=== PATIENT | male | born 1935 | race Caucasian/White ===

== ENCOUNTER 2017-12-16 00:13 | Observation (INO) | payer MEDICARE, OTHER ==
--- NOTE | 2017-12-16 00:39 | EDM.PDOC ---
ED HPI GENERAL MEDICAL PROBLEM - General Chief Complaint: Cardiovascular Problem Stated Complaint: HIGH BLOOD PRESSURE Time Seen by Provider: 12/16/17 00:37 - History of Present Illness INITIAL COMMENTS - FREE TEXT/NARRATIVE: HISTORY AND PHYSICAL: History of present illness: Patient is an 82-year-old white male is currently undergoing radiation therapy for his prostate cancer also has history of hypertension and presents with a concern of elevated blood pressure and heart rate he states he checked his blood pressure home it was 167/90 with a heart rate of 89 these were alarming numbers to him he states he did feel somewhat warm and denies chest pain shortness of breath nausea vomiting or other complaints and states that his blood pressure heart rate warrants measured with the results reported he would not come to the emergency department. Review of systems: As per history of present illness and below otherwise all systems reviewed and negative. Past medical history: As per history of present illness and as reviewed below otherwise noncontributory. Surgical history: As per history of present illness and as reviewed below otherwise noncontributory. Social history: No reported history of drug or alcohol abuse. Family history: As per history of present illness and as reviewed below otherwise noncontributory. Physical exam: HEENT: Atraumatic, normocephalic, pupils reactive, negative for conjunctival pallor or scleral icterus, mucous membranes moist, throat clear, neck supple, nontender, trachea midline. Lungs: Clear to auscultation, breath sounds equal bilaterally, chest nontender. Heart: S1S2, regular, negative for clicks, rubs, or JVD. Abdomen: Soft, nondistended, nontender. Negative for masses or hepatosplenomegaly. Negative for costovertebral tenderness. Pelvis: Stable nontender. Genitourinary: Deferred. Rectal: Deferred. Extremities: Atraumatic, negative for cords or calf pain. Neurovascular unremarkable. 2+ edema noted Neuro: Awake, alert, anxious, oriented. Cranial nerves II through XII unremarkable. Cerebellum unremarkable. Motor and sensory unremarkable throughout. Exam nonfocal. 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 no pain Pain Score (Numeric/FACES): 0 - Related Data Allergies Allergy/AdvReac Type Severity Reaction Status Date / Time amiodarone Allergy Renal Verified 12/16/17 00:19 Insufficiency simvastatin Allergy Other Verified 12/16/17 00:19 Home Meds: Home Meds Aspirin 81 mg PO DAILY 03/05/15 [History] Doxazosin [Cardura] 2 mg PO BEDTIME 03/05/15 [History] Metoprolol Tartrate [Lopressor] 50 mg PO BID 03/05/15 [History] NIFEdipine [Nifedipine ER] 15 mg PO BRK 03/05/15 [History] Cholecalciferol (Vitamin D3) [Vitamin D] 1 cap PO DAILY 09/15/17 [History] Gabapentin [Neurontin] 100 mg PO DAILY 09/15/17 [History] Ibuprofen 200 mg PO BID 12/16/17 [History] Minocycline [Minocin] 100 mg PO DAILY 12/16/17 [History] Tamsulosin [Flomax] 1 cap PO DAILY 12/16/17 [History] Past Medical History HEENT History: Reports: None Cardiovascular History: Reports: High Cholesterol, Hypertension, [place] Respiratory History: Reports: None Gastrointestinal History: Reports: Hiatal Hernia Other Gastrointestinal History: Current left inguinal hernia Genitourinary History: Reports: Prostate Disorder Other Genitourinary History: Watch my prostate annually Musculoskeletal History: Reports: Other (See Below) Other Musculoskeletal History: hx: fracturing leg Neurological History: Reports: None Psychiatric History: Reports: None Endocrine/Metabolic History: Reports: None Hematologic History: Reports: None Immunologic History: Reports: None Oncologic (Cancer) History: Reports: Prostate Dermatologic History: Reports: Other (See Below) Other Dermatologic History: SKin areas froze off face - Infectious Disease History Infectious Disease History: Reports: None - Past Surgical History Cardiovascular Surgical History: Reports: Valve Replacement Other Cardiovascular Surgeries/Procedures: Aortic and Mitral Valve replaced GI Surgical History: Reports: Hernia, Inguinal Other Musculoskeletal Surgeries/Procedures:: Right Total Hip Replacement Social & Family History - Family History Family Medical History: Noncontributory - Tobacco Use Smoking Status *Q: Former Smoker Used Tobacco, but Quit: No Second Hand Smoke Exposure: No - Caffeine Use Caffeine Use: Reports: Coffee - Alcohol Use Days Per Week of Alcohol Use: 5 Number of Drinks Per Day: 1 Total Drinks Per Week: 5 - Recreational Drug Use Recreational Drug Use: No Drug Use in Last 12 Months: No - Living Situation & Occupation Living situation: Reports: Occupation: Retired ED ROS GENERAL - Review of Systems Review Of Systems: ROS reveals no pertinent complaints other than HPI. ED EXAM, GENERAL - Physical Exam Exam: See Below (See dictation) Course - Vital Signs Last Recorded V/S: Last Vital Signs Temp 36.6 C 12/16/17 00:19 Pulse 78 12/16/17 01:15 Resp 20 12/16/17 01:15 BP 144/80 H 12/16/17 01:15 Pulse Ox 95 12/16/17 01:15 - Orders/Labs/Meds Orders: Active Orders 24 hr Category Date Time Status EKG 12 Lead [EKG Documentation Completion] [RC] STAT Care 12/16/17 00:24 Active Chest 1V Frontal [CR] Stat Exams 12/16/17 00:34 Taken UA W/MICROSCOPIC [URIN] Stat Lab 12/16/17 01:00 Ordered Labs: Laboratory Tests 12/16/17 12/16/17 12/16/17 Range/Units 00:45 00:45 00:45 WBC 5.50 (4.0-11.0) K/uL RBC 3.53 L (4.50-5.90) M/uL Hgb 10.9 L (13.0-17.0) g/dL Hct 32.3 L (38.0-50.0) % MCV 91.5 (80.0-98.0) fL MCH 30.9 (27.0-32.0) pg MCHC 33.7 (31.0-37.0) g/dL RDW Std Deviation 45.3 (28.0-62.0) fl RDW Coeff of [place] 14 (11.0-15.0) % Plt Count 159 (150-400) K/uL MPV 9.80 (7.40-12.00) fL Neut % (Auto) 76.2 (48.0-80.0) % Lymph % (Auto) 5.6 L (16.0-40.0) % [place] % (Auto) 9.8 (0.0-15.0) % Eos % (Auto) 8.2 H (0.0-7.0) % Baso % (Auto) 0.2 (0.0-1.5) % Neut # (Auto) 4.2 (1.4-5.7) K/uL Lymph # (Auto) 0.3 L (0.6-2.4) K/uL [place] # (Auto) 0.5 (0.0-0.8) K/uL Eos # (Auto) 0.5 (0.0-0.7) K/uL Baso # (Auto) 0.0 (0.0-0.1) K/uL INR 1.05 Sodium 129 L (136-148) mmol/L Potassium 3.6 (3.5-5.1) mmol/L Chloride 96 L (98-107) mmol/L Carbon Dioxide 26.1 (21.0-32.0) mmol/L BUN 11 (7.0-18.0) mg/dL Creatinine 0.8 (0.8-1.3) mg/dL Est Cr Clr Drug Dosing 64.26 mL/min Estimated GFR (MDRD) > 60.0 ml/min Glucose 144 H (74-106) mg/dL Calcium 8.4 L (8.5-10.1) mg/dL Total Bilirubin 0.3 (0.2-1.0) mg/dL AST 25 (15-37) IU/L ALT 18 (14-63) IU/L Alkaline Phosphatase 85 (46-116) U/L Troponin I 0.115 H* (0.000-0.056) ng/mL Total Protein 6.9 (6.4-8.2) g/dL Albumin 3.4 (3.4-5.0) g/dL Globulin 3.5 (2.0-3.5) g/dL Albumin/Globulin Ratio 1.0 L (1.3-2.8) Urine Color Urine Appearance Urine pH (5.0-8.0) Ur Specific [place] (1.001-1.035) Urine Protein (NEGATIVE) mg/dL Urine Glucose (UA) (NEGATIVE) mg/dL Urine Ketones (NEGATIVE) mg/dL Urine Occult Blood (NEGATIVE) Urine Nitrite (NEGATIVE) Urine Bilirubin (NEGATIVE) Urine Urobilinogen (<2.0) EU/dL Ur Leukocyte Esterase (NEGATIVE) Urine RBC (0-2/HPF) Urine WBC (0-5/HPF) Ur Epithelial Cells (NONE-FEW) Urine Bacteria (NEGATIVE) Urine Mucus (NONE-MOD) 12/16/17 Range/Units 01:00 WBC (4.0-11.0) K/uL RBC (4.50-5.90) M/uL Hgb (13.0-17.0) g/dL Hct (38.0-50.0) % MCV (80.0-98.0) fL MCH (27.0-32.0) pg MCHC (31.0-37.0) g/dL RDW Std Deviation (28.0-62.0) fl RDW Coeff of [place] (11.0-15.0) % Plt Count (150-400) K/uL MPV (7.40-12.00) fL Neut % (Auto) (48.0-80.0) % Lymph % (Auto) (16.0-40.0) % [place] % (Auto) (0.0-15.0) % Eos % (Auto) (0.0-7.0) % Baso % (Auto) (0.0-1.5) % Neut # (Auto) (1.4-5.7) K/uL Lymph # (Auto) (0.6-2.4) K/uL [place] # (Auto) (0.0-0.8) K/uL Eos # (Auto) (0.0-0.7) K/uL Baso # (Auto) (0.0-0.1) K/uL INR Sodium (136-148) mmol/L Potassium (3.5-5.1) mmol/L Chloride (98-107) mmol/L Carbon Dioxide (21.0-32.0) mmol/L BUN (7.0-18.0) mg/dL Creatinine (0.8-1.3) mg/dL Est Cr Clr Drug Dosing mL/min Estimated GFR (MDRD) ml/min Glucose (74-106) mg/dL Calcium (8.5-10.1) mg/dL Total Bilirubin (0.2-1.0) mg/dL AST (15-37) IU/L ALT (14-63) IU/L Alkaline Phosphatase (46-116) U/L Troponin I (0.000-0.056) ng/mL Total Protein (6.4-8.2) g/dL Albumin (3.4-5.0) g/dL Globulin (2.0-3.5) g/dL Albumin/Globulin Ratio (1.3-2.8) Urine Color YELLOW Urine Appearance CLEAR Urine pH 6.5 (5.0-8.0) Ur Specific [place] 1.010 (1.001-1.035) Urine Protein NEGATIVE (NEGATIVE) mg/dL Urine Glucose (UA) NEGATIVE (NEGATIVE) mg/dL Urine Ketones NEGATIVE (NEGATIVE) mg/dL Urine Occult Blood NEGATIVE (NEGATIVE) Urine Nitrite NEGATIVE (NEGATIVE) Urine Bilirubin NEGATIVE (NEGATIVE) Urine Urobilinogen 0.2 (<2.0) EU/dL Ur Leukocyte Esterase NEGATIVE (NEGATIVE) Urine RBC 0-1 (0-2/HPF) Urine WBC 0-1 (0-5/HPF) Ur Epithelial Cells NOT SEEN (NONE-FEW) Urine Bacteria RARE (NEGATIVE) Urine Mucus LIGHT (NONE-MOD) Departure - Departure Time of Disposition: 01:43 Disposition: Refer to Observation Condition: Good Clinical Impression: History of hypertension, Elevated troponin, History of prostate cancer Referrals: PCP,None [Primary Care Provider] - Forms: ED Department Discharge Additional Instructions: t - My Orders Last 24 Hours: My Active Orders 12/16/17 00:24 EKG 12 Lead [EKG Documentation Completion] [RC] STAT 12/16/17 00:34 Chest 1V Frontal [CR] Stat 12/16/17 01:00 UA W/MICROSCOPIC [URIN] Stat - Assessment/Plan Last 24 Hours: My Active Orders 12/16/17 00:24 EKG 12 Lead [EKG Documentation Completion] [RC] STAT 12/16/17 00:34 Chest 1V Frontal [CR] Stat 12/16/17 01:00 UA W/MICROSCOPIC [URIN] Stat
[2017-12-16 01:18] LABS: CHLORIDE,CL 96 mmol/L (98-107); SODIUM,NA 129 mmol/L (136-148)
[2017-12-16] MEDS ORDERED: Metoprolol Tartrate 5 MG/5 ML SDV IVPUSH STA (03:00)
[2017-12-16] MEDS ORDERED: Aspirin 325 MG Tab PO ONE (03:01)
[2017-12-16] MEDS ORDERED: Enoxaparin 40 MG/0.4 ML Syringe SUBCUT STA (03:01)
[2017-12-16] MEDS ORDERED: hydrALAZINE 20 MG/ML SDV IVPUSH PRN (03:01)
[2017-12-16] MEDS ORDERED: Enoxaparin 100 MG/1 ML Syringe SUBCUT ONE (07:34)
--- NOTE | 2017-12-16 08:09 | PCM.HP ---
H&P History of Present Illness - General Date of Service: 12/16/17 Admit Problem/Dx: Admission Diagnosis/Problem Admission Diagnosis/Problem Elevated troponin I level Source of Information: Patient History Limitations: Reports: No Limitations - History of Present Illness Initial Comments - Free Text/Narative: This 82 year old male with pmh of CAD, HTN, CABG many years ago and aortic and mitral valve replacement, and prostate cancer currently receiving radition 29 days of 44 so far presented to the ED last evening with complaints of elevated BP when he took it last evening, 160-170/70-80s last evening, normally he runs 140-150 SBP. He became nervous and flushed and decided he should be evaluated. He denies any chest pain, jaw pain, back pain, N/V, diaphoresis, or palpitations. He reports otherwise feeling normal recently and has had no complaints. He denies dypsnea or significant dyspnea with ambulation. He denies abdominal pain, urinary symptoms or black or bloody BMs. Has had some intermittent diarrhea with radiation treatments to prostate. He reports smoking for three years when he was in the , quit in 1953. Rare alcohol use and no recreational drug use. No history of a fib or other arrhythmias. In the ED hgb 10.9, Na 129, Cl 96 and UA negative. EKG SR no acute ischemic changes. CXR negative. Troponin was noted to be elevated 0.115. He was admitted due to elevated troponin and blood pressure. PCP, [place] [facility] no pain Pain Score (Numeric/FACES): 0 - Related Data Allergies/Adverse Reactions: Allergies Allergy/AdvReac Type Severity Reaction Status Date / Time amiodarone Allergy Renal Verified 12/16/17 00:19 Insufficiency simvastatin Allergy Other Verified 12/16/17 00:19 Home Medications: Home Meds Aspirin 81 mg PO DAILY 03/05/15 [History] Doxazosin [Cardura] 2 mg PO BEDTIME 03/05/15 [History] Metoprolol Tartrate [Lopressor] 50 mg PO BID 03/05/15 [History] NIFEdipine [Nifedipine ER] 15 mg PO BRK 03/05/15 [History] Cholecalciferol (Vitamin D3) [Vitamin D] 1 cap PO DAILY 09/15/17 [History] Gabapentin [Neurontin] 100 mg PO DAILY 09/15/17 [History] Ibuprofen 200 mg PO BID 12/16/17 [History] Minocycline [Minocin] 100 mg PO DAILY 12/16/17 [History] Tamsulosin [Flomax] 0.4 mg PO DAILY 12/16/17 [History] Past Medical History HEENT History: Reports: None Cardiovascular History: Reports: CAD, Heart Valve Replacement, High Cholesterol , Hypertension, [place]. Denies: Afib, Blood Clots/VTE/DVT Respiratory History: Reports: None. Denies: Asthma, COPD, PE Gastrointestinal History: Reports: Hiatal Hernia Genitourinary History: Reports: Prostate Disorder, Other (See Below) Other Genitourinary History: Prostate CA, left inguinal hernia Musculoskeletal History: Reports: Other (See Below) Other Musculoskeletal History: hx: fracturing leg Neurological History: Reports: None. Denies: CVA, TIA Psychiatric History: Reports: None Endocrine/Metabolic History: Reports: None. Denies: Diabetes, Type II, Hypothyroidism Hematologic History: Reports: None Immunologic History: Reports: None Oncologic (Cancer) History: Reports: Prostate Dermatologic History: Reports: Other (See Below) Other Dermatologic History: SKin areas froze off face - Infectious Disease History Infectious Disease History: Reports: Measles - Past Surgical History HEENT Surgical History: Reports: Tonsillectomy Cardiovascular Surgical History: Reports: Coronary Artery Bypass, Valve Replacement Other Cardiovascular Surgeries/Procedures: Aortic and Mitral Valve replaced Respiratory Surgical History: Reports: None GI Surgical History: Reports: Hernia, Inguinal Male Surgical History: Reports: None Endocrine Surgical History: Reports: None Other Musculoskeletal Surgeries/Procedures:: Right Total Hip Replacement Social & Family History - Family History Family Medical History: Noncontributory - Tobacco Use Smoking Status *Q: Former Smoker Years of Tobacco use: 3 Used Tobacco, but Quit: Yes Month/Year Tobacco Last Used: 1953 Second Hand Smoke Exposure: No - Caffeine Use Caffeine Use: Reports: Coffee - Alcohol Use Days Per Week of Alcohol Use: 3 Number of Drinks Per Day: 1 Total Drinks Per Week: 3 Alcohol Use Frequency: Socially - Recreational Drug Use Recreational Drug Use: No Drug Use in Last 12 Months: No - Living Situation & Occupation Living situation: Reports: Occupation: Retired () H&P Review of Systems - Review of Systems: Review Of Systems: See Below General: Reports: No Symptoms. Denies: Fever, Chills, Malaise, Weakness, Fatigue HEENT: Reports: No Symptoms. Denies: Headaches, Hearing Changes, Sinus Congestion, Sore Throat, Vertigo Pulmonary: Reports: No Symptoms. Denies: Shortness of Breath, Wheezing, Cough, Sputum Cardiovascular: Reports: Blood Pressure Problem (elevated). Denies: Chest Pain , Palpitations, Edema, Lightheadedness Gastrointestinal: Reports: No Symptoms. Denies: Abdominal Pain, Black Stool, Bloody Stool, Nausea, Vomiting Genitourinary: Reports: No Symptoms. Denies: Dysuria, Frequency, Burning, Pain Musculoskeletal: Reports: No Symptoms. Denies: Neck Pain Skin: Reports: No Symptoms Psychiatric: Reports: No Symptoms Neurological: Reports: No Symptoms. Denies: Confusion Hematologic/Lymphatic: Reports: No Symptoms Immunologic: Reports: No Symptoms Exam - Exam Exam: See Below - Vital Signs Vital Signs: Last Vital Signs Temp 97.6 F 12/16/17 04:00 Pulse 79 12/16/17 04:00 Resp 18 12/16/17 04:00 BP 132/88 12/16/17 04:00 Pulse Ox 96 12/16/17 04:00 Weight: 76.4 kg - Exam Quality Assessment: DVT Prophylaxis General: Alert, Oriented, Cooperative HEENT: Conjunctiva Clear, Mucosa Moist & [place], Posterior Pharynx Clear, Pupils Reactive, TMs Clear Neck: Supple, Trachea Midline, 2 Lungs: Clear to Auscultation, Normal Respiratory Effort Cardiovascular: Regular Rate, Regular Rhythm GI/Abdominal Exam: Normal Bowel Sounds, Soft, Non-Tender, No Organomegaly, No Distention, No Abnormal Bruit, No Mass, Pelvis Stable Back Exam: Normal Inspection, Full Range of Motion, NT Extremities: Normal Inspection, Normal Range of Motion, Non-Tender, No Pedal Edema, Normal Capillary Refill Neurological: Cranial Nerves Intact, Reflexes Equal Bilateral Neuro Extensive - Mental Status: Alert, Oriented x3, Normal Mood/Affect, Normal Cognition Psychiatric: Alert, Normal Affect, Normal Mood - Patient Data Lab Results Last 24 hrs: Laboratory Results - last 24 hr 12/16/17 12/16/17 12/16/17 Range/Units 00:45 00:45 00:45 WBC 5.50 (4.0-11.0) K/uL RBC 3.53 L (4.50-5.90) M/uL Hgb 10.9 L (13.0-17.0) g/dL Hct 32.3 L (38.0-50.0) % MCV 91.5 (80.0-98.0) fL MCH 30.9 (27.0-32.0) pg MCHC 33.7 (31.0-37.0) g/dL RDW Std Deviation 45.3 (28.0-62.0) fl RDW Coeff of [place] 14 (11.0-15.0) % Plt Count 159 (150-400) K/uL MPV 9.80 (7.40-12.00) fL Neut % (Auto) 76.2 (48.0-80.0) % Lymph % (Auto) 5.6 L (16.0-40.0) % [place] % (Auto) 9.8 (0.0-15.0) % Eos % (Auto) 8.2 H (0.0-7.0) % Baso % (Auto) 0.2 (0.0-1.5) % Neut # (Auto) 4.2 (1.4-5.7) K/uL Lymph # (Auto) 0.3 L (0.6-2.4) K/uL [place] # (Auto) 0.5 (0.0-0.8) K/uL Eos # (Auto) 0.5 (0.0-0.7) K/uL Baso # (Auto) 0.0 (0.0-0.1) K/uL INR 1.05 Sodium 129 L (136-148) mmol/L Potassium 3.6 (3.5-5.1) mmol/L Chloride 96 L (98-107) mmol/L Carbon Dioxide 26.1 (21.0-32.0) mmol/L BUN 11 (7.0-18.0) mg/dL Creatinine 0.8 (0.8-1.3) mg/dL Est Cr Clr Drug Dosing 64.26 mL/min Estimated GFR (MDRD) > 60.0 ml/min Glucose 144 H (74-106) mg/dL Calcium 8.4 L (8.5-10.1) mg/dL Magnesium (1.5-2.0) mg/dL Total Bilirubin 0.3 (0.2-1.0) mg/dL AST 25 (15-37) IU/L ALT 18 (14-63) IU/L Alkaline Phosphatase 85 (46-116) U/L Troponin I 0.115 H* (0.000-0.056) ng/mL Total Protein 6.9 (6.4-8.2) g/dL Albumin 3.4 (3.4-5.0) g/dL Globulin 3.5 (2.0-3.5) g/dL Albumin/Globulin Ratio 1.0 L (1.3-2.8) Urine Color Urine Appearance Urine pH (5.0-8.0) Ur Specific [place] (1.001-1.035) Urine Protein (NEGATIVE) mg/dL Urine Glucose (UA) (NEGATIVE) mg/dL Urine Ketones (NEGATIVE) mg/dL Urine Occult Blood (NEGATIVE) Urine Nitrite (NEGATIVE) Urine Bilirubin (NEGATIVE) Urine Urobilinogen (<2.0) EU/dL Ur Leukocyte Esterase (NEGATIVE) Urine RBC (0-2/HPF) Urine WBC (0-5/HPF) Ur Epithelial Cells (NONE-FEW) Urine Bacteria (NEGATIVE) Urine Mucus (NONE-MOD) 12/16/17 12/16/17 12/16/17 Range/Units 01:00 06:45 06:45 WBC (4.0-11.0) K/uL RBC (4.50-5.90) M/uL Hgb (13.0-17.0) g/dL Hct (38.0-50.0) % MCV (80.0-98.0) fL MCH (27.0-32.0) pg MCHC (31.0-37.0) g/dL RDW Std Deviation (28.0-62.0) fl RDW Coeff of [place] (11.0-15.0) % Plt Count (150-400) K/uL MPV (7.40-12.00) fL Neut % (Auto) (48.0-80.0) % Lymph % (Auto) (16.0-40.0) % [place] % (Auto) (0.0-15.0) % Eos % (Auto) (0.0-7.0) % Baso % (Auto) (0.0-1.5) % Neut # (Auto) (1.4-5.7) K/uL Lymph # (Auto) (0.6-2.4) K/uL [place] # (Auto) (0.0-0.8) K/uL Eos # (Auto) (0.0-0.7) K/uL Baso # (Auto) (0.0-0.1) K/uL INR Sodium (136-148) mmol/L Potassium (3.5-5.1) mmol/L Chloride (98-107) mmol/L Carbon Dioxide (21.0-32.0) mmol/L BUN (7.0-18.0) mg/dL Creatinine (0.8-1.3) mg/dL Est Cr Clr Drug Dosing mL/min Estimated GFR (MDRD) ml/min Glucose (74-106) mg/dL Calcium (8.5-10.1) mg/dL Magnesium 1.7 (1.5-2.0) mg/dL Total Bilirubin (0.2-1.0) mg/dL AST (15-37) IU/L ALT (14-63) IU/L Alkaline Phosphatase (46-116) U/L Troponin I 0.143 H* (0.000-0.056) ng/mL Total Protein (6.4-8.2) g/dL Albumin (3.4-5.0) g/dL Globulin (2.0-3.5) g/dL Albumin/Globulin Ratio (1.3-2.8) Urine Color YELLOW Urine Appearance CLEAR Urine pH 6.5 (5.0-8.0) Ur Specific [place] 1.010 (1.001-1.035) Urine Protein NEGATIVE (NEGATIVE) mg/dL Urine Glucose (UA) NEGATIVE (NEGATIVE) mg/dL Urine Ketones NEGATIVE (NEGATIVE) mg/dL Urine Occult Blood NEGATIVE (NEGATIVE) Urine Nitrite NEGATIVE (NEGATIVE) Urine Bilirubin NEGATIVE (NEGATIVE) Urine Urobilinogen 0.2 (<2.0) EU/dL Ur Leukocyte Esterase NEGATIVE (NEGATIVE) Urine RBC 0-1 (0-2/HPF) Urine WBC 0-1 (0-5/HPF) Ur Epithelial Cells NOT SEEN (NONE-FEW) Urine Bacteria RARE (NEGATIVE) Urine Mucus LIGHT (NONE-MOD) Result Diagrams: 12/16/17 09:07 12/16/17 00:45 EKG INTERPRETATION EKG Date: 12/16/17 Rhythm: NSR Rate (Beats/Min): 86 QRS: Normal ST-T: Depressed (minimal) QT: Normal - Problem List (1) NSTEMI (non-ST elevated myocardial infarction) SNOMED Code(s): 589353043 ICD Code: I21.4 - NON-ST ELEVATION (NSTEMI) MYOCARDIAL INFARCTION Status: Acute Current Visit: Yes (2) Elevated troponin SNOMED Code(s): 305902797, 677647544, 994981483 ICD Code: R74.8 - ABNORMAL LEVELS OF OTHER SERUM ENZYMES Status: Acute Current Visit: Yes (3) History of hypertension SNOMED Code(s): 622758552 ICD Code: Z86.79 - PERSONAL HISTORY OF OTHER DISEASES OF THE CIRCULATORY SYSTEM Status: Acute Current Visit: Yes (4) History of prostate cancer SNOMED Code(s): 308972467 ICD Code: Z85.46 - PERSONAL HISTORY OF MALIGNANT NEOPLASM OF PROSTATE Status: Acute Current Visit: Yes (5) Hx of aortic valve replacement SNOMED Code(s): 3822780205076, 932448060, 4781989354323 ICD Code: Z95.2 - PRESENCE OF PROSTHETIC HEART VALVE Status: Chronic Current Visit: No (6) Hx of mitral valve replacement SNOMED Code(s): 9530284895119, 8573183695239 ICD Code: Z95.2 - PRESENCE OF PROSTHETIC HEART VALVE Status: Chronic Current Visit: No Problem List Initiated/Reviewed/Updated: Yes Orders Last 24hrs: Active Orders 24 hr Category Date Time Status Patient Status [ADT] Stat ADT 12/16/17 01:46 Active EKG 12 Lead [EKG Documentation Completion] [RC] STAT Care 12/16/17 00:24 Active Telemetry Monitoring [Cardiac Monitoring] [RC] . Care 12/16/17 01:57 Active DIRECTED 2 Gram Sodium Diet [DIET] Diet 12/16/17 Breakfast Active Chest 1V Frontal [CR] Stat Exams 12/16/17 00:34 Taken TROPONIN I [CHEM] Q6H Lab 12/16/17 12:45 Ordered UA W/MICROSCOPIC [URIN] Stat Lab 12/16/17 01:00 Ordered hydrALAZINE [Apresoline] Med 12/16/17 03:01 Active 10 mg IVPUSH Q4H PRN Medication Orders Hydralazine HCl (Apresoline) 10 mg IVPUSH Q4H PRN PRN Reason: Hypertension Assessment/Plan Comment:: This 82 year old male admitted with elevated troponin and blood pressure 1. Elevated troponin: Elevated again this morning, 0.[address] Matson ordered Lovenox 80 mg this morning. Patient asymptomatic currently, NO chest pain, no EKG changes. Will consult Dr Forbes to see this morning. Continue to monitor. 2. HTN: Elevated during the evening. Given Hydralazine. Will restart home medications and monitor. Metoprolol and Nifedipine. 3. CAD: Unable to take statins. Continue ASA for now. VTE prophylaxis: Lovenox. Discharge Plan: 924: Dr Forbes into see patient. Recommending transfer due to possible NSTEMI. Patient did have flushing last evening with the elevated BP. Currently patient remains stable, no chest pain, dyspnea or diaphoresis. Patient was given Lovenox 80 mg subcut this am when troponin returned elevated. He also received Plvix [address] Forbes recommendations. I spoke with patient and family who continue to want to be aggressive and prefer to be transferred to [place] where he has had cardiac care in the past. I spoke with Dr Crisostomo, cardiology at [facility] who has kindly accepted Jonathon for transfer. He reports as he sound stable, but if he were to become unstable in transfer he should be brought to the ED first, will inform EMS crew of this. Patient appears stable currently, and Dr Crisostomo ok with ambulance transfer currently. Jonathon will be transferred this morning. Dr Matson aware and patient and family continue to agree with plan.
[2017-12-16] MEDS ORDERED: Acetaminophen 325 MG Tab PO PRN (08:47)
[2017-12-16] MEDS ORDERED: Ondansetron 4 MG/2 ML SDV IVPUSH PRN (08:47)
[2017-12-16] MEDS ORDERED: Sodium Chloride 0.9% 2.5 ML Syringe FLUSH PRN (08:47)
[2017-12-16] MEDS ORDERED: MINOCYCLINE 100 MG PO SCH (09:00)
[2017-12-16] MEDS ORDERED: Metoprolol Tartrate 50 MG Tab PO SCH (09:00)
[2017-12-16] MEDS ORDERED: Tamsulosin 0.4 MG Cap.ER PO SCH (09:00)
[2017-12-16] MEDS ORDERED: Aspirin 81 MG Tab.Chew PO SCH (09:00)
[2017-12-16] MEDS ORDERED: Gabapentin 100 MG Cap PO SCH (09:00)
[2017-12-16 09:16] VITALS: BP 152/81
[2017-12-16] MEDS ORDERED: Clopidogrel 75 MG Tab PO ONE (09:21)
--- NOTE | 2017-12-16 11:21 | CR ---
EXAM DATE: 12/16/17 PATIENT'S AGE: 82 Patient: VANDANA SHERIDAN Facility: [place], [place] Site . Site : [id number] Study: XRay Chest [id number] 12:50:46 AM Ordering Physician: Doctor Guadalupe Final Report: INDICATION: Hypertension TECHNIQUE: Chest 1 view. COMPARISON: 09/15/CT FINDINGS: Cardiovascular and mediastinum: Stable mild cardiomegaly. Sternotomy wires and prosthetic heart valves noted. Mediastinum is within normal limits. Lungs and pleural space: Lungs are clear. No sign of infiltrate or mass. No sign of pleural effusion. No pneumothorax. Bones and soft tissues: No significant findings. IMPRESSION: Stable cardiomegaly. Dictated by Roque Chao MD @ 12/16/2017 12:53:44 AM Dictated by: Roque Chao MD @ 12/16/2017 00:53:52 (Electronic Signature) Report Signed by Proxy. DENNY
[2017-12-16 11:35] LABS: CHLORIDE,CL 100 mmol/L (98-107); SODIUM,NA 136 mmol/L (136-148)
[2017-12-17] MEDS ORDERED: NIFEdipine 30 MG Tab.ER PO SCH (08:00)
--- NOTE | 2017-12-17 10:30 | CONS ---
DATE OF CONSULTATION: 12/16/2017 DATE OF : 1935 PRIMARY CARE PHYSICIAN: None PCP REASON FOR CONSULTATION: Elevation of troponin. HISTORY OF PRESENT ILLNESS: This is an 82-year-old male, who had a history of CAD, possible CABG in the past, hypertension, and aortic valve and mitral valve replacements several years ago. We do not have the operative report. He also reported to have a cardiac stent in the past and also recently diagnosed with prostate cancer and seemed to be stage I or II, receiving only radiation therapy, no chemotherapy. He found himself that the blood pressure was elevated in the evening, last night, when he was resting and not doing anything strenuous, and he found that his blood pressure was up to 169 to 171/80 with a heart rate of 87 to 104. Normally his blood pressure runs between 140 to 150. 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 He feels like his underarms become hotter and get wet, but he also denies any nausea, vomiting, palpitation, or jaw pain, back pain, or chest pain or even shortness of breath. He also denied a fever. He has not seen a recordist chief for a long period of time. He reported that he saw cardiologists, Dr. Hu and Dr. Ferreira, like a year ago, and he was told everything seemed to be okay. He has not have any stress test done since the heart surgery. In the emergency room, he was found to have elevated troponin to 0.115. However, on his EKG, there are no ST changes or Q- waves compared to the EKG for one prior, and then he got admitted to the hospital. PAST MEDICAL HISTORY: Including history of aortic valve and mitral valve replacements, history of possible CABG, CAD, history of heart stent, hypertension, prostate cancer, history of high cholesterol. MEDICATIONS: Home medication including metoprolol 50 mg twice a day, aspirin 81 mg once a day, nifedipine 15 mg once a day, and also Flomax 0.4 mg once a day. ALLERGIES: He is allergic to amiodarone and simvastatin. SOCIAL HISTORY: He was a former smoker. He drinks coffee. He drinks alcohol socially. No drug use. FAMILY HISTORY: Noncontributory. REVIEW OF SYSTEMS: Except as indicated in HPI, otherwise has been negative. PHYSICAL EXAMINATION: VITAL SIGNS: Blood pressure initially 159/96, fluctuated down to a 134/87, and then rising to 170/110, heart rate of 70 to 80, temperature 36.8, and O2 saturation 98% on room air. HEENT: No pallor. No jaundice. No JVD. HEART: Normal S1, S2. No murmur. Regular rhythm. LUNGS: No crackles. No wheezing. Clear bilaterally. ABDOMEN: Soft and nontender. Bowel sounds are present, no hepatosplenomegaly. EXTREMITIES: Legs, no edema. INVESTIGATIONS: CBC showed WBC 5,000, hematocrit of 37, hemoglobin is 12.8, platelet 176,000. INR is 1.05. Sodium 136, potassium 3.7, chloride 100, bicarb 23, BUN 11, and creatinine 0.8. Troponin, the first is 0.115 and the second is 0.143. EKG shows sinus rhythm. I did not see ST changes compared to the EKG in August of 2017. ASSESSMENT AND PLAN: This is an 82-year-old male, who has a history of CAD; history of heart stents, possible CABG; history of aortic valve replacement; mitral valve replacement; hypertension; hyperlipidemia, presented to hospital with elevated blood pressure, elevated troponin T, and possible symptoms of sweating and diaphoresis. I would treat him as a non-STEMI. He already was given Lovenox 80 mg around midnight, so I would load him with Plavix 600, and then he should be transferred tertiary care center for possible angiography. ALBARO / DAVID /[id number]
== END 2017-12-16 10:30 ==
LOC: MW.ED 00:13 → MW.MS 01:46
PROVIDERS: ADMIT Internal Medicine; ATTEND Internal Medicine
DX: I21.4 Non-ST elevation (NSTEMI) myocardial infarction (principal); R74.8 Abnormal levels of other serum enzymes; I25.10 Atherosclerotic heart disease of native coronary artery without angina pectoris; I10 Essential (primary) hypertension; E78.5 Hyperlipidemia, unspecified; Z85.46 Personal history of malignant neoplasm of prostate; Z95.2 Presence of prosthetic heart valve; Z88.8 Allergy status to other drugs, medicaments and biological substances; Z79.82 Long term (current) use of aspirin; Z87.891 Personal history of nicotine dependence
CPT/HCPCS: 36415; 71045; 80048; 80053; 81001; 83735; 84484; 85025; 85610; 93005; 99284; A9270; J0360; J1650

== ENCOUNTER 2017-12-19 07:02 | Emergency (ER) | payer MEDICARE, OTHER ==
[2017-12-19] MEDS ORDERED: Sodium Chloride 0.9% 2.5 ML Syringe FLUSH PRN (07:10)
[2017-12-19] MEDS ORDERED: Sodium Chloride 0.9% 10 ML Syringe FLUSH PRN (07:10)
--- NOTE | 2017-12-19 08:04 | EDM.PDOC ---
ED HPI GENERAL MEDICAL PROBLEM - General Chief Complaint: Neuro Symptoms/Deficits Stated Complaint: STROKE Time Seen by Provider: 12/19/17 08:00 - History of Present Illness INITIAL COMMENTS - FREE TEXT/NARRATIVE: HISTORY AND PHYSICAL: History of present illness: Patient is an 82-year-old white male with an extensive past medical history including aortic and mitral valve replacement and coronary artery disease who presents with a concern of having awoke with left upper extremity weakness and paresthesia to his left face and arm. He denies chest pain shortness of breath nausea vomiting palpitations or other concern Review of systems: As per history of present illness and below otherwise all systems reviewed and negative. Past medical history: As per history of present illness and as reviewed below otherwise noncontributory. Surgical history: As per history of present illness and as reviewed below otherwise noncontributory. Social history: No reported history of drug or alcohol abuse. Family history: As per history of present illness and as reviewed below otherwise noncontributory. Physical exam: HEENT: Atraumatic, normocephalic, pupils reactive, negative for conjunctival pallor or scleral icterus, mucous membranes moist, throat clear, neck supple, nontender, trachea midline. Lungs: Clear to auscultation, breath sounds equal bilaterally, chest nontender. Heart: S1S2, regular, negative for clicks, rubs, or JVD. Abdomen: Soft, nondistended, nontender. Negative for masses or hepatosplenomegaly. Negative for costovertebral tenderness. Pelvis: Stable nontender. Genitourinary: Deferred. Rectal: Deferred. Extremities: Atraumatic, negative for cords or calf pain. Neurovascular unremarkable. Neuro: Awake, alert, oriented. Patient does have a slight left facial droop and form of flattening of his left nasolabial fold left upper extremity is 4 out of 5 strength in the does have pronator drift noted stroke scale per nursing was 3 he has had no significant interval change while in the emergency department. Diagnostics: CBC CMP troponin PT/INR chest x-ray EKG CT brain Therapeutics: IV O2 monitor Impression: #1 CVA Definitive disposition and diagnosis as appropriate pending reevaluation and review of above. - Related Data Allergies Allergy/AdvReac Type Severity Reaction Status Date / Time amiodarone Allergy Renal Verified 12/19/17 07:17 Insufficiency simvastatin Allergy Other Verified 12/19/17 07:17 Home Meds: Home Meds Aspirin 81 mg PO DAILY 03/05/15 [History] Doxazosin [Cardura] 2 mg PO BEDTIME 03/05/15 [History] Metoprolol Tartrate [Lopressor] 50 mg PO BID 03/05/15 [History] NIFEdipine [Nifedipine ER] 15 mg PO BRK 03/05/15 [History] Cholecalciferol (Vitamin D3) [Vitamin D] 1 cap PO DAILY 09/15/17 [History] Gabapentin [Neurontin] 100 mg PO DAILY 09/15/17 [History] Minocycline [Minocin] 100 mg PO DAILY 12/16/17 [History] Tamsulosin [Flomax] 0.4 mg PO DAILY 12/16/17 [History] Past Medical History HEENT History: Reports: None Cardiovascular History: Reports: CAD, Heart Valve Replacement, High Cholesterol , Hypertension, [place] Respiratory History: Reports: None Gastrointestinal History: Reports: Hiatal Hernia Other Gastrointestinal History: Current left inguinal hernia Genitourinary History: Reports: Prostate Disorder, Other (See Below) Other Genitourinary History: Prostate CA, left inguinal hernia Musculoskeletal History: Reports: Other (See Below) Other Musculoskeletal History: hx: fracturing leg Neurological History: Reports: None Psychiatric History: Reports: None Endocrine/Metabolic History: Reports: None Hematologic History: Reports: None Immunologic History: Reports: None Oncologic (Cancer) History: Reports: Prostate Dermatologic History: Reports: Other (See Below) Other Dermatologic History: SKin areas froze off face - Infectious Disease History Infectious Disease History: Reports: Other (See Below) Other Infectious Disease History: hepatitis back in the 60's - Past Surgical History HEENT Surgical History: Reports: Tonsillectomy Cardiovascular Surgical History: Reports: Coronary Artery Bypass, Valve Replacement Other Cardiovascular Surgeries/Procedures: Aortic and Mitral Valve replaced Respiratory Surgical History: Reports: None GI Surgical History: Reports: Hernia, Inguinal Male Surgical History: Reports: None Endocrine Surgical History: Reports: None Other Musculoskeletal Surgeries/Procedures:: Right Total Hip Replacement Social & Family History - Family History Family Medical History: Noncontributory - Tobacco Use Smoking Status *Q: Never Smoker Years of Tobacco use: 3 Used Tobacco, but Quit: Yes Month/Year Tobacco Last Used: 1953 Second Hand Smoke Exposure: No - Caffeine Use Caffeine Use: Reports: Coffee, Tea - Alcohol Use Days Per Week of Alcohol Use: 4 Number of Drinks Per Day: 1 Total Drinks Per Week: 4 - Recreational Drug Use Recreational Drug Use: No Drug Use in Last 12 Months: No - Living Situation & Occupation Living situation: Reports: Occupation: Retired () ED ROS GENERAL - Review of Systems Review Of Systems: ROS reveals no pertinent complaints other than HPI. ED EXAM, GENERAL - Physical Exam Exam: See Below (See dictation) Course - Vital Signs Last Recorded V/S: Last Vital Signs Temp 36.4 C 12/19/17 07:12 Pulse 86 12/19/17 08:00 Resp 18 12/19/17 08:00 BP 139/83 12/19/17 08:00 Pulse Ox 95 12/19/17 08:00 - Orders/Labs/Meds Orders: Active Orders 24 hr Category Date Time Status Assess Neurological Status [RC] ASDIRECTED Care 12/19/17 07:11 Active Bedrest [RC] ASDIRECTED Care 12/19/17 07:11 Active Blood Glucose Check, Bedside [RC] STAT Care 12/19/17 07:11 Active Cardiac Monitoring [RC] . DIRECTED Care 12/19/17 07:11 Active EKG Documentation Completion [RC] STAT Care 12/19/17 07:11 Active Height and Weight [RC] UPON Care 12/19/17 07:11 Active Initiate Acute Stroke Protocol [RC] STAT Care 12/19/17 07:11 Active NIH Stroke Scale [RC] ASDIRECTED Care 12/19/17 07:11 Active Nursing Bedside Swallow Screen [RC] ASDIRECTED Care 12/19/17 07:11 Active Oxygen Therapy [RC] ASDIRECTED Care 12/19/17 07:11 Active Stroke Education, General [RC] Click to Edit Care 12/19/17 07:11 Active Vital Signs [RC] Q15M Care 12/19/17 07:11 Active Chest 1V Frontal [CR] Routine Exams 12/19/17 Taken Head wo Cont [CT] Stat Exams 12/19/17 07:11 Taken Peripheral IV Insertion Adult [OM.PC] Stat Oth 12/19/17 07:11 Ordered Peripheral IV Insertion Adult [OM.PC] Stat Oth 12/19/17 07:11 Ordered Labs: Laboratory Tests 12/19/17 12/19/17 12/19/17 Range/Units 07:30 07:30 07:30 WBC 4.66 (4.0-11.0) K/uL RBC 3.94 L (4.50-5.90) M/uL Hgb 12.1 L (13.0-17.0) g/dL Hct 35.4 L (38.0-50.0) % MCV 89.8 (80.0-98.0) fL MCH 30.7 (27.0-32.0) pg MCHC 34.2 (31.0-37.0) g/dL RDW Std Deviation 49.3 (28.0-62.0) fl RDW Coeff of [place] 15 (11.0-15.0) % Plt Count 158 (150-400) K/uL MPV 9.70 (7.40-12.00) fL Neut % (Auto) 67.4 (48.0-80.0) % Lymph % (Auto) 12.4 L (16.0-40.0) % [place] % (Auto) 9.9 (0.0-15.0) % Eos % (Auto) 10.1 H (0.0-7.0) % Baso % (Auto) 0.2 (0.0-1.5) % Neut # (Auto) 3.1 (1.4-5.7) K/uL Lymph # (Auto) 0.6 (0.6-2.4) K/uL [place] # (Auto) 0.5 (0.0-0.8) K/uL Eos # (Auto) 0.5 (0.0-0.7) K/uL Baso # (Auto) 0.0 (0.0-0.1) K/uL Nucleated RBC % 0.0 /100WBC Nucleated RBCs # 0 K/uL INR 1.05 APTT 28.0 (18.6-31.3) SEC Sodium 135 L (136-148) mmol/L Potassium 3.6 (3.5-5.1) mmol/L Chloride 101 (98-107) mmol/L Carbon Dioxide 26.2 (21.0-32.0) mmol/L BUN 12 (7.0-18.0) mg/dL Creatinine 0.7 L (0.8-1.3) mg/dL Est Cr Clr Drug Dosing 70.89 mL/min Estimated GFR (MDRD) > 60.0 ml/min Glucose 114 H (74-106) mg/dL Calcium 8.9 (8.5-10.1) mg/dL Total Bilirubin 0.5 (0.2-1.0) mg/dL AST 43 H (15-37) IU/L ALT 34 (14-63) IU/L Alkaline Phosphatase 81 (46-116) U/L Troponin I 0.356 H* (0.000-0.056) ng/mL Total Protein 7.2 (6.4-8.2) g/dL Albumin 3.6 (3.4-5.0) g/dL Globulin 3.6 H (2.0-3.5) g/dL Albumin/Globulin Ratio 1.0 L (1.3-2.8) TSH 3rd Generation 6.84 H (0.36-3.74) uIU/mL Meds: Medications Discontinued Medications Generic Name Dose Route Start Last Admin Trade Name Freq PRN Reason Stop Dose Admin Sodium Chloride 10 ml 12/19/17 07:10 Saline Flush FLUSH ASDIRECTED PRN Keep Vein Open Sodium Chloride 2.5 ml 12/19/17 07:10 Saline Flush FLUSH ASDIRECTED PRN Keep Vein Open Departure - Departure Time of Disposition: 16:18 Disposition: DC/Tfer to Acute Hospital 02 Condition: Undetermined Clinical Impression: CVA (cerebral vascular accident) - Discharge Information Referrals: PCP,None [Primary Care Provider] - Forms: ED Department Discharge - My Orders Last 24 Hours: My Active Orders 12/19/17 Chest 1V Frontal [CR] Routine 12/19/17 07:11 Assess Neurological Status [RC] ASDIRECTED Bedrest [RC] ASDIRECTED Blood Glucose Check, Bedside [RC] STAT Cardiac Monitoring [RC] . DIRECTED EKG Documentation Completion [RC] STAT Height and Weight [RC] UPON Initiate Acute Stroke Protocol [RC] STAT NIH Stroke Scale [RC] ASDIRECTED Nursing Bedside Swallow Screen [RC] ASDIRECTED Oxygen Therapy [RC] ASDIRECTED Stroke Education, General [RC] Click to Edit Vital Signs [RC] Q15M Head wo Cont [CT] Stat Peripheral IV Insertion Adult [OM.PC] Stat Peripheral IV Insertion Adult [OM.PC] Stat - Assessment/Plan Last 24 Hours: My Active Orders 12/19/17 Chest 1V Frontal [CR] Routine 12/19/17 07:11 Assess Neurological Status [RC] ASDIRECTED Bedrest [RC] ASDIRECTED Blood Glucose Check, Bedside [RC] STAT Cardiac Monitoring [RC] . DIRECTED EKG Documentation Completion [RC] STAT Height and Weight [RC] UPON Initiate Acute Stroke Protocol [RC] STAT NIH Stroke Scale [RC] ASDIRECTED Nursing Bedside Swallow Screen [RC] ASDIRECTED Oxygen Therapy [RC] ASDIRECTED Stroke Education, General [RC] Click to Edit Vital Signs [RC] Q15M Head wo Cont [CT] Stat Peripheral IV Insertion Adult [OM.PC] Stat Peripheral IV Insertion Adult [OM.PC] Stat
[2017-12-19 08:10] VITALS: BP 139/83
[2017-12-19 08:11] LABS: CHLORIDE,CL 101 mmol/L (98-107); SODIUM,NA 135 mmol/L (136-148)
--- NOTE | 2017-12-21 10:17 | CT ---
EXAM DATE: 12/19/17 PATIENT'S AGE: 82 Patient: VANDANA SHERIDAN Facility: [place], [place] Site . Site : 1935 Study: CT Head [id number]/21/2018 7:21:31 AM Ordering Physician: Doctor Guadalupe Final Report: Stroke code Technique noncontrast head CT scan Comparison head CT 09/15/2017. Findings : There is generalized parenchymal volume loss with periventricular hypo lucencies likely reflecting chronic small vessel ischemic change. No acute intracranial hemorrhage or mass. No midline shift. No abnormal extra-axial air or fluid collections. Visualized paranasal sinuses mastoid air cells skull and scalp appear unremarkable aside from minimal mucosal thickening of the ethmoid air cells. IMPRESSION: 1. No acute intracranial hemorrhage or mass. Please note that all CT scans at this facility use dose modulation, iterative reconstruction, and/or weight-based dosing when appropriate to reduce radiation dose to as low as reasonably achievable. Dictated by Vi Ibrahim MD @ Dec 19 2017 7:24AM (Electronic Signature) Report Signed by Proxy. [email or web address]
--- NOTE | 2017-12-21 10:19 | CR ---
EXAM DATE: 12/19/17 PATIENT'S AGE: 82 Patient: VANDANA SHERIDAN Facility: [place], [place] Site . Site : 1935 Study: XRay Chest [id number]/21/2018 7:33:11 AM Ordering Physician: Shawn Amador Final Report: Stroke code portable chest. COMPARISON: chest x-ray 09/15/2017. FINDINGS: Stable cardiac mediastinal silhouette. Median sternotomy. Cardiac valve prostheses Slight prominence of the pulmonary vasculature. No effusion. No pneumothorax. IMPRESSION: 1. Mild prominence of the pulmonary vascularity could reflect mild pulmonary edema. Dictated by Vi Ibrahim MD @ Dec 19 2017 7:39AM (Electronic Signature) Report Signed by Proxy. DENNY
== END 2017-12-19 09:06 ==
LOC: MW.ED 07:02
DX: I63.9 Cerebral infarction, unspecified (principal); I25.10 Atherosclerotic heart disease of native coronary artery without angina pectoris; I10 Essential (primary) hypertension; E78.00 Pure hypercholesterolemia, unspecified; Z87.891 Personal history of nicotine dependence; Z79.82 Long term (current) use of aspirin; Z88.8 Allergy status to other drugs, medicaments and biological substances
CPT/HCPCS: 70450; 70450-26; 71045; 71045-26; 80053; 84443; 84484; 85025; 85610; 85730; 93005; 99284; 99285-25

== ENCOUNTER 2019-03-07 02:45 | Emergency (ER) | payer MEDICARE, OTHER ==
[2019-03-07] MEDS ORDERED: Sodium Chloride 0.9% 2.5 ML Syringe FLUSH PRN (02:51)
[2019-03-07] MEDS ORDERED: Sodium Chloride 0.9% 10 ML Syringe FLUSH PRN (02:51)
--- NOTE | 2019-03-07 02:54 | EDM.PDOC ---
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 He says it doesn't occur during the daytime when he is doing activities and it is more in the evenings when he is at rest. He [facility] he has not used it until this morning and he took one about 45 minutes ago for the discomfort. He says that the only reason why he called his family member to come in this evening and not last night or the night before is because he could not get any sleep. The pain does not radiate and he told nursing on arrival it was a 3/10 but on my evaluation he says it is now 0. He has no shortness of breath cough or upper respiratory symptoms no abdominal pain vomiting or diarrhea and no leg pain or swelling. The patient and family at bedside say that he is not on any anticoagulation therapy and that his valve replacements are tissue valves and not prostatic. According to the patient he does not use the nitroglycerin on any regular basis and cannot recall the last time he used it. Patient has also had some recent outpatient testing with Dr. Blancas including an esophageal swallow and a videofluoroscopic swallow test for dysphasia and according to the family at bedside he was started on a new medication but she doesn't know the name of it. Review of systems: As per history of present illness and below otherwise all systems reviewed and negative. Past medical history: As per history of present illness and as reviewed below otherwise noncontributory. Surgical history: As per history of present illness and as reviewed below otherwise noncontributory. Social history: No reported history of drug or alcohol abuse. Family history: As per history of present illness and as reviewed below otherwise noncontributory. Physical exam: General: Well-developed well-nourished elderly man who is nontoxic and vital signs are noted by me HEENT: Atraumatic, normocephalic, pupils reactive, negative for conjunctival pallor or scleral icterus, mucous membranes moist, throat clear, neck supple, nontender, trachea midline. Lungs: Clear to auscultation, breath sounds equal bilaterally, chest nontender. No worker breathing wheezing or stridor Heart: S1S2, regular rate and rhythm no overt murmurs are appreciated and a well -healed midsternal scar is seen, negative for clicks, rubs, or JVD. Abdomen: Soft, nondistended, nontender. There is a soft umbilical hernia appreciated which is nontender Negative for masses or hepatosplenomegaly. Negative for costovertebral tenderness. Pelvis: Stable nontender. Genitourinary: Deferred. Rectal: Deferred. Extremities: Atraumatic, negative for cords or calf pain. Neurovascular unremarkable. No-pedal edema Neuro: Awake, alert, oriented. Cranial nerves II through XII unremarkable. Cerebellum unremarkable. Motor and sensory unremarkable throughout. Exam nonfocal. Diagnostics: EKG chest x-ray CBC CMP INR troponin Therapeutics: IV O2 monitor ASA 0330: Patient is still pain-free here in the emergency department and we are currently awaiting his chest x-ray results and I will discuss with patient and his family the blood work results. 0410: The patient remains pain-free and this case was discussed with our hospitalist Dr. Dorman. He would like me to approach with the family how aggressive they would like to be if his next troponin is rising i.e. with a want to do a heart catheter and possible further intervention. He is willing to admit them here for medical management and consultation with Dr. Roman if that is what they would like as well. 0415: I discussed with the family and patient at length all the testing results and the slightly positive troponin at 0.078. He remains pain-free and I have offered him observation admission here with consultation with Dr. Roman to trend his troponins and then make a decision if they are trending higher. 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 The decline and refuse transferred to [facility] as they've been there before and only want to go to [facility] in [place] if transfer is mandated. They're currently having a family discussion to see whether or not they would like observation here or immediate transfer to [place]. 0446: Case was discussed at length with [facility] in [place], Dr. Duarte who is the hospitalist. She would like us to draw another troponin as he is due for a 2 hour draw and this will help them with the trend of the cardiac enzyme if it is going up or down. I have told the family that they have the option to wait for that blood test value before transfer or they can just proceed with transfer as they choose and they are now discussing that. 0455: Patient is now saying that he wants to go to [place] regardless of his second troponin and we will give a dose of Lovenox for that trip as well as the Nitropaste. We will contact [facility] [place] with the second troponin results as they feel that will be helpful in the care plan that needs to be developed before he arrives. Nursing will contact one call with that result. I will notify Dr. Dorman of the patient's decision and ambulance has been organized and we are waiting for their arrival. 0525: Patient is still pain-free and we are currently awaiting for ambulance transfer. I will notify the receiving hospital when the second troponin result is available. Impression: Chest pain episodic with +troponin, r/o acute coronary syndrome Definitive disposition and diagnosis as appropriate pending reevaluation and review of above. chest Pain Score (Numeric/FACES): 3 - Related Data Allergies Allergy/AdvReac Type Severity Reaction Status Date / Time amiodarone Allergy Renal Verified 03/07/19 03:03 Insufficiency simvastatin Allergy Other Verified 03/07/19 03:03 Home Meds: Home Meds Aspirin 81 mg PO DAILY 03/05/15 [History] Doxazosin [Cardura] 2 mg PO BEDTIME 03/05/15 [History] Metoprolol Tartrate [Lopressor] 25 mg PO BID 03/05/15 [History] NIFEdipine [Nifedipine ER] 30 mg PO DAILY 03/05/15 [History] Cholecalciferol (Vitamin D3) [Vitamin D] 1 cap PO DAILY 09/15/17 [History] Tamsulosin [Flomax] 0.4 mg PO DAILY 12/16/17 [History] levETIRAcetam [Levetiracetam] 1 cap PO BID 03/07/19 [History] Past Medical History HEENT History: Reports: None Cardiovascular History: Reports: CAD, Heart Valve Replacement, High Cholesterol , Hypertension, [facility] Respiratory History: Reports: None Gastrointestinal History: Reports: Hiatal Hernia Other Gastrointestinal History: Current left inguinal hernia Genitourinary History: Reports: Prostate Disorder, Other (See Below) Other Genitourinary History: Prostate CA, left inguinal hernia Musculoskeletal History: Reports: Other (See Below) Other Musculoskeletal History: hx: fracturing leg Neurological History: Reports: None Psychiatric History: Reports: None Endocrine/Metabolic History: Reports: None Hematologic History: Reports: None Immunologic History: Reports: None Oncologic (Cancer) History: Reports: Prostate Dermatologic History: Reports: Other (See Below) Other Dermatologic History: SKin areas froze off face - Infectious Disease History Infectious Disease History: Reports: Other (See Below) Other Infectious Disease History: hepatitis back in the 60's - Past Surgical History HEENT Surgical History: Reports: Tonsillectomy Cardiovascular Surgical History: Reports: Coronary Artery Bypass, Valve Replacement Other Cardiovascular Surgeries/Procedures: Aortic and Mitral Valve replaced Respiratory Surgical History: Reports: None GI Surgical History: Reports: Hernia, Inguinal Male Surgical History: Reports: None Endocrine Surgical History: Reports: None Other Musculoskeletal Surgeries/Procedures:: Right Total Hip Replacement Social & Family History - Family History Family Medical History: Noncontributory - Caffeine Use Caffeine Use: Reports: Coffee, Tea - Living Situation & Occupation Living situation: Reports: Occupation: Retired () ED ROS GENERAL - Review of Systems Review Of Systems: ROS reveals no pertinent complaints other than HPI. ED EXAM, GENERAL - Physical Exam Exam: See Below (See dictation) Course - Vital Signs Last Recorded V/S: Last Vital Signs Temp 36.5 C 03/07/19 04:27 Pulse 85 03/07/19 04:55 Resp 20 03/07/19 04:55 BP 167/99 H 03/07/19 04:55 Pulse Ox 98 03/07/19 04:55 - Orders/Labs/Meds Orders: Active Orders 24 hr Category Date Time Status Cardiac Monitoring [RC] . DIRECTED Care 03/07/19 02:51 Active EKG Documentation Completion [RC] STAT Care 03/07/19 02:51 Active Oxygen Therapy, ED [RC] ASDIRECTED Care 03/07/19 02:51 Active Pulse Oximetry [RC] ASDIRECTED Care 03/07/19 02:51 Active TROPONIN I [CHEM] Stat Lab 03/07/19 04:57 Received Sodium Chloride 0.9% [Saline Flush] Med 03/07/19 02:51 Active 10 ml FLUSH ASDIRECTED PRN Sodium Chloride 0.9% [Saline Flush] Med 03/07/19 02:51 Active 2.5 ml FLUSH ASDIRECTED PRN Saline Lock Insert [OM.PC] Stat Oth 03/07/19 02:51 Ordered Medication Orders Sodium Chloride (Saline Flush) 10 ml FLUSH ASDIRECTED PRN PRN Reason: Keep Vein Open Sodium Chloride (Saline Flush) 2.5 ml FLUSH ASDIRECTED PRN PRN Reason: Keep Vein Open Labs: Laboratory Tests 03/07/19 03/07/19 03/07/19 Range/Units 02:56 02:56 02:56 WBC 6.86 (4.0-11.0) K/uL RBC 3.98 L (4.50-5.90) M/uL Hgb 12.2 L (13.0-17.0) g/dL Hct 35.9 L (38.0-50.0) % MCV 90.2 (80.0-98.0) fL MCH 30.7 (27.0-32.0) pg MCHC 34.0 (31.0-37.0) g/dL RDW Std Deviation 46.3 (28.0-62.0) fl RDW Coeff of Jasper 14 (11.0-15.0) % Plt Count 165 (150-400) K/uL MPV 10.20 (7.40-12.00) fL Neut % (Auto) 66.8 (48.0-80.0) % Lymph % (Auto) 18.4 (16.0-40.0) % Weber % (Auto) 9.5 (0.0-15.0) % Eos % (Auto) 5.2 (0.0-7.0) % Baso % (Auto) 0.1 (0.0-1.5) % Neut # (Auto) 4.6 (1.4-5.7) K/uL Lymph # (Auto) 1.3 (0.6-2.4) K/uL Weber # (Auto) 0.7 (0.0-0.8) K/uL Eos # (Auto) 0.4 (0.0-0.7) K/uL Baso # (Auto) 0.0 (0.0-0.1) K/uL Nucleated RBC % 0.0 /100WBC Nucleated RBCs # 0 K/uL INR 0.99 Sodium 135 L (136-148) mmol/L Potassium 4.3 (3.5-5.1) mmol/L Chloride 99 (98-107) mmol/L Carbon Dioxide 26.7 (21.0-32.0) mmol/L BUN 16 (7.0-18.0) mg/dL Creatinine 0.8 (0.8-1.3) mg/dL Est Cr Clr Drug Dosing TNP Estimated GFR (MDRD) > 60.0 ml/min Glucose 106 (74-106) mg/dL Calcium 9.0 (8.5-10.1) mg/dL Total Bilirubin 0.4 (0.2-1.0) mg/dL AST 25 (15-37) IU/L ALT 19 (14-63) IU/L Alkaline Phosphatase 90 (46-116) U/L Troponin I 0.078 H* (0.000-0.056) ng/mL Total Protein 7.7 (6.4-8.2) g/dL Albumin 4.1 (3.4-5.0) g/dL Globulin 3.6 (2.6-4.0) g/dL Albumin/Globulin Ratio 1.1 (0.9-1.6) Meds: Medications Generic Name Dose Route Start Last Admin Trade Name Freq PRN Reason Stop Dose Admin Sodium Chloride 10 ml 03/07/19 02:51 Saline Flush FLUSH ASDIRECTED PRN Keep Vein Open Sodium Chloride 2.5 ml 03/07/19 02:51 Saline Flush FLUSH ASDIRECTED PRN Keep Vein Open Discontinued Medications Generic Name Dose Route Start Last Admin Trade Name Freq PRN Reason Stop Dose Admin Aspirin 324 mg 03/07/19 03:01 03/07/19 03:16 Aspirin PO 03/07/19 03:02 324 mg ONETIME ONE Administration Enoxaparin Sodium 70 mg 03/07/19 04:31 03/07/19 05:01 Lovenox SUBCUT 03/07/19 04:32 70 mg ONETIME ONE Administration Enoxaparin Sodium Confirm 03/07/19 04:57 03/07/19 05:09 Lovenox Administered 03/07/19 04:58 Not Given Dose 100 mg .ROUTE .STK-MED ONE Nitroglycerin 0.5 gm 03/07/19 04:31 03/07/19 04:50 Nitro-Bid 2% TOP 03/07/19 04:32 0.5 gm ONETIME ONE Administration Departure - Departure Time of Disposition: 05:00 Disposition: DC/Tfer to Acute Hospital 02 Condition: Good Clinical Impression: Acute coronary syndrome Chest pain Qualifiers: Chest pain type: unspecified Qualified Code(s): R07.9 - Chest pain, unspecified - Discharge Information Referrals: PCP,None [Primary Care Provider] - - My Orders Last 24 Hours: My Active Orders 03/07/19 02:51 Cardiac Monitoring [RC] . DIRECTED EKG Documentation Completion [RC] STAT Oxygen Therapy, ED [RC] ASDIRECTED Pulse Oximetry [RC] ASDIRECTED Sodium Chloride 0.9% [Saline Flush] 10 ml FLUSH ASDIRECTED PRN Sodium Chloride 0.9% [Saline Flush] 2.5 ml FLUSH ASDIRECTED PRN Saline Lock Insert [OM.PC] Stat 03/07/19 04:57 TROPONIN I [CHEM] Stat - Assessment/Plan Last 24 Hours: My Active Orders 03/07/19 02:51 Cardiac Monitoring [RC] . DIRECTED EKG Documentation Completion [RC] STAT Oxygen Therapy, ED [RC] ASDIRECTED Pulse Oximetry [RC] ASDIRECTED Sodium Chloride 0.9% [Saline Flush] 10 ml FLUSH ASDIRECTED PRN Sodium Chloride 0.9% [Saline Flush] 2.5 ml FLUSH ASDIRECTED PRN Saline Lock Insert [OM.PC] Stat 03/07/19 04:57 TROPONIN I [CHEM] Stat
[2019-03-07] MEDS ORDERED: Aspirin 81 MG Tab.Chew PO ONE (03:01)
[2019-03-07 03:27] LABS: CHLORIDE,CL 99 mmol/L (98-107); SODIUM,NA 135 mmol/L (136-148)
--- NOTE | 2019-03-07 03:51 | CR ---
Indication: Pain, shortness of breath Technique: Chest 1 view Comparison: December 19, 2017 Findings/Impression: Status post median sternotomy with cardiac valve replacement. Stable cardiomediastinal silhouette. Mild pulmonary venous congestion. Linear atelectasis or scarring in the right upper lobe. Stable elevation of the right hemidiaphragm. No focal consolidation, effusion, or pneumothorax. Dictated by Lucita Fair MD @ Mar 07 2019 3:47AM Signed by Dr. Lucita Fair @ Mar 07 2019 3:48AM
[2019-03-07] MEDS ORDERED: Nitroglycerin 2% Oint 1 GM UD Packet TOP ONE (04:31)
[2019-03-07] MEDS ORDERED: Enoxaparin 60 MG/0.6 ML Syringe SUBCUT ONE (04:31)
[2019-03-07] MEDS ORDERED: Enoxaparin 100 MG/1 ML Syringe ONE (04:57)
[2019-03-07 06:29] VITALS: BP 157/92
== END 2019-03-07 06:05 ==
LOC: MW.ED 02:45
DX: I24.9 Acute ischemic heart disease, unspecified (principal); I10 Essential (primary) hypertension; I25.10 Atherosclerotic heart disease of native coronary artery without angina pectoris; I25.2 Old myocardial infarction; C61 Malignant neoplasm of prostate; Z98.890 Other specified postprocedural states; Z95.1 Presence of aortocoronary bypass graft; Z96.641 Presence of right artificial hip joint; Z88.8 Allergy status to other drugs, medicaments and biological substances; Z79.82 Long term (current) use of aspirin; Z79.899 Other long term (current) drug therapy; Z86.73 Personal history of transient ischemic attack (TIA), and cerebral infarction without residual deficits; Z95.4 Presence of other heart-valve replacement
CPT/HCPCS: 36415; 71045; 80053; 84484; 85025; 85610; 93005; 96372; 99285; A9270; J1650

== ENCOUNTER 2019-11-02 16:42 | Emergency (ER) | payer MEDICARE, OTHER ==
[2019-11-02 17:43] LABS: BLOOD UREA NITROGEN,BUN 18 mg/dL (7.0-18.0); CARBON DIOXIDE,CO2 29.2 mmol/L (21.0-32.0); CHLORIDE,CL 99 mmol/L (98-107); GLUCOSE RANDOM 123 mg/dL (74-106); LIPASE 117 U/L (73-393); POTASSIUM,K 3.5 mmol/L (3.5-5.1); SODIUM,NA 135 mmol/L (136-148)
[2019-11-02] MEDS ORDERED: Aspirin 81 MG Tab.Chew PO ONE (17:50)
--- NOTE | 2019-11-02 17:54 | CR ---
Chest: 2 views of the chest were obtained. Comparison: No prior chest imaging is available. Diffuse increased lung markings are noted as well as interstitial change within the left base and right upper lung. Heart size is not enlarged. Tortuous thoracic aorta is noted. Sternotomy is noted with prosthetic heart valves. Bony structures are grossly intact. Impression: 1. Diffuse increased lung markings with focal interstitial changes within the right upper lung and left lung base. Without old chest x-ray, uncertain how much of these findings are chronic versus acute representing bronchitis and possible interstitial pneumonia. 2. Other findings believed to be incidental as noted above. Diagnostic code #3 Study was dictated in [place] Standard Time
[2019-11-02] MEDS ORDERED: Iopamidol 755 MG/ML 500 ML Multipack Bottle IVPUSH STA (19:07)
--- NOTE | 2019-11-02 19:09 | EDM.PDOC ---
ED HPI GENERAL MEDICAL PROBLEM - General Chief Complaint: Chest Pain Stated Complaint: CHEST PAIN Time Seen by Provider: 11/02/19 16:45 - History of Present Illness INITIAL COMMENTS - FREE TEXT/NARRATIVE: HPI 84-year-old male with history of aortic and mitral valve replacement, NSTEMI, and prostate CA presents for evaluation of poorly characterized intermittent substernal apparently nonreading chest pain that is been present over the last week without identifiable provoking or relieving factors. Patient unable to identify intensity and character of pain. M/S/F/SocHx notable for: please see HPI; remainder reviewed with patient and in chart. ROS: Negative constitutional, eye, cardiovascular, pulmonary, GI, , MSK, skin , neurologic, psychiatric, endocrine unless noted in the HPI. Exam HR 104, RR 16, BP 156/84, T 36.6C, SaO2 90% on room air. Gen: Pleasant, non-toxic appearing, resting comfortably. HEENT: NC, AT, PEERL, EOMI. Resp: Clear to auscultation bilaterally, normal work of breathing. Card: RRR with no M/R/G, no crackles in lung bases, no pedal edema, no JVD appreciated. GI: NT/ND Vascular: Both ankles, calves, and thighs of equal size, no calf tenderness to palpation bilaterally. MSK: No chest wall TTP. No visible deformities, strength and tone WNL. Skin: Normal color with no visible lesions. Neuro: AO x 3, no facial asymmetry, vision and hearing WNL. Psych: Mood and affect appropriate. Labs / Imaging (pertinent): WBC 6.37, Hb 11.5, Na 135, K 3.5, AST 24, ALT 24, ALP 99, total bilirubin 0.3, lipase 17. PT/INR 1.03 Troponin 0.244 d-dimer 4.06 EKG: SR at 93 bpm, no IA segment depressions, no new ST segment changes, new LBBB, or T-wave changes that would suggest acute ischemia. CXR: 1. Diffuse increased lung markings with focal interstitial changes within the right upper lung and left lung base. Without old chest X-ray, uncertain how much of these findings are chronic versus acute representing bronchitis and possible interstitial pneumonia. CTA Chest: pending. MDM Previous chart, nursing note, and vitals reviewed. A: 84-year-old male with history of aortic and mitral valve replacement, NSTEMI , and prostate CA presents for evaluation of poorly characterized intermittent substernal apparently nonreading chest pain that is been present over the last week without identifiable provoking or relieving factors. DDx and Evaluation: * ACS concern exists for ACS given the troponin elevation, CT PE study pending as the patient is a notably elevated d-dimer which may lead to a troponin elevation without significant abnormalities on his ECG. * UA - cannot definitively excluded, regardless patient will require further cardiology management on an inpatient basis. * Pericarditis - the characteristic changes on ECG. * Myocarditis - no characteristic changes on ECG. * Dissection - atypical history, CTA pending at time of patient care transfer. * PE - d-dimer elevated, CTA pending at time of patient care transfer. * Mediastinal Air - no evidence by CXR or auscultation. * Pneumothorax - no evidence by CXR or physical exam. * MSK - doubt given lack of reproducibility on exam. * Endocarditis - no identifiable risk factors, patient afebrile, no new murmurs appreciated on exam; doubt. * GI (Esophageal rupture, GERD) - esophageal rupture effectively excluded given the lack of mediastinal widening, non-toxic appearance, and lack of identifiable risk factors. While not definitively excluded, further evaluation of GERD is deferred to an outpatient setting. ED Course: 1. Positive troponin, Patient given ASA. 2. Anticoagulation held pending CTA to evaluate for dissection versus PE. Disposition: patient care transfer to the overnight physician pending CTA, further interventions and disposition. Impression: Chest Pain. (please reference below for remainder of encounter information) Critical Care Time Organ system(s): Cardiopulmonary, cardiovascular Intervention: Assessment of the patient, interpretation of studies, communication related to patient care. Time: 30 minutes were spent directly related to patient care exclusive of separately billed procedures. - Related Data Allergies Allergy/AdvReac Type Severity Reaction Status Date / Time amiodarone Allergy Renal Verified 11/02/19 16:58 Insufficiency simvastatin Allergy Other Verified 11/02/19 16:58 Home Meds: Home Meds Aspirin 81 mg PO DAILY 03/05/15 [History] Doxazosin [Cardura] 2 mg PO BEDTIME 03/05/15 [History] Metoprolol Tartrate [Lopressor] 25 mg PO BID 03/05/15 [History] NIFEdipine [Nifedipine ER] 30 mg PO DAILY 03/05/15 [History] Cholecalciferol (Vitamin D3) [Vitamin D] 1 cap PO DAILY 09/15/17 [History] Tamsulosin [Flomax] 0.4 mg PO DAILY 12/16/17 [History] levETIRAcetam [Levetiracetam] 1 cap PO BID 03/07/19 [History] Furosemide 40 mg PO DAILY 11/02/19 [History] Gabapentin [Neurontin] 100 mg PO DAILY 11/02/19 [History] Lansoprazole [Prevacid] 30 mg PO DAILY 11/02/19 [History] Past Medical History HEENT History: Reports: None Cardiovascular History: Reports: CAD, Heart Valve Replacement, High Cholesterol , Hypertension, SD Respiratory History: Reports: None Gastrointestinal History: Reports: Hiatal Hernia Other Gastrointestinal History: Current left inguinal hernia Genitourinary History: Reports: Prostate Disorder, Other (See Below) Other Genitourinary History: Prostate CA, left inguinal hernia Musculoskeletal History: Reports: Other (See Below) Other Musculoskeletal History: hx: fracturing leg Neurological History: Reports: None Psychiatric History: Reports: None Endocrine/Metabolic History: Reports: None Hematologic History: Reports: None Immunologic History: Reports: None Oncologic (Cancer) History: Reports: Prostate Dermatologic History: Reports: Other (See Below) Other Dermatologic History: SKin areas froze off face - Infectious Disease History Infectious Disease History: Reports: Chicken Pox Other Infectious Disease History: hepatitis back in the 60's - Past Surgical History HEENT Surgical History: Reports: Tonsillectomy Cardiovascular Surgical History: Reports: Coronary Artery Bypass, Valve Replacement Other Cardiovascular Surgeries/Procedures: Aortic and Mitral Valve replaced Respiratory Surgical History: Reports: None GI Surgical History: Reports: Hernia, Inguinal Male Surgical History: Reports: None Endocrine Surgical History: Reports: None Other Musculoskeletal Surgeries/Procedures:: Right Total Hip Replacement Social & Family History - Family History Family Medical History: Noncontributory - Tobacco Use Smoking Status *Q: Former Smoker Used Tobacco, but Quit: Yes Month/Year Tobacco Last Used: 1950 - Caffeine Use Caffeine Use: Reports: Coffee - Recreational Drug Use Recreational Drug Use: No - Living Situation & Occupation Living situation: Reports: Occupation: Retired () ED ROS GENERAL - Review of Systems Review Of Systems: See Below ED EXAM, GENERAL - Physical Exam Exam: See Below Course - Vital Signs Last Recorded V/S: Last Vital Signs Temp 36.3 C 11/02/19 16:53 Pulse 104 H 11/02/19 16:53 Resp 16 11/02/19 16:53 BP 156/84 H 11/02/19 16:53 Pulse Ox 98 11/02/19 16:53 - Orders/Labs/Meds Orders: Active Orders 24 hr Category Date Time Status EKG 12 Lead [EKG Documentation Completion] [RC] STAT Care 11/02/19 16:55 Active PE Chest [Ang Chest] [CT] Stat Exams 11/02/19 17:50 Ordered Labs: Laboratory Tests 11/02/19 11/02/19 11/02/19 Range/Units 17:03 17:03 17:03 WBC 6.37 (4.0-11.0) K/uL RBC 3.77 L (4.50-5.90) M/uL Hgb 11.5 L (13.0-17.0) g/dL Hct 34.7 L (38.0-50.0) % MCV 92.0 (80.0-98.0) fL MCH 30.5 (27.0-32.0) pg MCHC 33.1 (31.0-37.0) g/dL RDW Std Deviation 48.3 (28.0-62.0) fl RDW Coeff of [place] 14 (11.0-15.0) % Plt Count 159 (150-400) K/uL MPV 10.40 (7.40-12.00) fL Neut % (Auto) 73.9 (48.0-80.0) % Lymph % (Auto) 13.0 L (16.0-40.0) % [place] % (Auto) 10.4 (0.0-15.0) % Eos % (Auto) 2.5 (0.0-7.0) % Baso % (Auto) 0.2 (0.0-1.5) % Neut # (Auto) 4.7 (1.4-5.7) K/uL Lymph # (Auto) 0.8 (0.6-2.4) K/uL [place] # (Auto) 0.7 (0.0-0.8) K/uL Eos # (Auto) 0.2 (0.0-0.7) K/uL Baso # (Auto) 0.0 (0.0-0.1) K/uL Nucleated RBC % 0.0 /100WBC Nucleated RBCs # 0 K/uL INR 1.03 D-Dimer, Quantitative 4.06 H (0.0-0.50) mg/L FEU Sodium 135 L (136-148) mmol/L Potassium 3.5 (3.5-5.1) mmol/L Chloride 99 (98-107) mmol/L Carbon Dioxide 29.2 (21.0-32.0) mmol/L BUN 18 (7.0-18.0) mg/dL Creatinine 0.9 (0.8-1.3) mg/dL Est Cr Clr Drug Dosing 53.17 mL/min Estimated GFR (MDRD) > 60.0 ml/min Glucose 123 H (74-106) mg/dL Calcium 9.0 (8.5-10.1) mg/dL Total Bilirubin 0.3 (0.2-1.0) mg/dL AST 24 (15-37) IU/L ALT 24 (14-63) IU/L Alkaline Phosphatase 99 (46-116) U/L Troponin I 0.244 H* (0.000-0.056) ng/mL Total Protein 7.4 (6.4-8.2) g/dL Albumin 3.6 (3.4-5.0) g/dL Globulin 3.8 (2.6-4.0) g/dL Albumin/Globulin Ratio 0.9 (0.9-1.6) Lipase 117 (73-393) U/L Meds: Medications Discontinued Medications Generic Name Dose Route Start Last Admin Trade Name Freq PRN Reason Stop Dose Admin Aspirin 324 mg 11/02/19 17:50 11/02/19 18:21 Aspirin PO 11/02/19 17:51 324 mg ONETIME ONE Administration Iopamidol 50 ml 11/02/19 19:07 Isovue Multipack-370 (76%) IVPUSH 11/02/19 19:08 ONETIME STA Departure - Departure Time of Disposition: 19:08 Disposition: Still A Patient 30 Clinical Impression: Chest pain - Discharge Information Referrals: PCP,None [Primary Care Provider] - Sepsis Event Note - Evaluation Sepsis Screening Result: No Definite Risk - Focused Exam Vital Signs: Vital Signs Temp Pulse Resp BP Pulse Ox 11/02/19 16:53 36.3 C 104 H 16 156/84 H 98 Date Exam was Performed: 11/02/19 Time Exam was Performed: 19:08 - My Orders Last 24 Hours: My Active Orders 11/02/19 16:55 EKG 12 Lead [EKG Documentation Completion] [RC] STAT 11/02/19 17:50 PE Chest [Ang Chest] [CT] Stat - Assessment/Plan Last 24 Hours: My Active Orders 11/02/19 16:55 EKG 12 Lead [EKG Documentation Completion] [RC] STAT 11/02/19 17:50 PE Chest [Ang Chest] [CT] Stat
--- NOTE | 2019-11-02 19:26 | CT ---
CT chest Technique: Multiple axial sections through the chest were obtained. Intravenous contrast was utilized. Study has been performed as a pulmonary angiogram protocol. Findings: Pulmonary arteries are fairly well-opacified. There are no filling defects seen to indicate pulmonary embolism. Aorta shows mild aneurysmal dilatation with AP dimension measuring 4.4 cm. Descending aorta is within normal limits at 3.5 cm. Atherosclerotic calcification is seen within the aorta. No adenopathy is seen within the mediastinum. Hilar regions show no adenopathy. Scattered interstitial fibrosis is noted throughout both lungs. No acute parenchymal change is otherwise seen. Heart is mildly enlarged. Prosthetic heart valves are noted. Cysts is noted within the left lobe of the liver measuring 4.0 cm. 2 smaller cysts are also noted within the left lobe of the liver. Bone window settings were reviewed which show no acute osseous finding. Impression: 1. No findings of pulmonary embolism. 2. Interstitial fibrosis throughout both lungs. 3. 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 4. Other findings believed to be nonacute as noted above. Diagnostic code #3 Study was dictated in [place] Standard Time
--- NOTE | 2019-11-02 19:39 | EDM.PDOC ---
ED HPI GENERAL MEDICAL PROBLEM - General Chief Complaint: Chest Pain Stated Complaint: CHEST PAIN Time Seen by Provider: 11/02/19 16:45 - History of Present Illness INITIAL COMMENTS - FREE TEXT/NARRATIVE: HPI 84-year-old male with history of aortic and mitral valve replacement, NSTEMI, and prostate CA presents for evaluation of poorly characterized intermittent substernal apparently nonreading chest pain that is been present over the last week without identifiable provoking or relieving factors. Patient unable to identify intensity and character of pain. M/S/F/SocHx notable for: please see HPI; remainder reviewed with patient and in chart. ROS: Negative constitutional, eye, cardiovascular, pulmonary, GI, , MSK, skin , neurologic, psychiatric, endocrine unless noted in the HPI. Exam HR 104, RR 16, BP 156/84, T 36.6C, SaO2 90% on room air. Gen: Pleasant, non-toxic appearing, resting comfortably. HEENT: NC, AT, PEERL, EOMI. Resp: Clear to auscultation bilaterally, normal work of breathing. Card: RRR with no M/R/G, no crackles in lung bases, no pedal edema, no JVD appreciated. GI: NT/ND Vascular: Both ankles, calves, and thighs of equal size, no calf tenderness to palpation bilaterally. MSK: No chest wall TTP. No visible deformities, strength and tone WNL. Skin: Normal color with no visible lesions. Neuro: AO x 3, no facial asymmetry, vision and hearing WNL. Psych: Mood and affect appropriate. Labs / Imaging (pertinent): WBC 6.37, Hb 11.5, Na 135, K 3.5, AST 24, ALT 24, ALP 99, total bilirubin 0.3, lipase 17. PT/INR 1.03 Troponin 0.244 d-dimer 4.06 EKG: SR at 93 bpm, no NE segment depressions, no new ST segment changes, new LBBB, or T-wave changes that would suggest acute ischemia. CXR: 1. Diffuse increased lung markings with focal interstitial changes within the right upper lung and left lung base. Without old chest X-ray, uncertain how much of these findings are chronic versus acute representing bronchitis and possible interstitial pneumonia. CTA Chest: pending. MDM Previous chart, nursing note, and vitals reviewed. A: 84-year-old male with history of aortic and mitral valve replacement, NSTEMI , and prostate CA presents for evaluation of poorly characterized intermittent substernal apparently nonreading chest pain that is been present over the last week without identifiable provoking or relieving factors. DDx and Evaluation: * ACS concern exists for ACS given the troponin elevation, CT PE study pending as the patient is a notably elevated d-dimer which may lead to a troponin elevation without significant abnormalities on his ECG. * UA - cannot definitively excluded, regardless patient will require further cardiology management on an inpatient basis. * Pericarditis - the characteristic changes on ECG. * Myocarditis - no characteristic changes on ECG. * Dissection - atypical history, CTA pending at time of patient care transfer. * PE - d-dimer elevated, CTA pending at time of patient care transfer. * Mediastinal Air - no evidence by CXR or auscultation. * Pneumothorax - no evidence by CXR or physical exam. * MSK - doubt given lack of reproducibility on exam. * Endocarditis - no identifiable risk factors, patient afebrile, no new murmurs appreciated on exam; doubt. * GI (Esophageal rupture, GERD) - esophageal rupture effectively excluded given the lack of mediastinal widening, non-toxic appearance, and lack of identifiable risk factors. While not definitively excluded, further evaluation of GERD is deferred to an outpatient setting. ED Course: 1. Positive troponin, Patient given ASA. 2. Anticoagulation held pending CTA to evaluate for dissection versus PE. Disposition: patient care transfer to the overnight physician pending CTA, further interventions and disposition. Impression: Chest Pain. (please reference below for remainder of encounter information) Critical Care Time Organ system(s): Cardiopulmonary, cardiovascular Intervention: Assessment of the patient, interpretation of studies, communication related to patient care. Time: 30 minutes were spent directly related to patient care exclusive of separately billed procedures. - Related Data Allergies Allergy/AdvReac Type Severity Reaction Status Date / Time amiodarone Allergy Renal Verified 11/02/19 16:58 Insufficiency simvastatin Allergy Other Verified 11/02/19 16:58 Home Meds: Home Meds Aspirin 81 mg PO DAILY 03/05/15 [History] Doxazosin [Cardura] 2 mg PO BEDTIME 03/05/15 [History] Metoprolol Tartrate [Lopressor] 25 mg PO BID 03/05/15 [History] NIFEdipine [Nifedipine ER] 30 mg PO DAILY 03/05/15 [History] Cholecalciferol (Vitamin D3) [Vitamin D] 1 cap PO DAILY 09/15/17 [History] Tamsulosin [Flomax] 0.4 mg PO DAILY 12/16/17 [History] levETIRAcetam [Levetiracetam] 1 cap PO BID 03/07/19 [History] Furosemide 40 mg PO DAILY 11/02/19 [History] Gabapentin [Neurontin] 100 mg PO DAILY 11/02/19 [History] Lansoprazole [Prevacid] 30 mg PO DAILY 11/02/19 [History] Past Medical History HEENT History: Reports: None Cardiovascular History: Reports: CAD, Heart Valve Replacement, High Cholesterol , Hypertension, [place] Respiratory History: Reports: None Gastrointestinal History: Reports: Hiatal Hernia Other Gastrointestinal History: Current left inguinal hernia Genitourinary History: Reports: Prostate Disorder, Other (See Below) Other Genitourinary History: Prostate CA, left inguinal hernia Musculoskeletal History: Reports: Other (See Below) Other Musculoskeletal History: hx: fracturing leg Neurological History: Reports: None Psychiatric History: Reports: None Endocrine/Metabolic History: Reports: None Hematologic History: Reports: None Immunologic History: Reports: None Oncologic (Cancer) History: Reports: Prostate Dermatologic History: Reports: Other (See Below) Other Dermatologic History: SKin areas froze off face - Infectious Disease History Infectious Disease History: Reports: Chicken Pox Other Infectious Disease History: hepatitis back in the 60's - Past Surgical History HEENT Surgical History: Reports: Tonsillectomy Cardiovascular Surgical History: Reports: Coronary Artery Bypass, Valve Replacement Other Cardiovascular Surgeries/Procedures: Aortic and Mitral Valve replaced Respiratory Surgical History: Reports: None GI Surgical History: Reports: Hernia, Inguinal Male Surgical History: Reports: None Endocrine Surgical History: Reports: None Other Musculoskeletal Surgeries/Procedures:: Right Total Hip Replacement Social & Family History - Family History Family Medical History: Noncontributory - Tobacco Use Smoking Status *Q: Former Smoker Used Tobacco, but Quit: Yes Month/Year Tobacco Last Used: 1949 - Caffeine Use Caffeine Use: Reports: Coffee - Recreational Drug Use Recreational Drug Use: No - Living Situation & Occupation Living situation: Reports: Occupation: Retired () ED ROS GENERAL - Review of Systems Review Of Systems: See Below ED EXAM, GENERAL - Physical Exam Exam: See Below Free Text/Narrative:: HPI 84-year-old male with history of aortic and mitral valve replacement, NSTEMI, and prostate CA presents for evaluation of poorly characterized intermittent substernal apparently nonreading chest pain that is been present over the last week without identifiable provoking or relieving factors. Patient unable to identify intensity and character of pain. M/S/F/SocHx notable for: please see HPI; remainder reviewed with patient and in chart. ROS: Negative constitutional, eye, cardiovascular, pulmonary, GI, , MSK, skin , neurologic, psychiatric, endocrine unless noted in the HPI. Exam HR 104, RR 16, BP 156/84, T 36.6C, SaO2 90% on room air. Gen: Pleasant, non-toxic appearing, resting comfortably. HEENT: NC, AT, PEERL, EOMI. Resp: Clear to auscultation bilaterally, normal work of breathing. Card: RRR with no M/R/G, no crackles in lung bases, no pedal edema, no JVD appreciated. GI: NT/ND Vascular: Both ankles, calves, and thighs of equal size, no calf tenderness to palpation bilaterally. MSK: No chest wall TTP. No visible deformities, strength and tone WNL. Skin: Normal color with no visible lesions. Neuro: AO x 3, no facial asymmetry, vision and hearing WNL. Psych: Mood and affect appropriate. Labs / Imaging (pertinent): WBC 6.37, Hb 11.5, Na 135, K 3.5, AST 24, ALT 24, ALP 99, total bilirubin 0.3, lipase 17. PT/INR 1.03 Troponin 0.244 d-dimer 4.06 EKG: SR at 93 bpm, no NE segment depressions, no new ST segment changes, new LBBB, or T-wave changes that would suggest acute ischemia. CXR: 1. Diffuse increased lung markings with focal interstitial changes within the right upper lung and left lung base. Without old chest X-ray, uncertain how much of these findings are chronic versus acute representing bronchitis and possible interstitial pneumonia. CTA Chest: pending. MDM Previous chart, nursing note, and vitals reviewed. A: 84-year-old male with history of aortic and mitral valve replacement, NSTEMI , and prostate CA presents for evaluation of poorly characterized intermittent substernal apparently nonreading chest pain that is been present over the last week without identifiable provoking or relieving factors. DDx and Evaluation: * ACS concern exists for ACS given the troponin elevation, CT PE study pending as the patient is a notably elevated d-dimer which may lead to a troponin elevation without significant abnormalities on his ECG. * UA - cannot definitively excluded, regardless patient will require further cardiology management on an inpatient basis. * Pericarditis - the characteristic changes on ECG. * Myocarditis - no characteristic changes on ECG. * Dissection - atypical history, CTA pending at time of patient care transfer. * PE - d-dimer elevated, CTA pending at time of patient care transfer. * Mediastinal Air - no evidence by CXR or auscultation. * Pneumothorax - no evidence by CXR or physical exam. * MSK - doubt given lack of reproducibility on exam. * Endocarditis - no identifiable risk factors, patient afebrile, no new murmurs appreciated on exam; doubt. * GI (Esophageal rupture, GERD) - esophageal rupture effectively excluded given the lack of mediastinal widening, non-toxic appearance, and lack of identifiable risk factors. While not definitively excluded, further evaluation of GERD is deferred to an outpatient setting. ED Course: 1. Positive troponin, Patient given ASA. 2. Anticoagulation held pending CTA to evaluate for dissection versus PE. Disposition: patient care transfer to the overnight physician pending CTA, further interventions and disposition. Impression: Chest Pain. (please reference below for remainder of encounter information) Critical Care Time Organ system(s): Cardiopulmonary, cardiovascular Intervention: Assessment of the patient, interpretation of studies, communication related to patient care. Time: 30 minutes were spent directly related to patient care exclusive of separately billed procedures. Course - Vital Signs Text/Narrative:: The patient's care has been transferred to ne pending completion of his CT angiogram. It is negative for any acute process, most specifically any signs of an acute dissection, pulmonary embolism, pneumonia, large thoracic mass, etc. Signs are stable but the patient does have an elevated troponin of 0.24 with a significant react history and as we do not have cardiology at this facility the patient will need to be transferred elsewhere. The patient's waxer floor is at [facility] in [facility] so they will be contacted. I ordered 1 dose of Lovenox at 1 mg/kg subcutaneous. He has already received aspirin. I spoke with Dr. Hernandez, Hospitalist who accepts the patient in transfer. Last Recorded V/S: Last Vital Signs Temp 36.3 C 11/02/19 16:53 Pulse 101 H 11/02/19 20:03 Resp 15 11/02/19 19:11 BP 138/86 11/02/19 20:03 Pulse Ox 99 11/02/19 20:03 - Orders/Labs/Meds Orders: Active Orders 24 hr Category Date Time Status EKG 12 Lead [EKG Documentation Completion] [RC] STAT Care 11/02/19 16:55 Active Labs: Laboratory Tests 11/02/19 11/02/19 11/02/19 Range/Units 17:03 17:03 17:03 WBC 6.37 (4.0-11.0) K/uL RBC 3.77 L (4.50-5.90) M/uL Hgb 11.5 L (13.0-17.0) g/dL Hct 34.7 L (38.0-50.0) % MCV 92.0 (80.0-98.0) fL MCH 30.5 (27.0-32.0) pg MCHC 33.1 (31.0-37.0) g/dL RDW Std Deviation 48.3 (28.0-62.0) fl RDW Coeff of Jasper 14 (11.0-15.0) % Plt Count 159 (150-400) K/uL MPV 10.40 (7.40-12.00) fL Neut % (Auto) 73.9 (48.0-80.0) % Lymph % (Auto) 13.0 L (16.0-40.0) % Allen % (Auto) 10.4 (0.0-15.0) % Eos % (Auto) 2.5 (0.0-7.0) % Baso % (Auto) 0.2 (0.0-1.5) % Neut # (Auto) 4.7 (1.4-5.7) K/uL Lymph # (Auto) 0.8 (0.6-2.4) K/uL Allen # (Auto) 0.7 (0.0-0.8) K/uL Eos # (Auto) 0.2 (0.0-0.7) K/uL Baso # (Auto) 0.0 (0.0-0.1) K/uL Nucleated RBC % 0.0 /100WBC Nucleated RBCs # 0 K/uL INR 1.03 D-Dimer, Quantitative 4.06 H (0.0-0.50) mg/L FEU Sodium 135 L (136-148) mmol/L Potassium 3.5 (3.5-5.1) mmol/L Chloride 99 (98-107) mmol/L Carbon Dioxide 29.2 (21.0-32.0) mmol/L BUN 18 (7.0-18.0) mg/dL Creatinine 0.9 (0.8-1.3) mg/dL Est Cr Clr Drug Dosing 53.17 mL/min Estimated GFR (MDRD) > 60.0 ml/min Glucose 123 H (74-106) mg/dL Calcium 9.0 (8.5-10.1) mg/dL Total Bilirubin 0.3 (0.2-1.0) mg/dL AST 24 (15-37) IU/L ALT 24 (14-63) IU/L Alkaline Phosphatase 99 (46-116) U/L Troponin I 0.244 H* (0.000-0.056) ng/mL Total Protein 7.4 (6.4-8.2) g/dL Albumin 3.6 (3.4-5.0) g/dL Globulin 3.8 (2.6-4.0) g/dL Albumin/Globulin Ratio 0.9 (0.9-1.6) Lipase 117 (73-393) U/L Meds: Medications Discontinued Medications Generic Name Dose Route Start Last Admin Trade Name Freq PRN Reason Stop Dose Admin Aspirin 324 mg 11/02/19 17:50 11/02/19 18:21 Aspirin PO 11/02/19 17:51 324 mg ONETIME ONE Administration Enoxaparin Sodium 70 mg 11/02/19 20:27 11/02/19 20:32 Lovenox 1 mg/kg (70 mg) 11/02/19 20:28 70 mg SUBCUT Administration ONETIME ONE Iopamidol 50 ml 11/02/19 19:07 11/02/19 19:08 Isovue Multipack-370 (76%) IVPUSH 11/02/19 19:08 50 ml ONETIME STA Administration Departure - Departure Time of Disposition: 20:30 Disposition: DC/Tfer to Acute Hospital 02 Reason for Transfer *Q: Other (Higher level of care) Condition: Fair Clinical Impression: Chest pain, NSTEMI (non-ST elevated myocardial infarction) Referrals: PCP,None [Primary Care Provider] - Forms: ED Department Discharge Sepsis Event Note - Evaluation Sepsis Screening Result: No Definite Risk - Focused Exam Vital Signs: Vital Signs Temp Pulse Resp BP Pulse Ox 11/02/19 20:03 101 H 138/86 99 11/02/19 19:33 152/87 H 11/02/19 19:11 87 15 146/75 H 97 11/02/19 16:53 36.3 C 104 H 16 156/84 H 98 Date Exam was Performed: 11/02/19 Time Exam was Performed: 20:52
[2019-11-02] MEDS ORDERED: Enoxaparin 100 MG/1 ML Syringe SUBCUT ONE (20:27)
[2019-11-02 21:55] VITALS: BP 143/86; PULSE 101
== END 2019-11-02 21:50 ==
LOC: MW.ED 16:42
DX: R07.9 Chest pain, unspecified (principal); Z88.8 Allergy status to other drugs, medicaments and biological substances; Z79.82 Long term (current) use of aspirin; Z79.899 Other long term (current) drug therapy; Z87.891 Personal history of nicotine dependence
CPT/HCPCS: 36415; 71046; 71275; 80053; 83690; 84484; 85025; 85379; 85610; 93005; 96372; 99285; A9270; J1650; Q9967

== ENCOUNTER 2020-01-01 07:27 | Emergency (ER) | payer OTHER, MEDICARE ==
[2020-01-01 07:43] VITALS: BP 110/45; PULSE 98
--- NOTE | 2020-01-01 07:55 | EDM.PDOC ---
ED HPI GENERAL MEDICAL PROBLEM - General Chief Complaint: Upper Extremity Injury/Pain Stated Complaint: LT SHOULD PAIN Time Seen by Provider: 01/01/20 07:34 - History of Present Illness INITIAL COMMENTS - FREE TEXT/NARRATIVE: Patient is an 84-year-old male with a history of multiple medical problems including prostate cancer who was in his home this morning approximately 2 hours ago slipped and fell onto the ground striking his left ribs and his left shoulder on a drawer on the way down he did not hit his head he did not lose consciousness. He had no nausea vomiting lightheadedness palpitations chest pain or shortness of breath prior to the fall. He denies any pain in his head neck spine abdomen pelvis legs hips or right arm. He does complain of mild pain in the left shoulder and left ribs and through to the left back. But no shortness of breath. Symptoms worsen with range of motion of the left shoulder and direct palpation. No associated pain in the left wrist or elbow. - Related Data Allergies Allergy/AdvReac Type Severity Reaction Status Date / Time amiodarone Allergy Renal Verified 11/02/19 16:58 Insufficiency simvastatin Allergy Other Verified 11/02/19 16:58 Home Meds: Home Meds Aspirin 81 mg PO DAILY 03/05/15 [History] Doxazosin [Cardura] 2 mg PO BEDTIME 03/05/15 [History] Metoprolol Tartrate [Lopressor] 25 mg PO BID 03/05/15 [History] NIFEdipine [Nifedipine ER] 30 mg PO DAILY 03/05/15 [History] Cholecalciferol (Vitamin D3) [Vitamin D] 1 cap PO DAILY 09/15/17 [History] Tamsulosin [Flomax] 0.4 mg PO DAILY 12/16/17 [History] levETIRAcetam [Levetiracetam] 1 cap PO BID 03/07/19 [History] Furosemide 40 mg PO DAILY 11/02/19 [History] Gabapentin [Neurontin] 100 mg PO DAILY 11/02/19 [History] Lansoprazole [Prevacid] 30 mg PO DAILY 11/02/19 [History] Past Medical History HEENT History: Reports: Hard of Hearing Other HEENT History: bilateral hearing aids Cardiovascular History: Reports: CAD, Heart Valve Replacement, High Cholesterol , Hypertension, [place] Respiratory History: Reports: None Gastrointestinal History: Reports: Hiatal Hernia Other Gastrointestinal History: Current left inguinal hernia Genitourinary History: Reports: Prostate Disorder, Other (See Below) Other Genitourinary History: Prostate CA, left inguinal hernia Musculoskeletal History: Reports: Other (See Below) Other Musculoskeletal History: hx: fracturing leg Neurological History: Reports: None Psychiatric History: Reports: None Endocrine/Metabolic History: Reports: None Hematologic History: Reports: None Immunologic History: Reports: None Oncologic (Cancer) History: Reports: Prostate Dermatologic History: Reports: Other (See Below) Other Dermatologic History: SKin areas froze off face - Infectious Disease History Infectious Disease History: Reports: None Other Infectious Disease History: hepatitis back in the 60's - Past Surgical History HEENT Surgical History: Reports: Tonsillectomy Cardiovascular Surgical History: Reports: Coronary Artery Bypass, Valve Replacement Other Cardiovascular Surgeries/Procedures: Aortic and Mitral Valve replaced Respiratory Surgical History: Reports: None GI Surgical History: Reports: Hernia, Inguinal Male Surgical History: Reports: None Endocrine Surgical History: Reports: None Other Musculoskeletal Surgeries/Procedures:: Right Total Hip Replacement Social & Family History - Family History Family Medical History: Noncontributory - Tobacco Use Smoking Status *Q: Never Smoker - Caffeine Use Caffeine Use: Reports: Coffee - Recreational Drug Use Recreational Drug Use: No - Living Situation & Occupation Living situation: Reports: Occupation: Retired () Review of Systems - Review of Systems Review Of Systems: Comprehensive ROS is negative, except as noted in HPI. ED EXAM, GENERAL - Physical Exam Exam: See Below Free Text/Narrative:: General Appearance: No acute distress, appears comfortable Skin: No rash HEENT: Normocephalic/atraumatic, sclera anicteric, mucous membranes moist Neck: Normal range of motion Chest and Lungs: Bilateral breath sounds, clear to auscultation Chest wall: Mild tenderness along the left lateral ribs but no severe tenderness and clear deformity no ecchymosis Cardiovascular: Regular rate and rhythm, no murmur Abdomen: Soft, non-tender Back: Normal, no flank ecchymosis Musculoskeletal: 2+ bilateral radial pulses. No focal tenderness swelling or deformities noted in the bilateral hands wrists or elbows or the right shoulder similar like bilateral hips bilateral knees bilateral ankles are without focal tenderness swelling or deformity. Patient has some generalized tenderness in the left shoulder but is able to range it actively. No clear deformity Neurologic: Awake, alert, no obvious deficits, moving all extremities Psychiatric: Appropriate, cooperative Course - Vital Signs Last Recorded V/S: Last Vital Signs Temp 98.0 F 01/01/20 07:40 Pulse 98 01/01/20 07:40 Resp 18 01/01/20 07:40 BP 110/45 L 01/01/20 07:40 Pulse Ox 95 01/01/20 07:40 Departure - Departure Time of Disposition: 09:22 Disposition: Home, Self-Care 01 Condition: Good Clinical Impression: Rib contusion, Shoulder contusion - Discharge Information *PRESCRIPTION DRUG MONITORING PROGRAM REVIEWED*: Not Applicable *COPY OF PRESCRIPTION DRUG MONITORING REPORT IN PATIENT SARIKA: Not Applicable Instructions: Shoulder Pain, [id number], Contusion, [id number] Referrals: PCP,None [Primary Care Provider] - [facility] [Outside] Forms: ED Department Discharge Additional Instructions: Your x-rays today showed no sign of broken bones. It is possible that you did crack a rib on your left side as that does not show up on x-ray. However, I think it is more likely that you have bruised your ribs. Your shoulder x-ray also did not show any broken bones. I would expect your symptoms to slowly improve over the next few days. You can use [id number] pain medication as directed on the bottle to help with your discomfort. I encourage you to call your primary care doctor on Thursday to arrange for follow-up appointment and reassessment. The following information is given to patients seen in the emergency department who are being discharged to home. This information is to outline your options for follow-up care. We provide all patients seen in our emergency department with a follow-up referral. The need for follow-up, as well as the timing and circumstances, are variable depending upon the specifics of your emergency department visit. If you don't have a primary care physician on staff, we will provide you with a referral. We always advise you to contact your personal physician following an emergency department visit to inform them of the circumstance of the visit and for follow-up with them and/or the need for any referrals to a consulting specialist. The emergency department will also refer you to a specialist when appropriate. This referral assures that you have the opportunity for follow-up care with a specialist. All of these measure are taken in an effort to provide you with optimal care, which includes your follow-up. Under all circumstances we always encourage you to contact your private physician who remains a resource for coordinating your care. When calling for follow-up care, please make the office aware that this follow-up is from your recent emergency room visit. If for any reason you are refused follow-up, please contact the [facility] Emergency Department at and asked to speak to the emergency department charge nurse. Sepsis Event Note - Evaluation Sepsis Screening Result: No Definite Risk - Focused Exam Vital Signs: Vital Signs Temp Pulse Resp BP Pulse Ox 01/01/20 07:40 98.0 F 98 18 110/45 L 95 Date Exam was Performed: 01/01/20 Time Exam was Performed: 09:21 - Assessment/Plan Assessment:: 84-year-old male presents with left shoulder and left rib pain after mechanical fall as described above. No concern by history or exam for nonmechanical fall. Patient does clearly describe slipping. Primary survey intact secondary survey is largely atraumatic but notable for some discomfort in the left shoulder of the left ribs. However on physical exam no focal tenderness swelling deformity can be found and he is able to actively range his left shoulder. That said chest x-ray shoulder x-ray pending to evaluate for any fracture. Imaging negative for acute finding. Patient discharged with follow-up.
--- NOTE | 2020-01-01 09:15 | CR ---
Chest: 2 views of the chest were obtained. Comparison: Prior chest x-ray of 11/02/19 Diffuse increased lung markings which appear chronic from prior exam are noted. Prior sternotomy is noted with prosthetic heart valves. Heart size appears within normal limits. Tortuous thoracic aorta is normal. Bony structures are grossly intact. No definite acute bony finding is appreciated. Impression: 1. Chronic findings as described above. 2. Nothing acute is appreciated. Diagnostic code #2 This report was dictated in MDT
--- NOTE | 2020-01-01 09:15 | CR ---
Left shoulder: 3 views left shoulder were obtained. Comparison: No previous shoulder exam is available. Mild degenerative change is noted within the acromioclavicular joint. Glenohumeral joint is within normal limits. No acute fracture or other bony abnormality is identified. Impression: 1. Degenerative change within the acromioclavicular joint. 2. Left shoulder study is otherwise unremarkable. Diagnostic code #2 This report was dictated in MDT
== END 2020-01-01 10:05 | disposition home or self-care (01) ==
LOC: MW.ED 07:27
DX: S40.012A Contusion of left shoulder, initial encounter (principal); S20.212A Contusion of left front wall of thorax, initial encounter; I25.10 Atherosclerotic heart disease of native coronary artery without angina pectoris; E78.00 Pure hypercholesterolemia, unspecified; I10 Essential (primary) hypertension; I25.2 Old myocardial infarction; Z79.82 Long term (current) use of aspirin; Z79.899 Other long term (current) drug therapy; Z88.8 Allergy status to other drugs, medicaments and biological substances; W01.0XXA Fall on same level from slipping, tripping and stumbling without subsequent striking against object, initial encounter
CPT/HCPCS: 71046; 71046-26; 73030-26-LT; 73030-LT; 99283; 99283-25

== ENCOUNTER 2020-01-20 01:36 | Emergency (ER) | payer MEDICARE, OTHER ==
[2020-01-20] MEDS ORDERED: Sodium Chloride 0.9% 10 ML SDV IV PRN (01:39)
[2020-01-20] MEDS ORDERED: Sodium Chloride 0.9% 2.5 ML Syringe FLUSH PRN (01:39)
[2020-01-20] MEDS ORDERED: Sodium Chloride 0.9% 10 ML Syringe FLUSH PRN (01:39)
--- NOTE | 2020-01-20 01:43 | EDM.PDOC ---
ED HPI GENERAL MEDICAL PROBLEM - General Stated Complaint: CHEST PAIN, TROUBLE BREATHING Time Seen by Provider: 01/20/20 01:39 Source of Information: Reports: Patient, EMS History Limitations: Reports: Physical Impairment (Limited by patient's impaired hearing) - History of Present Illness INITIAL COMMENTS - FREE TEXT/NARRATIVE: This patient is an 84-year-old male with a past medical history of CAD status post CABG, CVA, prostate CA, hypertension, aortic valve replacement, mitral valve replacement presenting with shortness of breath. He arrives to the emergency department by ambulance. History is extremely difficult to obtain because the patient is very short of breath. Paramedics relate that they were called out because the patient was complaining of feeling short of breath and thought that he might be having a heart attack. No point did he complained of any chest discomfort. Paramedics administered 324 mg of aspirin and 2 doses of sublingual nitroglycerin. Upon arrival to the emergency department, the patient has no complaints. He denies any chest discomfort and states that his breathing is back to normal. - Related Data Allergies Allergy/AdvReac Type Severity Reaction Status Date / Time amiodarone Allergy Renal Verified 11/02/19 16:58 Insufficiency simvastatin Allergy Other Verified 11/02/19 16:58 Home Meds: Home Meds RX: Aspirin 81 mg PO DAILY 03/05/15 [History] RX: Doxazosin [Cardura] 2 mg PO BEDTIME 03/05/15 [History] RX: Metoprolol Tartrate [Lopressor] 25 mg PO BID 03/05/15 [History] RX: NIFEdipine [Nifedipine ER] 30 mg PO DAILY 03/05/15 [History] RX: Cholecalciferol (Vitamin D3) [Vitamin D] 1 cap PO DAILY 09/15/17 [History] RX: Tamsulosin [Flomax] 0.4 mg PO DAILY 12/16/17 [History] levETIRAcetam [Levetiracetam] 1 cap PO BID 03/07/19 [History] Lansoprazole [Prevacid] 30 mg PO DAILY 11/02/19 [History] RX: Furosemide 40 mg PO DAILY 11/02/19 [History] RX: Gabapentin [Neurontin] 100 mg PO DAILY 11/02/19 [History] Past Medical History HEENT History: Reports: Hard of Hearing Other HEENT History: bilateral hearing aids Cardiovascular History: Reports: CAD, Heart Valve Replacement, High Cholesterol , Hypertension, [place] Respiratory History: Reports: None Gastrointestinal History: Reports: Hiatal Hernia Other Gastrointestinal History: Current left inguinal hernia Genitourinary History: Reports: Prostate Disorder, Other (See Below) Other Genitourinary History: Prostate CA, left inguinal hernia Musculoskeletal History: Reports: Other (See Below) Other Musculoskeletal History: hx: fracturing leg Neurological History: Reports: None Psychiatric History: Reports: None Endocrine/Metabolic History: Reports: None Hematologic History: Reports: None Immunologic History: Reports: None Oncologic (Cancer) History: Reports: Prostate Dermatologic History: Reports: Other (See Below) Other Dermatologic History: SKin areas froze off face - Infectious Disease History Infectious Disease History: Reports: None Other Infectious Disease History: hepatitis back in the 60's - Past Surgical History HEENT Surgical History: Reports: Tonsillectomy Cardiovascular Surgical History: Reports: Coronary Artery Bypass, Valve Replacement Other Cardiovascular Surgeries/Procedures: Aortic and Mitral Valve replaced Respiratory Surgical History: Reports: None GI Surgical History: Reports: Hernia, Inguinal Male Surgical History: Reports: None Endocrine Surgical History: Reports: None Other Musculoskeletal Surgeries/Procedures:: Right Total Hip Replacement Social & Family History - Family History Family Medical History: Noncontributory - Caffeine Use Caffeine Use: Reports: Coffee - Living Situation & Occupation Living situation: Reports: Occupation: Retired () ED ROS GENERAL - Review of Systems Review Of Systems: Unable To Obtain Reason Not Obtained: Patient is extremely hard of hearing Constitutional: Denies: Fever Respiratory: Reports: Shortness of Breath Cardiovascular: Reports: Chest Pain GI/Abdominal: Denies: Abdominal Pain Musculoskeletal: Denies: Neck Pain, Back Pain ED EXAM, GENERAL - Physical Exam Exam: See Below Free Text/Narrative:: Vital signs reviewed. Nursing notes reviewed. Constitutional: Awake, alert, non-distressed. Extremely hard of hearing. Head: Normocephalic, atraumatic Eyes: EOMI, conjunctiva normal, no discharge, no scleral icterus Ears, Nose, Throat: External ears and ears normal, moist oral mucosa Cardiovascular: 2+ radial pulses bilaterally, capillary refill less than 2 seconds no pitting edema to the bilateral lower legs, extending nursing home up the shins Pulmonary: normal work of breathing, no accessory muscle use, clear to auscultation bilaterally Abdomen/GI: Soft, nontender, nondistended, no guarding or rigidity, no masses Musculoskeletal: No deformities Integumentary: Appropriate color for ethnicity, warm, dry, no pallor or jaundice , no rash Neurologic: Alert, answering questions appropriately, normal speech, no facial droop, moving all extremities well Psychiatric: Appropriate mood and affect, normal thought process EKG INTERPRETATION EKG Date: 01/20/20 Time: 01:32 Rhythm: NSR Rate (Beats/Min): 83 [place]: Normal P-Wave: Present QRS: Normal ST-T: Normal QT: Normal Comparison: NA - No Prior EKG Course - Vital Signs Text/Narrative:: 84-year-old male presenting with shortness of breath and chest pain. Differential diagnosis included but was not limited to acute coronary syndrome, congestive heart failure, pneumonia, pulmonary embolism, pneumothorax, pleural effusion, pericarditis, pericardial effusion, thoracic aortic dissection, and many others Mildly hypertensive on arrival and mildly tachypneic. Normal oxygen saturations , afebrile, well-appearing. Twelve-lead EKG obtained, showing no acute ischemia , ectopy or arrhythmia. IV access was established and labs were sent. CBC shows a mild normocytic anemia, normal white blood cell count and platelet count. INR and APTT are within normal limits. Mild hyponatremia on chemistry panel. Normal renal function. Troponin elevated at 0.174, BNP mildly elevated at 251. LFTs are within normal limits. Chest x-rays are clear. Patient initially had no chest discomfort, but then developed some mild chest discomfort here in the emergency department. Given 1 dose of sublingual nitroglycerin with total pain relief. Given elevated troponin, patient meets criteria for NSTEMI. Heparin bolus given followed by infusion. No interventional cardiology services available at our facility, will plan to transfer to [facility] in [place], [place] per patient request. I spoke with the accepting hospitalist Dr. Hernandez who agrees to admit the patient to her service. Transferred to the ground EMS crew in good condition. Last Recorded V/S: Last Vital Signs Temp 36.7 C 01/20/20 01:43 Pulse 71 01/20/20 03:38 Resp 16 01/20/20 03:38 BP 138/79 01/20/20 03:38 Pulse Ox 95 01/20/20 03:38 - Orders/Labs/Meds Orders: Active Orders 24 hr Category Date Time Status Cardiac Monitoring [RC] . DIRECTED Care 01/20/20 01:39 Active Pulse Oximetry [RC] CONTINUOUS Care 01/20/20 01:39 Active Heparin Sod,Pork In 0.45% Nacl [Heparin-1/2Ns 25,000 Med 01/20/20 03:00 Active Units/500] 25,000 unit in 500 ml IV TITRATE Nitroglycerin [Nitrostat] Med 01/20/20 02:04 Active 0.4 mg SL Q5M PRN Sodium Chloride 0.9% [Normal Saline] Med 01/20/20 01:39 Active 10 ml IV ASDIRECTED PRN Sodium Chloride 0.9% [Saline Flush] Med 01/20/20 01:39 Active 10 ml FLUSH ASDIRECTED PRN Sodium Chloride 0.9% [Saline Flush] Med 01/20/20 01:39 Active 2.5 ml FLUSH ASDIRECTED PRN Peripheral IV Insertion Adult [OM.PC] Stat Oth 01/20/20 01:39 Ordered Medication Orders Heparin Sodium/Sodium Chloride (Heparin-1/2ns 25,000 Units/500) 25,000 unit in 500 mls @ 16.224 mls/hr IV TITRATE STEFANY; Protocol Last Admin: 01/20/20 03:03 Dose: 12 units/kg/hr, 16.224 mls/hr Nitroglycerin (Nitrostat) 0.4 mg SL Q5M PRN PRN Reason: Chest Pain Last Admin: 01/20/20 02:10 Dose: 0.4 mg Sodium Chloride (Saline Flush) 10 ml FLUSH ASDIRECTED PRN PRN Reason: Keep Vein Open Sodium Chloride (Saline Flush) 2.5 ml FLUSH ASDIRECTED PRN PRN Reason: Keep Vein Open Sodium Chloride (Normal Saline) 10 ml IV ASDIRECTED PRN PRN Reason: IV Use Labs: Laboratory Tests 01/20/20 01/20/20 01/20/20 Range/Units 01:35 01:35 01:35 WBC 5.53 (4.0-11.0) K/uL RBC 3.67 L (4.50-5.90) M/uL Hgb 11.0 L (13.0-17.0) g/dL Hct 33.1 L (38.0-50.0) % MCV 90.2 (80.0-98.0) fL MCH 30.0 (27.0-32.0) pg MCHC 33.2 (31.0-37.0) g/dL RDW Std Deviation 47.1 (28.0-62.0) fl RDW Coeff of [place] 14 (11.0-15.0) % Plt Count 180 (150-400) K/uL MPV 9.70 (7.40-12.00) fL Neut % (Auto) 71.2 (48.0-80.0) % Lymph % (Auto) 11.9 L (16.0-40.0) % [place] % (Auto) 12.7 (0.0-15.0) % Eos % (Auto) 3.8 (0.0-7.0) % Baso % (Auto) 0.4 (0.0-1.5) % Neut # (Auto) 3.9 (1.4-5.7) K/uL Lymph # (Auto) 0.7 (0.6-2.4) K/uL [place] # (Auto) 0.7 (0.0-0.8) K/uL Eos # (Auto) 0.2 (0.0-0.7) K/uL Baso # (Auto) 0.0 (0.0-0.1) K/uL Nucleated RBC % 0.0 /100WBC Nucleated RBCs # 0 K/uL INR 1.08 APTT 28.9 (18.6-31.3) SEC Sodium 131 L (136-148) mmol/L Potassium 4.1 (3.5-5.1) mmol/L Chloride 98 (98-107) mmol/L Carbon Dioxide 28.2 (21.0-32.0) mmol/L BUN 15 (7.0-18.0) mg/dL Creatinine 0.7 L (0.8-1.3) mg/dL Est Cr Clr Drug Dosing TNP Estimated GFR (MDRD) > 60.0 ml/min Glucose 105 (74-106) mg/dL Calcium 8.3 L (8.5-10.1) mg/dL Total Bilirubin 0.5 (0.2-1.0) mg/dL AST 25 (15-37) IU/L ALT 25 (14-63) IU/L Alkaline Phosphatase 92 (46-116) U/L Troponin I 0.174 H* (0.000-0.056) ng/mL B-Natriuretic Peptide (<100) PG/ML Total Protein 7.0 (6.4-8.2) g/dL Albumin 3.5 (3.4-5.0) g/dL Globulin 3.5 (2.6-4.0) g/dL Albumin/Globulin Ratio 1.0 (0.9-1.6) 01/20/20 01/20/20 Range/Units 01:35 04:04 WBC (4.0-11.0) K/uL RBC (4.50-5.90) M/uL Hgb (13.0-17.0) g/dL Hct (38.0-50.0) % MCV (80.0-98.0) fL MCH (27.0-32.0) pg MCHC (31.0-37.0) g/dL RDW Std Deviation (28.0-62.0) fl RDW Coeff of [place] (11.0-15.0) % Plt Count (150-400) K/uL MPV (7.40-12.00) fL Neut % (Auto) (48.0-80.0) % Lymph % (Auto) (16.0-40.0) % [place] % (Auto) (0.0-15.0) % Eos % (Auto) (0.0-7.0) % Baso % (Auto) (0.0-1.5) % Neut # (Auto) (1.4-5.7) K/uL Lymph # (Auto) (0.6-2.4) K/uL [place] # (Auto) (0.0-0.8) K/uL Eos # (Auto) (0.0-0.7) K/uL Baso # (Auto) (0.0-0.1) K/uL Nucleated RBC % /100WBC Nucleated RBCs # K/uL INR APTT (18.6-31.3) SEC Sodium (136-148) mmol/L Potassium (3.5-5.1) mmol/L Chloride (98-107) mmol/L Carbon Dioxide (21.0-32.0) mmol/L BUN (7.0-18.0) mg/dL Creatinine (0.8-1.3) mg/dL Est Cr Clr Drug Dosing Estimated GFR (MDRD) ml/min Glucose (74-106) mg/dL Calcium (8.5-10.1) mg/dL Total Bilirubin (0.2-1.0) mg/dL AST (15-37) IU/L ALT (14-63) IU/L Alkaline Phosphatase (46-116) U/L Troponin I 0.178 H* (0.000-0.056) ng/mL B-Natriuretic Peptide 251 H (<100) PG/ML Total Protein (6.4-8.2) g/dL Albumin (3.4-5.0) g/dL Globulin (2.6-4.0) g/dL Albumin/Globulin Ratio (0.9-1.6) Meds: Medications Generic Name Dose Route Start Last Admin Trade Name Freq PRN Reason Stop Dose Admin Heparin Sodium/Sodium Chloride 25,000 unit in 500 mls @ 16.224 mls/hr 03:00 01/20/20 03:03 Heparin-1/2ns 25,000 Units/500 IV 12 units/kg/hr TITRATE STEFANY 16.224 mls/hr Administration Protocol 12 UNITS/KG/HR Nitroglycerin 0.4 mg 01/20/20 02:04 01/20/20 02:10 Nitrostat SL 0.4 mg Q5M PRN Administration Chest Pain Sodium Chloride 10 ml 01/20/20 01:39 Saline Flush FLUSH ASDIRECTED PRN Keep Vein Open Sodium Chloride 2.5 ml 01/20/20 01:39 Saline Flush FLUSH ASDIRECTED PRN Keep Vein Open Sodium Chloride 10 ml 01/20/20 01:39 Normal Saline IV ASDIRECTED PRN IV Use Discontinued Medications Generic Name Dose Route Start Last Admin Trade Name Freq PRN Reason Stop Dose Admin Heparin Sodium (Porcine) 4,000 units 01/20/20 02:39 01/20/20 03:01 Heparin Sodium IVPUSH 01/20/20 02:40 4,000 units .BOLUS ONE Administration Heparin Sodium/Sodium Chloride 25,000 unit in 500 mls @ 16.224 mls/hr 02:45 Heparin-1/2ns 25,000 Units/500 IV TITRATE STEFANY Protocol 12 UNITS/KG/HR Nitroglycerin Confirm 01/20/20 02:05 01/20/20 03:44 Nitrostat Administered 01/20/20 02:06 Not Given Dose 0.4 mg .ROUTE .STK-MED ONE Departure - Departure Time of Disposition: 02:50 Disposition: DC/Tfer to Acute Hospital 02 Reason for Transfer *Q: Other (Interventional cardiology not available at this facility.) Condition: Good Clinical Impression: NSTEMI (non-ST elevated myocardial infarction) Referrals: PCP,None [Primary Care Provider] - Critical Care Note - Critical Care Note Total Time (mins): 45 Comments: Critical care time is exclusive of billable procedures and the time to perform these procedures. Critical care time was used to prevent vital system organ failure and deterioration, namely, cardiovascular system deterioration due to non-ST segment elevation myocardial infarction. Critical care time includes bedside management and high-complexity decision making requiring my highest level of mental preparedness and attention. This includes reviewing the patient' s chart and prior medical records, ordering and reviewing interpreting laboratory studies and imaging results, interpretation of vital signs and EKG, pulse oximetry, and discussion with the admitting team along with EMS and nursing staff. NSTEMI requiring nitroglycerin administration followed by heparin bolus and infusion. Serial EKGs, discussion with admitting hospitalist and family as well. Sepsis Event Note - Focused Exam Vital Signs: Vital Signs Temp Pulse Resp BP BP Pulse Ox 01/20/20 03:38 71 16 138/79 95 01/20/20 03:07 73 16 142/80 H 96 01/20/20 02:10 152/79 H 01/20/20 01:43 36.7 C 78 22 H 143/85 H 97 Date Exam was Performed: 01/20/20 Time Exam was Performed: 05:05 - My Orders Last 24 Hours: My Active Orders 01/20/20 01:39 Cardiac Monitoring [RC] . DIRECTED Pulse Oximetry [RC] CONTINUOUS Sodium Chloride 0.9% [Normal Saline] 10 ml IV ASDIRECTED PRN Sodium Chloride 0.9% [Saline Flush] 10 ml FLUSH ASDIRECTED PRN Sodium Chloride 0.9% [Saline Flush] 2.5 ml FLUSH ASDIRECTED PRN Peripheral IV Insertion Adult [OM.PC] Stat 01/20/20 02:04 Nitroglycerin [Nitrostat] 0.4 mg SL Q5M PRN 01/20/20 03:00 Heparin Sod,Pork In 0.45% Nacl [Heparin-1/2Ns 25,000 Units/500] 25,000 unit in 500 ml IV TITRATE - Assessment/Plan Last 24 Hours: My Active Orders 01/20/20 01:39 Cardiac Monitoring [RC] . DIRECTED Pulse Oximetry [RC] CONTINUOUS Sodium Chloride 0.9% [Normal Saline] 10 ml IV ASDIRECTED PRN Sodium Chloride 0.9% [Saline Flush] 10 ml FLUSH ASDIRECTED PRN Sodium Chloride 0.9% [Saline Flush] 2.5 ml FLUSH ASDIRECTED PRN Peripheral IV Insertion Adult [OM.PC] Stat 01/20/20 02:04 Nitroglycerin [Nitrostat] 0.4 mg SL Q5M PRN 01/20/20 03:00 Heparin Sod,Pork In 0.45% Nacl [Heparin-1/2Ns 25,000 Units/500] 25,000 unit in 500 ml IV TITRATE
[2020-01-20] MEDS ORDERED: Nitroglycerin 0.4 MG Tab.SL SL PRN (02:04)
[2020-01-20] MEDS ORDERED: Nitroglycerin 0.4 MG Tab.SL ONE (02:05)
[2020-01-20 02:07] LABS: BLOOD UREA NITROGEN,BUN 15 mg/dL (7.0-18.0); CARBON DIOXIDE,CO2 28.2 mmol/L (21.0-32.0); CHLORIDE,CL 98 mmol/L (98-107); GLUCOSE RANDOM 105 mg/dL (74-106); POTASSIUM,K 4.1 mmol/L (3.5-5.1); SODIUM,NA 131 mmol/L (136-148)
[2020-01-20] MEDS ORDERED: Heparin Sodium 5,000 Units/ML Vial IVPUSH ONE (02:39)
--- NOTE | 2020-01-20 02:43 | CR ---
INDICATION: Shortness of breath COMPARISON: None TECHNIQUE: Frontal and lateral views of the chest FINDINGS: There is no airspace consolidation or pulmonary vascular congestion. There is no pleural effusion or pneumothorax. The cardiac silhouette is nonenlarged. Sternotomy wires are noted. IMPRESSION: No acute intrathoracic process. Dictated by Anam Brownlee MD @ Jan 20 2020 2:40AM Signed by Dr. Anam Brownlee @ Jan 20 2020 2:41AM
[2020-01-20] MEDS ORDERED: Heparin Sod,Pork In 0.45% Nacl 25,000 UNIT/500 ML IV.SOLN IV SCH ×2 (02:45→03:00)
[2020-01-20 07:04] VITALS: BP 142/80; PULSE 72
== END 2020-01-20 04:24 ==
LOC: MW.ED 01:36
DX: I21.4 Non-ST elevation (NSTEMI) myocardial infarction (principal); I10 Essential (primary) hypertension; I25.10 Atherosclerotic heart disease of native coronary artery without angina pectoris; I25.2 Old myocardial infarction; Z95.1 Presence of aortocoronary bypass graft; Z88.8 Allergy status to other drugs, medicaments and biological substances; Z79.82 Long term (current) use of aspirin; Z79.899 Other long term (current) drug therapy
CPT/HCPCS: 36415; 71046; 80053; 83880; 84484; 85025; 85610; 85730; 93005; 96365; 99291; A9270; J1644; 99284

== ENCOUNTER 2020-01-22 20:38 | Observation (INO) | payer MEDICARE, OTHER ==
[2020-01-22] MEDS ORDERED: Sodium Chloride 0.9% 1,000 ML IV STA (21:13)
--- NOTE | 2020-01-22 22:12 | CR ---
INDICATION: Altered mental status TECHNIQUE: Chest radiograph 2 views COMPARISON: 01/20/2020 FINDINGS: Mediastinum: Patient is status post median sternotomy with aortic and mitral valve annuloplasties. The heart silhouette is normal in size and morphology. Lung: Diffuse interstitial is present which may be due to interstitial edema interstitial lung disease such as fibrosis. No sign of pleural effusion seen. No pneumothorax is identified. Bone and Soft tissue: Unremarkable for age. IMPRESSION: 1. Diffuse interstitial is present which may be due to interstitial edema interstitial lung disease such as fibrosis. The appearance is similar to prior study. Dictated by Sarath Devlin MD @ 01/22/2020 10:10:52 PM Dictated by: Sarath Devlin MD @ 01/22/2020 22:11:14 (Electronically Signed)
--- NOTE | 2020-01-22 22:20 | CT ---
INDICATION: Altered mental status TECHNIQUE: CT Head without i.v. contrast. COMPARISON: None FINDINGS: CSF space: [id number] ventriculomegaly is present and likely due to cortical atrophy. Ex vacuo dilatation the right temporal is noted. Brain: No evidence of mass, acute infarction or hemorrhage is seen. No mass-effect or midline shift is seen. Moderate diffuse cortical atrophy is present most pronounced in the right temporal lobe. Microgram microvascular Calvarium: The visualized paranasal sinuses are well aerated. The mastoid air cells are clear. The patient is status post bilateral cataract removal. The calvarium is unremarkable in appearance with no fractures identified. IMPRESSION: 1. No evidence of acute infarction, intracranial hemorrhage, or mass-effect seen. Dictated by Sarath Devlin MD @ 01/22/2020 10:18:18 PM Please note that all CT scans at this facility use dose modulation, iterative reconstruction, and/or weight-based dosing when appropriate to reduce radiation dose to as low as reasonably achievable. Dictated by: Sarath Devlin MD @ 01/22/2020 22:18:23 (Electronically Signed)
[2020-01-22 22:40] LABS: BLOOD UREA NITROGEN,BUN 25 mg/dL (7.0-18.0); CARBON DIOXIDE,CO2 28.3 mmol/L (21.0-32.0); CHLORIDE,CL 95 mmol/L (98-107); GLUCOSE RANDOM 126 mg/dL (74-106); POTASSIUM,K 4.5 mmol/L (3.5-5.1); SODIUM,NA 127 mmol/L (136-148)
--- NOTE | 2020-01-22 22:44 | EDM.PDOC ---
ED HPI GENERAL MEDICAL PROBLEM - General Chief Complaint: General Stated Complaint: EMS Time Seen by Provider: 01/22/20 20:42 Source of Information: Reports: Patient, EMS, Family, Old Records History Limitations: Reports: Other (Patient is very hard of hearing responds very slowly to any questioning.) - History of Present Illness INITIAL COMMENTS - FREE TEXT/NARRATIVE: Patient is an 84-year-old male who was transferred down to [place] for an NSTEMI 2 days ago. He was discharged home yesterday with a new med of lisinopril. Patient's daughter states that he took his meds this evening and then took a nap and afterwards they were having difficulty arousing him. This is a change in mental status per the patient. There is been no head trauma or other injury. He has not been complaining of chest pain or shortness of breath. He denies any coughing or nausea vomiting or diarrhea. Patient is very hard of hearing but seems to be very slow in responding to us but seems orientated to person place and time. Patient does have a history of having a stroke and does not appear to be on any blood thinners. He has had aortic and mitral valves replaced. We are attempting to get records from [place]. Onset: Today, Unknown/Unsure - Related Data Allergies Allergy/AdvReac Type Severity Reaction Status Date / Time amiodarone Allergy Renal Verified 01/22/20 20:56 Insufficiency simvastatin Allergy Other Verified 01/22/20 20:56 Home Meds: Home Meds Aspirin 81 mg PO DAILY 03/05/15 [History] Doxazosin [Cardura] 2 mg PO BEDTIME 03/05/15 [History] Metoprolol Tartrate [Lopressor] 25 mg PO BID 03/05/15 [History] NIFEdipine [Nifedipine ER] 30 mg PO DAILY 03/05/15 [History] Cholecalciferol (Vitamin D3) [Vitamin D] 1 cap PO DAILY 09/15/17 [History] Tamsulosin [Flomax] 0.4 mg PO DAILY 12/16/17 [History] levETIRAcetam [Levetiracetam] 1 cap PO BID 03/07/19 [History] Furosemide 40 mg PO DAILY 11/02/19 [History] Gabapentin [Neurontin] 100 mg PO DAILY 11/02/19 [History] Lansoprazole [Prevacid] 30 mg PO DAILY 11/02/19 [History] lisinopriL [Lisinopril] 5 mg PO DAILY 01/22/20 [History] Past Medical History HEENT History: Reports: Hard of Hearing Other HEENT History: bilateral hearing aids Cardiovascular History: Reports: CAD, Heart Valve Replacement, High Cholesterol , Hypertension, [place] Respiratory History: Reports: None Other Respiratory History: emphysema Gastrointestinal History: Reports: Hiatal Hernia Other Gastrointestinal History: Current left inguinal hernia Genitourinary History: Reports: Prostate Disorder, Other (See Below) Other Genitourinary History: Prostate CA Musculoskeletal History: Reports: Other (See Below) Other Musculoskeletal History: hx: fracture leg Neurological History: Reports: None Psychiatric History: Reports: None Endocrine/Metabolic History: Reports: None Hematologic History: Reports: None Immunologic History: Reports: None Oncologic (Cancer) History: Reports: Prostate Dermatologic History: Reports: Other (See Below) Other Dermatologic History: SKin areas froze off face - Infectious Disease History Infectious Disease History: Reports: None Other Infectious Disease History: hepatitis back in the 60's - Past Surgical History HEENT Surgical History: Reports: Tonsillectomy Cardiovascular Surgical History: Reports: Coronary Artery Bypass, Valve Replacement Other Cardiovascular Surgeries/Procedures: Aortic and Mitral Valve replaced Respiratory Surgical History: Reports: None GI Surgical History: Reports: Hernia, Inguinal Male Surgical History: Reports: None Endocrine Surgical History: Reports: None Other Musculoskeletal Surgeries/Procedures:: Right Total Hip Replacement Social & Family History - Family History Family Medical History: Noncontributory - Tobacco Use Smoking Status *Q: Never Smoker - Caffeine Use Caffeine Use: Reports: Coffee - Recreational Drug Use Recreational Drug Use: No - Living Situation & Occupation Living situation: Reports: Occupation: Retired () ED ROS GENERAL - Review of Systems Review Of Systems: Comprehensive ROS is negative, except as noted in HPI. ED EXAM, GENERAL - Physical Exam Exam: See Below Exam Limited By: Other (Extremely hard of hearing) General Appearance: No Apparent Distress Head: Atraumatic, Normocephalic Neck: Normal Inspection, Supple, Non-Tender Respiratory/Chest: No Respiratory Distress, No Accessory Muscle Use, Rales Cardiovascular: No Edema, Systolic Murmur, Irregularly Irregular GI/Abdominal: Normal Bowel Sounds, Soft, Non-Tender Back Exam: Normal Inspection Extremities: Normal Inspection, No Pedal Edema Neurological: CN II-XII Intact, No Motor/Sensory Deficits, Slow to Respond EKG INTERPRETATION Rhythm: A-Fib ST-T: Normal Course - Vital Signs Text/Narrative:: Patient's chest x-ray shows pulmonary fibrosis which is unchanged from previous. His troponin is elevated 0.162 but looking at previous troponins they are all to a certain degree elevated off and much higher than the ones over the last few days and seem to be demand ischemia CT of his brain shows no acute disease. EKG shows him to be in atrial fibrillation which is new from 2 days ago. Patient's sodium is at 127 which also seems to be a baseline form. His initial blood pressure was low at 107 and when sleeping this pressure is even lower. Might be that he is overly sensitive to his new lisinopril which was started 2 days ago. Patient's earlier reported change in mental status seems to have been improved and he this may have been a TIA. Is unclear to me why patient is not on blood thinners with 2 mechanical heart valves and atrial fibrillation. Last Recorded V/S: Last Vital Signs Temp 36.1 C 01/22/20 20:42 Pulse 77 01/22/20 20:42 Resp 18 01/22/20 20:42 BP 107/49 L 01/22/20 20:42 Pulse Ox 95 01/22/20 20:42 - Orders/Labs/Meds Orders: Active Orders 24 hr Category Date Time Status EKG 12 Lead [EKG Documentation Completion] [RC] STAT Care 01/22/20 21:16 Active UA W/MICROSCOPIC [URIN] Stat Lab 01/22/20 23:28 Results Sodium Chloride 0.9% [Normal Saline] 1,000 ml Med 01/22/20 21:13 Active IV NOW Medication Orders Sodium Chloride (Normal Saline) 1,000 mls @ 125 mls/hr IV NOW STA Stop: 01/23/20 05:12 Last Admin: 01/22/20 22:01 Dose: 125 mls/hr Labs: Laboratory Tests 01/22/20 01/22/20 01/22/20 Range/Units 22:09 22:09 22:09 WBC 6.67 (4.0-11.0) K/uL RBC 3.76 L (4.50-5.90) M/uL Hgb 11.3 L (13.0-17.0) g/dL Hct 34.1 L (38.0-50.0) % MCV 90.7 (80.0-98.0) fL MCH 30.1 (27.0-32.0) pg MCHC 33.1 (31.0-37.0) g/dL RDW Std Deviation 47.1 (28.0-62.0) fl RDW Coeff of [place] 14 (11.0-15.0) % Plt Count 174 (150-400) K/uL MPV 9.90 (7.40-12.00) fL Neut % (Auto) 84.5 H (48.0-80.0) % Lymph % (Auto) 6.7 L (16.0-40.0) % [place] % (Auto) 7.2 (0.0-15.0) % Eos % (Auto) 1.5 (0.0-7.0) % Baso % (Auto) 0.1 (0.0-1.5) % Neut # (Auto) 5.6 (1.4-5.7) K/uL Lymph # (Auto) 0.5 L (0.6-2.4) K/uL [place] # (Auto) 0.5 (0.0-0.8) K/uL Eos # (Auto) 0.1 (0.0-0.7) K/uL Baso # (Auto) 0.0 (0.0-0.1) K/uL Nucleated RBC % 0.0 /100WBC Nucleated RBCs # 0 K/uL Lactate 1.4 (0.20-2.00) mmol/L Sodium 127 L (136-148) mmol/L Potassium 4.5 (3.5-5.1) mmol/L Chloride 95 L (98-107) mmol/L Carbon Dioxide 28.3 (21.0-32.0) mmol/L BUN 25 H (7.0-18.0) mg/dL Creatinine 1.0 (0.8-1.3) mg/dL Est Cr Clr Drug Dosing 49.58 mL/min Estimated GFR (MDRD) > 60.0 ml/min Glucose 126 H (74-106) mg/dL Calcium 8.4 L (8.5-10.1) mg/dL Total Bilirubin 0.3 (0.2-1.0) mg/dL AST 26 (15-37) IU/L ALT 28 (14-63) IU/L Alkaline Phosphatase 103 (46-116) U/L Troponin I 0.162 H* (0.000-0.056) ng/mL B-Natriuretic Peptide (<100) PG/ML Total Protein 7.1 (6.4-8.2) g/dL Albumin 3.6 (3.4-5.0) g/dL Globulin 3.5 (2.6-4.0) g/dL Albumin/Globulin Ratio 1.0 (0.9-1.6) Urine Color Urine Appearance Urine pH (5.0-8.0) Ur Specific [place] (1.001-1.035) Urine Protein (NEGATIVE) mg/dL Urine Glucose (UA) (NEGATIVE) mg/dL Urine Ketones (NEGATIVE) mg/dL Urine Occult Blood (NEGATIVE) Urine Nitrite (NEGATIVE) Urine Bilirubin (NEGATIVE) Urine Urobilinogen (<2.0) EU/dL Ur Leukocyte Esterase (NEGATIVE) 01/22/20 01/22/20 Range/Units 22:09 23:28 WBC (4.0-11.0) K/uL RBC (4.50-5.90) M/uL Hgb (13.0-17.0) g/dL Hct (38.0-50.0) % MCV (80.0-98.0) fL MCH (27.0-32.0) pg MCHC (31.0-37.0) g/dL RDW Std Deviation (28.0-62.0) fl RDW Coeff of [place] (11.0-15.0) % Plt Count (150-400) K/uL MPV (7.40-12.00) fL Neut % (Auto) (48.0-80.0) % Lymph % (Auto) (16.0-40.0) % [place] % (Auto) (0.0-15.0) % Eos % (Auto) (0.0-7.0) % Baso % (Auto) (0.0-1.5) % Neut # (Auto) (1.4-5.7) K/uL Lymph # (Auto) (0.6-2.4) K/uL [place] # (Auto) (0.0-0.8) K/uL Eos # (Auto) (0.0-0.7) K/uL Baso # (Auto) (0.0-0.1) K/uL Nucleated RBC % /100WBC Nucleated RBCs # K/uL Lactate (0.20-2.00) mmol/L Sodium (136-148) mmol/L Potassium (3.5-5.1) mmol/L Chloride (98-107) mmol/L Carbon Dioxide (21.0-32.0) mmol/L BUN (7.0-18.0) mg/dL Creatinine (0.8-1.3) mg/dL Est Cr Clr Drug Dosing mL/min Estimated GFR (MDRD) ml/min Glucose (74-106) mg/dL Calcium (8.5-10.1) mg/dL Total Bilirubin (0.2-1.0) mg/dL AST (15-37) IU/L ALT (14-63) IU/L Alkaline Phosphatase (46-116) U/L Troponin I (0.000-0.056) ng/mL B-Natriuretic Peptide 125 H (<100) PG/ML Total Protein (6.4-8.2) g/dL Albumin (3.4-5.0) g/dL Globulin (2.6-4.0) g/dL Albumin/Globulin Ratio (0.9-1.6) Urine Color YELLOW Urine Appearance CLEAR Urine pH 7.5 (5.0-8.0) Ur Specific [place] 1.010 (1.001-1.035) Urine Protein NEGATIVE (NEGATIVE) mg/dL Urine Glucose (UA) NEGATIVE (NEGATIVE) mg/dL Urine Ketones NEGATIVE (NEGATIVE) mg/dL Urine Occult Blood NEGATIVE (NEGATIVE) Urine Nitrite NEGATIVE (NEGATIVE) Urine Bilirubin NEGATIVE (NEGATIVE) Urine Urobilinogen 0.2 (<2.0) EU/dL Ur Leukocyte Esterase NEGATIVE (NEGATIVE) Meds: Medications Generic Name Dose Route Start Last Admin Trade Name Freq PRN Reason Stop Dose Admin Sodium Chloride 1,000 mls @ 125 mls/hr 01/22/20 21:13 01/22/20 22:01 Normal Saline IV 01/23/20 05:12 125 mls/hr NOW STA Administration Departure - Departure Time of Disposition: 23:51 Disposition: Refer to Observation Condition: Good Clinical Impression: Atrial fibrillation, TIA (transient ischemic attack) - Discharge Information Referrals: PCP,Unknown [Primary Care Provider] - Forms: ED Department Discharge Sepsis Event Note - Evaluation Sepsis Screening Result: No Definite Risk - Focused Exam Vital Signs: Vital Signs Temp Pulse Resp BP Pulse Ox 01/22/20 20:42 36.1 C 77 18 107/49 L 95 Date Exam was Performed: 01/22/20 Time Exam was Performed: 23:45 - My Orders Last 24 Hours: My Active Orders 01/22/20 21:13 Sodium Chloride 0.9% [Normal Saline] 1,000 ml IV NOW 01/22/20 21:16 EKG 12 Lead [EKG Documentation Completion] [RC] STAT 01/22/20 23:28 UA W/MICROSCOPIC [URIN] Stat - Assessment/Plan Last 24 Hours: My Active Orders 01/22/20 21:13 Sodium Chloride 0.9% [Normal Saline] 1,000 ml IV NOW 01/22/20 21:16 EKG 12 Lead [EKG Documentation Completion] [RC] STAT 01/22/20 23:28 UA W/MICROSCOPIC [URIN] Stat
[2020-01-23] MEDS ORDERED: Aspirin 325 MG Tab PO ONE ×2 (01:21→04:40)
--- NOTE | 2020-01-23 01:30 | PCM.HP.2 ---
H&P History of Present Illness - General Date of Service: 01/23/20 Admit Problem/Dx: Admission Diagnosis/Problem Admission Diagnosis/Problem TIA, Transient ischemic attack - History of Present Illness Initial Comments - Free Text/Narative: 84 yo male with pmh of CAD, HTN, CABG many years ago and aortic and mitral valve replacement, and prostate cancer. He was transferred to [place] two days ago for NSTEMI. He was discharged yesterday. Today he was brought into the ED due to concern he was difficult to arouse from sleep. Patient denies any chest pain, or shortness of breath. PAtient reports due to the traveling back from [place] he did not get much sleep yesterday so he was overly tired today. - Related Data Allergies/Adverse Reactions: Allergies Allergy/AdvReac Type Severity Reaction Status Date / Time amiodarone Allergy Renal Verified 01/23/20 02:51 Insufficiency simvastatin Allergy Other Verified 01/23/20 02:51 Home Medications: Home Meds Aspirin 81 mg PO DAILY 03/05/15 [History] Metoprolol Tartrate [Lopressor] 25 mg PO BID 03/05/15 [History] Tamsulosin [Flomax] 0.4 mg PO BEDTIME 12/16/17 [History] levETIRAcetam [Levetiracetam] 100 mg PO BID 03/07/19 [History] Lansoprazole [Prevacid] 40 mg PO DAILY 11/02/19 [History] Cholecalciferol (Vitamin D3) [Vitamin D3] 2 tab PO DAILY 01/23/20 [History] Past Medical History HEENT History: Reports: Hard of Hearing Other HEENT History: bilateral hearing aids Cardiovascular History: Reports: CAD, Heart Valve Replacement, High Cholesterol , Hypertension, [place] Respiratory History: Reports: None Other Respiratory History: emphysema Gastrointestinal History: Reports: Hiatal Hernia Other Gastrointestinal History: Current left inguinal hernia Genitourinary History: Reports: Prostate Disorder, Other (See Below) Other Genitourinary History: Prostate CA Musculoskeletal History: Reports: Other (See Below) Other Musculoskeletal History: hx: fracture leg Neurological History: Reports: None Psychiatric History: Reports: None Endocrine/Metabolic History: Reports: None Hematologic History: Reports: None Immunologic History: Reports: None Oncologic (Cancer) History: Reports: Prostate Dermatologic History: Reports: Other (See Below) Other Dermatologic History: SKin areas froze off face - Infectious Disease History Infectious Disease History: Reports: None Other Infectious Disease History: hepatitis back in the 60's - Past Surgical History HEENT Surgical History: Reports: Tonsillectomy Cardiovascular Surgical History: Reports: Coronary Artery Bypass, Valve Replacement Other Cardiovascular Surgeries/Procedures: Aortic and Mitral Valve replaced Respiratory Surgical History: Reports: None GI Surgical History: Reports: Hernia, Inguinal Male Surgical History: Reports: None Endocrine Surgical History: Reports: None Other Musculoskeletal Surgeries/Procedures:: Right Total Hip Replacement Social & Family History - Family History Family Medical History: Noncontributory - Tobacco Use Smoking Status *Q: Never Smoker - Caffeine Use Caffeine Use: Reports: Coffee - Recreational Drug Use Recreational Drug Use: No - Living Situation & Occupation Living situation: Reports: Occupation: Retired () H&P Review of Systems - Review of Systems: Review Of Systems: Comprehensive ROS is negative, except as noted in HPI. Exam - Exam Exam: See Below - Vital Signs Vital Signs: Last Vital Signs Temp 36.1 C 01/22/20 20:42 Pulse 96 01/23/20 00:18 Resp 16 01/23/20 00:18 BP 132/61 01/23/20 00:18 Pulse Ox 96 01/23/20 00:18 Weight: 72.8 kg - Exam General: Alert HEENT: Mucosa Moist & [place] Lungs: Clear to Auscultation, Normal Respiratory Effort Cardiovascular: Regular Rate, Regular Rhythm GI/Abdominal Exam: Normal Bowel Sounds, Soft, Non-Tender Extremities: Non-Tender, No Pedal Edema - Patient Data Lab Results Last 24 hrs: Laboratory Results - last 24 hr 01/22/20 01/22/20 01/22/20 Range/Units 22:09 22:09 22:09 WBC 6.67 (4.0-11.0) K/uL RBC 3.76 L (4.50-5.90) M/uL Hgb 11.3 L (13.0-17.0) g/dL Hct 34.1 L (38.0-50.0) % MCV 90.7 (80.0-98.0) fL MCH 30.1 (27.0-32.0) pg MCHC 33.1 (31.0-37.0) g/dL RDW Std Deviation 47.1 (28.0-62.0) fl RDW Coeff of [place] 14 (11.0-15.0) % Plt Count 174 (150-400) K/uL MPV 9.90 (7.40-12.00) fL Neut % (Auto) 84.5 H (48.0-80.0) % Lymph % (Auto) 6.7 L (16.0-40.0) % [place] % (Auto) 7.2 (0.0-15.0) % Eos % (Auto) 1.5 (0.0-7.0) % Baso % (Auto) 0.1 (0.0-1.5) % Neut # (Auto) 5.6 (1.4-5.7) K/uL Lymph # (Auto) 0.5 L (0.6-2.4) K/uL [place] # (Auto) 0.5 (0.0-0.8) K/uL Eos # (Auto) 0.1 (0.0-0.7) K/uL Baso # (Auto) 0.0 (0.0-0.1) K/uL Nucleated RBC % 0.0 /100WBC Nucleated RBCs # 0 K/uL Lactate 1.4 (0.20-2.00) mmol/L Sodium 127 L (136-148) mmol/L Potassium 4.5 (3.5-5.1) mmol/L Chloride 95 L (98-107) mmol/L Carbon Dioxide 28.3 (21.0-32.0) mmol/L BUN 25 H (7.0-18.0) mg/dL Creatinine 1.0 (0.8-1.3) mg/dL Est Cr Clr Drug Dosing 49.58 mL/min Estimated GFR (MDRD) > 60.0 ml/min Glucose 126 H (74-106) mg/dL Calcium 8.4 L (8.5-10.1) mg/dL Total Bilirubin 0.3 (0.2-1.0) mg/dL AST 26 (15-37) IU/L ALT 28 (14-63) IU/L Alkaline Phosphatase 103 (46-116) U/L Troponin I 0.162 H* (0.000-0.056) ng/mL B-Natriuretic Peptide (<100) PG/ML Total Protein 7.1 (6.4-8.2) g/dL Albumin 3.6 (3.4-5.0) g/dL Globulin 3.5 (2.6-4.0) g/dL Albumin/Globulin Ratio 1.0 (0.9-1.6) Urine Color Urine Appearance Urine pH (5.0-8.0) Ur Specific [place] (1.001-1.035) Urine Protein (NEGATIVE) mg/dL Urine Glucose (UA) (NEGATIVE) mg/dL Urine Ketones (NEGATIVE) mg/dL Urine Occult Blood (NEGATIVE) Urine Nitrite (NEGATIVE) Urine Bilirubin (NEGATIVE) Urine Urobilinogen (<2.0) EU/dL Ur Leukocyte Esterase (NEGATIVE) Urine RBC (0-2/HPF) Urine WBC (0-5/HPF) Ur Epithelial Cells (NONE-FEW) Urine Bacteria (NEGATIVE) 01/22/20 01/22/20 Range/Units 22:09 23:28 WBC (4.0-11.0) K/uL RBC (4.50-5.90) M/uL Hgb (13.0-17.0) g/dL Hct (38.0-50.0) % MCV (80.0-98.0) fL MCH (27.0-32.0) pg MCHC (31.0-37.0) g/dL RDW Std Deviation (28.0-62.0) fl RDW Coeff of [place] (11.0-15.0) % Plt Count (150-400) K/uL MPV (7.40-12.00) fL Neut % (Auto) (48.0-80.0) % Lymph % (Auto) (16.0-40.0) % [place] % (Auto) (0.0-15.0) % Eos % (Auto) (0.0-7.0) % Baso % (Auto) (0.0-1.5) % Neut # (Auto) (1.4-5.7) K/uL Lymph # (Auto) (0.6-2.4) K/uL [place] # (Auto) (0.0-0.8) K/uL Eos # (Auto) (0.0-0.7) K/uL Baso # (Auto) (0.0-0.1) K/uL Nucleated RBC % /100WBC Nucleated RBCs # K/uL Lactate (0.20-2.00) mmol/L Sodium (136-148) mmol/L Potassium (3.5-5.1) mmol/L Chloride (98-107) mmol/L Carbon Dioxide (21.0-32.0) mmol/L BUN (7.0-18.0) mg/dL Creatinine (0.8-1.3) mg/dL Est Cr Clr Drug Dosing mL/min Estimated GFR (MDRD) ml/min Glucose (74-106) mg/dL Calcium (8.5-10.1) mg/dL Total Bilirubin (0.2-1.0) mg/dL AST (15-37) IU/L ALT (14-63) IU/L Alkaline Phosphatase (46-116) U/L Troponin I (0.000-0.056) ng/mL B-Natriuretic Peptide 125 H (<100) PG/ML Total Protein (6.4-8.2) g/dL Albumin (3.4-5.0) g/dL Globulin (2.6-4.0) g/dL Albumin/Globulin Ratio (0.9-1.6) Urine Color YELLOW Urine Appearance CLEAR Urine pH 7.5 (5.0-8.0) Ur Specific [place] 1.010 (1.001-1.035) Urine Protein NEGATIVE (NEGATIVE) mg/dL Urine Glucose (UA) NEGATIVE (NEGATIVE) mg/dL Urine Ketones NEGATIVE (NEGATIVE) mg/dL Urine Occult Blood NEGATIVE (NEGATIVE) Urine Nitrite NEGATIVE (NEGATIVE) Urine Bilirubin NEGATIVE (NEGATIVE) Urine Urobilinogen 0.2 (<2.0) EU/dL Ur Leukocyte Esterase NEGATIVE (NEGATIVE) Urine RBC 0-2 (0-2/HPF) Urine WBC 0-2 (0-5/HPF) Ur Epithelial Cells RARE (NONE-FEW) Urine Bacteria RARE (NEGATIVE) Result Diagrams: 01/24/20 06:02 01/24/20 06:02 Sepsis Event Note - Evaluation Sepsis Screening Result: No Definite Risk - Focused Exam Vital Signs: Vital Signs Temp Pulse Resp BP Pulse Ox 01/23/20 00:18 96 16 132/61 96 01/22/20 22:40 82 208/102 H 98 01/22/20 22:25 84 196/107 H 96 01/22/20 21:55 89 134/77 97 05/24/20 21:10 82 125/76 96 01/22/20 20:42 36.1 C 77 18 107/49 L 95 Date Exam was Performed: 01/25/20 Time Exam was Performed: 18:24 Problem List Initiated/Reviewed/Updated: Yes Orders Last 24hrs: Active Orders 24 hr Category Date Time Status Admission Status [Patient Status] [ADT] Stat ADT 01/22/20 23:52 Active EKG 12 Lead [EKG Documentation Completion] [RC] STAT Care 01/22/20 21:16 Active Telemetry Monitoring [Cardiac Monitoring] [RC] . Care 01/23/20 01:10 Active DIRECTED Regular Diet [DIET] Diet 01/23/20 Breakfast Active BASIC METABOLIC PANEL,BMP [CHEM] Routine Lab 01/23/20 06:00 Ordered TROPONIN I [CHEM] Routine Lab 01/23/20 06:00 Ordered Sodium Chloride 0.9% [Normal Saline] 1,000 ml Med 01/23/20 05:15 Active IV ASDIRECTED Sodium Chloride 0.9% [Normal Saline] 1,000 ml Med 01/22/20 21:13 Active IV NOW Medication Orders Sodium Chloride (Normal Saline) 1,000 mls @ 125 mls/hr IV NOW STA Stop: 01/23/20 05:12 Last Admin: 01/22/20 22:01 Dose: 125 mls/hr Sodium Chloride (Normal Saline) 1,000 mls @ 125 mls/hr IV ASDIRECTED [facility] Assessment/Plan Comment:: 84 yo male admitted for episode of altered mental status in the setting of low blood pressure at home. Patient's symptoms have resolved and blood pressure is now normal. Low blood pressure could be due to recent start of lisinopril. Also on his differential is delirium due to recent hospitalization and travel. We will place overnight on telemetry and continue to monitor his blood pressure. Mild elevation of troponin may be his baseline. We will trend his troponin.
[2020-01-23] MEDS ORDERED: Sodium Chloride 0.9% 1,000 ML IV SCH (05:15)
[2020-01-23 06:42] LABS: BLOOD UREA NITROGEN,BUN 18 mg/dL (7.0-18.0); CHLORIDE,CL 99 mmol/L (98-107); GLUCOSE RANDOM 107 mg/dL (74-106); POTASSIUM,K 4.1 mmol/L (3.5-5.1); SODIUM,NA 132 mmol/L (136-148)
[2020-01-23] MEDS ORDERED: Ondansetron 4 MG/2 ML SDV IVPUSH PRN (08:13)
[2020-01-23] MEDS ORDERED: Acetaminophen 325 MG Tab PO PRN (08:13)
[2020-01-23] MEDS ORDERED: Lisinopril 5 MG Tab PO SCH (10:12)
--- NOTE | 2020-01-23 10:33 | PCM.PN ---
- General Info Date of Service: 01/23/20 Admission Dx/Problem (Free Text): Admission Diagnosis/Problem Admission Diagnosis/Problem Hypotension Subjective Update: Feeling improved this morning, denies any chest pain or SOB. Asking about going home. Spoke with daughter, Aggie, regarding concerns last evening. She reports they got home from [place] and he took all his medications in the evening. He had taken Lisinopril earlier in the day. He then sat in the recliner and took a nap. They family noticed he was grimacing and makin faces in his sleep and got concerned. When they tried to arouse him he was slow to arouse, but did wake up and state he had to go to the bathroom. She reports they tooks his blood pressure and is was 73/41. As a family they felt very uneasy about his BP and condition so they called 911. She is hoping he can be monitored longer with the start of a new BP medication. They have also had arrangements with [facility] for new living situation, but they are on hold currently with the pandemic situation. Hoping to Home health on discharge to help with PT and medications until they make the transfer to assisted living. Functional Status: Reports: Pain Controlled, Tolerating Diet, Ambulating, Urinating - Review of Systems General: Reports: No Symptoms, Fatigue. Denies: Weakness HEENT: Reports: Other (MANZANITA) Pulmonary: Reports: No Symptoms. Denies: Shortness of Breath Cardiovascular: Reports: No Symptoms. Denies: Chest Pain Gastrointestinal: Reports: No Symptoms. Denies: Abdominal Pain, Nausea Genitourinary: Reports: No Symptoms Musculoskeletal: Reports: No Symptoms Neurological: Reports: No Symptoms. Denies: Confusion Psychiatric: Reports: No Symptoms - Patient Data Vitals - Most Recent: Last Vital Signs Temp 98.2 F 01/23/20 04:00 Pulse 81 01/23/20 04:00 Resp 20 01/23/20 04:00 BP 143/68 H 01/23/20 04:00 Pulse Ox 96 01/23/20 04:00 Weight - Most Recent: 72.8 kg I&O - Last 24 Hours: Intake & Output 01/22/20 01/23/20 01/23/20 22:59 06:59 14:59 Intake Total 150 Output Total 400 Balance -250 Lab Results Last 24 Hours: Laboratory Results - last 24 hr 01/22/20 01/22/20 01/22/20 Range/Units 22:09 22:09 22:09 WBC 6.67 (4.0-11.0) K/uL RBC 3.76 L (4.50-5.90) M/uL Hgb 11.3 L (13.0-17.0) g/dL Hct 34.1 L (38.0-50.0) % MCV 90.7 (80.0-98.0) fL MCH 30.1 (27.0-32.0) pg MCHC 33.1 (31.0-37.0) g/dL RDW Std Deviation 47.1 (28.0-62.0) fl RDW Coeff of [place] 14 (11.0-15.0) % Plt Count 174 (150-400) K/uL MPV 9.90 (7.40-12.00) fL Neut % (Auto) 84.5 H (48.0-80.0) % Lymph % (Auto) 6.7 L (16.0-40.0) % [place] % (Auto) 7.2 (0.0-15.0) % Eos % (Auto) 1.5 (0.0-7.0) % Baso % (Auto) 0.1 (0.0-1.5) % Neut # (Auto) 5.6 (1.4-5.7) K/uL Lymph # (Auto) 0.5 L (0.6-2.4) K/uL [place] # (Auto) 0.5 (0.0-0.8) K/uL Eos # (Auto) 0.1 (0.0-0.7) K/uL Baso # (Auto) 0.0 (0.0-0.1) K/uL Nucleated RBC % 0.0 /100WBC Nucleated RBCs # 0 K/uL Lactate 1.4 (0.20-2.00) mmol/L Sodium 127 L (136-148) mmol/L Potassium 4.5 (3.5-5.1) mmol/L Chloride 95 L (98-107) mmol/L Carbon Dioxide 28.3 (21.0-32.0) mmol/L BUN 25 H (7.0-18.0) mg/dL Creatinine 1.0 (0.8-1.3) mg/dL Est Cr Clr Drug Dosing 49.58 mL/min Estimated GFR (MDRD) > 60.0 ml/min Glucose 126 H (74-106) mg/dL Calcium 8.4 L (8.5-10.1) mg/dL Total Bilirubin 0.3 (0.2-1.0) mg/dL AST 26 (15-37) IU/L ALT 28 (14-63) IU/L Alkaline Phosphatase 103 (46-116) U/L Troponin I 0.162 H* (0.000-0.056) ng/mL B-Natriuretic Peptide (<100) PG/ML Total Protein 7.1 (6.4-8.2) g/dL Albumin 3.6 (3.4-5.0) g/dL Globulin 3.5 (2.6-4.0) g/dL Albumin/Globulin Ratio 1.0 (0.9-1.6) Urine Color Urine Appearance Urine pH (5.0-8.0) Ur Specific [place] (1.001-1.035) Urine Protein (NEGATIVE) mg/dL Urine Glucose (UA) (NEGATIVE) mg/dL Urine Ketones (NEGATIVE) mg/dL Urine Occult Blood (NEGATIVE) Urine Nitrite (NEGATIVE) Urine Bilirubin (NEGATIVE) Urine Urobilinogen (<2.0) EU/dL Ur Leukocyte Esterase (NEGATIVE) Urine RBC (0-2/HPF) Urine WBC (0-5/HPF) Ur Epithelial Cells (NONE-FEW) Urine Bacteria (NEGATIVE) 01/22/20 01/22/20 01/23/20 Range/Units 22:09 23:28 06:00 WBC (4.0-11.0) K/uL RBC (4.50-5.90) M/uL Hgb (13.0-17.0) g/dL Hct (38.0-50.0) % MCV (80.0-98.0) fL MCH (27.0-32.0) pg MCHC (31.0-37.0) g/dL RDW Std Deviation (28.0-62.0) fl RDW Coeff of [place] (11.0-15.0) % Plt Count (150-400) K/uL MPV (7.40-12.00) fL Neut % (Auto) (48.0-80.0) % Lymph % (Auto) (16.0-40.0) % [place] % (Auto) (0.0-15.0) % Eos % (Auto) (0.0-7.0) % Baso % (Auto) (0.0-1.5) % Neut # (Auto) (1.4-5.7) K/uL Lymph # (Auto) (0.6-2.4) K/uL [place] # (Auto) (0.0-0.8) K/uL Eos # (Auto) (0.0-0.7) K/uL Baso # (Auto) (0.0-0.1) K/uL Nucleated RBC % /100WBC Nucleated RBCs # K/uL Lactate (0.20-2.00) mmol/L Sodium 132 L (136-148) mmol/L Potassium 4.1 (3.5-5.1) mmol/L Chloride 99 (98-107) mmol/L Carbon Dioxide 27.0 (21.0-32.0) mmol/L BUN 18 (7.0-18.0) mg/dL Creatinine 0.7 L (0.8-1.3) mg/dL Est Cr Clr Drug Dosing 68.36 mL/min Estimated GFR (MDRD) > 60.0 ml/min Glucose 107 H (74-106) mg/dL Calcium 7.8 L (8.5-10.1) mg/dL Total Bilirubin (0.2-1.0) mg/dL AST (15-37) IU/L ALT (14-63) IU/L Alkaline Phosphatase (46-116) U/L Troponin I 0.156 H* (0.000-0.056) ng/mL B-Natriuretic Peptide 125 H (<100) PG/ML Total Protein (6.4-8.2) g/dL Albumin (3.4-5.0) g/dL Globulin (2.6-4.0) g/dL Albumin/Globulin Ratio (0.9-1.6) Urine Color YELLOW Urine Appearance CLEAR Urine pH 7.5 (5.0-8.0) Ur Specific [place] 1.010 (1.001-1.035) Urine Protein NEGATIVE (NEGATIVE) mg/dL Urine Glucose (UA) NEGATIVE (NEGATIVE) mg/dL Urine Ketones NEGATIVE (NEGATIVE) mg/dL Urine Occult Blood NEGATIVE (NEGATIVE) Urine Nitrite NEGATIVE (NEGATIVE) Urine Bilirubin NEGATIVE (NEGATIVE) Urine Urobilinogen 0.2 (<2.0) EU/dL Ur Leukocyte Esterase NEGATIVE (NEGATIVE) Urine RBC 0-2 (0-2/HPF) Urine WBC 0-2 (0-5/HPF) Ur Epithelial Cells RARE (NONE-FEW) Urine Bacteria RARE (NEGATIVE) Med Orders - Current: Current Medications Acetaminophen (Tylenol) 650 mg PO Q4H PRN PRN Reason: Pain (Mild 1-3)/fever Metoprolol Tartrate (Lopressor) 25 mg PO BID [facility] Non-Formulary Medication (Levetiracetam) 100 mg PO BID [facility] Ondansetron HCl (Zofran) 4 mg IVPUSH Q4H PRN PRN Reason: Nausea Tamsulosin HCl (Flomax) 0.4 mg PO BEDTIME [facility] Discontinued Medications Aspirin (Aspirin) 325 mg PO ONETIME ONE Stop: 01/23/20 01:22 Last Admin: 01/23/20 04:48 Dose: Not Given Aspirin (Aspirin) 325 mg PO ONETIME ONE Stop: 01/23/20 04:41 Last Admin: 01/23/20 04:48 Dose: 325 mg Sodium Chloride (Normal Saline) 1,000 mls @ 125 mls/hr IV NOW STA Stop: 01/23/20 05:12 Last Admin: 01/22/20 22:01 Dose: 125 mls/hr Sodium Chloride (Normal Saline) 1,000 mls @ 125 mls/hr IV ASDIRECTED [facility] Last Admin: 01/23/20 06:10 Dose: 125 mls/hr Lisinopril (Prinivil) 5 mg PO DAILY [facility] - Exam General: Alert, Oriented, Cooperative, No Acute Distress HEENT: Other (MANZANITA) Neck: Supple Lungs: Clear to Auscultation, Normal Respiratory Effort Cardiovascular: Regular Rate, Regular Rhythm, No Murmurs. No: Irregular Rhythm , Tachycardia GI/Abdominal Exam: Normal Bowel Sounds, Soft, Non-Tender Extremities: Normal Inspection, Normal Range of Motion, Non-Tender, Pedal Edema (+1 pitting BLE) Wound/Incisions: Healing Well Neurological: No New Focal Deficit Psy/Mental Status: Alert, Normal Affect, Normal Mood Sepsis Event Note - Evaluation Sepsis Screening Result: No Definite Risk - Focused Exam Vital Signs: Vital Signs Temp Pulse Resp BP Pulse Ox 01/23/20 04:00 98.2 F 81 20 143/68 H 96 01/23/20 00:25 97.2 F 89 20 156/74 H 96 01/23/20 00:18 96 16 132/61 96 01/22/20 22:40 82 208/102 H 98 Date Exam was Performed: 01/23/20 Time Exam was Performed: 11:39 - Problem List & Annotations (1) Hypotension SNOMED Code(s): 87025319 Code(s): I95.9 - HYPOTENSION, UNSPECIFIED Status: Acute Current Visit: Yes (2) Diastolic heart failure SNOMED Code(s): 646670748 Code(s): I50.30 - UNSPECIFIED DIASTOLIC (CONGESTIVE) HEART FAILURE Status: Chronic Current Visit: Yes Qualifiers: Heart failure chronicity: chronic Qualified Code(s): I50.32 - Chronic diastolic (congestive) heart failure (3) HTN (hypertension) SNOMED Code(s): 86553450 Code(s): I10 - ESSENTIAL (PRIMARY) HYPERTENSION Status: Chronic Current Visit: No Qualifiers: Hypertension type: essential hypertension Qualified Code(s): I10 - Essential (primary) hypertension (4) Hx of aortic valve replacement SNOMED Code(s): 2849740275603, 243018624, 9329052596045 Code(s): Z95.2 - PRESENCE OF PROSTHETIC HEART VALVE Status: Chronic Current Visit: No Annotation/Comment:: Bioprothestic placed in 2012 (5) Hx of mitral valve replacement SNOMED Code(s): 3478662236444, 3823067679223 Code(s): Z95.2 - PRESENCE OF PROSTHETIC HEART VALVE Status: Chronic Current Visit: No Annotation/Comment:: Bioprothestic placed in 2013 (6) Prostate CA SNOMED Code(s): 346203210 Code(s): C61 - MALIGNANT NEOPLASM OF PROSTATE Status: Chronic Current Visit: No - Problem List Review Problem List Initiated/Reviewed/Updated: Yes - My Orders Last 24 Hours: My Active Orders 01/23/20 08:13 Height and Weight [RC] DAILY Intake and Output [RC] QSHIFT Oxygen Therapy [RC] PRN Up With Assistance [RC] ASDIRECTED VTE/DVT Education [RC] PER UNIT ROUTINE Vital Signs [RC] Q4H Acetaminophen [Tylenol] 650 mg PO Q4H PRN Ondansetron [Zofran] 4 mg IVPUSH Q4H PRN 01/23/20 10:15 Metoprolol Tartrate [Lopressor] 25 mg PO BID levETIRAcetam 100 mg PO BID 01/23/20 10:21 Orthostatic Vital Signs [RC] ASDIRECTED 01/23/20 21:00 Tamsulosin [Flomax] 0.4 mg PO BEDTIME 01/24/20 05:11 BASIC METABOLIC PANEL,BMP [CHEM] AM - Plan Plan:: This 84 year old male admitted with hypotension and AMS at home 1. Hypotension: Hx HTN - Noted at home with AMS, once in ED BP improved and AMS cleared. AMS likely related to hypotension at home - Will obtained Orthostatic VS as he takes Flomax at home, Hold flomax for now. - Hold newly started Lisinopril - Restart home medications, Metoprolol and monitor BP - Given IVFs overnight, will stop these as BP this morning 170 SBO 2. Hx CAD, with Chronic diastolic CHF and bioprothestic aortic and mitral valves (2012) - Continue ASA - Not tolerant to statins. - Monitor daily weights - Strict I/O - Last ECHO10/2019 EF 60-65%, R ventricular systolic pressure 41.6 - EKG in ED SR with PACs no atrial fibrillation noted. 3. Prostate ca: - Hold Flomax for now, assess BP - Monitor for urinary retention VTE prophylaxis: Heparin subcut Consults: Social work, PT, Home Health Dispo: 1-2 days pending improvement
[2020-01-23] MEDS: Metoprolol Tartrate 50 MG Tab PO SCH ×2 (11:06→20:28)
[2020-01-23] MEDS: Heparin Sodium 5,000 Units/ML Vial SUBCUT SCH (20:32)
[2020-01-23] MEDS ORDERED: Tamsulosin 0.4 MG Cap.ER PO SCH (21:00)
[2020-01-24 06:29] LABS: BLOOD UREA NITROGEN,BUN 11 mg/dL (7.0-18.0); CARBON DIOXIDE,CO2 28.4 mmol/L (21.0-32.0); CHLORIDE,CL 96 mmol/L (98-107); GLUCOSE RANDOM 109 mg/dL (74-106); POTASSIUM,K 3.8 mmol/L (3.5-5.1); SODIUM,NA 132 mmol/L (136-148)
[2020-01-24 07:25] VITALS: BP 158/78; PULSE 100
[2020-01-24] MEDS: Metoprolol Tartrate 50 MG Tab PO SCH (08:41)
[2020-01-24] MEDS: Heparin Sodium 5,000 Units/ML Vial SUBCUT SCH (08:43)
[2020-01-24] MEDS ORDERED: Aspirin 81 MG Tab.EC PO SCH (09:00)
--- NOTE | 2020-01-24 10:37 | PCM.DCSUM1 ---
Discharge Summary - Hospital Course Brief History: 84 yo male with pmh of CAD, HTN, CABG many years ago and aortic and mitral valve replacement, and prostate cancer. He was transferred to [place] two days ago for NSTEMI. He was discharged yesterday. Today he was brought into the ED due to concern he was difficult to arouse from sleep. Patient denies any chest pain, or shortness of breath. PAtient reports due to the traveling back from [place] he did not get much sleep yesterday so he was overly tired today. Diagnosis: Stroke: No - Discharge Data Discharge Date: 01/24/20 Discharge Disposition: Home, W Home Health Agency 06 Condition: Good - Referral to Home Health Date of Face to Face Encounter: 01/24/20 Reason for Homebound Status: Jonathon is homebound as he is unable to drive. He is in need of assistance from caregiver to leave the home due to inability to drive as well as unsteady gait. Primary Care Physician: PCP Unknown Skilled Need: Jonathon is in need of fpc care to assist with monitoring blood pressure and vital signs. He is also in need of nursing care to assist with medication administration. He is also in need of PT/OT to evaluate and treat due to unsteady gait and evaluate for need of assistance with ADLs and a home safety evaluation. - Discharge Diagnosis/Problem(s) (1) Hypotension SNOMED Code(s): 16129949 ICD Code: I95.9 - HYPOTENSION, UNSPECIFIED Status: Resolved Current Visit : Yes (2) Diastolic heart failure SNOMED Code(s): 957092751 ICD Code: I50.30 - UNSPECIFIED DIASTOLIC (CONGESTIVE) HEART FAILURE Status : Chronic Current Visit: Yes Qualifiers: Heart failure chronicity: chronic Qualified Code(s): I50.32 - Chronic diastolic (congestive) heart failure (3) HTN (hypertension) SNOMED Code(s): 11616463 ICD Code: I10 - ESSENTIAL (PRIMARY) HYPERTENSION Status: Chronic Current Visit: No Qualifiers: Hypertension type: essential hypertension Qualified Code(s): I10 - Essential (primary) hypertension (4) Hx of aortic valve replacement SNOMED Code(s): 2353901332333, 816218660, 9097209220760 ICD Code: Z95.2 - PRESENCE OF PROSTHETIC HEART VALVE Status: Chronic Current Visit: No Problem Details: Bioprothestic placed in 2012 (5) Hx of mitral valve replacement SNOMED Code(s): 6023903696653, 7952099574843 ICD Code: Z95.2 - PRESENCE OF PROSTHETIC HEART VALVE Status: Chronic Current Visit: No Problem Details: Bioprothestic placed in 2013 (6) Prostate CA SNOMED Code(s): 960795404 ICD Code: C61 - MALIGNANT NEOPLASM OF PROSTATE Status: Chronic Current Visit: No - Patient Summary/Data Hospital Course: Admitting Diagnoses: Hypotension AMS Discharge Diagnoses: Hypotension- resolved AMS- resolved Other PMH: HTN Diastolic CHF Hx bioprosthetic aortic and mitral valve Prostate Ca Jonathon was admitted and monitored for hypotension. He likely had hypotension due to recently start Lisinopril and taking medications later in the day. Troponin was elevated on arrival no chest pain, and likely at baseline for him. He was monitored x2 days and home medications restarted, holding Lisinopril. BP have been stable at 150/80s. He will be discharged home today continuing to hold Lisinopril for now. He is to follow up with PCP regarding HTN. Family is awaiting admission to assisted care at [facility]. In the meantime, will refer to Home Health for assistance with monitoring VS and medication administration along with PT and OT to evaluate and treat. He is to return to ED or clinic if concerns should arise. - Patient Instructions Diet: Heart Healthy Diet Activity: As Tolerated Driving: Do Not Drive Showering/Bathing: May Shower Notify Provider of: Fever, Increased Pain, Swelling and Redness, Drainage, Nausea and/or Vomiting - Discharge Plan *PRESCRIPTION DRUG MONITORING PROGRAM REVIEWED*: Not Applicable *COPY OF PRESCRIPTION DRUG MONITORING REPORT IN PATIENT SARIKA: Not Applicable Home Medications: Home Meds Aspirin 81 mg PO DAILY 03/05/15 [History] Metoprolol Tartrate [Lopressor] 25 mg PO BID 03/05/15 [History] Tamsulosin [Flomax] 0.4 mg PO BEDTIME 12/16/17 [History] levETIRAcetam [Levetiracetam] 100 mg PO BID 03/07/19 [History] Lansoprazole [Prevacid] 40 mg PO DAILY 11/02/19 [History] Cholecalciferol (Vitamin D3) [Vitamin D3] 2 tab PO DAILY 01/23/20 [History] Oxygen Therapy Mode: Room Air Patient Handouts: Hypotension [facility] 10:00 am - Discharge Summary/Plan Comment DC Time >30 min.: No - Patient Data Vitals - Most Recent: Last Vital Signs Temp 98.1 F 01/24/20 07:23 Pulse 100 01/24/20 08:41 Resp 16 01/24/20 07:23 BP 158/78 H 01/24/20 08:41 Pulse Ox 100 01/24/20 07:23 Weight - Most Recent: 73.391 kg I&O - Last 24 hours: Intake & Output 01/23/20 01/24/20 01/24/20 22:59 06:59 14:59 Intake Total 1272 650 Output Total 1300 1250 Balance -28 -600 Lab Results - Last 24 hrs: Laboratory Results - last 24 hr 01/24/20 01/24/20 Range/Units 06:02 06:02 WBC 6.72 (4.0-11.0) K/uL RBC 4.16 L (4.50-5.90) M/uL Hgb 12.5 L (13.0-17.0) g/dL Hct 38.0 (38.0-50.0) % MCV 91.3 (80.0-98.0) fL MCH 30.0 (27.0-32.0) pg MCHC 32.9 (31.0-37.0) g/dL RDW Std Deviation 48.1 (28.0-62.0) fl RDW Coeff of [place] 14 (11.0-15.0) % Plt Count 200 (150-400) K/uL MPV 9.90 (7.40-12.00) fL Neut % (Auto) 70.1 (48.0-80.0) % Lymph % (Auto) 16.7 (16.0-40.0) % [place] % (Auto) 8.5 (0.0-15.0) % Eos % (Auto) 4.6 (0.0-7.0) % Baso % (Auto) 0.1 (0.0-1.5) % Neut # (Auto) 4.7 (1.4-5.7) K/uL Lymph # (Auto) 1.1 (0.6-2.4) K/uL [place] # (Auto) 0.6 (0.0-0.8) K/uL Eos # (Auto) 0.3 (0.0-0.7) K/uL Baso # (Auto) 0.0 (0.0-0.1) K/uL Nucleated RBC % 0.0 /100WBC Nucleated RBCs # 0 K/uL Sodium 132 L (136-148) mmol/L Potassium 3.8 (3.5-5.1) mmol/L Chloride 96 L (98-107) mmol/L Carbon Dioxide 28.4 (21.0-32.0) mmol/L BUN 11 (7.0-18.0) mg/dL Creatinine 0.7 L (0.8-1.3) mg/dL Est Cr Clr Drug Dosing 68.36 mL/min Estimated GFR (MDRD) > 60.0 ml/min Glucose 109 H (74-106) mg/dL Calcium 8.9 (8.5-10.1) mg/dL Med Orders - Current: Current Medications Acetaminophen (Tylenol) 650 mg PO Q4H PRN PRN Reason: Pain (Mild 1-3)/fever Last Admin: 01/24/20 02:25 Dose: 325 mg Aspirin (Halfprin) 81 mg PO DAILY [facility] Last Admin: 01/24/20 08:41 Dose: 81 mg Heparin Sodium (Porcine) (Heparin Sodium) 5,000 units SUBCUT Q12H [facility] Last Admin: 01/24/20 08:43 Dose: 5,000 units Metoprolol Tartrate (Lopressor) 25 mg PO BID [facility] Last Admin: 01/24/20 08:41 Dose: 25 mg Ondansetron HCl (Zofran) 4 mg IVPUSH Q4H PRN PRN Reason: Nausea Levetiracetam 100 Mg (/Ml Solution) 1 each PO BID [facility] Last Admin: 01/24/20 08:45 Dose: 1 each Discontinued Medications Aspirin (Aspirin) 325 mg PO ONETIME ONE Stop: 01/23/20 01:22 Last Admin: 01/23/20 04:48 Dose: Not Given Aspirin (Aspirin) 325 mg PO ONETIME ONE Stop: 01/23/20 04:41 Last Admin: 01/23/20 04:48 Dose: 325 mg Sodium Chloride (Normal Saline) 1,000 mls @ 125 mls/hr IV NOW STA Stop: 01/23/20 05:12 Last Admin: 01/22/20 22:01 Dose: 125 mls/hr Sodium Chloride (Normal Saline) 1,000 mls @ 125 mls/hr IV ASDIRECTED [facility] Last Admin: 01/23/20 06:10 Dose: 125 mls/hr Lisinopril (Prinivil) 5 mg PO DAILY [facility] Last Admin: 01/23/20 14:39 Dose: Not Given Tamsulosin HCl (Flomax) 0.4 mg PO BEDTIME [facility] - Exam General: Reports: Alert, Oriented, Cooperative, Other (wandering the machado, removed IV per self. Requesting to go home.) Lungs: Reports: Clear to Auscultation, Normal Respiratory Effort Cardiovascular: Reports: Regular Rate, Regular Rhythm GI/Abdominal Exam: Normal Bowel Sounds, Soft, Non-Tender Extremities: Normal Inspection, Normal Range of Motion, Non-Tender, No Pedal Edema Neurological: Reports: No New Focal Deficit Psy/Mental Status: Reports: Alert, Normal Affect, Normal Mood
== END 2020-01-24 11:20 | disposition home health service (06) ==
LOC: MW.ED 20:38 → MW.MS 23:52
PROVIDERS: ADMIT Internal Medicine; ATTEND Internal Medicine
DX: I95.9 Hypotension, unspecified (principal); I11.0 Hypertensive heart disease with heart failure; I50.32 Chronic diastolic (congestive) heart failure; E78.00 Pure hypercholesterolemia, unspecified; J43.9 Emphysema, unspecified; C61 Malignant neoplasm of prostate; I25.10 Atherosclerotic heart disease of native coronary artery without angina pectoris; I48.91 Unspecified atrial fibrillation; G45.9 Transient cerebral ischemic attack, unspecified; Z88.8 Allergy status to other drugs, medicaments and biological substances; Z95.2 Presence of prosthetic heart valve; Z79.82 Long term (current) use of aspirin; Z79.899 Other long term (current) drug therapy; Z95.1 Presence of aortocoronary bypass graft
CPT/HCPCS: 36415; 70450; 71046; 80048; 80053; 81001; 83605; 83880; 84484; 85025; 93005; 96360; 96361; 96372; 99285; A9270; G0378; J1644; J7030

== ENCOUNTER 2020-04-20 11:13 | Inpatient (IN) | payer MEDICARE, OTHER ==
--- NOTE | 2020-04-20 11:18 | EDM.PDOC ---
ED HPI GENERAL MEDICAL PROBLEM - General Stated Complaint: SOB, EDEMA Time Seen by Provider: 04/20/20 11:16 Source of Information: Reports: Patient History Limitations: Reports: No Limitations - History of Present Illness INITIAL COMMENTS - FREE TEXT/NARRATIVE: HISTORY AND PHYSICAL: History of present illness: Patient is an 85-year-old male who presents to the emergency room with fatigue, shortness of breath and lower extremity edema over the past 2-3 days. The daughter who has brought the patient in states the home health nurse encouraged her to bring him for evaluation. He has a past medical history of CAD, HTN, CABG, aortic and mitral valve replacement, CVA, prostate cancer and recently a NSTEMI on 12/2019. Patient is unable to tell me how long symptoms have been going on - he has dementia. Daughter states that the home health nurse informed her of these symptoms, does not have any additional information. Patient is agitated and states he is nervous to be here at the emergency room, he states he does not want to get "shipped out" as he recently was transferred due to his end STEMI a few months ago. Denies any fever, chills, headache, change in vision, syncope or near syncope. Denies any chest pain, back pain or cough. Denies any abdominal pain, nausea, vomiting, diarrhea, constipation or dysuria. Has not noted any blood in urine or stool. Patient has been eating and drinking appropriately. Review of systems: As per history of present illness and below otherwise all systems reviewed and negative. Past medical history: As per history of present illness and as reviewed below otherwise noncontributory. Surgical history: As per history of present illness and as reviewed below otherwise noncontributory. Social history: See social history for further information Family history: As per history of present illness and as reviewed below otherwise noncontributory. Physical exam: General: Well developed and well nourished. Alert and orientated x 3, although agitated but easily directed. Nontoxic in appearance and in no acute distress. Vital signs are stable and have been reviewed by me. Accompanied by patient for support. Nursing notes were reviewed. HEENT: Atraumatic, normocephalic, pupils equal and reactive bilaterally, negative for conjunctival pallor or scleral icterus, mucous membranes moist, TMs normal bilaterally, throat clear, neck supple, nontender, trachea midline. No drooling or trismus noted. No meningeal signs. No hot potato voice noted. Lungs: Slightly diminished otherwise clear to auscultation, breath sounds equal bilaterally, chest nontender. Normal work of breathing, no accessory muscles used. Heart: S1S2, regular rate and rhythm without overt murmur Abdomen: Soft, nondistended, nontender. Negative for masses or hepatosplenomega ly. Negative for costovertebral tenderness. Skin: Intact, warm, dry. No lesions or rashes noted. Hematologic: No petechiae or purpra. Mucosa appropriate color and normal nail bed color and refill. Extremities: Atraumatic, moves all extremities per self without difficulty or deficits, negative for cords or calf pain. +2 pitting edema to bilateral ankles/feet. Neurovascular unremarkable. Neuro: Awake, alert, oriented. Cranial nerves II through XII unremarkable. Cerebellum unremarkable. Motor and sensory unremarkable throughout. Exam nonfocal. Psychiatric: Mood and affect are appropriate. Normal thought process. Answering questions appropriately. Notes: EKG done at 1155, sinus rhythm with a rate of 64. Patient does mention concern of being here at the facility for not wanting to "be put in a detention" or "being shipped out". Patient has been incontinent of urine. We did come in and check on the patient and he was attempting to have a bowel movement in the room, he was cleaned up and put back in bed. His vital signs remained stable. Chest x-ray shows no acute findings. H&H is slightly low, does have a trend of running on the lower side. Elevated troponin at 0.179. It is noted that he chronically has elevated troponins from back in 2018. Patient continues to deny any chest pain. I did inform him of the diagnostics and the need for transfer to a facility with a hospice care transitions coordinator. Patient states he does not want to be transferred. I did have this conversation with both the patient and his daughter who is at bedside. They are aware of the risks of staying at a facili that does not have a conveyancer on staff. I did give them some time to talk amongst themselves about transfer versus staying, they would like to stay at our facility. 1330: Dr. Dorman was consulted on this case, he will come down and evaluate the patient before formally excepting him. 1350: Pineda is here to evaluate patient. Diagnostics: CBC, CMP, EKG, CXR, BNP, COVID-19, Troponin, UA [employer]rapeutics: SL, Aspirin Impression: CHF Elevated troponin Plan: Observation to Med/Surg with telemetry Definitive disposition and diagnosis as appropriate pending reevaluation and review of above. - Related Data Allergies Allergy/AdvReac Type Severity Reaction Status Date / Time amiodarone Allergy Renal Verified 04/20/20 11:43 Insufficiency lisinopril Allergy Syncope Verified 04/20/20 11:44 simvastatin Allergy Other Verified 04/20/20 11:43 Home Meds: Home Meds Aspirin 81 mg PO DAILY 03/05/15 [History] Metoprolol Tartrate [Lopressor] 25 mg PO BID 03/05/15 [History] Tamsulosin [Flomax] 0.4 mg PO BEDTIME 12/16/17 [History] levETIRAcetam [Levetiracetam] 100 mg PO BID 03/07/19 [History] Cholecalciferol (Vitamin D3) [Vitamin D3] 2 tab PO DAILY 04/20/20 [History] Furosemide 40 mg PO DAILY 04/20/20 [History] Levothyroxine 25 mg PO DAILY 04/20/20 [History] Past Medical History HEENT History: Reports: Hard of Hearing Other HEENT History: bilateral hearing aids Cardiovascular History: Reports: CAD, Heart Valve Replacement, High Cholesterol, Hypertension, [place] Respiratory History: Reports: None Other Respiratory History: emphysema Gastrointestinal History: Reports: Hiatal Hernia Other Gastrointestinal History: Current left inguinal hernia Genitourinary History: Reports: Prostate Disorder, Other (See Below) Other Genitourinary History: Prostate CA Musculoskeletal History: Reports: Other (See Below) Other Musculoskeletal History: hx: fracture leg Neurological History: Reports: None Psychiatric History: Reports: None Endocrine/Metabolic History: Reports: None Hematologic History: Reports: None Immunologic History: Reports: None Oncologic (Cancer) History: Reports: Prostate Dermatologic History: Reports: Other (See Below) Other Dermatologic History: SKin areas froze off face - Infectious Disease History Infectious Disease History: Reports: None Other Infectious Disease History: hepatitis back in the 60's - Past Surgical History HEENT Surgical History: Reports: Tonsillectomy Cardiovascular Surgical History: Reports: Coronary Artery Bypass, Valve Replac ement Other Cardiovascular Surgeries/Procedures: Aortic and Mitral Valve replaced Respiratory Surgical History: Reports: None GI Surgical History: Reports: Hernia, Inguinal Male Surgical History: Reports: None Endocrine Surgical History: Reports: None Other Musculoskeletal Surgeries/Procedures:: Right Total Hip Replacement Social & Family History - Family History Family Medical History: Noncontributory - Caffeine Use Caffeine Use: Reports: Coffee - Living Situation & Occupation Living situation: Reports: Occupation: Retired () ED ROS GENERAL - Review of Systems Review Of Systems: Comprehensive ROS is negative, except as noted in HPI. ED EXAM, GENERAL - Physical Exam Exam: See Below (See dictation) Course - Vital Signs Last Recorded V/S: Last Vital Signs Temp 97.9 F 04/20/20 11:25 Pulse 84 04/20/20 13:30 Resp 20 04/20/20 13:30 BP 166/79 H 04/20/20 13:30 Pulse Ox 96 04/20/20 13:30 - Orders/Labs/Meds Orders: Active Orders 24 hr Category Date Time Status Admission Status [Patient Status] [ADT] Stat ADT 04/20/20 14:13 Ordered EKG Documentation Completion [RC] STAT Care 04/20/20 11:42 Active Sodium Chloride 0.9% [Saline Flush] Med 04/20/20 11:42 Active 10 ml FLUSH ASDIRECTED PRN Sodium Chloride 0.9% [Saline Flush] Med 04/20/20 11:42 Active 2.5 ml FLUSH ASDIRECTED PRN Saline Lock Insert [OM.PC] Stat Oth 04/20/20 11:42 Ordered Medication Orders Sodium Chloride (Saline Flush) 10 ml FLUSH ASDIRECTED PRN PRN Reason: Keep Vein Open Last Admin: 04/20/20 12:04 Dose: 10 ml Documented by: INOCENCIO Sodium Chloride (Saline Flush) 2.5 ml FLUSH ASDIRECTED PRN PRN Reason: Keep Vein Open Last Admin: 04/20/20 12:03 Dose: 2.5 ml Documented by: INOCENCIO Labs: Laboratory Tests 04/20/20 04/20/20 04/20/20 Range/Units 12:00 12:00 12:00 WBC 6.30 (4.0-11.0) K/uL RBC 3.87 L (4.50-5.90) M/uL Hgb 11.8 L (13.0-17.0) g/dL Hct 35.0 L (38.0-50.0) % MCV 90.4 (80.0-98.0) fL MCH 30.5 (27.0-32.0) pg MCHC 33.7 (31.0-37.0) g/dL RDW Std Deviation 48.0 (28.0-62.0) fl RDW Coeff of Jasper 15 (11.0-15.0) % Plt Count 188 (150-400) K/uL MPV 10.40 (7.40-12.00) fL Neut % (Auto) 74.4 (48.0-80.0) % Lymph % (Auto) 11.1 L (16.0-40.0) % [place] % (Auto) 10.3 (0.0-15.0) % Eos % (Auto) 4.0 (0.0-7.0) % Baso % (Auto) 0.2 (0.0-1.5) % Neut # (Auto) 4.7 (1.4-5.7) K/uL Lymph # (Auto) 0.7 (0.6-2.4) K/uL Mer[place]ether # (Auto) 0.7 (0.0-0.8) K/uL Eos # (Auto) 0.3 (0.0-0.7) K/uL Baso # (Auto) 0.0 (0.0-0.1) K/uL Nucleated RBC % 0.0 /100WBC Nucleated RBCs # 0 K/uL Sodium 130 L (136-148) mmol/L Potassium 3.9 (3.5-5.1) mmol/L Chloride 94 L (98-107) mmol/L Carbon Dioxide 26.3 (21.0-32.0) mmol/L BUN 22 H (7.0-18.0) mg/dL Creatinine 0.9 (0.8-1.3) mg/dL Est Cr Clr Drug Dosing 48.42 mL/min Estimated GFR (MDRD) > 60.0 ml/min Glucose 103 (74-106) mg/dL Calcium 8.9 (8.5-10.1) mg/dL Total Bilirubin 0.5 (0.2-1.0) mg/dL AST 35 (15-37) IU/L ALT 26 (14-63) IU/L Alkaline Phosphatase 101 (46-116) U/L Troponin I 0.179 H* (0.000-0.056) ng/mL B-Natriuretic Peptide 288 H (<100) PG/ML Total Protein 7.7 (6.4-8.2) g/dL Albumin 3.9 (3.4-5.0) g/dL Globulin 3.8 (2.6-4.0) g/dL Albumin/Globulin Ratio 1.0 (0.9-1.6) Urine Color Urine Appearance Urine pH (5.0-8.0) Ur Specific [place] (1.001-1.035) Urine Protein (NEGATIVE) mg/dL Urine Glucose (UA) (NEGATIVE) mg/dL Urine Ketones (NEGATIVE) mg/dL Urine Occult Blood (NEGATIVE) Urine Nitrite (NEGATIVE) Urine Bilirubin (NEGATIVE) Urine Urobilinogen (<2.0) EU/dL Ur Leukocyte Esterase (NEGATIVE) COVID-19 (ALEXANDRA) (NEGATIVE) 04/20/20 04/20/20 Range/Units 12:00 12:37 WBC (4.0-11.0) K/uL RBC (4.50-5.90) M/uL Hgb (13.0-17.0) g/dL Hct (38.0-50.0) % MCV (80.0-98.0) fL MCH (27.0-32.0) pg MCHC (31.0-37.0) g/dL RDW Std Deviation (28.0-62.0) fl RDW Coeff of Jasper (11.0-15.0) % Plt Count (150-400) K/uL MPV (7.40-12.00) fL Neut % (Auto) (48.0-80.0) % Lymph % (Auto) (16.0-40.0) % [place] % (Auto) (0.0-15.0) % Eos % (Auto) (0.0-7.0) % Baso % (Auto) (0.0-1.5) % Neut # (Auto) (1.4-5.7) K/uL Lymph # (Auto) (0.6-2.4) K/uL [place]ether # (Auto) (0.0-0.8) K/uL Eos # (Auto) (0.0-0.7) K/uL Baso # (Auto) (0.0-0.1) K/uL Nucleated RBC % /100WBC Nucleated RBCs # K/uL Sodium (136-148) mmol/L Potassium (3.5-5.1) mmol/L Chloride (98-107) mmol/L Carbon Dioxide (21.0-32.0) mmol/L BUN (7.0-18.0) mg/dL Creatinine (0.8-1.3) mg/dL Est Cr Clr Drug Dosing mL/min Estimated GFR (MDRD) ml/min Glucose (74-106) mg/dL Calcium (8.5-10.1) mg/dL Total Bilirubin (0.2-1.0) mg/dL AST (15-37) IU/L ALT (14-63) IU/L Alkaline Phosphatase (46-116) U/L Troponin I (0.000-0.056) ng/mL B-Natriuretic Peptide (<100) PG/ML Total Protein (6.4-8.2) g/dL Albumin (3.4-5.0) g/dL Globulin (2.6-4.0) g/dL Albumin/Globulin Ratio (0.9-1.6) Urine Color YELLOW Urine Appearance CLEAR Urine pH 7.5 (5.0-8.0) Ur Specific [place] 1.010 (1.001-1.035) Urine Protein NEGATIVE (NEGATIVE) mg/dL Urine Glucose (UA) NEGATIVE (NEGATIVE) mg/dL Urine Ketones NEGATIVE (NEGATIVE) mg/dL Urine Occult Blood NEGATIVE (NEGATIVE) Urine Nitrite NEGATIVE (NEGATIVE) Urine Bilirubin NEGATIVE (NEGATIVE) Urine Urobilinogen 0.2 (<2.0) EU/dL Ur Leukocyte Esterase NEGATIVE (NEGATIVE) COVID-19 (ALEXANDRA) NEGATIVE (NEGATIVE) Meds: Medications Generic Name Dose Route Start Last Admin Trade Name Freq PRN Reason Stop Dose Admin Sodium Chloride 10 ml 04/20/20 11:42 04/20/20 12:04 Saline Flush FLUSH 10 ml ASDIRECTED PRN Administration Keep Vein Open Sodium Chloride 2.5 ml 04/20/20 11:42 04/20/20 12:03 Saline Flush FLUSH 2.5 ml ASDIRECTED PRN Administration Keep Vein Open Discontinued Medications Generic Name Dose Route Start Last Admin Trade Name Freq PRN Reason Stop Dose Admin Aspirin 324 mg 04/20/20 13:00 04/20/20 13:48 Aspirin PO 04/20/20 13:01 324 mg ONETIME ONE Administration Departure - Departure Time of Disposition: 14:15 Disposition: Refer to Observation Clinical Impression: Elevated troponin Heart failure Qualifiers: Heart failure type: diastolic Heart failure chronicity: unspecified Qualified Code(s): I50.30 - Unspecified diastolic (congestive) heart failure - Discharge Information Referrals: David Patel NP [Primary Care Provider] - Sepsis Event Note (ED) - Focused Exam Vital Signs: Vital Signs Temp Pulse Resp BP Pulse Ox 04/20/20 13:30 84 20 166/79 H 96 04/20/20 12:00 65 20 159/75 H 96 04/20/20 11:25 97.9 F 66 20 151/76 H 96 - My Orders Last 24 Hours: My Active Orders 04/20/20 11:42 EKG Documentation Completion [RC] STAT Sodium Chloride 0.9% [Saline Flush] 10 ml FLUSH ASDIRECTED PRN Sodium Chloride 0.9% [Saline Flush] 2.5 ml FLUSH ASDIRECTED PRN Saline Lock Insert [OM.PC] Stat 04/20/20 14:13 Admission Status [Patient Status] [ADT] Stat - Assessment/Plan Last 24 Hours: My Active Orders 04/20/20 11:42 EKG Documentation Completion [RC] STAT Sodium Chloride 0.9% [Saline Flush] 10 ml FLUSH ASDIRECTED PRN Sodium Chloride 0.9% [Saline Flush] 2.5 ml FLUSH ASDIRECTED PRN Saline Lock Insert [OM.PC] Stat 04/20/20 14:13 Admission Status [Patient Status] [ADT] Stat
[2020-04-20] MEDS ORDERED: Sodium Chloride 0.9% 2.5 ML Syringe FLUSH PRN (11:42)
[2020-04-20] MEDS ORDERED: Sodium Chloride 0.9% 10 ML Syringe FLUSH PRN (11:42)
[2020-04-20 12:45] LABS: BLOOD UREA NITROGEN,BUN 22 mg/dL (7.0-18.0); CARBON DIOXIDE,CO2 26.3 mmol/L (21.0-32.0); CHLORIDE,CL 94 mmol/L (98-107); GLUCOSE RANDOM 103 mg/dL (74-106); POTASSIUM,K 3.9 mmol/L (3.5-5.1); SODIUM,NA 130 mmol/L (136-148)
--- NOTE | 2020-04-20 12:50 | CR ---
Chest: Portable view of the chest was obtained. Comparison: Prior chest x-ray of 01/22/20. Heart size is slightly enlarged. Tortuous or aneurysmal aorta is seen. Mild increased density with left base is seen which is stable from prior exam presumably due to scarring. Lungs show no acute parenchymal change. Previous sternotomy with 2 prosthetic heart valves being seen. No acute osseous finding is seen. Impression: 1. Ectatic or aneurysmal thoracic aorta. 2. Other findings as described above believed to be chronic. 3. Nothing acute is seen. Diagnostic code #3 This report was dictated in MDT
[2020-04-20] MEDS ORDERED: Aspirin 81 MG Tab.Chew PO ONE (13:00)
--- NOTE | 2020-04-20 14:21 | PCM.HP.2 ---
H&P History of Present Illness - General Date of Service: 04/20/20 Admit Problem/Dx: Admission Diagnosis/Problem Admission Diagnosis/Problem Congestive heart failure Source of Information: Patient History Limitations: Reports: No Limitations - History of Present Illness Initial Comments - Free Text/Narative: 85-year-old male accompanied by daughter presents complaining of worsening leg swelling and intermittent SOB for the past 3 days. He has a PMH of NSTEMI, CABG, CHF, HTN, prostate CA and h/o AV and MV replacement. Daughter reports that home health nurse noted that patient has had increasing leg swelling from baseline, 4 lbs weight gain in the past week and fatigue. [facility]. Patient does have shortness of breath when lying flat as well but this is chronic for him. He has been eating and drinking appropriately. He also has a mild cough. Patient denies any fevers, chills, blurry vision, sore throat, chest pain, nausea, vomiting, abdominal pain, diarrhea, blood in stool, blood in urine, numbness or tinging in extremities. Patient lives at home with his . In the ER, CBC and CMP unremarkable. Troponin was 0.179 and BNP 288. UA was unremarkable. COVID19 test negative. He was given aspirin 324 mg. Discussion was held by ER provider with patient and his daughter about his elevated troponin. ER provider did discuss recommendation of transfer to facility with interventional cardiology with patient and daughter, however, they expressed wishes to stay in [place] despite not having interventional cardiology here. Patient does have history of chronic elevated troponins. Patient denies any chest pain at this time. Patient admitted for further evaluation and treatment. - Related Data Allergies/Adverse Reactions: Allergies Allergy/AdvReac Type Severity Reaction Status Date / Time amiodarone Allergy Renal Verified 04/20/20 11:43 Insufficiency lisinopril Allergy Syncope Verified 04/20/20 11:44 simvastatin Allergy Other Verified 04/20/20 11:43 Home Medications: Home Meds Aspirin 81 mg PO DAILY 03/05/15 [History] Metoprolol Tartrate [Lopressor] 25 mg PO BID 03/05/15 [History] Tamsulosin [Flomax] 0.4 mg PO BEDTIME 12/16/17 [History] levETIRAcetam [Levetiracetam] 100 mg PO BID 03/07/19 [History] Cholecalciferol (Vitamin D3) [Vitamin D3] 2 tab PO DAILY 04/20/20 [History] Furosemide 40 mg PO DAILY 04/20/20 [History] Levothyroxine 25 mg PO DAILY 04/20/20 [History] Past Medical History HEENT History: Reports: Hard of Hearing Other HEENT History: bilateral hearing aids Cardiovascular History: Reports: CAD, Heart Valve Replacement, High Cholesterol, Hypertension, [place] Respiratory History: Reports: None Other Respiratory History: emphysema Gastrointestinal History: Reports: Hiatal Hernia Other Gastrointestinal History: Current left inguinal hernia Genitourinary History: Reports: Prostate Disorder, Other (See Below) Other Genitourinary History: Prostate CA Musculoskeletal History: Reports: Other (See Below) Other Musculoskeletal History: hx: fracture leg Neurological History: Reports: None Psychiatric History: Reports: None Endocrine/Metabolic History: Reports: None Hematologic History: Reports: None Immunologic History: Reports: None Oncologic (Cancer) History: Reports: Prostate Dermatologic History: Reports: Other (See Below) Other Dermatologic History: SKin areas froze off face - Infectious Disease History Infectious Disease History: Reports: None Other Infectious Disease History: hepatitis back in the 60's - Past Surgical History HEENT Surgical History: Reports: Tonsillectomy Cardiovascular Surgical History: Reports: Coronary Artery Bypass, Valve Replacement Other Cardiovascular Surgeries/Procedures: Aortic and Mitral Valve replaced Respiratory Surgical History: Reports: None GI Surgical History: Reports: Hernia, Inguinal Male Surgical History: Reports: None Endocrine Surgical History: Reports: None Other Musculoskeletal Surgeries/Procedures:: Right Total Hip Replacement Social & Family History - Family History Family Medical History: Noncontributory - Tobacco Use Smoking Status *Q: Former Smoker Used Tobacco, but Quit: Yes Month/Year Tobacco Last Used: "70years" - Caffeine Use Caffeine Use: Reports: Coffee - Recreational Drug Use Recreational Drug Use: No - Living Situation & Occupation Living situation: Reports: Occupation: Retired () H&P Review of Systems - Review of Systems: Review Of Systems: Comprehensive ROS is negative, except as noted in HPI. Exam - Exam Exam: See Below - Vital Signs Vital Signs: Last Vital Signs Temp 36.6 C 04/20/20 11:25 Pulse 84 04/20/20 13:30 Resp 20 04/20/20 13:30 BP 166/79 H 04/20/20 13:30 Pulse Ox 96 04/20/20 13:30 Weight: 77.111 kg - Exam General: Alert, Oriented, Cooperative, Other (fatigued) HEENT: Conjunctiva Clear, EOMI, Posterior Pharynx Clear, Pupils Equal, Pupils Reactive, Other (hard of hearing) Lungs: Normal Respiratory Effort, Other (decreased breath sounds in lung bases b/l) Cardiovascular: Regular Rate, Regular Rhythm GI/Abdominal Exam: Normal Bowel Sounds, Soft, Non-Tender, No Distention Extremities: Other (1+ pitting edema b/l) Skin: Warm, Dry, Intact Neurological: Cranial Nerves Intact, Strength Equal Bilateral, Normal Speech, Normal Tone Neuro Extensive - Mental Status: Alert, Oriented x3, Normal Mood/Affect Psychiatric: Alert, Normal Affect, Normal Mood - Patient Data Lab Results Last 24 hrs: Laboratory Results - last 24 hr 04/20/20 04/20/20 04/20/20 Range/Units 12:00 12:00 12:00 WBC 6.30 (4.0-11.0) K/uL RBC 3.87 L (4.50-5.90) M/uL Hgb 11.8 L (13.0-17.0) g/dL Hct 35.0 L (38.0-50.0) % MCV 90.4 (80.0-98.0) fL MCH 30.5 (27.0-32.0) pg MCHC 33.7 (31.0-37.0) g/dL RDW Std Deviation 48.0 (28.0-62.0) fl RDW Coeff of [place] 15 (11.0-15.0) % Plt Count 188 (150-400) K/uL MPV 10.40 (7.40-12.00) fL Neut % (Auto) 74.4 (48.0-80.0) % Lymph % (Auto) 11.1 L (16.0-40.0) % [place] % (Auto) 10.3 (0.0-15.0) % Eos % (Auto) 4.0 (0.0-7.0) % Baso % (Auto) 0.2 (0.0-1.5) % Neut # (Auto) 4.7 (1.4-5.7) K/uL Lymph # (Auto) 0.7 (0.6-2.4) K/uL [place] # (Auto) 0.7 (0.0-0.8) K/uL Eos # (Auto) 0.3 (0.0-0.7) K/uL Baso # (Auto) 0.0 (0.0-0.1) K/uL Nucleated RBC % 0.0 /100WBC Nucleated RBCs # 0 K/uL Sodium 130 L (136-148) mmol/L Potassium 3.9 (3.5-5.1) mmol/L Chloride 94 L (98-107) mmol/L Carbon Dioxide 26.3 (21.0-32.0) mmol/L BUN 22 H (7.0-18.0) mg/dL Creatinine 0.9 (0.8-1.3) mg/dL Est Cr Clr Drug Dosing 48.42 mL/min Estimated GFR (MDRD) > 60.0 ml/min Glucose 103 (74-106) mg/dL Calcium 8.9 (8.5-10.1) mg/dL Total Bilirubin 0.5 (0.2-1.0) mg/dL AST 35 (15-37) IU/L ALT 26 (14-63) IU/L Alkaline Phosphatase 101 (46-116) U/L Troponin I 0.179 H* (0.000-0.056) ng/mL B-Natriuretic Peptide 288 H (<100) PG/ML Total Protein 7.7 (6.4-8.2) g/dL Albumin 3.9 (3.4-5.0) g/dL Globulin 3.8 (2.6-4.0) g/dL Albumin/Globulin Ratio 1.0 (0.9-1.6) Urine Color Urine Appearance Urine pH (5.0-8.0) Ur Specific [place] (1.001-1.035) Urine Protein (NEGATIVE) mg/dL Urine Glucose (UA) (NEGATIVE) mg/dL Urine Ketones (NEGATIVE) mg/dL Urine Occult Blood (NEGATIVE) Urine Nitrite (NEGATIVE) Urine Bilirubin (NEGATIVE) Urine Urobilinogen (<2.0) EU/dL Ur Leukocyte Esterase (NEGATIVE) COVID-19 (ALEXANDRA) (NEGATIVE) 04/20/20 04/20/20 Range/Units 12:00 12:37 WBC (4.0-11.0) K/uL RBC (4.50-5.90) M/uL Hgb (13.0-17.0) g/dL Hct (38.0-50.0) % MCV (80.0-98.0) fL MCH (27.0-32.0) pg MCHC (31.0-37.0) g/dL RDW Std Deviation (28.0-62.0) fl RDW Coeff of [place] (11.0-15.0) % Plt Count (150-400) K/uL MPV (7.40-12.00) fL Neut % (Auto) (48.0-80.0) % Lymph % (Auto) (16.0-40.0) % [place] % (Auto) (0.0-15.0) % Eos % (Auto) (0.0-7.0) % Baso % (Auto) (0.0-1.5) % Neut # (Auto) (1.4-5.7) K/uL Lymph # (Auto) (0.6-2.4) K/uL [place] # (Auto) (0.0-0.8) K/uL Eos # (Auto) (0.0-0.7) K/uL Baso # (Auto) (0.0-0.1) K/uL Nucleated RBC % /100WBC Nucleated RBCs # K/uL Sodium (136-148) mmol/L Potassium (3.5-5.1) mmol/L Chloride (98-107) mmol/L Carbon Dioxide (21.0-32.0) mmol/L BUN (7.0-18.0) mg/dL Creatinine (0.8-1.3) mg/dL Est Cr Clr Drug Dosing mL/min Estimated GFR (MDRD) ml/min Glucose (74-106) mg/dL Calcium (8.5-10.1) mg/dL Total Bilirubin (0.2-1.0) mg/dL AST (15-37) IU/L ALT (14-63) IU/L Alkaline Phosphatase (46-116) U/L Troponin I (0.000-0.056) ng/mL B-Natriuretic Peptide (<100) PG/ML Total Protein (6.4-8.2) g/dL Albumin (3.4-5.0) g/dL Globulin (2.6-4.0) g/dL Albumin/Globulin Ratio (0.9-1.6) Urine Color YELLOW Urine Appearance CLEAR Urine pH 7.5 (5.0-8.0) Ur Specific [place] 1.010 (1.001-1.035) Urine Protein NEGATIVE (NEGATIVE) mg/dL Urine Glucose (UA) NEGATIVE (NEGATIVE) mg/dL Urine Ketones NEGATIVE (NEGATIVE) mg/dL Urine Occult Blood NEGATIVE (NEGATIVE) Urine Nitrite NEGATIVE (NEGATIVE) Urine Bilirubin NEGATIVE (NEGATIVE) Urine Urobilinogen 0.2 (<2.0) EU/dL Ur Leukocyte Esterase NEGATIVE (NEGATIVE) COVID-19 (ALEXANDRA) NEGATIVE (NEGATIVE) Result Diagrams: 04/20/20 12:00 04/20/20 12:00 Sepsis Event Note - Evaluation Sepsis Screening Result: No Definite Risk - Focused Exam Vital Signs: Vital Signs Temp Pulse Resp BP Pulse Ox 04/20/20 13:30 84 20 166/79 H 96 04/20/20 12:00 65 20 159/75 H 96 04/20/20 11:25 36.6 C 66 20 151/76 H 96 Problem List Initiated/Reviewed/Updated: Yes Orders Last 24hrs: Active Orders 24 hr Category Date Time Status Admission Status [Patient Status] [ADT] Stat ADT 04/20/20 14:13 Active EKG Documentation Completion [RC] STAT Care 04/20/20 11:42 Active Sodium Chloride 0.9% [Saline Flush] Med 04/20/20 11:42 Active 10 ml FLUSH ASDIRECTED PRN Sodium Chloride 0.9% [Saline Flush] Med 04/20/20 11:42 Active 2.5 ml FLUSH ASDIRECTED PRN Saline Lock Insert [OM.PC] Stat Oth 04/20/20 11:42 Ordered Medication Orders Sodium Chloride (Saline Flush) 10 ml FLUSH ASDIRECTED PRN PRN Reason: Keep Vein Open Last Admin: 04/20/20 12:04 Dose: 10 ml Documented by: INOCENCIO Sodium Chloride (Saline Flush) 2.5 ml FLUSH ASDIRECTED PRN PRN Reason: Keep Vein Open Last Admin: 04/20/20 12:03 Dose: 2.5 ml Documented by: INOCENCIO Assessment/Plan Comment:: Assessment and Plan: 1. Acute CHF exacerbation: - Admit to med/surg. Patient on telemetry. Will diurese with IV lasix 40 mg BID. Fluid restrict < 2 L per day, low salt diet < 2 g per day, daily standing weights and strict I's and O's. Will order ECHO. - CXR: showed no acute cardiopulmonary processes. UA unremarkable. COVID19 test negative. 2. Elevated troponin: - Troponin was 0.179. Patient has history of chronically elevated troponin and appears to be close to patient's baseline per chart review. Patient on telemetry. Will trend troponins q6h. Patient asymptomatic at this time. - Discussed with patient and daughter about transferring to facility with interventional cardiology, however, they expressed desire to stay in [place] at this time. 3. DVT prophylaxis: Heparin. 4. Past medical history of HTN, NSTEMI, CABG, AV/MV repair, prostate CA and CVA: - Continue home medications.
[2020-04-20] MEDS ORDERED: Acetaminophen 325 MG Tab PO PRN (14:50)
[2020-04-20] MEDS ORDERED: Ondansetron 4 MG/2 ML SDV IVPUSH PRN (14:50)
[2020-04-20] MEDS: Heparin Sodium 5,000 Units/ML Vial SUBCUT SCH ×2 (15:43→22:35)
[2020-04-20] MEDS: Furosemide 40 MG/4 ML VIAL IVPUSH SCH (15:45)
[2020-04-20] MEDS: Tamsulosin 0.4 MG Cap.ER PO SCH (21:26)
[2020-04-20] MEDS: Metoprolol Tartrate 50 MG Tab PO SCH (21:26)
[2020-04-20] MEDS: LEVETIRACETAM 100 MG/ML PO SCH (21:32)
[2020-04-21] MEDS: Levothyroxine 25 MCG Tab PO SCH (06:41)
[2020-04-21] MEDS: Heparin Sodium 5,000 Units/ML Vial SUBCUT SCH ×3 (06:42→22:30)
[2020-04-21 06:43] LABS: BLOOD UREA NITROGEN,BUN 18 mg/dL (7.0-18.0); CARBON DIOXIDE,CO2 30.7 mmol/L (21.0-32.0); CHLORIDE,CL 95 mmol/L (98-107); GLUCOSE RANDOM 100 mg/dL (74-106); POTASSIUM,K 3.1 mmol/L (3.5-5.1); SODIUM,NA 132 mmol/L (136-148)
[2020-04-21] MEDS ORDERED: Potassium Chloride 20 MEQ Tab.ER PO ONE (08:00)
[2020-04-21] MEDS: Aspirin 81 MG Tab.Chew PO SCH (08:19)
[2020-04-21] MEDS: Metoprolol Tartrate 50 MG Tab PO SCH ×2 (08:19→20:03)
[2020-04-21] MEDS: LEVETIRACETAM 100 MG/ML PO SCH ×2 (08:21→20:05)
[2020-04-21] MEDS: Furosemide 40 MG/4 ML VIAL IVPUSH SCH ×2 (08:33→20:06)
[2020-04-21] MEDS ORDERED: Levothyroxine 25 MCG Tab PO SCH (09:00)
--- NOTE | 2020-04-21 09:13 | PCM.PN ---
- General Info Date of Service: 04/21/20 Subjective Update: Tolerating oral diet and urinating frequently. Denies any chest pain, SOB, nausea or vomiting. - Patient Data Vitals - Most Recent: Last Vital Signs Temp 36.9 C 04/21/20 08:00 Pulse 68 04/21/20 08:19 Resp 18 04/21/20 08:00 BP 129/75 04/21/20 08:19 Pulse Ox 95 04/21/20 08:00 Weight - Most Recent: 76.975 kg I&O - Last 24 Hours: Intake & Output 04/20/20 04/21/20 04/21/20 22:59 06:59 14:59 Intake Total 0 1420 Output Total 1100 Balance 0 320 Lab Results Last 24 Hours: Laboratory Results - last 24 hr 04/20/20 04/20/20 04/20/20 Range/Units 12:00 12:00 12:00 WBC 6.30 (4.0-11.0) K/uL RBC 3.87 L (4.50-5.90) M/uL Hgb 11.8 L (13.0-17.0) g/dL Hct 35.0 L (38.0-50.0) % MCV 90.4 (80.0-98.0) fL MCH 30.5 (27.0-32.0) pg MCHC 33.7 (31.0-37.0) g/dL RDW Std Deviation 48.0 (28.0-62.0) fl RDW Coeff of [place] 15 (11.0-15.0) % Plt Count 188 (150-400) K/uL MPV 10.40 (7.40-12.00) fL Neut % (Auto) 74.4 (48.0-80.0) % Lymph % (Auto) 11.1 L (16.0-40.0) % [place] % (Auto) 10.3 (0.0-15.0) % Eos % (Auto) 4.0 (0.0-7.0) % Baso % (Auto) 0.2 (0.0-1.5) % Neut # (Auto) 4.7 (1.4-5.7) K/uL Lymph # (Auto) 0.7 (0.6-2.4) K/uL [place] # (Auto) 0.7 (0.0-0.8) K/uL Eos # (Auto) 0.3 (0.0-0.7) K/uL Baso # (Auto) 0.0 (0.0-0.1) K/uL Nucleated RBC % 0.0 /100WBC Nucleated RBCs # 0 K/uL Sodium 130 L (136-148) mmol/L Potassium 3.9 (3.5-5.1) mmol/L Chloride 94 L (98-107) mmol/L Carbon Dioxide 26.3 (21.0-32.0) mmol/L BUN 22 H (7.0-18.0) mg/dL Creatinine 0.9 (0.8-1.3) mg/dL Est Cr Clr Drug Dosing 48.42 mL/min Estimated GFR (MDRD) > 60.0 ml/min Glucose 103 (74-106) mg/dL Calcium 8.9 (8.5-10.1) mg/dL Total Bilirubin 0.5 (0.2-1.0) mg/dL AST 35 (15-37) IU/L ALT 26 (14-63) IU/L Alkaline Phosphatase 101 (46-116) U/L Troponin I 0.179 H* (0.000-0.056) ng/mL B-Natriuretic Peptide 288 H (<100) PG/ML Total Protein 7.7 (6.4-8.2) g/dL Albumin 3.9 (3.4-5.0) g/dL Globulin 3.8 (2.6-4.0) g/dL Albumin/Globulin Ratio 1.0 (0.9-1.6) Urine Color Urine Appearance Urine pH (5.0-8.0) Ur Specific [place] (1.001-1.035) Urine Protein (NEGATIVE) mg/dL Urine Glucose (UA) (NEGATIVE) mg/dL Urine Ketones (NEGATIVE) mg/dL Urine Occult Blood (NEGATIVE) Urine Nitrite (NEGATIVE) Urine Bilirubin (NEGATIVE) Urine Urobilinogen (<2.0) EU/dL Ur Leukocyte Esterase (NEGATIVE) COVID-19 (ALEXANDRA) (NEGATIVE) 04/20/20 04/20/20 04/20/20 Range/Units 12:00 12:37 17:54 WBC (4.0-11.0) K/uL RBC (4.50-5.90) M/uL Hgb (13.0-17.0) g/dL Hct (38.0-50.0) % MCV (80.0-98.0) fL MCH (27.0-32.0) pg MCHC (31.0-37.0) g/dL RDW Std Deviation (28.0-62.0) fl RDW Coeff of [place] (11.0-15.0) % Plt Count (150-400) K/uL MPV (7.40-12.00) fL Neut % (Auto) (48.0-80.0) % Lymph % (Auto) (16.0-40.0) % [place] % (Auto) (0.0-15.0) % Eos % (Auto) (0.0-7.0) % Baso % (Auto) (0.0-1.5) % Neut # (Auto) (1.4-5.7) K/uL Lymph # (Auto) (0.6-2.4) K/uL [place] # (Auto) (0.0-0.8) K/uL Eos # (Auto) (0.0-0.7) K/uL Baso # (Auto) (0.0-0.1) K/uL Nucleated RBC % /100WBC Nucleated RBCs # K/uL Sodium (136-148) mmol/L Potassium (3.5-5.1) mmol/L Chloride (98-107) mmol/L Carbon Dioxide (21.0-32.0) mmol/L BUN (7.0-18.0) mg/dL Creatinine (0.8-1.3) mg/dL Est Cr Clr Drug Dosing mL/min Estimated GFR (MDRD) ml/min Glucose (74-106) mg/dL Calcium (8.5-10.1) mg/dL Total Bilirubin (0.2-1.0) mg/dL AST (15-37) IU/L ALT (14-63) IU/L Alkaline Phosphatase (46-116) U/L Troponin I 0.198 H* (0.000-0.056) ng/mL B-Natriuretic Peptide (<100) PG/ML Total Protein (6.4-8.2) g/dL Albumin (3.4-5.0) g/dL Globulin (2.6-4.0) g/dL Albumin/Globulin Ratio (0.9-1.6) Urine Color YELLOW Urine Appearance CLEAR Urine pH 7.5 (5.0-8.0) Ur Specific [place] 1.010 (1.001-1.035) Urine Protein NEGATIVE (NEGATIVE) mg/dL Urine Glucose (UA) NEGATIVE (NEGATIVE) mg/dL Urine Ketones NEGATIVE (NEGATIVE) mg/dL Urine Occult Blood NEGATIVE (NEGATIVE) Urine Nitrite NEGATIVE (NEGATIVE) Urine Bilirubin NEGATIVE (NEGATIVE) Urine Urobilinogen 0.2 (<2.0) EU/dL Ur Leukocyte Esterase NEGATIVE (NEGATIVE) COVID-19 (ALEXANDRA) NEGATIVE (NEGATIVE) 04/21/20 04/21/20 04/21/20 Range/Units 00:15 05:53 05:53 WBC 6.38 (4.0-11.0) K/uL RBC 4.05 L (4.50-5.90) M/uL Hgb 12.2 L (13.0-17.0) g/dL Hct 36.2 L (38.0-50.0) % MCV 89.4 (80.0-98.0) fL MCH 30.1 (27.0-32.0) pg MCHC 33.7 (31.0-37.0) g/dL RDW Std Deviation 47.0 (28.0-62.0) fl RDW Coeff of [place] 14 (11.0-15.0) % Plt Count 189 (150-400) K/uL MPV 10.80 (7.40-12.00) fL Neut % (Auto) 74.0 (48.0-80.0) % Lymph % (Auto) 10.3 L (16.0-40.0) % [place] % (Auto) 12.2 (0.0-15.0) % Eos % (Auto) 3.3 (0.0-7.0) % Baso % (Auto) 0.2 (0.0-1.5) % Neut # (Auto) 4.7 (1.4-5.7) K/uL Lymph # (Auto) 0.7 (0.6-2.4) K/uL [place] # (Auto) 0.8 (0.0-0.8) K/uL Eos # (Auto) 0.2 (0.0-0.7) K/uL Baso # (Auto) 0.0 (0.0-0.1) K/uL Nucleated RBC % 0.0 /100WBC Nucleated RBCs # 0 K/uL Sodium 132 L (136-148) mmol/L Potassium 3.1 L (3.5-5.1) mmol/L Chloride 95 L (98-107) mmol/L Carbon Dioxide 30.7 (21.0-32.0) mmol/L BUN 18 (7.0-18.0) mg/dL Creatinine 0.8 (0.8-1.3) mg/dL Est Cr Clr Drug Dosing 54.47 mL/min Estimated GFR (MDRD) > 60.0 ml/min Glucose 100 (74-106) mg/dL Calcium 8.8 (8.5-10.1) mg/dL Total Bilirubin 0.8 (0.2-1.0) mg/dL AST 28 (15-37) IU/L ALT 23 (14-63) IU/L Alkaline Phosphatase 91 (46-116) U/L Troponin I 0.181 H* (0.000-0.056) ng/mL B-Natriuretic Peptide (<100) PG/ML Total Protein 7.4 (6.4-8.2) g/dL Albumin 3.7 (3.4-5.0) g/dL Globulin 3.7 (2.6-4.0) g/dL Albumin/Globulin Ratio 1.0 (0.9-1.6) Urine Color Urine Appearance Urine pH (5.0-8.0) Ur Specific [place] (1.001-1.035) Urine Protein (NEGATIVE) mg/dL Urine Glucose (UA) (NEGATIVE) mg/dL Urine Ketones (NEGATIVE) mg/dL Urine Occult Blood (NEGATIVE) Urine Nitrite (NEGATIVE) Urine Bilirubin (NEGATIVE) Urine Urobilinogen (<2.0) EU/dL Ur Leukocyte Esterase (NEGATIVE) COVID-19 (ALEXANDRA) (NEGATIVE) Med Orders - Current: Current Medications Acetaminophen (Tylenol) 650 mg PO Q4H PRN PRN Reason: Pain (Mild 1-3)/fever Last Admin: 04/20/20 23:44 Dose: 650 mg Documented by: Aspirin (Aspirin) 81 mg PO DAILY [facility] Last Admin: 04/21/20 08:19 Dose: 81 mg Documented by: Furosemide (Lasix) 40 mg IVPUSH BID [facility] Last Admin: 04/21/20 08:33 Dose: 40 mg Documented by: Heparin Sodium (Porcine) (Heparin Sodium) 5,000 units SUBCUT Q8H [facility] Last Admin: 04/21/20 06:42 Dose: 5,000 units Documented by: Levothyroxine Sodium (Levothyroxine) 25 mcg PO ACBREAKFAST [facility] Last Admin: 04/21/20 06:41 Dose: 25 mcg Documented by: Metoprolol Tartrate (Lopressor) 25 mg PO BID [facility] Last Admin: 04/21/20 08:19 Dose: 25 mg Documented by: Ondansetron HCl (Zofran) 4 mg IVPUSH Q4H PRN PRN Reason: Nausea Levetiracetam 100 Mg (/Ml) 1 each PO BID [facility] Last Admin: 04/21/20 08:21 Dose: 1 each Documented by: Sodium Chloride (Saline Flush) 10 ml FLUSH ASDIRECTED PRN PRN Reason: Keep Vein Open Last Admin: 04/20/20 12:04 Dose: 10 ml Documented by: Sodium Chloride (Saline Flush) 2.5 ml FLUSH ASDIRECTED PRN PRN Reason: Keep Vein Open Last Admin: 04/20/20 12:03 Dose: 2.5 ml Documented by: Tamsulosin HCl (Flomax) 0.4 mg PO BEDTIME [facility] Last Admin: 04/20/20 21:26 Dose: 0.4 mg Documented by: Discontinued Medications Aspirin (Aspirin) 324 mg PO ONETIME ONE Stop: 04/20/20 13:01 Last Admin: 04/20/20 13:48 Dose: 324 mg Documented by: Levothyroxine Sodium (Levothyroxine) 25,000 mcg PO DAILY [facility] Potassium Chloride (Klor-Con M20) 40 meq PO ONETIME ONE Stop: 04/21/20 08:01 Last Admin: 04/21/20 08:19 Dose: 40 meq Documented by: - Exam General: Alert, Cooperative, No Acute Distress Lungs: Clear to Auscultation, Normal Respiratory Effort Cardiovascular: Regular Rate, Regular Rhythm GI/Abdominal Exam: Normal Bowel Sounds, Soft, Non-Tender, No Distention Extremities: Other (trace pitting edema b/l) Sepsis Event Note - Evaluation Sepsis Screening Result: No Definite Risk - Focused Exam Vital Signs: Vital Signs Temp Pulse Pulse Resp BP BP Pulse Ox 04/21/20 08:19 68 129/75 04/21/20 08:00 36.9 C 68 18 129/75 95 04/21/20 03:20 36.2 C 68 17 157/77 H 95 04/20/20 23:36 36.8 C 68 16 160/86 H 95 04/20/20 21:26 70 163/82 H 04/20/20 21:24 36.7 C 70 17 163/82 H 95 - Problem List Review Problem List Initiated/Reviewed/Updated: Yes - My Orders Last 24 Hours: My Active Orders 04/20/20 Lunch Heart Healthy Diet [DIET] 04/20/20 14:50 Oxygen Therapy [RC] PRN Up With Assistance [RC] ASDIRECTED VTE/DVT Education [RC] PER UNIT ROUTINE Vital Signs [RC] Q4H Acetaminophen [TylenoL] 650 mg PO Q4H PRN Ondansetron [Zofran] 4 mg IVPUSH Q4H PRN Resuscitation Status Routine 04/20/20 14:53 Telemetry Monitoring [Cardiac Monitoring] [RC] Q8H Echo Comp wo Cont [US] Urgent 04/20/20 15:00 Furosemide [Lasix] 40 mg IVPUSH BID Heparin Sodium 5,000 units SUBCUT Q8H 04/20/20 15:18 Daily Weight [Height and Weight] [RC] DAILY Intake and Output Strict [RC] Q12H 04/20/20 Dinner Fluid Restriction [DIET] Low Salt [Sodium Restricted Diet] [DIET] 04/20/20 21:00 Metoprolol Tartrate [Lopressor] 25 mg PO BID Patient's Own Medication [Ptom] 1 each PO BID Tamsulosin [Flomax] 0.4 mg PO BEDTIME 04/21/20 07:30 Levothyroxine 25 mcg PO ACBREAKFAST 04/21/20 09:00 Aspirin 81 mg PO DAILY - Plan Plan:: Assessment and Plan: 1. Acute CHF exacerbation: - Patient has been urinating frequently and there is improvement in leg edema. Will continue to diurese with IV lasix 40 mg BID. Fluid restrict < 2 L per day, low salt diet < 2 g per day, daily standing weights and strict I's and O's. - ECHO is pending. - CXR: showed no acute cardiopulmonary processes. UA unremarkable. COVID19 test negative. 2. Hypokalemia: - Will give PO KCl 40 mEq this AM. Will recheck potassium level in afternoon. 3. Elevated troponin: - Troponin was 0.179 and noted to be downtrending. Patient asymptomatic at this time. Patient has history of chronically elevated troponin and appears to be close to patient's baseline per chart review. He is on telemetry. - On admission, discussed with patient and daughter about transferring to facility with interventional cardiology, however, they expressed desire to stay in [place] at this time. 4. DVT prophylaxis: Heparin. 5. Past medical history of HTN, NSTEMI, CABG, AV/MV repair, prostate CA and CVA: - Continue home medications.
[2020-04-21] MEDS: Tamsulosin 0.4 MG Cap.ER PO SCH (20:04)
[2020-04-22] MEDS: Heparin Sodium 5,000 Units/ML Vial SUBCUT SCH ×3 (06:31→23:19)
[2020-04-22] MEDS: Levothyroxine 25 MCG Tab PO SCH (06:31)
[2020-04-22 06:47] LABS: BLOOD UREA NITROGEN,BUN 23 mg/dL (7.0-18.0); CARBON DIOXIDE,CO2 29.2 mmol/L (21.0-32.0); CHLORIDE,CL 94 mmol/L (98-107); GLUCOSE RANDOM 103 mg/dL (74-106); POTASSIUM,K 3.4 mmol/L (3.5-5.1); SODIUM,NA 131 mmol/L (136-148)
[2020-04-22] MEDS: Metoprolol Tartrate 50 MG Tab PO SCH ×2 (08:11→21:10)
[2020-04-22] MEDS: Aspirin 81 MG Tab.Chew PO SCH (08:11)
[2020-04-22] MEDS: LEVETIRACETAM 100 MG/ML PO SCH ×2 (08:12→21:11)
[2020-04-22] MEDS: Furosemide 40 MG/4 ML VIAL IVPUSH SCH (08:14)
[2020-04-22] MEDS ORDERED: Potassium Chloride 20 MEQ Tab.ER PO ONE (09:39)
--- NOTE | 2020-04-22 09:41 | PCM.PN ---
- General Info Date of Service: 04/22/20 - Review of Systems Systems Review Comment:: feeling better - Patient Data Vitals - Most Recent: Last Vital Signs Temp 36.4 C 04/22/20 07:17 Pulse 71 04/22/20 08:11 Resp 17 04/22/20 07:17 BP 139/73 04/22/20 08:11 Pulse Ox 96 04/22/20 07:17 Weight - Most Recent: 70.806 kg I&O - Last 24 Hours: Intake & Output 04/21/20 04/22/20 04/22/20 22:59 06:59 14:59 Intake Total 1000 712 Output Total 875 970 Balance 125 -258 Lab Results Last 24 Hours: Laboratory Results - last 24 hr 04/21/20 04/21/20 04/22/20 Range/Units 05:53 16:04 05:50 WBC 6.76 (4.0-11.0) K/uL RBC 4.26 L (4.50-5.90) M/uL Hgb 12.9 L (13.0-17.0) g/dL Hct 38.6 (38.0-50.0) % MCV 90.6 (80.0-98.0) fL MCH 30.3 (27.0-32.0) pg MCHC 33.4 (31.0-37.0) g/dL RDW Std Deviation 48.0 (28.0-62.0) fl RDW Coeff of [place] 15 (11.0-15.0) % Plt Count 191 (150-400) K/uL MPV 10.70 (7.40-12.00) fL Neut % (Auto) 78.7 (48.0-80.0) % Lymph % (Auto) 8.4 L (16.0-40.0) % [place] % (Auto) 10.7 (0.0-15.0) % Eos % (Auto) 2.2 (0.0-7.0) % Baso % (Auto) 0.0 (0.0-1.5) % Neut # (Auto) 5.3 (1.4-5.7) K/uL Lymph # (Auto) 0.6 (0.6-2.4) K/uL [place] # (Auto) 0.7 (0.0-0.8) K/uL Eos # (Auto) 0.2 (0.0-0.7) K/uL Baso # (Auto) 0.0 (0.0-0.1) K/uL Nucleated RBC % 0.0 /100WBC Nucleated RBCs # 0 K/uL Sodium (136-148) mmol/L Potassium 4.6 (3.5-5.1) mmol/L Chloride (98-107) mmol/L Carbon Dioxide (21.0-32.0) mmol/L BUN (7.0-18.0) mg/dL Creatinine (0.8-1.3) mg/dL Est Cr Clr Drug Dosing mL/min Estimated GFR (MDRD) ml/min Glucose (74-106) mg/dL Calcium (8.5-10.1) mg/dL Magnesium 2.0 (1.8-2.4) mg/dL Total Bilirubin (0.2-1.0) mg/dL AST (15-37) IU/L ALT (14-63) IU/L Alkaline Phosphatase (46-116) U/L Total Protein (6.4-8.2) g/dL Albumin (3.4-5.0) g/dL Globulin (2.6-4.0) g/dL Albumin/Globulin Ratio (0.9-1.6) 04/22/20 Range/Units 05:50 WBC (4.0-11.0) K/uL RBC (4.50-5.90) M/uL Hgb (13.0-17.0) g/dL Hct (38.0-50.0) % MCV (80.0-98.0) fL MCH (27.0-32.0) pg MCHC (31.0-37.0) g/dL RDW Std Deviation (28.0-62.0) fl RDW Coeff of [place] (11.0-15.0) % Plt Count (150-400) K/uL MPV (7.40-12.00) fL Neut % (Auto) (48.0-80.0) % Lymph % (Auto) (16.0-40.0) % [place] % (Auto) (0.0-15.0) % Eos % (Auto) (0.0-7.0) % Baso % (Auto) (0.0-1.5) % Neut # (Auto) (1.4-5.7) K/uL Lymph # (Auto) (0.6-2.4) K/uL [place] # (Auto) (0.0-0.8) K/uL Eos # (Auto) (0.0-0.7) K/uL Baso # (Auto) (0.0-0.1) K/uL Nucleated RBC % /100WBC Nucleated RBCs # K/uL Sodium 131 L (136-148) mmol/L Potassium 3.4 L (3.5-5.1) mmol/L Chloride 94 L (98-107) mmol/L Carbon Dioxide 29.2 (21.0-32.0) mmol/L BUN 23 H (7.0-18.0) mg/dL Creatinine 0.9 (0.8-1.3) mg/dL Est Cr Clr Drug Dosing 48.42 mL/min Estimated GFR (MDRD) > 60.0 ml/min Glucose 103 (74-106) mg/dL Calcium 8.8 (8.5-10.1) mg/dL Magnesium (1.8-2.4) mg/dL Total Bilirubin 0.7 (0.2-1.0) mg/dL AST 31 (15-37) IU/L ALT 25 (14-63) IU/L Alkaline Phosphatase 93 (46-116) U/L Total Protein 7.6 (6.4-8.2) g/dL Albumin 3.8 (3.4-5.0) g/dL Globulin 3.8 (2.6-4.0) g/dL Albumin/Globulin Ratio 1.0 (0.9-1.6) Med Orders - Current: Current Medications Acetaminophen (Tylenol) 650 mg PO Q4H PRN PRN Reason: Pain (Mild 1-3)/fever Last Admin: 04/20/20 23:44 Dose: 650 mg Documented by: Aspirin (Aspirin) 81 mg PO DAILY [facility]ENDING [facility] TO [facility] Last Admin: 04/22/20 08:11 Dose: 81 mg Documented by: Furosemide (Lasix) 40 mg IVPUSH DAILY [facility]ENDING [facility] TO [facility] Heparin Sodium (Porcine) (Heparin Sodium) 5,000 units SUBCUT Q8H PENDING S[facility] TO [facility] Last Admin: 04/22/20 06:31 Dose: 5,000 units Documented by: Levothyroxine Sodium (Levothyroxine) 25 mcg PO ACBREAKFAST PENDING S[facility] TO [facility] Last Admin: 04/22/20 06:31 Dose: 25 mcg Documented by: Metoprolol Tartrate (Lopressor) 25 mg PO BID [facility] TO [facility] Last Admin: 04/22/20 08:11 Dose: 25 mg Documented by: Ondansetron HCl (Zofran) 4 mg IVPUSH Q4H PRN PRN Reason: Nausea Levetiracetam 100 Mg (/Ml) 1 each PO BID [facility] TO [facility] Last Admin: 04/22/20 08:12 Dose: 1 each Documented by: Potassium Chloride (Klor-Con M20) 40 meq PO ONETIME ONE Stop: 04/22/20 09:40 Sodium Chloride (Saline Flush) 10 ml FLUSH ASDIRECTED PRN PRN Reason: Keep Vein Open Last Admin: 04/20/20 12:04 Dose: 10 ml Documented by: Sodium Chloride (Saline Flush) 2.5 ml FLUSH ASDIRECTED PRN PRN Reason: Keep Vein Open Last Admin: 04/20/20 12:03 Dose: 2.5 ml Documented by: Tamsulosin HCl (Flomax) 0.4 mg PO BEDTIME [facility] Last Admin: 04/21/20 20:04 Dose: 0.4 mg Documented by: Discontinued Medications Aspirin (Aspirin) 324 mg PO ONETIME ONE Stop: 04/20/20 13:01 Last Admin: 04/20/20 13:48 Dose: 324 mg Documented by: Furosemide (Lasix) 40 mg IVPUSH BID [facility] TO [facility] Last Admin: 04/22/20 08:14 Dose: 40 mg Documented by: Levothyroxine Sodium (Levothyroxine) 25,000 mcg PO DAILY PENDING [facility] TO [facility] Potassium Chloride (Klor-Con M20) 40 meq PO ONETIME ONE Stop: 04/21/20 08:01 Last Admin: 04/21/20 08:19 Dose: 40 meq Documented by: - Exam General: Alert, Oriented Neck: Supple Lungs: Clear to Auscultation, Normal Respiratory Effort Cardiovascular: Regular Rate, Regular Rhythm Extremities: Non-Tender, No Pedal Edema Skin: Warm, Dry, Intact Neurological: No New Focal Deficit Sepsis Event Note - Evaluation Sepsis Screening Result: No Definite Risk - Focused Exam Vital Signs: Vital Signs Temp Pulse Pulse Resp BP BP Pulse Ox 04/22/20 08:11 71 139/73 04/22/20 07:17 36.4 C 71 17 139/73 96 04/22/20 03:29 36.0 C L 71 17 146/69 H 96 04/21/20 22:35 36.4 C 61 17 149/76 H 95 - Problem List Review Problem List Initiated/Reviewed/Updated: Yes - My Orders Last 24 Hours: My Active Orders 04/22/20 09:39 Potassium Chloride [Klor-Con M20] 40 meq PO ONETIME ONE 04/23/20 05:11 BASIC METABOLIC PANEL,BMP [CHEM] AM 04/23/20 09:00 Furosemide [Lasix] 40 mg IVPUSH DAILY - Plan Plan:: Assessment and Plan: 1. Acute CHF exacerbation: - Patient has been urinating frequently and there is improvement in leg edema. will give another 40mg of lasix today. Fluid restrict < 2 L per day, low salt diet < 2 g per day, daily standing weights and strict I's and O's. - ECHO is pending. - CXR: showed no acute cardiopulmonary processes. UA unremarkable. COVID19 test negative. 2. Hypokalemia: - Will give PO KCl 40 mEq this AM. 3. DVT prophylaxis: Heparin. 4. Past medical history of HTN, NSTEMI, CABG, AV/MV repair, prostate CA and CVA: - Continue home medications. anticipate discharge home tomorrow.
[2020-04-22] MEDS: Tamsulosin 0.4 MG Cap.ER PO SCH (21:10)
[2020-04-23] MEDS: Heparin Sodium 5,000 Units/ML Vial SUBCUT SCH (06:12)
[2020-04-23 06:37] LABS: BLOOD UREA NITROGEN,BUN 31 mg/dL (7.0-18.0); CARBON DIOXIDE,CO2 25.6 mmol/L (21.0-32.0); CHLORIDE,CL 96 mmol/L (98-107); GLUCOSE RANDOM 99 mg/dL (74-106); POTASSIUM,K 3.9 mmol/L (3.5-5.1); SODIUM,NA 132 mmol/L (136-148)
[2020-04-23] MEDS: Levothyroxine 25 MCG Tab PO SCH (06:37)
[2020-04-23] MEDS: Aspirin 81 MG Tab.Chew PO SCH (08:38)
[2020-04-23] MEDS: Metoprolol Tartrate 50 MG Tab PO SCH (08:38)
[2020-04-23] MEDS: LEVETIRACETAM 100 MG/ML PO SCH (08:41)
[2020-04-23] MEDS ORDERED: Furosemide 40 MG/4 ML VIAL IVPUSH SCH (09:00)
[2020-04-23 12:08] VITALS: BP 123/75; PULSE 69
--- NOTE | 2020-04-23 14:35 | PCM.DCSUM1 ---
Discharge Summary - Hospital Course Free Text/Narrative:: Discharge summary Hospital course: Patient is a 85-year-old male brought in by daughter complaining of worsening lower extremity swelling bilaterally with intermittent exertional dyspnea x3 days. Patient does not have a past medical history of an NSTEMI, CABG, CHF, hypertension prostate cancer and AV and MV valve replacement. Patient did have at baseline increase in 4 pounds since last week. Patient also did have a mild cough on presentation. Patient was admitted to the [facility] floor and started on IV Lasix 40 mg twice daily with fluid restrictions and sodium restrictions. Echocardiogram was ordered; results at discharge showed a ejection fraction of 55 to 60% with mild tricuspid valvular regurgitation. Troponins were also elevated throughout his stay and were trended downwards. Per family patient had deferred transfer for elevated cardiac care secondary to history of elevated troponin. Patient did not complain of any chest pain during stay. Throughout stay patient's weight had dropped significantly from 77 kg to 72 kg. Day of discharge patient was feeling better with significant resolution of edema. pt. requested discharge. Mild dementia w. hearing aids; discussed care with Daughter. Mitzi Discharge home with 40 mg of Lasix daily; advised to elevate extremities and reduce sodium and fluid intake to 2 L daily. Advised to follow PCP in outpatient setting within 1 week. Cardiology follow-up also. Advised to notify provider if lower extremity swelling and or dyspnea returns; Despite taking medications Discussed with daughter possible need for assisted living facility versus prison; daughter refused but will think about it in future stating that she does live with patient at this time. also has dementia; patient already has home health and PT available to him. Discharge condition: Stable Disposition: Home Follow-up: PCP - Discharge Data Discharge Date: 04/23/20 Discharge Disposition: Home, W Home Health Agency 06 Condition: Good - Referral to Home Health Date of Face to Face Encounter: 04/23/20 Reason for Homebound Status: Resume Home Health Primary Care Physician: David Patel NP Skilled Need: Resume Home Health - Patient Instructions Diet: Heart Healthy Diet, Low Sodium Fluid Restriction: 2000 mL Activity: As Tolerated, Elevate Extremity, No Strenuous Activities, Rest and Relax Today Driving: Do Not Drive Showering/Bathing: May Shower Notify Provider of: Fever, Increased Pain, Swelling and Redness, Drainage, Nausea and/or Vomiting - Discharge Plan *PRESCRIPTION DRUG MONITORING PROGRAM REVIEWED*: Not Applicable *COPY OF PRESCRIPTION DRUG MONITORING REPORT IN PATIENT SARIKA: Not Applicable Home Medications: Home Meds Aspirin 81 mg PO DAILY 03/05/15 [History] Metoprolol Tartrate [Lopressor] 25 mg PO BID 03/05/15 [History] Tamsulosin [Flomax] 0.4 mg PO BEDTIME 12/16/17 [History] levETIRAcetam [Levetiracetam] 100 mg PO BID 03/07/19 [History] Cholecalciferol (Vitamin D3) [Vitamin D3] 2 tab PO DAILY 04/20/20 [History] Furosemide 40 mg PO DAILY 04/20/20 [History] Levothyroxine 25 mg PO DAILY 04/20/20 [History] Oxygen Therapy Mode: Room Air Patient Handouts: Heart Failure, Self Care, [id number], Form - Daily Weight Record Referrals: David Patel [employer] [Primary Care Provider] - 05/01/20 10:30 am (Please arrive 15 minutes early and bring your insurance cards, identification and your own facemask to your appointment.) - Discharge Summary/Plan Comment DC Time >30 min.: No - Patient Data Vitals - Most Recent: Last Vital Signs Temp 98.1 F 04/23/20 12:00 Pulse 69 04/23/20 12:00 Resp 16 04/23/20 12:00 BP 123/75 04/23/20 12:00 Pulse Ox 94 L 04/23/20 12:00 Weight - Most Recent: 71.123 kg I&O - Last 24 hours: Intake & Output 04/22/20 04/23/20 04/23/20 22:59 06:59 14:59 Intake Total 705 700 Output Total 550 400 Balance 155 300 Lab Results - Last 24 hrs: Laboratory Results - last 24 hr 04/23/20 Range/Units 06:00 Sodium 132 L (136-148) mmol/L Potassium 3.9 (3.5-5.1) mmol/L Chloride 96 L (98-107) mmol/L Carbon Dioxide 25.6 (21.0-32.0) mmol/L BUN 31 H (7.0-18.0) mg/dL Creatinine 1.1 (0.8-1.3) mg/dL Est Cr Clr Drug Dosing 39.62 mL/min Estimated GFR (MDRD) > 60.0 ml/min Glucose 99 (74-106) mg/dL Calcium 8.7 (8.5-10.1) mg/dL Med Orders - Current: Current Medications Acetaminophen (Tylenol) 650 mg PO Q4H PRN PRN Reason: Pain (Mild 1-3)/fever Last Admin: 04/20/20 23:44 Dose: 650 mg Documented by: Aspirin (Aspirin) 81 mg PO DAILY [facility] Last Admin: 04/23/20 08:38 Dose: 81 mg Documented by: Furosemide (Lasix) 40 mg IVPUSH DAILY [facility] Last Admin: 04/23/20 08:41 Dose: 40 mg Documented by: Heparin Sodium (Porcine) (Heparin Sodium) 5,000 units SUBCUT Q8H [facility] Last Admin: 04/23/20 06:12 Dose: 5,000 units Documented by: Levothyroxine Sodium (Levothyroxine) 25 mcg PO ACBREAKFAST [facility] Last Admin: 04/23/20 06:37 Dose: 25 mcg Documented by: Metoprolol Tartrate (Lopressor) 25 mg PO BID [facility] Last Admin: 04/23/20 08:38 Dose: 25 mg Documented by: Ondansetron HCl (Zofran) 4 mg IVPUSH Q4H PRN PRN Reason: Nausea Levetiracetam 100 Mg (/Ml) 1 each PO BID [facility] Last Admin: 04/23/20 08:41 Dose: 1 each Documented by: Sodium Chloride (Saline Flush) 10 ml FLUSH ASDIRECTED PRN PRN Reason: Keep Vein Open Last Admin: 04/20/20 12:04 Dose: 10 ml Documented by: Sodium Chloride (Saline Flush) 2.5 ml FLUSH ASDIRECTED PRN PRN Reason: Keep Vein Open Last Admin: 04/20/20 12:03 Dose: 2.5 ml Documented by: Tamsulosin HCl (Flomax) 0.4 mg PO BEDTIME [facility] Last Admin: 04/22/20 21:10 Dose: 0.4 mg Documented by: Discontinued Medications Aspirin (Aspirin) 324 mg PO ONETIME ONE Stop: 04/20/20 13:01 Last Admin: 04/20/20 13:48 Dose: 324 mg Documented by: Furosemide (Lasix) 40 mg IVPUSH BID [facility] Last Admin: 04/22/20 08:14 Dose: 40 mg Documented by: Levothyroxine Sodium (Levothyroxine) 25,000 mcg PO DAILY [facility] Potassium Chloride (Klor-Con M20) 40 meq PO ONETIME ONE Stop: 04/21/20 08:01 Last Admin: 04/21/20 08:19 Dose: 40 meq Documented by: Potassium Chloride (Klor-Con M20) 40 meq PO ONETIME ONE Stop: 04/22/20 09:40 Last Admin: 04/22/20 09:52 Dose: 40 meq Documented by:
--- NOTE | 2020-04-24 14:27 | ECHO ---
EXAM DATE: 04/22/20 PATIENT'S AGE: 85 The ECHO report has been scanned into [employer] and can be seen in this patient's EMR (Electronic Medical Record) under the REPORTS section. The report has also been scanned into PACS. DENNY
== END 2020-04-23 13:40 | disposition home health service (06) | DRG 293 ==
LOC: MW.ED 11:13 → MW.MS 14:13 → UNDOADMOB 14:20 → MW.MS 14:20 → OBSVTOIN 04-22 11:02 → MW.MS 04-22 14:04
PROVIDERS: ADMIT Internal Medicine; ATTEND Internal Medicine
DX: I11.0 Hypertensive heart disease with heart failure (principal); I50.33 Acute on chronic diastolic (congestive) heart failure; I50.9 Heart failure, unspecified; R79.89 Other specified abnormal findings of blood chemistry; I25.10 Atherosclerotic heart disease of native coronary artery without angina pectoris; Z20.828 Contact with and (suspected) exposure to other viral communicable diseases; E78.00 Pure hypercholesterolemia, unspecified; E87.6 Hypokalemia; J43.9 Emphysema, unspecified; K44.9 Diaphragmatic hernia without obstruction or gangrene; H54.7 Unspecified visual loss; K40.90 Unilateral inguinal hernia, without obstruction or gangrene, not specified as recurrent; I25.2 Old myocardial infarction; Z95.1 Presence of aortocoronary bypass graft; Z96.641 Presence of right artificial hip joint; Z98.890 Other specified postprocedural states; Z86.73 Personal history of transient ischemic attack (TIA), and cerebral infarction without residual deficits; Z85.46 Personal history of malignant neoplasm of prostate; Z79.890 Hormone replacement therapy; Z79.899 Other long term (current) drug therapy; Z95.2 Presence of prosthetic heart valve; Z88.8 Allergy status to other drugs, medicaments and biological substances; Z79.82 Long term (current) use of aspirin
CPT/HCPCS: 36415; 71045; 71045-26; 80048; 80053; 81003; 83735; 83880; 84132; 84484; 85025; 93005; 93306; 96372; 96374; 96376; 99284; 99285-25; A9270-GY; G0378; J1644; J1940; U0002

== ENCOUNTER 2020-05-11 13:59 | Emergency (ER) | payer MEDICARE, OTHER ==
[2020-05-11] MEDS ORDERED: Sodium Chloride 0.9% 2.5 ML Syringe FLUSH PRN ×2 (14:06→14:18)
[2020-05-11] MEDS ORDERED: Sodium Chloride 0.9% 10 ML Syringe FLUSH PRN ×2 (14:06→14:18)
--- NOTE | 2020-05-11 14:08 | EDM.PDOC ---
ED HPI GENERAL MEDICAL PROBLEM - General Chief Complaint: General Stated Complaint: FALL, BOWEL MOVEMENTS Time Seen by Provider: 05/11/20 14:01 Source of Information: Reports: Family - History of Present Illness INITIAL COMMENTS - FREE TEXT/NARRATIVE: History of present illness: 85-year-old male presenting with fall yesterday and some new onset urinary incontinence, uncertain timeframe. The patient is a very poor historian and very hard of hearing and unable to communicate and therefore history primarily from the daughter. She reports that the patient fell yesterday, lost his balance and fell back wards, striking his head but had no loss of consciousness. Apparently the home health nurse was there and did an head to toe exam and found no significant injury and therefore they did not seek medical care at that time. However apparently this morning the patient told his daughter that he had had some difficulty with stool and bladder incontinence throughout the night which is new. She also noted that he seemed a little bit more confused and a little bit more agitated today than usual. She reports she is normally ANO x3. He has not been complaining of any back pain or abdominal pain. In addition to all of the above, [facility] and told him that his sodium level on routine recent lab draw was low and as the patient also had an elevated PSA level in December and with the new onset loss of continence they were concerned he may have an abdominal mass or prostate mass/cancer and therefore requested he go to the emergency department for further evaluation. Review of systems: As per history of present illness and below otherwise all systems reviewed and negative. Past medical history: As per history of present illness and as reviewed below otherwise noncontri butory. See nursing notes Surgical history: As per history of present illness and as reviewed below otherwise noncontributory. See nursing notes Social history: No reported history of drug or alcohol abuse. No tobacco, lives with daughter Family history: As per history of present illness and as reviewed below otherwise noncontributory. Physical exam: GEN: no acute distress, well appearing HEENT: Old appearing abrasion on the posterior scalp, nontender normocephalic, mucous membranes moist, no blood in nasal or oropharynx, hearing aid in place Neck: supple, nontender, trachea midline. No C-spine tenderness Lungs: No respiratory distress. No chest wall tenderness Heart: RRR Abdomen: Soft, nondistended, nontender. No signs of trauma, no pulsatile mass, no mass Back: nontender in the C/T/L-spine. No step-offs. No signs of trauma Extremities: Atraumatic. Neurovascularly intact. Neuro: Awake, alert, the patient is extremely hard of hearing, however the daughter is able to communicate with him, when she asked orientation questions, he was able to tell her it was mid May,. Neuro Exam nonfocal. Patient able to ambulate with minimal assistance, using a walker but with no ataxia and with a steady gait. Skin: warm, dry, no lesions, old appearing abrasion posterior scalp as above Diagnostics: [] Therapeutics: [] MDM: Impression: [] Plan: [] Definitive disposition and diagnosis as appropriate pending reevaluation and review of above. - Related Data Allergies Allergy/AdvReac Type Severity Reaction Status Date / Time amiodarone Allergy Renal Verified 05/11/20 14:10 Insufficiency lisinopril Allergy Syncope Verified 05/11/20 14:10 simvastatin Allergy Other Verified 05/11/20 14:10 Home Meds: Home Meds Aspirin 81 mg PO DAILY 03/05/15 [History] Metoprolol Tartrate [Lopressor] 25 mg PO BID 03/05/15 [History] Tamsulosin [Flomax] 0.4 mg PO BEDTIME 12/16/17 [History] Cholecalciferol (Vitamin D3) [Vitamin D3] 2 tab PO DAILY 04/20/20 [History] Furosemide 40 mg PO DAILY 04/20/20 [History] Levothyroxine 25 mg PO DAILY 04/20/20 [History] Amoxicillin/Potassium Clav [Augmentin 875-125 Tablet] 1 each PO TID #30 tablet 05/11/20 [Rx] Aspirin 81 mg PO DAILY 05/11/20 [History] Past Medical History HEENT History: Reports: Hard of Hearing Other HEENT History: bilateral hearing aids Cardiovascular History: Reports: CAD, Heart Valve Replacement, High Cholesterol, Hypertension, CA Respiratory History: Reports: None Other Respiratory History: emphysema Gastrointestinal History: Reports: Hiatal Hernia Other Gastrointestinal History: Current left inguinal hernia Genitourinary History: Reports: Prostate Disorder, Other (See Below) Other Genitourinary History: Prostate CA Musculoskeletal History: Reports: Other (See Below) Other Musculoskeletal History: hx: fracture leg Neurological History: Reports: None Psychiatric History: Reports: None Endocrine/Metabolic History: Reports: None Hematologic History: Reports: None Immunologic History: Reports: None Oncologic (Cancer) History: Reports: Prostate Dermatologic History: Reports: Other (See Below) Other Dermatologic History: SKin areas froze off face - Infectious Disease History Infectious Disease History: Reports: None Other Infectious Disease History: hepatitis back in the 60's - Past Surgical History HEENT Surgical History: Reports: Tonsillectomy Cardiovascular Surgical History: Reports: Coronary Artery Bypass, Valve Replacement Other Cardiovascular Surgeries/Procedures: Aortic and Mitral Valve replaced Respiratory Surgical History: Reports: None GI Surgical History: Reports: Hernia, Inguinal Male Surgical History: Reports: None Endocrine Surgical History: Reports: None Other Musculoskeletal Surgeries/Procedures:: Right Total Hip Replacement Social & Family History - Family History Family Medical History: Noncontributory - Caffeine Use Caffeine Use: Reports: Coffee - Living Situation & Occupation Living situation: Reports: Occupation: Retired () ED ROS GENERAL - Review of Systems Review Of Systems: See Below (see HPI) ED EXAM, GENERAL - Physical Exam Exam: See Below (See HPI) EKG INTERPRETATION EKG Interpretation Comments: EG performed today at 2:21 PM, ? Read reporting atrial flutter, appears closer to sinus with prolonged CT, no irregularity, QTC 498, NO STEMI. Course - Vital Signs Text/Narrative:: 1) [facility], will check here -133 here without significant symptoms and without weakness, and this does appear to be within his prior recent chronic range. 2) fall with minor head injury. Will check CT scans --- CT head and neck without any acute injury seen. 3) loss of urinary and bowel continence since last night. Differential includes spinal injury, constipation and overflow incontinence, abdominal mass/prostate mass as the patient had a recently elevated PSA, normal pressure hydrocephalus, UTI, diarrhea gastroenteritis, etc. Will check CT scans, UA, labs, etc. A pparently the patient did later report to the nurse that he had been having diarrhea yesterday --- Patient has likely sigmoid diverticulitis on CT scan, this is consistent with the patient's reported history of diarrhea starting yesterday. Will treat with p.o. Augmentin. --- Patient also has prostate enlargement with mild bladder distention concerning for possible bladder outlet obstruction, possible overflow incontinence. He did have a remote history of prostatic cancer treated with radiation only. Will refer for urology follow-up. I did discuss the case with Dr. Rowland, who will see the patient outpatient on Thursday, and recommends bladder scanner and catheter if greater than 500 cc. Bladder scanner showed 480 cc in the bladder. Patient and daughter prefer to defer catheter at this time. We did discuss need to return to the emergency department if no urine output for catheter placement. Last Recorded V/S: Last Vital Signs Temp 97.2 F 05/11/20 14:05 Pulse 63 05/11/20 16:15 Resp 19 05/11/20 16:15 BP 140/86 05/11/20 16:15 Pulse Ox 96 05/11/20 16:15 - Orders/Labs/Meds Orders: Active Orders 24 hr Category Date Time Status Bladder Scan [RC] ASDIRECTED Care 05/11/20 16:52 Active EKG Documentation Completion [RC] STAT Care 05/11/20 14:18 Active Sodium Chloride 0.9% [Saline Flush] Med 05/11/20 14:06 Active 10 ml FLUSH ASDIRECTED PRN Sodium Chloride 0.9% [Saline Flush] Med 05/11/20 14:18 Active 10 ml FLUSH ASDIRECTED PRN Sodium Chloride 0.9% [Saline Flush] Med 05/11/20 14:06 Active 2.5 ml FLUSH ASDIRECTED PRN Sodium Chloride 0.9% [Saline Flush] Med 05/11/20 14:18 Active 2.5 ml FLUSH ASDIRECTED PRN Saline Lock Insert [OM.PC] Stat Ot 05/11/20 14:06 Ordered Saline Lock Insert [OM.PC] Stat Ot 05/11/20 14:18 Ordered Medication Orders Sodium Chloride (Saline Flush) 10 ml FLUSH ASDIRECTED PRN PRN Reason: Keep Vein Open Last Admin: 05/11/20 17:13 Dose: 10 ml Documented by: ARANANG Sodium Chloride (Saline Flush) 2.5 ml FLUSH ASDIRECTED PRN PRN Reason: Keep Vein Open Last Admin: 05/11/20 17:13 Dose: 2.5 ml Documented by: ARANANG Sodium Chloride (Saline Flush) 10 ml FLUSH ASDIRECTED PRN PRN Reason: Keep Vein Open Last Admin: 05/11/20 17:13 Dose: 10 ml Documented by: ARANANG Sodium Chloride (Saline Flush) 2.5 ml FLUSH ASDIRECTED PRN PRN Reason: Keep Vein Open Last Admin: 05/11/20 17:13 Dose: 2.5 ml Documented by: INOCENCIO Labs: Laboratory Tests 05/11/20 05/11/20 05/11/20 Range/Units 14:20 14:20 15:40 WBC 6.84 (4.0-11.0) K/uL RBC 3.82 L (4.50-5.90) M/uL Hgb 11.8 L (13.0-17.0) g/dL Hct 35.1 L (38.0-50.0) % MCV 91.9 (80.0-98.0) fL MCH 30.9 (27.0-32.0) pg MCHC 33.6 (31.0-37.0) g/dL RDW Std Deviation 49.6 (28.0-62.0) fl RDW Coeff of [place] 15 (11.0-15.0) % Plt Count 193 (150-400) K/uL MPV 10.30 (7.40-12.00) fL Neut % (Auto) 73.0 (48.0-80.0) % Lymph % (Auto) 14.0 L (16.0-40.0) % [place] % (Auto) 10.4 (0.0-15.0) % Eos % (Auto) 2.5 (0.0-7.0) % Baso % (Auto) 0.1 (0.0-1.5) % Neut # (Auto) 5.0 (1.4-5.7) K/uL Lymph # (Auto) 1.0 (0.6-2.4) K/uL [place] # (Auto) 0.7 (0.0-0.8) K/uL Eos # (Auto) 0.2 (0.0-0.7) K/uL Baso # (Auto) 0.0 (0.0-0.1) K/uL Nucleated RBC % 0.0 /100WBC Nucleated RBCs # 0 K/uL Sodium 133 L (136-148) mmol/L Potassium 4.2 (3.5-5.1) mmol/L Chloride 96 L (98-107) mmol/L Carbon Dioxide 27.3 (21.0-32.0) mmol/L BUN 23 H (7.0-18.0) mg/dL Creatinine 0.9 (0.8-1.3) mg/dL Est Cr Clr Drug Dosing TNP Estimated GFR (MDRD) > 60.0 ml/min Glucose 93 (74-106) mg/dL Calcium 8.7 (8.5-10.1) mg/dL Urine Color YELLOW Urine Appearance CLEAR Urine pH 7.0 (5.0-8.0) Ur Specific [place] 1.010 (1.001-1.035) Urine Protein NEGATIVE (NEGATIVE) mg/dL Urine Glucose (UA) NEGATIVE (NEGATIVE) mg/dL Urine Ketones NEGATIVE (NEGATIVE) mg/dL Urine Occult Blood NEGATIVE (NEGATIVE) Urine Nitrite NEGATIVE (NEGATIVE) Urine Bilirubin NEGATIVE (NEGATIVE) Urine Urobilinogen 0.2 (<2.0) EU/dL Ur Leukocyte Esterase NEGATIVE (NEGATIVE) Meds: Medications Generic Name Dose Route Start Last Admin Trade Name Freq PRN Reason Stop Dose Admin Sodium Chloride 10 ml 05/11/20 14:06 05/11/20 17:13 Saline Flush FLUSH 10 ml ASDIRECTED PRN Administration Keep Vein Open Sodium Chloride 2.5 ml 05/11/20 14:06 05/11/20 17:13 Saline Flush FLUSH 2.5 ml ASDIRECTED PRN Administration Keep Vein Open Sodium Chloride 10 ml 05/11/20 14:18 05/11/20 17:13 Saline Flush FLUSH 10 ml ASDIRECTED PRN Administration Keep Vein Open Sodium Chloride 2.5 ml 05/11/20 14:18 05/11/20 17:13 Saline Flush FLUSH 2.5 ml ASDIRECTED PRN Administration Keep Vein Open Discontinued Medications Generic Name Dose Route Start Last Admin Trade Name Freq PRN Reason Stop Dose Admin Amoxicillin/Clavulanate Potassium 1 tab 05/11/20 16:53 05/11/20 17:12 Augmentin 875 Mg/125 Mg PO 05/11/20 16:54 1 tab ONETIME ONE Administration Iopamidol 100 ml 05/11/20 15:39 05/11/20 15:40 Isovue Multipack-370 (76%) IVPUSH 05/11/20 15:40 100 ml ONETIME ONE Administration - Re-Assessments/Exams Free Text/Narrative Re-Assessment/Exam: 05/11/20 16:40 Discussed all lab and CT results at length with patient and daughter at the bedside. Discussed all results and findings of prostate enlargement and bladder distention, possible outlet obstruction and possible need for catheter as well as urology follow-up. They were very concerned about ability to follow-up with urology and requested that I discuss with urology on-call. Patient is feeling very well and is feeling that he would prefer outpatient treatment for all of the above. He is eager to leave and have ice cream and pie at this time. Will discuss with urology. 05/11/20 16:[address] Rowland, urology on-call, who recommends to attempt bladder scan and if greater than 500 cc, place catheter and see him Thursday at 1 PM. 05/11/20 17:31 Nursing was able to perform a bladder scan and on 2 separate testing attempts he had 480 cc in the bladder. Therefore will defer catheterization placement and have patient follow-up with urology as planned. 05/11/20 17:44 The patient's daughter is now back at the bedside. I discussed the recommendations made by urology and the findings on bladder scan with her as well as plan to follow-up with urology at 1 PM on Thursday or return to the ER for any difficulty passing urine. I also did discuss the specific dosing of the Augmentin for the indication of diverticulitis. She agreed with all of the above. Departure - Departure Time of Disposition: 17:32 Disposition: Home, Self-Care 01 Clinical Impression: Closed head injury, Hyponatremia, Diverticulitis, Bladder outlet obstruction - Discharge Information Prescriptions: Amoxicillin/Potassium Clav [Augmentin 875-125 Tablet] 1 each PO TID #30 tablet Instructions: Diverticulitis, [id number], Head Injury, Adult, [id number] Referrals: David Patel NP [Primary Care Provider] - Cammy Rowland MD [Physician] - 05/14/20 1:00 pm (Please followup with DR Rowland at 1pm or return to the ER sooner if you are unable to void. ) Forms: ED Department Discharge Additional Instructions: You have have diverticulitis. For this you will need to take antibiotics. I have prescribed Augmentin which will need to be taken 3 times per day for this infection. You also have an enlarged prostate which is causing some urinary retention and probably overflow incontinence. Please see the urologist on Thursday at 1 PM as we discussed. If you develop inability to urinate over the weekend, please return to the emergency department for reassessment and possible catheter placement. The following information is given to patients seen in the emergency department who are being discharged to home. This information is to outline your options for follow-up care. We provide all patients seen in our emergency department with a follow-up referral. The need for follow-up, as well as the timing and circumstances, are variable depending upon the specifics of your emergency department visit. If you don't have a primary care physician on staff, we will provide you with a referral. We always advise you to contact your personal physician following an emergency department visit to inform them of the circumstance of the visit and for follow-up with them and/or the need for any referrals to a consulting specialist. The emergency department will also refer you to a specialist when appropriate. This referral assures that you have the opportunity for follow-up care with a specialist. All of these measure are taken in an effort to provide you with optimal care, which includes your follow-up. Under all circumstances we always encourage you to contact your private physician who remains a resource for coordinating your care. When calling for follow-up care, please make the office aware that this follow-up is from your recent emergency room visit. If for any reason you are refused follow-up, please contact the [facility] Emergency Department at and asked to speak to the emergency department charge nurse. Sepsis Event Note (ED) - Focused Exam Vital Signs: Vital Signs Temp Pulse Resp BP Pulse Ox 05/11/20 16:15 63 19 140/86 96 05/11/20 15:15 63 19 161/76 H 95 05/11/20 14:05 97.2 F 63 20 159/79 H 97 05/11/20 14:00 64 20 159/79 H 96 - My Orders Last 24 Hours: My Active Orders 05/11/20 14:06 Sodium Chloride 0.9% [Saline Flush] 10 ml FLUSH ASDIRECTED PRN Sodium Chloride 0.9% [Saline Flush] 2.5 ml FLUSH ASDIRECTED PRN Saline Lock Insert [OM.PC] Stat 05/11/20 14:18 EKG Documentation Completion [RC] STAT Sodium Chloride 0.9% [Saline Flush] 10 ml FLUSH ASDIRECTED PRN Sodium Chloride 0.9% [Saline Flush] 2.5 ml FLUSH ASDIRECTED PRN Saline Lock Insert [OM.PC] Stat 05/11/20 16:52 Bladder Scan [RC] ASDIRECTED - Assessment/Plan Last 24 Hours: My Active Orders 05/11/20 14:06 Sodium Chloride 0.9% [Saline Flush] 10 ml FLUSH ASDIRECTED PRN Sodium Chloride 0.9% [Saline Flush] 2.5 ml FLUSH ASDIRECTED PRN Saline Lock Insert [OM.PC] Stat 05/11/20 14:18 EKG Documentation Completion [RC] STAT Sodium Chloride 0.9% [Saline Flush] 10 ml FLUSH ASDIRECTED PRN Sodium Chloride 0.9% [Saline Flush] 2.5 ml FLUSH ASDIRECTED PRN Saline Lock Insert [OM.PC] Stat 05/11/20 16:52 Bladder Scan [RC] ASDIRECTED
[2020-05-11 14:09] VITALS: PULSE 63
[2020-05-11 14:47] LABS: BLOOD UREA NITROGEN,BUN 23 mg/dL (7.0-18.0); CARBON DIOXIDE,CO2 27.3 mmol/L (21.0-32.0); CHLORIDE,CL 96 mmol/L (98-107); GLUCOSE RANDOM 93 mg/dL (74-106); POTASSIUM,K 4.2 mmol/L (3.5-5.1); SODIUM,NA 133 mmol/L (136-148)
[2020-05-11] MEDS ORDERED: Iopamidol 755 MG/ML 500 ML Multipack Bottle IVPUSH ONE (15:39)
--- NOTE | 2020-05-11 15:56 | CT ---
TECHNIQUE: Head CT without intravenous contrast. INDICATION: Fall. COMPARISON: None available. FINDINGS: No intracranial hemorrhage, extra-axial collection, or evidence of acute cortical infarction. Global volume loss with extensive periventricular and deep white matter hypoattenuation, corresponding with chronic small-vessel ischemic changes. Asymmetric prominence of the right lateral ventricle temporal horn, possibly ex vacuo dilatation. Cavum septum pellucidum, an anatomic variant. Status post bilateral cataract surgery. The cranium and paranasal sinuses are unremarkable. IMPRESSION: 1. No acute intracranial findings. 2. Advanced chronic small vessel ischemic changes with global volume loss. Please note that all CT scans at this facility use dose modulation, iterative reconstruction, and/or weight-based dosing when appropriate to reduce radiation dose to as low as reasonably achievable. Dictated by Win Fair MD @ May 11 2020 3:49PM Signed by Dr. Win Fair @ May 11 2020 3:54PM
--- NOTE | 2020-05-11 16:11 | CT ---
Indication: Stone and urinary incontinence, fall yesterday Technique: Contrast enhanced axial CT imaging through the abdomen and pelvis. 100 mL Isovue 350 contrast agent was administered intravenously. Sagittal and coronal reconstructions are provided. Comparison: CT abdomen pelvis without contrast 11/14/2019 Findings: Suboptimal examination due to partial degradation by motion artifact. There is diverticulosis of the sigmoid colon with associated wall thickening, raising concern for diverticulitis. There is no evidence of colonic perforation or pericolonic abscess. The stomach and small bowel are unremarkable. The appendix is noninflamed. There is no pneumoperitoneum. Stable cysts are noted in the left hepatic lobe. There are no suspicious hepatic lesions. The gallbladder, spleen, adrenal glands, and pancreas unremarkable. Large exophytic left lower pole renal cyst is stable. The kidneys are otherwise unremarkable. There is abdominal atherosclerosis without aneurysm. The urinary bladder is moderately distended. The prostate gland is mildly enlarged. Right hip arthroplasty is noted. There is no displaced pelvic fracture or lumbar spine fracture. Multilevel lumbar degenerative disc disease is not significantly changed from prior. There is no high-grade stenosis of the spinal canal. Impression: 1. Diverticulosis of the sigmoid colon with mild associated wall thickening, raising concern for acute diverticulitis. Correlate clinically. 2. No acute traumatic findings in the abdomen and pelvis. No high-grade lumbar spinal stenosis. 3. Mildly distended urinary bladder. Prostatomegaly. Correlate for bladder outlet obstruction. Please note that all CT scans at this facility use dose modulation, iterative reconstruction, and/or weight-based dosing when appropriate to reduce radiation dose to as low as reasonably achievable. Dictated by Anma Brownlee MD @ May 11 2020 3:54PM Signed by Dr. Anam Brownlee @ May 11 2020 4:09PM
--- NOTE | 2020-05-11 16:30 | CT ---
Indication: Fall, injury Technique: Nonenhanced axial CT imaging through the cervical spine. Sagittal and coronal reconstructions are provided. Comparison: None Findings: The cervical vertebral bodies are normal in height. No fracture is demonstrated. There is normal spinal alignment. The atlantoaxial and atlantooccipital relationships are maintained. There is no prevertebral edema. There is partial fusion of the C2 through C5 vertebral bodies. Degenerative disc disease is present C5-6 there is C7-T1. There is also multilevel facet disease with partial facet fusion bilateral at C2 through C5. Neural foraminal stenosis is present bilaterally at C3-4 through C6-7. There is no high-grade spinal stenosis. Impression: 1. No acute fracture or traumatic malalignment. 2. Multilevel degenerative changes, as above. Please note that all CT scans at this facility use dose modulation, iterative reconstruction, and/or weight-based dosing when appropriate to reduce radiation dose to as low as reasonably achievable. Dictated by Anam Brownlee MD @ May 11 2020 4:19PM Signed by Dr. Anam Brownlee @ May 11 2020 4:28PM
[2020-05-11] MEDS ORDERED: Amoxicillin/Clavulanate K 875-125 MG Tab PO ONE (16:53)
[2020-05-11 19:49] VITALS: BP 158/79
== END 2020-05-11 17:56 | disposition home or self-care (01) ==
LOC: MW.ED 13:59
DX: S09.90XA Unspecified injury of head, initial encounter (principal); E87.1 Hypo-osmolality and hyponatremia; N32.0 Bladder-neck obstruction; K57.92 Diverticulitis of intestine, part unspecified, without perforation or abscess without bleeding; I10 Essential (primary) hypertension; I25.10 Atherosclerotic heart disease of native coronary artery without angina pectoris; I25.2 Old myocardial infarction; Z88.8 Allergy status to other drugs, medicaments and biological substances; Z79.82 Long term (current) use of aspirin; Z79.899 Other long term (current) drug therapy; W01.10XA Fall on same level from slipping, tripping and stumbling with subsequent striking against unspecified object, initial encounter
CPT/HCPCS: 36415; 51798; 70450; 72125; 74177; 80048; 81003; 85025; 99284; A9270; Q9967; 99283

== ENCOUNTER 2020-06-05 13:53 | Observation (INO) | payer MEDICARE, OTHER ==
[2020-06-05] MEDS ORDERED: Sodium Chloride 0.9% 10 ML Syringe FLUSH PRN (14:38)
[2020-06-05] MEDS ORDERED: Sodium Chloride 0.9% 2.5 ML Syringe FLUSH PRN (14:38)
--- NOTE | 2020-06-05 15:10 | EDM.PDOC ---
ED HPI GENERAL MEDICAL PROBLEM - General Chief Complaint: Cardiovascular Problem Stated Complaint: EDEMA Time Seen by Provider: 06/05/20 13:55 Source of Information: Reports: Patient, Family History Limitations: Reports: No Limitations - History of Present Illness INITIAL COMMENTS - FREE TEXT/NARRATIVE: HISTORY AND PHYSICAL: History of present illness: Patient is an 85-year-old male who presents to the ED today with his daughter for concern of increased lower extremity swelling, and shortness of breath, concern for a congestive heart failure exacerbation. Daughter states that patient does have some mild confusion per his baseline but states that he does have some increased confusion which is typical she states when he is retaining fluid. Patient states that he has had more shortness of breath that is worse with exertion. Daughter states that this has happened about a month before and his primary care provider increased his Lasix dose for a short amount of time an d patient had improvement of symptoms so came back down on his Lasix dose. Daughter states that she has noticed he has been retaining fluid in his lower extremities and has noted that he is more short of breath with minimal activity then his baseline. Daughter states that he lives at home with his and uses a walker to ambulate and has noticed a decrease in ADLs due to exertional dyspnea but states that typically him and his are able to get along and take care of themselves. Daughter denies any falls for patient. Patient/daughter denies fever, chills, chest pain, or cough. Denies headache, neck stiff ness, change in vision, syncope, or near syncope. Denies nausea, vomiting, abdominal pain, diarrhea, constipation, or dysuria. Has not noted any blood in urine or stool. Patient has been eating and drinking appropriately. Review of systems: As per history of present illness and below otherwise all systems reviewed and negative. Past medical history: As per history of present illness and as reviewed below otherwise noncontributory. Surgical history: As per history of present illness and as reviewed below otherwise noncontributory. Social history: See social history for further information Family history: As per history of present illness and as reviewed below otherwise noncontributory. Physical exam: General: Patient is alert, oriented but mildly confused about situation which daughter states is per baseline, and in no acute distress. Patient sitting comfortably on exam table and hard of hearing. HEENT: Atraumatic, normocephalic, pupils equal and reactive bilaterally, negative for conjunctival pallor or scleral icterus, mucous membranes moist, TMs normal bilaterally, throat clear, neck supple, nontender, trachea midline. No drooling or trismus noted. No meningeal signs. No hot potato voice noted. Lungs: Patient speaking clearly without breathlessness, no wheezing or stridor, no accessory muscle use or respiratory distress. Auscultation deferred due to current COV-ID 19 outbreak. Heart: Auscultation deferred due to current COV-ID 19 outbreak. Abdomen: Soft, nondistended, nontender. Negative for masses or hepatosplenomegaly. Negative for costovertebral tenderness. Pelvis: Stable nontender. Genitourinary: Deferred. Rectal: Deferred. Skin: Intact, warm, dry. No lesions or rashes noted. Extremities: 2+ pitting edema of the bilateral lower extremities to the knees bilaterally. Otherwise, atraumatic, negative for cords or calf pain. Neurovascular unremarkable. Neuro: Awake, alert, oriented but mildly confused about situation. Cranial nerves II through XII unremarkable. Cerebellum unremarkable. Motor and sensory unremarkable throughout. Exam nonfocal. Notes: I did have a thorough conversation with patient's daughter, his power of attorn ey, and patient about his positive troponin and discussed in detail the emergent reasons for elevated troponin and discussed transfer vs admission to the hospital here, including the risk of . Daughter and patient state that his troponin is often elevated with CHF exacerbation and have been transferred in the past just to remove fluid and have patient discharged home the next day. Transfer to a facility with cardiology and interventional cardiology highly encouraged but both patient and daughter request admission to the hospital here as patient would not want to go through a cardiac cath procedure. 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 Patient is mildly confused but also agrees with his daughter, his power of estate planning attorney. All risks vs benefits discussed with daughter and patient and both express understanding. Dr. Garcia, hospitalist on-call, consulted and will admit to observation on telemetry. Voices understanding and is agreeable to plan of care. Denies any further questions or concerns at this time. Diagnostics: EKG, CBC, CMP, UA, BNP, Trop, CXR, COVID19 Therapeutics: ASA, Lovenox, Lasix Impression: Acute on chronic congestive heart failure Positive troponin Plan: Admission to Dr. Garcia observation on telemetry Definitive disposition and diagnosis as appropriate pending reevaluation and review of above. - Related Data Allergies Allergy/AdvReac Type Severity Reaction Status Date / Time amiodarone Allergy Renal Verified 06/05/20 18:05 Insufficiency lisinopril Allergy Syncope Verified 06/05/20 18:05 simvastatin Allergy Other Verified 06/05/20 18:05 Home Meds: Home Meds Aspirin 81 mg PO DAILY 03/05/15 [History] Metoprolol Tartrate [Lopressor] 25 mg PO BID 03/05/15 [History] Tamsulosin [Flomax] 0.4 mg PO BEDTIME 12/16/17 [History] Cholecalciferol (Vitamin D3) [Vitamin D3] 2 tab PO DAILY 04/20/20 [History] Furosemide 40 mg PO DAILY 04/20/20 [History] Levothyroxine 25 mg PO DAILY 04/20/20 [History] Amoxicillin/Potassium Clav [Augmentin 875-125 Tablet] 1 each PO TID #30 tablet 05/11/20 [Rx] Aspirin 81 mg PO DAILY 05/11/20 [History] Past Medical History HEENT History: Reports: Hard of Hearing Other HEENT History: bilateral hearing aids Cardiovascular History: Reports: CAD, Heart Valve Replacement, High Cholesterol, Hypertension, [place] Respiratory History: Reports: None Other Respiratory History: emphysema Gastrointestinal History: Reports: Hiatal Hernia Other Gastrointestinal History: Current left inguinal hernia Genitourinary History: Reports: Prostate Disorder, Other (See Below) Other Genitourinary History: Prostate CA Musculoskeletal History: Reports: Other (See Below) Other Musculoskeletal History: hx: fracture leg Neurological History: Reports: None Other Neuro History: confusion Psychiatric History: Reports: None Endocrine/Metabolic History: Reports: None Hematologic History: Reports: None Immunologic History: Reports: None Oncologic (Cancer) History: Reports: Prostate Dermatologic History: Reports: Other (See Below) Other Dermatologic History: SKin areas froze off face - Infectious Disease History Infectious Disease History: Reports: Measles Other Infectious Disease History: hepatitis back in the 60's - Past Surgical History HEENT Surgical History: Reports: Tonsillectomy Cardiovascular Surgical History: Reports: Coronary Artery Bypass, Valve Replacement Other Cardiovascular Surgeries/Procedures: Aortic and Mitral Valve replaced Respiratory Surgical History: Reports: None GI Surgical History: Reports: Hernia, Inguinal Male Surgical History: Reports: None Endocrine Surgical History: Reports: None Other Musculoskeletal Surgeries/Procedures:: Right Total Hip Replacement Social & Family History - Family History Family Medical History: Noncontributory - Caffeine Use Caffeine Use: Reports: Coffee - Recreational Drug Use Recreational Drug Use: No - Living Situation & Occupation Living situation: Reports: Occupation: Retired () ED ROS GENERAL - Review of Systems Review Of Systems: Comprehensive ROS is negative, except as noted in HPI. ED EXAM, GENERAL - Physical Exam Exam: See Below (see dictation) Course - Vital Signs Last Recorded V/S: Last Vital Signs Temp 97.6 F 06/05/20 18:21 Pulse 87 06/05/20 18:21 Resp 14 06/05/20 18:21 BP 194/110 H 06/05/20 18:21 Pulse Ox 96 06/05/20 18:21 - Orders/Labs/Meds Orders: Active Orders 24 hr Category Date Time Status Cardiac Monitoring [RC] Q8H Care 06/05/20 14:38 Active Sodium Chloride 0.9% [Saline Flush] Med 06/05/20 14:38 Active 10 ml FLUSH ASDIRECTED PRN Sodium Chloride 0.9% [Saline Flush] Med 06/05/20 14:38 Active 2.5 ml FLUSH ASDIRECTED PRN Saline Lock Insert [OM.PC] Stat Oth 06/05/20 14:38 Ordered Medication Orders Albuterol/Ipratropium (Duoneb 3.0-0.5 Mg/3 Ml) 3 ml NEB Q4HRRT PRN PRN Reason: Shortness Of Breath/wheezing Aspirin (Aspirin) 81 mg PO DAILY STEFANY Furosemide (Lasix) 40 mg IVPUSH BID STEFANY Last Admin: 06/05/20 19:04 Dose: Not Given Documented by: ROB Labetalol HCl (Normodyne) 10 mg IVPUSH Q4H PRN; Protocol PRN Reason: Hypertension Sodium Chloride (Saline Flush) 10 ml FLUSH ASDIRECTED PRN PRN Reason: Keep Vein Open Last Admin: 06/05/20 15:58 Dose: 10 ml Documented by: ANITA Sodium Chloride (Saline Flush) 2.5 ml FLUSH ASDIRECTED PRN PRN Reason: Keep Vein Open Last Admin: 06/05/20 15:58 Dose: 2.5 ml Documented by: ANITA Labs: Laboratory Tests 06/05/20 06/05/20 06/05/20 Range/Units 14:56 14:56 14:56 WBC 7.39 (4.0-11.0) K/uL RBC 3.63 L (4.50-5.90) M/uL Hgb 11.2 L (13.0-17.0) g/dL Hct 33.9 L (38.0-50.0) % MCV 93.4 (80.0-98.0) fL MCH 30.9 (27.0-32.0) pg MCHC 33.0 (31.0-37.0) g/dL RDW Std Deviation 51.5 (28.0-62.0) fl RDW Coeff of [place] 15 (11.0-15.0) % Plt Count 174 (150-400) K/uL MPV 10.20 (7.40-12.00) fL Neut % (Auto) 81.4 H (48.0-80.0) % Lymph % (Auto) 7.7 L (16.0-40.0) % [place] % (Auto) 8.8 (0.0-15.0) % Eos % (Auto) 2.0 (0.0-7.0) % Baso % (Auto) 0.1 (0.0-1.5) % Neut # (Auto) 6.0 H (1.4-5.7) K/uL Lymph # (Auto) 0.6 (0.6-2.4) K/uL [place] # (Auto) 0.7 (0.0-0.8) K/uL Eos # (Auto) 0.2 (0.0-0.7) K/uL Baso # (Auto) 0.0 (0.0-0.1) K/uL Nucleated RBC % 0.0 /100WBC Nucleated RBCs # 0 K/uL Sodium 133 L (136-148) mmol/L Potassium 4.4 (3.5-5.1) mmol/L Chloride 96 L (98-107) mmol/L Carbon Dioxide 27.7 (21.0-32.0) mmol/L BUN 21 H (7.0-18.0) mg/dL Creatinine 0.8 (0.8-1.3) mg/dL Est Cr Clr Drug Dosing 52.36 mL/min Estimated GFR (MDRD) > 60.0 ml/min Glucose 96 (74-106) mg/dL Calcium 8.5 (8.5-10.1) mg/dL Total Bilirubin 0.4 (0.2-1.0) mg/dL AST 37 (15-37) IU/L ALT 35 (14-63) IU/L Alkaline Phosphatase 92 (46-116) U/L Troponin I 0.176 H* (0.000-0.056) ng/mL B-Natriuretic Peptide 300 H (<100) PG/ML Total Protein 7.5 (6.4-8.2) g/dL Albumin 3.8 (3.4-5.0) g/dL Globulin 3.7 (2.6-4.0) g/dL Albumin/Globulin Ratio 1.0 (0.9-1.6) Urine Color Urine Appearance Urine pH (5.0-8.0) Ur Specific [place] (1.001-1.035) Urine Protein (NEGATIVE) mg/dL Urine Glucose (UA) (NEGATIVE) mg/dL Urine Ketones (NEGATIVE) mg/dL Urine Occult Blood (NEGATIVE) Urine Nitrite (NEGATIVE) Urine Bilirubin (NEGATIVE) Urine Urobilinogen (<2.0) EU/dL Ur Leukocyte Esterase (NEGATIVE) 06/05/20 Range/Units 14:57 WBC (4.0-11.0) K/uL RBC (4.50-5.90) M/uL Hgb (13.0-17.0) g/dL Hct (38.0-50.0) % MCV (80.0-98.0) fL MCH (27.0-32.0) pg MCHC (31.0-37.0) g/dL RDW Std Deviation (28.0-62.0) fl RDW Coeff of [place] (11.0-15.0) % Plt Count (150-400) K/uL MPV (7.40-12.00) fL Neut % (Auto) (48.0-80.0) % Lymph % (Auto) (16.0-40.0) % [place] % (Auto) (0.0-15.0) % Eos % (Auto) (0.0-7.0) % Baso % (Auto) (0.0-1.5) % Neut # (Auto) (1.4-5.7) K/uL Lymph # (Auto) (0.6-2.4) K/uL [place] # (Auto) (0.0-0.8) K/uL Eos # (Auto) (0.0-0.7) K/uL Baso # (Auto) (0.0-0.1) K/uL Nucleated RBC % /100WBC Nucleated RBCs # K/uL Sodium (136-148) mmol/L Potassium (3.5-5.1) mmol/L Chloride (98-107) mmol/L Carbon Dioxide (21.0-32.0) mmol/L BUN (7.0-18.0) mg/dL Creatinine (0.8-1.3) mg/dL Est Cr Clr Drug Dosing mL/min Estimated GFR (MDRD) ml/min Glucose (74-106) mg/dL Calcium (8.5-10.1) mg/dL Total Bilirubin (0.2-1.0) mg/dL AST (15-37) IU/L ALT (14-63) IU/L Alkaline Phosphatase (46-116) U/L Troponin I (0.000-0.056) ng/mL B-Natriuretic Peptide (<100) PG/ML Total Protein (6.4-8.2) g/dL Albumin (3.4-5.0) g/dL Globulin (2.6-4.0) g/dL Albumin/Globulin Ratio (0.9-1.6) Urine Color YELLOW Urine Appearance CLEAR Urine pH 7.0 (5.0-8.0) Ur Specific [place] 1.015 (1.001-1.035) Urine Protein NEGATIVE (NEGATIVE) mg/dL Urine Glucose (UA) NEGATIVE (NEGATIVE) mg/dL Urine Ketones NEGATIVE (NEGATIVE) mg/dL Urine Occult Blood NEGATIVE (NEGATIVE) Urine Nitrite NEGATIVE (NEGATIVE) Urine Bilirubin NEGATIVE (NEGATIVE) Urine Urobilinogen 0.2 (<2.0) EU/dL Ur Leukocyte Esterase NEGATIVE (NEGATIVE) Meds: Medications Generic Name Dose Route Start Last Admin Trade Name Freq PRN Reason Stop Dose Admin Albuterol/Ipratropium 3 ml 06/05/20 17:08 Duoneb 3.0-0.5 Mg/3 Ml NEB Q4HRRT PRN Shortness Of Breath/wheezing Aspirin 81 mg 06/06/20 09:00 Aspirin PO DAILY STEFANY Furosemide 40 mg 06/05/20 18:30 06/05/20 19:04 Lasix IVPUSH Not Given BID STEFANY Labetalol HCl 10 mg 06/05/20 18:34 Normodyne IVPUSH Q4H PRN Hypertension Protocol Sodium Chloride 10 ml 06/05/20 14:38 06/05/20 15:58 Saline Flush FLUSH 10 ml ASDIRECTED PRN Administration Keep Vein Open Sodium Chloride 2.5 ml 06/05/20 14:38 06/05/20 15:58 Saline Flush FLUSH 2.5 ml ASDIRECTED PRN Administration Keep Vein Open Discontinued Medications Generic Name Dose Route Start Last Admin Trade Name Freq PRN Reason Stop Dose Admin Aspirin 324 mg 06/05/20 15:48 06/05/20 15:55 Aspirin PO 06/05/20 15:49 243 mg ONETIME ONE Administration Enoxaparin Sodium 80 mg 06/05/20 16:16 06/05/20 18:59 Lovenox SUBCUT 06/05/20 16:17 Not Given ONETIME ONE Enoxaparin Sodium 80 mg 06/05/20 18:30 06/05/20 19:37 Lovenox SUBCUT 06/05/20 18:31 80 mg ONETIME ONE Administration Furosemide 20 mg 06/05/20 16:10 06/05/20 16:15 Lasix IVPUSH 06/05/20 16:11 20 mg NOW ONE Administration Furosemide 20 mg 06/05/20 17:15 06/05/20 18:27 Lasix IVPUSH 06/05/20 17:16 20 mg ONETIME ONE Administration Departure - Departure Time of Disposition: 16:25 Disposition: Refer to Observation Clinical Impression: Elevated troponin Acute exacerbation of congestive heart failure Qualifiers: Heart failure type: unspecified Qualified Code(s): I50.9 - Heart failure, unspecified Sepsis Event Note (ED) - Evaluation Sepsis Screening Result: No Definite Risk - Focused Exam Vital Signs: Vital Signs Temp Pulse Resp BP Pulse Ox 06/05/20 14:04 97.9 F 65 20 152/72 H 94 L - My Orders Last 24 Hours: My Active Orders 06/05/20 14:38 Cardiac Monitoring [RC] Q8H Sodium Chloride 0.9% [Saline Flush] 10 ml FLUSH ASDIRECTED PRN Sodium Chloride 0.9% [Saline Flush] 2.5 ml FLUSH ASDIRECTED PRN Saline Lock Insert [OM.PC] Stat - Assessment/Plan Last 24 Hours: My Active Orders 06/05/20 14:38 Cardiac Monitoring [RC] Q8H Sodium Chloride 0.9% [Saline Flush] 10 ml FLUSH ASDIRECTED PRN Sodium Chloride 0.9% [Saline Flush] 2.5 ml FLUSH ASDIRECTED PRN Saline Lock Insert [OM.PC] Stat
[2020-06-05 15:37] LABS: BLOOD UREA NITROGEN,BUN 21 mg/dL (7.0-18.0); CARBON DIOXIDE,CO2 27.7 mmol/L (21.0-32.0); CHLORIDE,CL 96 mmol/L (98-107); GLUCOSE RANDOM 96 mg/dL (74-106); POTASSIUM,K 4.4 mmol/L (3.5-5.1); SODIUM,NA 133 mmol/L (136-148)
--- NOTE | 2020-06-05 15:43 | CR ---
INDICATION: Shortness of breath. History of CHF. COMPARISON: 04/20/2020. FINDINGS/IMPRESSION: Stable cardiac configuration. Mild pulmonary vascular congestion, slightly increased compared to the previous exam, possibly reflecting fluid overload or congestive heart failure. Unchanged stranding in the right mid lung consistent with a small amount of atelectasis or scarring. No definite acute focal infiltrate. Status post sternotomy, as before. No acute osseous findings. Dictated by Kraig Lee MD @ 06/05/2020 3:42:29 PM Dictated by: Kraig Lee MD @ 06/05/2020 15:42:36 (Electronically Signed)
[2020-06-05] MEDS ORDERED: Aspirin 81 MG Tab.Chew PO ONE (15:48)
[2020-06-05] MEDS ORDERED: Furosemide 40 MG/4 ML VIAL IVPUSH ONE (16:10)
[2020-06-05] MEDS ORDERED: Enoxaparin 100 MG/1 ML Syringe SUBCUT ONE ×2 (16:16→18:30)
[2020-06-05] MEDS ORDERED: Albuterol/Ipratropium 3.0-0.5 MG/3 ML Neb Soln NEB PRN (17:08)
[2020-06-05] MEDS ORDERED: Furosemide 20 MG/2 ML VIAL IVPUSH ONE (17:15)
--- NOTE | 2020-06-05 17:19 | PCM.HP.2 ---
H&P History of Present Illness - General Date of Service: 06/05/20 Admit Problem/Dx: Admission Diagnosis/Problem Admission Diagnosis/Problem Congestive heart failure - History of Present Illness Initial Comments - Free Text/Narative: Patient is an 85-year-old male who presents to the ED today with his daughter karen r concern of increased lower extremity swelling, and shortness of breath. According to the daughter, patient does have some baseline dementia and confusion. Patient not able to give me history, history obtained from ER documentation and notes. Per reports, patient has been feeling increasingly shortness of breath that is worse with exertion. Per daughters reports, that this has happened about a month before and his primary care provider increased his Lasix dose for a short amount of time and patient had improvement of symptoms so came back down on his Lasix dose. Daughter states that she has noticed he has been retaining fluid in his lower extremities and has noted that he is more short of breath with minimal activity then his baseline. Daughter states that he lives at home with his and uses a walker to ambulate and has noticed a decrease in ADLs due to exertional dyspnea. In ER his troponin was found elevated but within his previous baselines. Patient and family was offered transfer to tertiary care for possible ACS but daughter and patient reportedly didnt want to be transferred and were not agreeable to any invasive procedure such as cardiac cath. Received Lovenox, Patient ad family wanted to his symptoms managed here and wanted no other intervention. Patient is being admitted for further management. Off note patent doesn't want intubation, only chest compressions per ER. - Related Data Allergies/Adverse Reactions: Allergies Allergy/AdvReac Type Severity Reaction Status Date / Time amiodarone Allergy Renal Verified 06/05/20 18:05 Insufficiency lisinopril Allergy Syncope Verified 06/05/20 18:05 simvastatin Allergy Other Verified 06/05/20 18:05 Home Medications: Home Meds Aspirin 81 mg PO DAILY 03/05/15 [History] Metoprolol Tartrate [Lopressor] 25 mg PO BID 03/05/15 [History] Tamsulosin [Flomax] 0.4 mg PO BEDTIME 12/16/17 [History] Cholecalciferol (Vitamin D3) [Vitamin D3] 2 tab PO DAILY 04/20/20 [History] Furosemide 40 mg PO DAILY 04/20/20 [History] Levothyroxine 25 mg PO DAILY 04/20/20 [History] Amoxicillin/Potassium Clav [Augmentin 875-125 Tablet] 1 each PO TID #30 tablet 05/11/20 [Rx] Aspirin 81 mg PO DAILY 05/11/20 [History] Past Medical History HEENT History: Reports: Hard of Hearing Other HEENT History: bilateral hearing aids Cardiovascular History: Reports: CAD, Heart Valve Replacement, High Cholesterol, Hypertension, [place] Respiratory History: Reports: None Other Respiratory History: emphysema Gastrointestinal History: Reports: Hiatal Hernia Other Gastrointestinal History: Current left inguinal hernia Genitourinary History: Reports: Prostate Disorder, Other (See Below) Other Genitourinary History: Prostate CA Musculoskeletal History: Reports: Other (See Below) Other Musculoskeletal History: hx: fracture leg Neurological History: Reports: None Other Neuro History: confusion Psychiatric History: Reports: None Endocrine/Metabolic History: Reports: None Hematologic History: Reports: None Immunologic History: Reports: None Oncologic (Cancer) History: Reports: Prostate Dermatologic History: Reports: Other (See Below) Other Dermatologic History: SKin areas froze off face - Infectious Disease History Infectious Disease History: Reports: Measles Other Infectious Disease History: hepatitis back in the 60's - Past Surgical History HEENT Surgical History: Reports: Tonsillectomy Cardiovascular Surgical History: Reports: Coronary Artery Bypass, Valve Replacement Other Cardiovascular Surgeries/Procedures: Aortic and Mitral Valve replaced Respiratory Surgical History: Reports: None GI Surgical History: Reports: Hernia, Inguinal Male Surgical History: Reports: None Endocrine Surgical History: Reports: None Other Musculoskeletal Surgeries/Procedures:: Right Total Hip Replacement Social & Family History - Family History Family Medical History: Noncontributory - Caffeine Use Caffeine Use: Reports: Coffee - Recreational Drug Use Recreational Drug Use: No - Living Situation & Occupation Living situation: Reports: Occupation: Retired () H&P Review of Systems - Review of Systems: Review Of Systems: See Below (patient is confused, not able to focus on my conversations and questions) Exam - Exam Exam: See Below - Vital Signs Vital Signs: Last Vital Signs Temp 36.6 C 06/05/20 14:04 Pulse 65 06/05/20 14:04 Resp 20 06/05/20 14:04 BP 152/72 H 06/05/20 14:04 Pulse Ox 94 L 06/05/20 14:04 Weight: 78.925 kg - Exam General: Alert, Oriented Neck: Supple, Trachea Midline Lungs: Decreased Breath Sounds, Crackles Cardiovascular: Regular Rate, Regular Rhythm GI/Abdominal Exam: Normal Bowel Sounds, Soft, Non-Tender Extremities: Normal Inspection, Normal Range of Motion, Pedal Edema Neuro Extensive - Mental Status: Alert, Inattentive, Flexor Response to Pain, Withdraws to Pain. No: Normal Cognition, Memory Intact Neuro Extensive - Motor, Sensory, Reflexes: Normal Reflexes, Tremor - Patient Data Lab Results Last 24 hrs: Laboratory Results - last 24 hr 06/05/20 06/05/20 06/05/20 Range/Units 14:56 14:56 14:56 WBC 7.39 (4.0-11.0) K/uL RBC 3.63 L (4.50-5.90) M/uL Hgb 11.2 L (13.0-17.0) g/dL Hct 33.9 L (38.0-50.0) % MCV 93.4 (80.0-98.0) fL MCH 30.9 (27.0-32.0) pg MCHC 33.0 (31.0-37.0) g/dL RDW Std Deviation 51.5 (28.0-62.0) fl RDW Coeff of [place] 15 (11.0-15.0) % Plt Count 174 (150-400) K/uL MPV 10.20 (7.40-12.00) fL Neut % (Auto) 81.4 H (48.0-80.0) % Lymph % (Auto) 7.7 L (16.0-40.0) % [place] % (Auto) 8.8 (0.0-15.0) % Eos % (Auto) 2.0 (0.0-7.0) % Baso % (Auto) 0.1 (0.0-1.5) % Neut # (Auto) 6.0 H (1.4-5.7) K/uL Lymph # (Auto) 0.6 (0.6-2.4) K/uL [place] # (Auto) 0.7 (0.0-0.8) K/uL Eos # (Auto) 0.2 (0.0-0.7) K/uL Baso # (Auto) 0.0 (0.0-0.1) K/uL Nucleated RBC % 0.0 /100WBC Nucleated RBCs # 0 K/uL Sodium 133 L (136-148) mmol/L Potassium 4.4 (3.5-5.1) mmol/L Chloride 96 L (98-107) mmol/L Carbon Dioxide 27.7 (21.0-32.0) mmol/L BUN 21 H (7.0-18.0) mg/dL Creatinine 0.8 (0.8-1.3) mg/dL Est Cr Clr Drug Dosing 52.36 mL/min Estimated GFR (MDRD) > 60.0 ml/min Glucose 96 (74-106) mg/dL Calcium 8.5 (8.5-10.1) mg/dL Total Bilirubin 0.4 (0.2-1.0) mg/dL AST 37 (15-37) IU/L ALT 35 (14-63) IU/L Alkaline Phosphatase 92 (46-116) U/L Troponin I 0.176 H* (0.000-0.056) ng/mL B-Natriuretic Peptide 300 H (<100) PG/ML Total Protein 7.5 (6.4-8.2) g/dL Albumin 3.8 (3.4-5.0) g/dL Globulin 3.7 (2.6-4.0) g/dL Albumin/Globulin Ratio 1.0 (0.9-1.6) Urine Color Urine Appearance Urine pH (5.0-8.0) Ur Specific Harris (1.001-1.035) Urine Protein (NEGATIVE) mg/dL Urine Glucose (UA) (NEGATIVE) mg/dL Urine Ketones (NEGATIVE) mg/dL Urine Occult Blood (NEGATIVE) Urine Nitrite (NEGATIVE) Urine Bilirubin (NEGATIVE) Urine Urobilinogen (<2.0) EU/dL Ur Leukocyte Esterase (NEGATIVE) 06/05/20 Range/Units 14:57 WBC (4.0-11.0) K/uL RBC (4.50-5.90) M/uL Hgb (13.0-17.0) g/dL Hct (38.0-50.0) % MCV (80.0-98.0) fL MCH (27.0-32.0) pg MCHC (31.0-37.0) g/dL RDW Std Deviation (28.0-62.0) fl RDW Coeff of [place] (11.0-15.0) % Plt Count (150-400) K/uL MPV (7.40-12.00) fL Neut % (Auto) (48.0-80.0) % Lymph % (Auto) (16.0-40.0) % [place] % (Auto) (0.0-15.0) % Eos % (Auto) (0.0-7.0) % Baso % (Auto) (0.0-1.5) % Neut # (Auto) (1.4-5.7) K/uL Lymph # (Auto) (0.6-2.4) K/uL [place] # (Auto) (0.0-0.8) K/uL Eos # (Auto) (0.0-0.7) K/uL Baso # (Auto) (0.0-0.1) K/uL Nucleated RBC % /100WBC Nucleated RBCs # K/uL Sodium (136-148) mmol/L Potassium (3.5-5.1) mmol/L Chloride (98-107) mmol/L Carbon Dioxide (21.0-32.0) mmol/L BUN (7.0-18.0) mg/dL Creatinine (0.8-1.3) mg/dL Est Cr Clr Drug Dosing mL/min Estimated GFR (MDRD) ml/min Glucose (74-106) mg/dL Calcium (8.5-10.1) mg/dL Total Bilirubin (0.2-1.0) mg/dL AST (15-37) IU/L ALT (14-63) IU/L Alkaline Phosphatase (46-116) U/L Troponin I (0.000-0.056) ng/mL B-Natriuretic Peptide (<100) PG/ML Total Protein (6.4-8.2) g/dL Albumin (3.4-5.0) g/dL Globulin (2.6-4.0) g/dL Albumin/Globulin Ratio (0.9-1.6) Urine Color YELLOW Urine Appearance CLEAR Urine pH 7.0 (5.0-8.0) Ur Specific Harris 1.015 (1.001-1.035) Urine Protein NEGATIVE (NEGATIVE) mg/dL Urine Glucose (UA) NEGATIVE (NEGATIVE) mg/dL Urine Ketones NEGATIVE (NEGATIVE) mg/dL Urine Occult Blood NEGATIVE (NEGATIVE) Urine Nitrite NEGATIVE (NEGATIVE) Urine Bilirubin NEGATIVE (NEGATIVE) Urine Urobilinogen 0.2 (<2.0) EU/dL Ur Leukocyte Esterase NEGATIVE (NEGATIVE) Result Diagrams: 06/05/20 14:56 06/05/20 14:56 Sepsis Event Note - Evaluation Sepsis Screening Result: No Definite Risk - Focused Exam Vital Signs: Vital Signs Temp Pulse Resp BP Pulse Ox 06/05/20 14:04 36.6 C 65 20 152/72 H 94 L - Problem List (1) Acute exacerbation of congestive heart failure SNOMED Code(s): 564926818, 75686474407307 ICD Code: I50.9 - HEART FAILURE, UNSPECIFIED Status: Acute Current Visit: Yes Qualifiers: Heart failure type: unspecified Qualified Code(s): I50.9 - Heart failure, unspecified (2) Elevated troponin SNOMED Code(s): 267351850, 078587150, 485085276 ICD Code: R74.8 - ABNORMAL LEVELS OF OTHER SERUM ENZYMES Status: Acute Current Visit: Yes (3) Atrial fibrillation SNOMED Code(s): 08221494 ICD Code: I48.91 - UNSPECIFIED ATRIAL FIBRILLATION Status: Acute Current Visit: No (4) CVA (cerebral vascular accident) SNOMED Code(s): 820721498 ICD Code: I63.9 - CEREBRAL INFARCTION, UNSPECIFIED Status: Acute Current Visit: No (5) History of hypertension SNOMED Code(s): 268902205 ICD Code: Z86.79 - PERSONAL HISTORY OF OTHER DISEASES OF THE CIRCULATORY SYSTEM Status: Acute Current Visit: No (6) History of prostate cancer SNOMED Code(s): 610909053 ICD Code: Z85.46 - PERSONAL HISTORY OF MALIGNANT NEOPLASM OF PROSTATE Status: Acute Current Visit: No (7) Hx of aortic valve replacement SNOMED Code(s): 9354379626854, 514088930, 6844222941515 ICD Code: Z95.2 - PRESENCE OF PROSTHETIC HEART VALVE Status: Chronic Current Visit: No Problem Details: Bioprothestic placed in 2012 (8) Hx of mitral valve replacement SNOMED Code(s): 2738252523413, 6998226344596 ICD Code: Z95.2 - PRESENCE OF PROSTHETIC HEART VALVE Status: Chronic Current Visit: No Problem Details: Bioprothestic placed in 2012 Problem List Initiated/Reviewed/Updated: Yes Orders Last 24hrs: Active Orders 24 hr Category Date Time Status Admission Status [Patient Status] [ADT] Stat ADT 06/05/20 16:16 Active Antiembolic Devices [RC] PER UNIT ROUTINE Care 06/05/20 17:10 Active Cardiac Monitoring [RC] Q8H Care 06/05/20 14:38 Active EKG Documentation Completion [RC] STAT Care 06/05/20 14:38 Active Oxygen Therapy [RC] PRN Care 06/05/20 17:08 Active Pulse Oximetry [RC] PRN Care 06/05/20 17:09 Active RT Aerosol Therapy [RC] ASDIRECTED Care 06/05/20 17:11 Active VTE/DVT Education [RC] PER UNIT ROUTINE Care 06/05/20 17:08 Active Vital Signs [RC] Q4H Care 06/05/20 17:08 Active Heart Healthy Diet [DIET] Diet 06/05/20 Dinner Active CORONAVIRUS COVID-19 ALEXANDRA [MOLEC] Stat Lab 06/05/20 16:17 Received TROPONIN I [CHEM] Routine Lab 06/05/20 18:00 Ordered Albuterol/Ipratropium [DuoNeb 3.0-0.5 MG/3 ML] Med 06/05/20 17:08 Active 3 ml NEB Q4HRRT PRN Aspirin Med 06/06/20 09:00 Ordered 81 mg PO DAILY Furosemide [Lasix] Med 06/06/20 09:00 Ordered 40 mg IVPUSH BID Sodium Chloride 0.9% [Saline Flush] Med 06/05/20 14:38 Active 10 ml FLUSH ASDIRECTED PRN Sodium Chloride 0.9% [Saline Flush] Med 06/05/20 14:38 Active 2.5 ml FLUSH ASDIRECTED PRN Saline Lock Insert [OM.PC] Stat Oth 06/05/20 14:38 Ordered Sequential Compression Device [OM.PC] Per Unit Routine Oth 06/05/20 17:09 Ordered Resuscitation Status Routine Resus Stat 06/05/20 17:08 Ordered Medication Orders Albuterol/Ipratropium (Duoneb 3.0-0.5 Mg/3 Ml) 3 ml NEB Q4HRRT PRN PRN Reason: Shortness Of Breath/wheezing Aspirin (Aspirin) 81 mg PO DAILY STEFANY Furosemide (Lasix) 40 mg IVPUSH BID STEFANY Sodium Chloride (Saline Flush) 10 ml FLUSH ASDIRECTED PRN PRN Reason: Keep Vein Open Last Admin: 06/05/20 15:58 Dose: 10 ml Documented by: ANITA Sodium Chloride (Saline Flush) 2.5 ml FLUSH ASDIRECTED PRN PRN Reason: Keep Vein Open Last Admin: 06/05/20 15:58 Dose: 2.5 ml Documented by: ANITA Assessment/Plan Comment:: 85 y/o M admitted for acute CHF exacerbation Start oxygen as needed start IV Lasix Labetalol PRN Trend 2nd troponin, likely type 2 leak, if flat or trending down unlikely ACS. monitor and replete electrolytes as needed SCD for dvt ppx Resume home meds as appropriate
[2020-06-05] MEDS ORDERED: Labetalol 100 MG/20 ML MDV IVPUSH PRN (18:34)
[2020-06-05] MEDS: Furosemide 40 MG/4 ML VIAL IVPUSH SCH (19:04)
[2020-06-05] MEDS ORDERED: Metoprolol Tartrate 25 MG Tab PO ONE (23:38)
[2020-06-06 06:24] LABS: BLOOD UREA NITROGEN,BUN 19 mg/dL (7.0-18.0); CARBON DIOXIDE,CO2 28.7 mmol/L (21.0-32.0); CHLORIDE,CL 97 mmol/L (98-107); GLUCOSE RANDOM 112 mg/dL (74-106); POTASSIUM,K 3.4 mmol/L (3.5-5.1); SODIUM,NA 135 mmol/L (136-148)
[2020-06-06] MEDS: Metoprolol Tartrate 25 MG Tab PO SCH ×2 (09:16→22:34)
[2020-06-06] MEDS: Furosemide 40 MG/4 ML VIAL IVPUSH SCH ×2 (09:16→22:37)
[2020-06-06] MEDS: Aspirin 81 MG Tab.Chew PO SCH (09:16)
[2020-06-06] MEDS ORDERED: Betamethasone Valerate 0.1% Crm 15 GM Tube TOP PRN (09:46)
[2020-06-06] MEDS ORDERED: Cetirizine 10 MG Tab PO PRN (09:46)
[2020-06-06] MEDS ORDERED: Famotidine 20 MG Tab PO PRN (09:46)
[2020-06-06] MEDS: levETIRAcetam Soln 500 MG/5 ML Cup PO SCH ×2 (11:10→22:31)
[2020-06-06] MEDS: Cholecalciferol (Vitamin D3) 25 MCG Tab PO SCH (11:16)
[2020-06-06] MEDS ORDERED: Potassium Chloride 20 MEQ Tab.ER PO ONE ×2 (11:17→17:00)
[2020-06-06] MEDS: prednisoLONE Acetate 1% Ophth Susp 5 ML Bottle EYEBOTH SCH ×2 (11:22→22:35)
--- NOTE | 2020-06-06 12:06 | PCM.PN ---
- General Info Date of Service: 06/06/20 Admission Dx/Problem (Free Text): Admission Diagnosis/Problem Admission Diagnosis/Problem Congestive heart failure Subjective Update: Doing well today, eager to go home. Still needs some diuresis. Leg swelling improved. Mild SOB noticed. Denies chest pain or palpitations Functional Status: Reports: Pain Controlled, Tolerating Diet, Ambulating, Urinating - Review of Systems General: Reports: No Symptoms. Denies: Fatigue Pulmonary: Reports: Shortness of Breath Cardiovascular: Reports: Edema. Denies: Chest Pain Gastrointestinal: Reports: No Symptoms. Denies: Abdominal Pain, Nausea, Vomiting Genitourinary: Reports: No Symptoms Musculoskeletal: Reports: No Symptoms Skin: Reports: No Symptoms Neurological: Reports: No Symptoms Psychiatric: Reports: No Symptoms - Patient Data Vitals - Most Recent: Last Vital Signs Temp 98.4 F 06/06/20 07:15 Pulse 67 06/06/20 09:16 Resp 16 06/06/20 07:15 BP 145/82 H 06/06/20 09:16 Pulse Ox 95 06/06/20 07:15 Weight - Most Recent: 73.301 kg I&O - Last 24 Hours: Intake & Output 06/05/20 06/06/20 06/06/20 22:59 06:59 14:59 Intake Total 240 Output Total 2130 Balance -1890 Lab Results Last 24 Hours: Laboratory Results - last 24 hr 06/05/20 06/05/20 06/05/20 Range/Units 14:56 14:56 14:56 WBC 7.39 (4.0-11.0) K/uL RBC 3.63 L (4.50-5.90) M/uL Hgb 11.2 L (13.0-17.0) g/dL Hct 33.9 L (38.0-50.0) % MCV 93.4 (80.0-98.0) fL MCH 30.9 (27.0-32.0) pg MCHC 33.0 (31.0-37.0) g/dL RDW Std Deviation 51.5 (28.0-62.0) fl RDW Coeff of [place] 15 (11.0-15.0) % Plt Count 174 (150-400) K/uL MPV 10.20 (7.40-12.00) fL Neut % (Auto) 81.4 H (48.0-80.0) % Lymph % (Auto) 7.7 L (16.0-40.0) % [place] % (Auto) 8.8 (0.0-15.0) % Eos % (Auto) 2.0 (0.0-7.0) % Baso % (Auto) 0.1 (0.0-1.5) % Neut # (Auto) 6.0 H (1.4-5.7) K/uL Lymph # (Auto) 0.6 (0.6-2.4) K/uL [place] # (Auto) 0.7 (0.0-0.8) K/uL Eos # (Auto) 0.2 (0.0-0.7) K/uL Baso # (Auto) 0.0 (0.0-0.1) K/uL Nucleated RBC % 0.0 /100WBC Nucleated RBCs # 0 K/uL Sodium 133 L (136-148) mmol/L Potassium 4.4 (3.5-5.1) mmol/L Chloride 96 L (98-107) mmol/L Carbon Dioxide 27.7 (21.0-32.0) mmol/L BUN 21 H (7.0-18.0) mg/dL Creatinine 0.8 (0.8-1.3) mg/dL Est Cr Clr Drug Dosing 52.36 mL/min Estimated GFR (MDRD) > 60.0 ml/min Glucose 96 (74-106) mg/dL Calcium 8.5 (8.5-10.1) mg/dL Phosphorus (2.6-4.7) mg/dL Magnesium (1.8-2.4) mg/dL Total Bilirubin 0.4 (0.2-1.0) mg/dL AST 37 (15-37) IU/L ALT 35 (14-63) IU/L Alkaline Phosphatase 92 (46-116) U/L Troponin I 0.176 H* (0.000-0.056) ng/mL B-Natriuretic Peptide 300 H (<100) PG/ML Total Protein 7.5 (6.4-8.2) g/dL Albumin 3.8 (3.4-5.0) g/dL Globulin 3.7 (2.6-4.0) g/dL Albumin/Globulin Ratio 1.0 (0.9-1.6) Urine Color Urine Appearance Urine pH (5.0-8.0) Ur Specific [place] (1.001-1.035) Urine Protein (NEGATIVE) mg/dL Urine Glucose (UA) (NEGATIVE) mg/dL Urine Ketones (NEGATIVE) mg/dL Urine Occult Blood (NEGATIVE) Urine Nitrite (NEGATIVE) Urine Bilirubin (NEGATIVE) Urine Urobilinogen (<2.0) EU/dL Ur Leukocyte Esterase (NEGATIVE) SARS-CoV-2 RNA (ALEXANDRA) (NEGATIVE) 06/05/20 06/05/20 06/05/20 Range/Units 14:57 16:17 18:10 WBC (4.0-11.0) K/uL RBC (4.50-5.90) M/uL Hgb (13.0-17.0) g/dL Hct (38.0-50.0) % MCV (80.0-98.0) fL MCH (27.0-32.0) pg MCHC (31.0-37.0) g/dL RDW Std Deviation (28.0-62.0) fl RDW Coeff of [place] (11.0-15.0) % Plt Count (150-400) K/uL MPV (7.40-12.00) fL Neut % (Auto) (48.0-80.0) % Lymph % (Auto) (16.0-40.0) % [place] % (Auto) (0.0-15.0) % Eos % (Auto) (0.0-7.0) % Baso % (Auto) (0.0-1.5) % Neut # (Auto) (1.4-5.7) K/uL Lymph # (Auto) (0.6-2.4) K/uL [place] # (Auto) (0.0-0.8) K/uL Eos # (Auto) (0.0-0.7) K/uL Baso # (Auto) (0.0-0.1) K/uL Nucleated RBC % /100WBC Nucleated RBCs # K/uL Sodium (136-148) mmol/L Potassium (3.5-5.1) mmol/L Chloride (98-107) mmol/L Carbon Dioxide (21.0-32.0) mmol/L BUN (7.0-18.0) mg/dL Creatinine (0.8-1.3) mg/dL Est Cr Clr Drug Dosing mL/min Estimated GFR (MDRD) ml/min Glucose (74-106) mg/dL Calcium (8.5-10.1) mg/dL Phosphorus (2.6-4.7) mg/dL Magnesium (1.8-2.4) mg/dL Total Bilirubin (0.2-1.0) mg/dL AST (15-37) IU/L ALT (14-63) IU/L Alkaline Phosphatase (46-116) U/L Troponin I 0.168 H* (0.000-0.056) ng/mL B-Natriuretic Peptide (<100) PG/ML Total Protein (6.4-8.2) g/dL Albumin (3.4-5.0) g/dL Globulin (2.6-4.0) g/dL Albumin/Globulin Ratio (0.9-1.6) Urine Color YELLOW Urine Appearance CLEAR Urine pH 7.0 (5.0-8.0) Ur Specific [place] 1.015 (1.001-1.035) Urine Protein NEGATIVE (NEGATIVE) mg/dL Urine Glucose (UA) NEGATIVE (NEGATIVE) mg/dL Urine Ketones NEGATIVE (NEGATIVE) mg/dL Urine Occult Blood NEGATIVE (NEGATIVE) Urine Nitrite NEGATIVE (NEGATIVE) Urine Bilirubin NEGATIVE (NEGATIVE) Urine Urobilinogen 0.2 (<2.0) EU/dL Ur Leukocyte Esterase NEGATIVE (NEGATIVE) SARS-CoV-2 RNA (ALEXANDRA) NEGATIVE (NEGATIVE) 06/05/20 06/06/20 06/06/20 Range/Units 18:10 04:50 04:50 WBC 9.01 (4.0-11.0) K/uL RBC 3.94 L (4.50-5.90) M/uL Hgb 12.1 L (13.0-17.0) g/dL Hct 36.4 L (38.0-50.0) % MCV 92.4 (80.0-98.0) fL MCH 30.7 (27.0-32.0) pg MCHC 33.2 (31.0-37.0) g/dL RDW Std Deviation 50.4 (28.0-62.0) fl RDW Coeff of [place] 15 (11.0-15.0) % Plt Count 197 (150-400) K/uL MPV 10.70 (7.40-12.00) fL Neut % (Auto) 84.2 H (48.0-80.0) % Lymph % (Auto) 6.0 L (16.0-40.0) % [place] % (Auto) 8.8 (0.0-15.0) % Eos % (Auto) 0.9 (0.0-7.0) % Baso % (Auto) 0.1 (0.0-1.5) % Neut # (Auto) 7.6 H (1.4-5.7) K/uL Lymph # (Auto) 0.5 L (0.6-2.4) K/uL [place] # (Auto) 0.8 (0.0-0.8) K/uL Eos # (Auto) 0.1 (0.0-0.7) K/uL Baso # (Auto) 0.0 (0.0-0.1) K/uL Nucleated RBC % 0.0 /100WBC Nucleated RBCs # 0 K/uL Sodium 135 L (136-148) mmol/L Potassium 3.4 L (3.5-5.1) mmol/L Chloride 97 L (98-107) mmol/L Carbon Dioxide 28.7 (21.0-32.0) mmol/L BUN 19 H (7.0-18.0) mg/dL Creatinine 0.8 (0.8-1.3) mg/dL Est Cr Clr Drug Dosing 52.36 mL/min Estimated GFR (MDRD) > 60.0 ml/min Glucose 112 H (74-106) mg/dL Calcium 8.4 L (8.5-10.1) mg/dL Phosphorus 4.0 3.9 (2.6-4.7) mg/dL Magnesium 2.1 2.0 (1.8-2.4) mg/dL Total Bilirubin (0.2-1.0) mg/dL AST (15-37) IU/L ALT (14-63) IU/L Alkaline Phosphatase (46-116) U/L Troponin I (0.000-0.056) ng/mL B-Natriuretic Peptide (<100) PG/ML Total Protein (6.4-8.2) g/dL Albumin (3.4-5.0) g/dL Globulin (2.6-4.0) g/dL Albumin/Globulin Ratio (0.9-1.6) Urine Color Urine Appearance Urine pH (5.0-8.0) Ur Specific [place] (1.001-1.035) Urine Protein (NEGATIVE) mg/dL Urine Glucose (UA) (NEGATIVE) mg/dL Urine Ketones (NEGATIVE) mg/dL Urine Occult Blood (NEGATIVE) Urine Nitrite (NEGATIVE) Urine Bilirubin (NEGATIVE) Urine Urobilinogen (<2.0) EU/dL Ur Leukocyte Esterase (NEGATIVE) SARS-CoV-2 RNA (ALEXANDRA) (NEGATIVE) Med Orders - Current: Current Medications Albuterol/Ipratropium (Duoneb 3.0-0.5 Mg/3 Ml) 3 ml NEB Q4HRRT PRN PRN Reason: Shortness Of Breath/wheezing Aspirin (Aspirin) 81 mg PO DAILY [facility] Last Admin: 06/06/20 09:16 Dose: 81 mg Documented by: Betamethasone Valerate (Valisone 0.1% Crm) 0 gm TOP DAILY PRN PRN Reason: Rash Cetirizine HCl (Zyrtec) 10 mg PO DAILY PRN PRN Reason: Allergies Cholecalciferol (Vitamin D3) 50 mcg PO DAILY [facility] Last Admin: 06/06/20 11:16 Dose: 50 mcg Documented by: Famotidine (Pepcid) 40 mg PO BEDTIME PRN PRN Reason: Heartburn Furosemide (Lasix) 40 mg IVPUSH BID [facility] Last Admin: 06/06/20 09:16 Dose: 40 mg Documented by: Gabapentin (Neurontin) 100 mg PO BEDTIME [facility] Labetalol HCl (Normodyne) 10 mg IVPUSH Q4H PRN PRN Reason: Hypertension Last Admin: 06/05/20 23:25 Dose: 10 mg Documented by: Levetiracetam (Keppra) 250 mg PO BID [facility] Last Admin: 06/06/20 11:10 Dose: 250 mg Documented by: Levothyroxine Sodium (Levothyroxine) 12.5 mcg PO ACBREAKFAST [facility] Metoprolol Tartrate (Lopressor) 25 mg PO BID [facility] Last Admin: 06/06/20 09:16 Dose: 25 mg Documented by: Prednisolone Acetate (Pred Forte 1% Ophth Susp) 0 ml EYEBOTH BID [facility] Last Admin: 06/06/20 11:22 Dose: 1 drop Documented by: Tamsulosin HCl (Flomax) 0.4 mg PO PCDINNER [facility] Discontinued Medications Aspirin (Aspirin) 324 mg PO ONETIME ONE Stop: 06/05/20 15:49 Last Admin: 06/05/20 15:55 Dose: 243 mg Documented by: Enoxaparin Sodium (Lovenox) 80 mg SUBCUT ONETIME ONE Stop: 06/05/20 16:17 Last Admin: 06/05/20 18:59 Dose: Not Given Documented by: Enoxaparin Sodium (Lovenox) 80 mg SUBCUT ONETIME ONE Stop: 06/05/20 18:31 Last Admin: 06/05/20 19:37 Dose: 80 mg Documented by: Furosemide (Lasix) 20 mg IVPUSH NOW ONE Stop: 06/05/20 16:11 Last Admin: 06/05/20 16:15 Dose: 20 mg Documented by: Furosemide (Lasix) 20 mg IVPUSH ONETIME ONE Stop: 06/05/20 17:16 Last Admin: 06/05/20 18:27 Dose: 20 mg Documented by: Metoprolol Tartrate (Lopressor) 25 mg PO ONETIME ONE Stop: 06/05/20 23:39 Last Admin: 06/06/20 00:12 Dose: 25 mg Documented by: Potassium Chloride (Klor-Con M20) 40 meq PO ONETIME ONE Stop: 06/06/20 11:18 Last Admin: 06/06/20 11:28 Dose: 40 meq Documented by: Sodium Chloride (Saline Flush) 10 ml FLUSH ASDIRECTED PRN PRN Reason: Keep Vein Open Last Admin: 06/05/20 15:58 Dose: 10 ml Documented by: Sodium Chloride (Saline Flush) 2.5 ml FLUSH ASDIRECTED PRN PRN Reason: Keep Vein Open Last Admin: 06/05/20 15:58 Dose: 2.5 ml Documented by: - Exam Quality Assessment: No: Supplemental Oxygen General: Alert, Oriented, Cooperative, No Acute Distress, Other (Very [place]) Lungs: Clear to Auscultation. No: Normal Respiratory Effort (mild dyspnea noted) Cardiovascular: Regular Rate, Irregular Rhythm GI/Abdominal Exam: Normal Bowel Sounds, Soft, Non-Tender Extremities: Normal Inspection, Normal Range of Motion, Non-Tender, Pedal Edema (+2 pitting edema bilaterally) Neurological: No New Focal Deficit Psy/Mental Status: Alert, Normal Affect, Normal Mood Sepsis Event Note - Evaluation Sepsis Screening Result: No Definite Risk - Focused Exam Vital Signs: Vital Signs Temp Pulse Pulse Resp BP BP Pulse Ox 06/06/20 09:16 67 145/82 H 06/06/20 07:15 98.4 F 67 16 145/82 H 95 06/06/20 04:35 98.4 F 65 18 159/81 H 94 L 06/06/20 00:12 80 150/78 H 06/06/20 00:05 150/78 H - Problem List & Annotations (1) Diastolic heart failure SNOMED Code(s): 878663204 Code(s): I50.30 - UNSPECIFIED DIASTOLIC (CONGESTIVE) HEART FAILURE Status: Chronic Current Visit: No Qualifiers: Heart failure chronicity: acute on chronic Qualified Code(s): I50.33 - Acute on chronic diastolic (congestive) heart failure (2) Acute exacerbation of congestive heart failure SNOMED Code(s): 077233542, 90051278007666 Code(s): I50.9 - HEART FAILURE, UNSPECIFIED Status: Acute Current Visit: Yes Qualifiers: Heart failure type: unspecified Qualified Code(s): I50.9 - Heart failure, unspecified (3) Elevated troponin SNOMED Code(s): 145119588, 750022759, 484748247 Code(s): R74.8 - ABNORMAL LEVELS OF OTHER SERUM ENZYMES Status: Chronic Current Visit: Yes (4) TIA (transient ischemic attack) SNOMED Code(s): 761270197 Code(s): G45.9 - TRANSIENT CEREBRAL ISCHEMIC ATTACK, UNSPECIFIED Status: Chronic Current Visit: No (5) HTN (hypertension) SNOMED Code(s): 95916047 Code(s): I10 - ESSENTIAL (PRIMARY) HYPERTENSION Status: Chronic Current Visit: No Qualifiers: Hypertension type: essential hypertension Qualified Code(s): I10 - Essential (primary) hypertension (6) Hx of aortic valve replacement SNOMED Code(s): 4105512814667, 401814647, 1404127200095 Code(s): Z95.2 - PRESENCE OF PROSTHETIC HEART VALVE Status: Chronic Current Visit: No Annotation/Comment:: Bioprothestic placed in 2012 (7) Hx of mitral valve replacement SNOMED Code(s): 3397954163522, 9055376763135 Code(s): Z95.2 - PRESENCE OF PROSTHETIC HEART VALVE Status: Chronic Current Visit: No Annotation/Comment:: Bioprothestic placed in 2012 (8) Prostate CA SNOMED Code(s): 024620974 Code(s): C61 - MALIGNANT NEOPLASM OF PROSTATE Status: Chronic Current Visit: No (9) Hx of non-ST elevation myocardial infarction (NSTEMI) SNOMED Code(s): 598088895 Code(s): I25.2 - OLD MYOCARDIAL INFARCTION Status: Chronic Current Visit: Yes (10) CAD (coronary artery disease) SNOMED Code(s): 53422914 Code(s): I25.10 - ATHSCL HEART DISEASE OF [place] CORONARY ARTERY W/O ANG PCTRS Status: Chronic Current Visit: Yes (11) Hx of CABG SNOMED Code(s): 244666838, 230927740 Code(s): Z95.1 - PRESENCE OF AORTOCORONARY BYPASS GRAFT Status: Chronic Current Visit: Yes (12) Seizure disorder SNOMED Code(s): 459074201 Code(s): G40.909 - EPILEPSY, UNSP, NOT INTRACTABLE, WITHOUT STATUS EPILEPTICUS Status: Chronic Current Visit: Yes (13) Pulmonary hypertension SNOMED Code(s): 36511349 Code(s): I27.20 - PULMONARY HYPERTENSION, UNSPECIFIED Status: Chronic Current Visit: Yes - Problem List Review Problem List Initiated/Reviewed/Updated: Yes - My Orders Last 24 Hours: My Active Orders 06/06/20 04:50 TSH [CHEM] Routine 06/06/20 08:05 Height and Weight [RC] DAILY Intake and Output Strict [RC] ASDIRECTED 06/06/20 09:46 Betamethasone Valerate [Valisone 0.1% Crm] 0 gm TOP DAILY PRN Cetirizine [ZyrTEC] 10 mg PO DAILY PRN Famotidine [Pepcid] 40 mg PO BEDTIME PRN 06/06/20 10:00 levETIRAcetam [Keppra] 250 mg PO BID prednisoLONE acetate [Pred Forte 1% Ophth Susp] 0 ml EYEBOTH BID 10/07/20 21:00 Gabapentin [Neurontin] 100 mg PO BEDTIME - Plan Plan:: 85 y/o M admitted for acute on chrnoic diastolic CHF exacerbation 1. Acute on Chronic diastolic CHF exacerbation - Continue diuresis with Lasix 40 mg BID IV - Strict I/O, daily weights, Low Na diet - Reviewed Cardiology notes from Dr Duong in [place]. Poor compliance with medications and diet has been a noted. Recent ECHO showed EF 55% or severe concentric hypertrophy and likely poor LV compliance. also noted enlargement of pulmonary arteries on CT scan in 2019, which is indicating pulmonary hypertension. - Oxygen PRN for hypoxia, keep sats above 90%. Wean as possible - Troponin at baseline, likely type 2 leak from CHF exacerbation. ACS unlikely. 2. CAD/HTN/Valvular heart disease - Restart Metoprolol BID - Monitor on Telemetry - ASA daily - Statin in tolerant 3. Seizure disorder: - Continue Keppra VTE prophylaxis: SCDs and ambulation Dispo: 1-2 days
[2020-06-06] MEDS ORDERED: Tamsulosin 0.4 MG Cap.ER PO SCH (18:00)
[2020-06-06] MEDS ORDERED: Gabapentin 100 MG Cap PO SCH (21:00)
[2020-06-07 06:04] LABS: BLOOD UREA NITROGEN,BUN 32 mg/dL (7.0-18.0); CARBON DIOXIDE,CO2 31.2 mmol/L (21.0-32.0); CHLORIDE,CL 99 mmol/L (98-107); GLUCOSE RANDOM 97 mg/dL (74-106); POTASSIUM,K 4.2 mmol/L (3.5-5.1); SODIUM,NA 136 mmol/L (136-148)
[2020-06-07] MEDS ORDERED: Levothyroxine 25 MCG Tab PO SCH (07:30)
[2020-06-07] MEDS: Aspirin 81 MG Tab.Chew PO SCH (09:54)
[2020-06-07] MEDS: Metoprolol Tartrate 25 MG Tab PO SCH (09:55)
[2020-06-07] MEDS: Cholecalciferol (Vitamin D3) 25 MCG Tab PO SCH (09:56)
[2020-06-07] MEDS: levETIRAcetam Soln 500 MG/5 ML Cup PO SCH (09:57)
[2020-06-07] MEDS: prednisoLONE Acetate 1% Ophth Susp 5 ML Bottle EYEBOTH SCH (09:57)
--- NOTE | 2020-06-07 10:36 | PCM.DCSUM1 ---
Discharge Summary - Hospital Course Brief History: Patient is an 85-year-old male who presents to the ED today with his daughter for concern of increased lower extremity swelling, and shortness of breath. According to the daughter, patient does have some baseline dementia and confusion. Patient not able to give me history, history obtained from ER documentation and notes. Per reports, patient has been feeling increasingly shortness of breath that is worse with exertion. Per daughters reports, that this has happened about a month before and his primary care provider increased his Lasix dose for a short amount of time and patient had improvement of symptoms so came back down on his Lasix dose. Daughter states that she has noticed he has been retaining fluid in his lower extremities and has noted that he is more short of breath with minimal activity then his baseline. Daughter states that he lives at home with his and uses a walker to ambulate and has noticed a decrease in ADLs due to exertional dyspnea. In ER his troponin was found elevated but within his previous baselines. Patient and family was offered transfer to tertiary care for possible ACS but daughter and patient reportedly didnt want to be transferred and were not agreeable to any invasive procedure such as cardiac cath. Received Lovenox, Patient ad family wanted to his symptoms managed here and wanted no other intervention. Patient is being admitted for further management. Diagnosis: Stroke: No Modified Alla Scale: No Symptoms at All Modified Antrim Scale Score: 0 - Discharge Data Discharge Date: 06/07/20 Discharge Disposition: Home, W Home Health Agency 06 Condition: Stable - Referral to Home Health Date of Face to Face Encounter: 06/07/20 Reason for Homebound Status: He is in unable to drive due to dementia and CHF. He is in need of caregiver and walker to ambulate safely due to unsteady gait Primary Care Physician: David Patel NP Skilled Need: He is in need of longterm care to help monitor CHF. He is in need of CHF education and weight monitoring along with blood pressure monitoring. He would benefit from PT to evaluate and treat for unsteady gait. - Discharge Diagnosis/Problem(s) (1) Diastolic heart failure SNOMED Code(s): 050306133 ICD Code: I50.30 - UNSPECIFIED DIASTOLIC (CONGESTIVE) HEART FAILURE Status: Chronic Qualifiers: Heart failure chronicity: acute on chronic Qualified Code(s): I50.33 - Acute on chronic diastolic (congestive) heart failure (2) Acute exacerbation of congestive heart failure SNOMED Code(s): 793143907, 30203536107837 ICD Code: I50.9 - HEART FAILURE, UNSPECIFIED Status: Acute Qualifiers: Heart failure type: unspecified Qualified Code(s): I50.9 - Heart failure, unspecified (3) Elevated troponin SNOMED Code(s): 581705742, 541101268, 962809337 ICD Code: R74.8 - ABNORMAL LEVELS OF OTHER SERUM ENZYMES Status: Chronic (4) TIA (transient ischemic attack) SNOMED Code(s): 413738742 ICD Code: G45.9 - TRANSIENT CEREBRAL ISCHEMIC ATTACK, UNSPECIFIED Status: Chronic (5) HTN (hypertension) SNOMED Code(s): 56565660 ICD Code: I10 - ESSENTIAL (PRIMARY) HYPERTENSION Status: Chronic Qualifiers: Hypertension type: essential hypertension Qualified Code(s): I10 - Essential (primary) hypertension (6) Hx of aortic valve replacement SNOMED Code(s): 9575378287301, 483905252, 2352826206393 ICD Code: Z95.2 - PRESENCE OF PROSTHETIC HEART VALVE Status: Chronic Problem Details: Bioprothestic placed in 2012 (7) Hx of mitral valve replacement SNOMED Code(s): 6002039418307, 0169750793505 ICD Code: Z95.2 - PRESENCE OF PROSTHETIC HEART VALVE Status: Chronic Problem Details: Bioprothestic placed in 2012 (8) Prostate CA SNOMED Code(s): 131150019 ICD Code: C61 - MALIGNANT NEOPLASM OF PROSTATE Status: Chronic (9) Hx of non-ST elevation myocardial infarction (NSTEMI) SNOMED Code(s): 747261940 ICD Code: I25.2 - OLD MYOCARDIAL INFARCTION Status: Chronic (10) CAD (coronary artery disease) SNOMED Code(s): 03221835 ICD Code: I25.10 - ATHSCL HEART DISEASE OF [place] CORONARY ARTERY W/O ANG PCTRS Status: Chronic (11) Hx of CABG SNOMED Code(s): 509215124, 268132368 ICD Code: Z95.1 - PRESENCE OF AORTOCORONARY BYPASS GRAFT Status: Chronic (12) Seizure disorder SNOMED Code(s): 590039479 ICD Code: G40.909 - EPILEPSY, UNSP, NOT INTRACTABLE, WITHOUT STATUS EPILEPTICUS Status: Chronic (13) Pulmonary hypertension SNOMED Code(s): 78456438 ICD Code: I27.20 - PULMONARY HYPERTENSION, UNSPECIFIED Status: Chronic - Patient Summary/Data Hospital Course: Admitting Diagnoses: Acute on chronic diastolic CHF Discharge Diagnoses: Acute on chronic diastolic CHF Jonathon was admitted and treated for acute exacerbation of diastolic CHF. He was diuresed with Lasix 40 mg IV BID, with good results. Today Jonathon was very eager to go home. He was breathing better, on RA. Peripheral edema had improved to both legs. I spoke with daughter about the importance of follow low Na diet, compression stockings and monitoring weight. She verbalized understanding but reports he is very resistant to do things he doesn't find necessary. He will take Lasix 40 mg BID PO for 2 more days at home then return to his regular dosing 40 mg daily. He is to see PCP in 1 week and follow up with Dr Stiles in [facility]. He is to return to the ED or clinic if concerns should arise. ECHO not repeated as one was just completed in March. - Patient Instructions Diet: Heart Healthy Diet, Low Sodium Fluid Restriction: 1500 mL Activity: No Strenuous Activities, Rest and Relax Today Driving: Do Not Drive Showering/Bathing: May Shower Notify Provider of: Fever, Increased Pain, Swelling and Redness, Drainage, Nausea and/or Vomiting Other/Special Instructions: Weigh yourself daily and keep log book. Monitor Blood pressure and keep log book for cardiology - Discharge Plan *PRESCRIPTION DRUG MONITORING PROGRAM REVIEWED*: Not Applicable *COPY OF PRESCRIPTION DRUG MONITORING REPORT IN PATIENT SARIKA: Not Applicable Home Medications: Home Meds Aspirin 81 mg PO DAILY 03/05/15 [History] Metoprolol Tartrate [Lopressor] 25 mg PO BID 03/05/15 [History] Tamsulosin [Flomax] 0.4 mg PO WITHDINNER 12/16/17 [History] Cholecalciferol (Vitamin D3) [Vitamin D3] 2 tab PO DAILY 04/20/20 [History] Levothyroxine 12.5 mcg PO DAILY 04/20/20 [History] Betamethasone Valerate [Valisone 0.1% Crm] 1 applic TOP DAILY PRN 06/06/20 [History] Cetirizine HCl [All Day Allergy] 10 mg PO DAILY PRN 06/06/20 [History] Famotidine 40 mg PO BEDTIME PRN 06/06/20 [History] Gabapentin [Neurontin] 100 mg PO BEDTIME 06/06/20 [History] Prednisolone Acetate/Pf [Prednisolone Acet 1% Eye Drop] 1 drop EYEBOTH BID 06/06/20 [History] levETIRAcetam [Levetiracetam] 2.5 ml PO BID 06/06/20 [History] Furosemide 40 mg PO DAILY #0 06/07/20 [Rx] Oxygen Therapy Mode: Room Air Patient Handouts: Heart Failure, Self Care, [id number] Referrals: Drew Duong MD [Ordering Only Provider] - 06/22/20 1:00 pm (Keep neelam ointment with Dr. Duong in [facility] on June 22. ) David Patel NP [Primary Care Provider] - 06/14/20 9:30 am (Please arrive 15minutes early and wearing a face covering. ) - Discharge Summary/Plan Comment DC Time >30 min.: No - Patient Data Vitals - Most Recent: Last Vital Signs Temp 97.7 F 06/07/20 06:58 Pulse 72 06/07/20 09:55 Resp 16 06/07/20 06:58 BP 108/82 06/07/20 09:55 Pulse Ox 96 06/07/20 06:58 Weight - Most Recent: 73.301 kg I&O - Last 24 hours: Intake & Output 06/06/20 06/07/20 06/07/20 22:59 06:59 14:59 Intake Total 400 300 Output Total 950 Balance -550 300 Lab Results - Last 24 hrs: Laboratory Results - last 24 hr 06/06/20 06/07/20 06/07/20 Range/Units 04:50 05:04 05:04 WBC 6.61 (4.0-11.0) K/uL RBC 3.73 L (4.50-5.90) M/uL Hgb 11.5 L (13.0-17.0) g/dL Hct 34.8 L (38.0-50.0) % MCV 93.3 (80.0-98.0) fL MCH 30.8 (27.0-32.0) pg MCHC 33.0 (31.0-37.0) g/dL RDW Std Deviation 52.4 (28.0-62.0) fl RDW Coeff of [place]asper 15 (11.0-15.0) % Plt Count 184 (150-400) K/uL MPV 9.90 (7.40-12.00) fL Neut % (Auto) 77.7 (48.0-80.0) % Lymph % (Auto) 7.4 L (16.0-40.0) % Elbert % (Auto) 12.1 (0.0-15.0) % Eos % (Auto) 2.6 (0.0-7.0) % Baso % (Auto) 0.2 (0.0-1.5) % Neut # (Auto) 5.1 (1.4-5.7) K/uL Lymph # (Auto) 0.5 L (0.6-2.4) K/uL [place]bert # (Auto) 0.8 (0.0-0.8) K/uL Eos # (Auto) 0.2 (0.0-0.7) K/uL Baso # (Auto) 0.0 (0.0-0.1) K/uL Nucleated RBC % 0.0 /100WBC Nucleated RBCs # 0 K/uL Sodium 136 (136-148) mmol/L Potassium 4.2 (3.5-5.1) mmol/L Chloride 99 (98-107) mmol/L Carbon Dioxide 31.2 (21.0-32.0) mmol/L BUN 32 H (7.0-18.0) mg/dL Creatinine 1.1 (0.8-1.3) mg/dL Est Cr Clr Drug Dosing 38.08 mL/min Estimated GFR (MDRD) > 60.0 ml/min Glucose 97 (74-106) mg/dL Calcium 8.7 (8.5-10.1) mg/dL Magnesium 2.1 (1.8-2.4) mg/dL TSH 3rd Generation 4.79 H (0.36-3.74) uIU/mL Med Orders - Current: Current Medications Albuterol/Ipratropium (Duoneb 3.0-0.5 Mg/3 Ml) 3 ml NEB Q4HRRT PRN PRN Reason: Shortness Of Breath/wheezing Last Admin: 06/07/20 05:29 Dose: 3 ml Documented by: Aspirin (Aspirin) 81 mg PO DAILY [facility] Last Admin: 06/07/20 09:54 Dose: 81 mg Documented by: Betamethasone Valerate (Valisone 0.1% Crm) 0 gm TOP DAILY PRN PRN Reason: Rash Cetirizine HCl (Zyrtec) 10 mg PO DAILY PRN PRN Reason: Allergies Cholecalciferol (Vitamin D3) 50 mcg PO DAILY [facility] Last Admin: 06/07/20 09:56 Dose: 50 mcg Documented by: Famotidine (Pepcid) 40 mg PO BEDTIME PRN PRN Reason: Heartburn Furosemide (Lasix) 40 mg IVPUSH BID [facility] Last Admin: 06/06/20 22:37 Dose: 40 mg Documented by: Gabapentin (Neurontin) 100 mg PO BEDTIME [facility] Last Admin: 06/06/20 22:33 Dose: 100 mg Documented by: Labetalol HCl (Normodyne) 10 mg IVPUSH Q4H PRN PRN Reason: Hypertension Last Admin: 06/05/20 23:25 Dose: 10 mg Documented by: Levetiracetam (Keppra) 250 mg PO BID [facility] Last Admin: 06/07/20 09:57 Dose: 250 mg Documented by: Levothyroxine Sodium (Levothyroxine) 12.5 mcg PO ACBREAKFAST [facility] Last Admin: 06/07/20 08:17 Dose: 12.5 mcg Documented by: Metoprolol Tartrate (Lopressor) 25 mg PO BID [facility] Last Admin: 06/07/20 09:55 Dose: 25 mg Documented by: Prednisolone Acetate (Pred Forte 1% Ophth Susp) 0 ml EYEBOTH BID [facility] Last Admin: 06/07/20 09:57 Dose: 1 drop Documented by: Tamsulosin HCl (Flomax) 0.4 mg PO PCDINNER [facility] Last Admin: 06/06/20 17:36 Dose: 0.4 mg Documented by: Discontinued Medications Aspirin (Aspirin) 324 mg PO ONETIME ONE Stop: 06/05/20 15:49 Last Admin: 06/05/20 15:55 Dose: 243 mg Documented by: Enoxaparin Sodium (Lovenox) 80 mg SUBCUT ONETIME ONE Stop: 06/05/20 16:17 Last Admin: 06/05/20 18:59 Dose: Not Given Documented by: Enoxaparin Sodium (Lovenox) 80 mg SUBCUT ONETIME ONE Stop: 06/05/20 18:31 Last Admin: 06/05/20 19:37 Dose: 80 mg Documented by: Furosemide (Lasix) 20 mg IVPUSH NOW ONE Stop: 06/05/20 16:11 Last Admin: 06/05/20 16:15 Dose: 20 mg Documented by: Furosemide (Lasix) 20 mg IVPUSH ONETIME ONE Stop: 06/05/20 17:16 Last Admin: 06/05/20 18:27 Dose: 20 mg Documented by: Metoprolol Tartrate (Lopressor) 25 mg PO ONETIME ONE Stop: 06/05/20 23:39 Last Admin: 06/06/20 00:12 Dose: 25 mg Documented by: Potassium Chloride (Klor-Con M20) 40 meq PO ONETIME ONE Stop: 06/06/20 11:18 Last Admin: 06/06/20 11:28 Dose: 40 meq Documented by: Potassium Chloride (Klor-Con M20) 40 meq PO ONETIME ONE Stop: 06/06/20 17:01 Last Admin: 06/06/20 17:36 Dose: 40 meq Documented by: Sodium Chloride (Saline Flush) 10 ml FLUSH ASDIRECTED PRN PRN Reason: Keep Vein Open Last Admin: 06/05/20 15:58 Dose: 10 ml Documented by: Sodium Chloride (Saline Flush) 2.5 ml FLUSH ASDIRECTED PRN PRN Reason: Keep Vein Open Last Admin: 06/05/20 15:58 Dose: 2.5 ml Documented by:
[2020-06-07] MEDS: Furosemide 40 MG/4 ML VIAL IVPUSH SCH (10:37)
[2020-06-07 14:09] VITALS: BP 104/60; PULSE 62
== END 2020-06-07 11:35 | disposition home health service (06) ==
LOC: MW.ED 13:53 → MW.MS 16:16
PROVIDERS: ADMIT Student in an Organized Health Care Education/Training Program; ATTEND Student in an Organized Health Care Education/Training Program
DX: I11.0 Hypertensive heart disease with heart failure (principal); I50.33 Acute on chronic diastolic (congestive) heart failure; E78.00 Pure hypercholesterolemia, unspecified; I10 Essential (primary) hypertension; I25.10 Atherosclerotic heart disease of native coronary artery without angina pectoris; R84.8 Other abnormal findings in specimens from respiratory organs and thorax; R74.8 Abnormal levels of other serum enzymes; I48.91 Unspecified atrial fibrillation; I27.20 Pulmonary hypertension, unspecified; G40.909 Epilepsy, unspecified, not intractable, without status epilepticus; Z88.8 Allergy status to other drugs, medicaments and biological substances; Z79.82 Long term (current) use of aspirin; Z79.899 Other long term (current) drug therapy; Z98.890 Other specified postprocedural states; Z85.46 Personal history of malignant neoplasm of prostate; Z95.2 Presence of prosthetic heart valve; Z95.1 Presence of aortocoronary bypass graft; Z20.828 Contact with and (suspected) exposure to other viral communicable diseases
CPT/HCPCS: 36415; 71045; 80048; 80053; 81003; 83735; 83880; 84100; 84443; 84484; 85025; 93005; 96372; 96374; 96375; 96376; 99285; A9270; G0378; J1650; J1940; J3490; U0002; 93010; 99217; 99219; 99226; 99283; J7620-GY

== ENCOUNTER 2020-09-04 16:54 | Inpatient (IN) | payer OTHER, MEDICARE ==
--- NOTE | 2020-09-04 17:21 | EDM.PDOC ---
ED HPI GENERAL MEDICAL PROBLEM - General Chief Complaint: General Stated Complaint: CHEST PAIN Time Seen by Provider: 09/04/20 17:00 Source of Information: Reports: Family History Limitations: Reports: Altered Mental Status - History of Present Illness INITIAL COMMENTS - FREE TEXT/NARRATIVE: 85-year-old male who was brought in by his daughter. Patient [place] appointment with the [place] and there he had a wet cough they want to have him evaluated for this cough. On her way here patient became altered and very sleepy patient daughter believes she is taking a nap and tired and has not slept much lately. At baseline patient is normally confused. Patient did note some chest pain earlier today but on exam is not really complain of anything and answering all questions. Patient is satting in the low 90s on room air past history of COPD and CHF. - Related Data Allergies Allergy/AdvReac Type Severity Reaction Status Date / Time amiodarone Allergy Renal Verified 06/05/20 18:05 Insufficiency lisinopril Allergy Syncope Verified 06/05/20 18:05 simvastatin Allergy Other Verified 06/05/20 18:05 Home Meds: Home Meds Aspirin 81 mg PO DAILY 03/05/15 [History] Metoprolol Tartrate [Lopressor] 25 mg PO BID 03/05/15 [History] Tamsulosin [Flomax] 0.4 mg PO WITHDINNER 12/16/17 [History] Cholecalciferol (Vitamin D3) [Vitamin D3] 2 tab PO DAILY 04/20/20 [History] Levothyroxine 12.5 mcg PO DAILY 04/20/20 [History] Betamethasone Valerate [Valisone 0.1% Crm] 1 applic TOP DAILY PRN 06/06/20 [ History] Cetirizine HCl [All Day Allergy] 10 mg PO DAILY PRN 06/06/20 [History] Famotidine 40 mg PO BEDTIME PRN 06/06/20 [History] Gabapentin [Neurontin] 100 mg PO BEDTIME 06/06/20 [History] Prednisolone Acetate/Pf [Prednisolone Acet 1% Eye Drop] 1 drop EYEBOTH BID 06/06/20 [History] levETIRAcetam [Levetiracetam] 2.5 ml PO BID 06/06/20 [History] Furosemide 40 mg PO DAILY #0 06/07/20 [Rx] Past Medical History HEENT History: Reports: Hard of Hearing Other HEENT History: bilateral hearing aids Cardiovascular History: Reports: CAD, Heart Valve Replacement, High Cholesterol, Hypertension, [place] Respiratory History: Reports: None Other Respiratory History: emphysema Gastrointestinal History: Reports: Hiatal Hernia Other Gastrointestinal History: Current left inguinal hernia Genitourinary History: Reports: Prostate Disorder, Other (See Below) Other Genitourinary History: Prostate CA Musculoskeletal History: Reports: Other (See Below) Other Musculoskeletal History: hx: fracture leg Neurological History: Reports: None Other Neuro History: confusion Psychiatric History: Reports: None Endocrine/Metabolic History: Reports: None Hematologic History: Reports: None Immunologic History: Reports: None Oncologic (Cancer) History: Reports: Prostate Dermatologic History: Reports: Other (See Below) Other Dermatologic History: SKin areas froze off face - Infectious Disease History Infectious Disease History: Reports: Measles Other Infectious Disease History: hepatitis back in the 60's - Past Surgical History HEENT Surgical History: Reports: Tonsillectomy Cardiovascular Surgical History: Reports: Coronary Artery Bypass, Valve Replacement Other Cardiovascular Surgeries/Procedures: Aortic and Mitral Valve replaced Respiratory Surgical History: Reports: None GI Surgical History: Reports: Hernia, Inguinal Male Surgical History: Reports: None Endocrine Surgical History: Reports: None Other Musculoskeletal Surgeries/Procedures:: Right Total Hip Replacement Social & Family History - Family History Family Medical History: No Pertinent Family History - Caffeine Use Caffeine Use: Reports: Coffee - Living Situation & Occupation Living situation: Reports: Occupation: Retired () ED ROS GENERAL - Review of Systems Review Of Systems: Unable To Obtain Reason Not Obtained: AMS ED EXAM, GENERAL - Physical Exam Exam: See Below Exam Limited By: No Limitations General Appearance: Alert, WD/WN Respiratory/Chest: No Respiratory Distress, Rales Cardiovascular: Regular Rate, Rhythm GI/Abdominal: Normal Bowel Sounds, Soft, Non-Tender Neurological: Confused #1 Interpretation EKG Date: 09/04/20 Time: 17:07 Rhythm: A-Flutter Rate (Beats/Min): 67 ST-T: Normal Course - Vital Signs Last Recorded V/S: Last Vital Signs Temp 97.6 F 09/04/20 17:00 Pulse 68 09/04/20 18:00 Resp 17 09/04/20 18:00 BP 125/77 09/04/20 18:00 Pulse Ox 94 L 09/04/20 18:00 - Orders/Labs/Meds Orders: Active Orders 24 hr Category Date Time Status EKG Documentation Completion [RC] STAT Care 09/04/20 17:30 Active Head wo Cont [CT] Stat Exams 09/04/20 18:35 Taken COVID-19/FLU A+B [MOLEC] Stat Lab 09/04/20 18:28 Ordered UA W/JENNIFER RFLX IF INDICATED [URIN] Stat Lab 09/04/20 17:19 Ordered Labs: Laboratory Tests 09/04/20 09/04/20 09/04/20 Range/Units 17:37 17:45 17:45 WBC 4.19 (4.0-11.0) K/uL RBC 3.79 L (4.50-5.90) M/uL Hgb 11.7 L (13.0-17.0) g/dL Hct 36.0 L (38.0-50.0) % MCV 95.0 (80.0-98.0) fL MCH 30.9 (27.0-32.0) pg MCHC 32.5 (31.0-37.0) g/dL RDW Std Deviation 50.6 (28.0-62.0) fl RDW Coeff of [place] 15 (11.0-15.0) % Plt Count 136 L (150-400) K/uL MPV 10.30 (7.40-12.00) fL Neut % (Auto) 74.3 (48.0-80.0) % Lymph % (Auto) 11.2 L (16.0-40.0) % [place] % (Auto) 13.8 (0.0-15.0) % Eos % (Auto) 0.5 (0.0-7.0) % Baso % (Auto) 0.2 (0.0-1.5) % Neut # (Auto) 3.1 (1.4-5.7) K/uL Lymph # (Auto) 0.5 L (0.6-2.4) K/uL [place] # (Auto) 0.6 (0.0-0.8) K/uL Eos # (Auto) 0.0 (0.0-0.7) K/uL Baso # (Auto) 0.0 (0.0-0.1) K/uL Nucleated RBC % 0.0 /100WBC Nucleated RBCs # 0 K/uL ABG pH 7.468 H (7.35-7.45) ABG pCO2 38 (35-45) mmHG ABG pO2 66 L (75-100) mmHG ABG HCO3 28 H (22-26) mEq/L ABG Total CO2 24.9 ABG Base Excess 3.9 H (-2.0-2.0) Lactate (0.20-2.00) mmol/L Sodium 139 (136-148) mmol/L Potassium 3.9 (3.5-5.1) mmol/L Chloride 101 (98-107) mmol/L Carbon Dioxide 27.7 (21.0-32.0) mmol/L BUN 33 H (7.0-18.0) mg/dL Creatinine 1.0 (0.8-1.3) mg/dL Est Cr Clr Drug Dosing TNP Estimated GFR (MDRD) > 60.0 ml/min Glucose 113 H (74-106) mg/dL Calcium 9.0 (8.5-10.1) mg/dL Total Bilirubin 0.5 (0.2-1.0) mg/dL AST 53 H (15-37) IU/L ALT 27 (14-63) IU/L Alkaline Phosphatase 81 (46-116) U/L Creatine Kinase 482 H (26-308) U/L Troponin I 0.230 H* (0.000-0.056) ng/mL Total Protein 7.6 (6.4-8.2) g/dL Albumin 3.5 (3.4-5.0) g/dL Globulin 4.1 H (2.6-4.0) g/dL Albumin/Globulin Ratio 0.9 (0.9-1.6) Ethyl Alcohol <3 mg/dL 09/04/20 Range/Units 17:45 WBC (4.0-11.0) K/uL RBC (4.50-5.90) M/uL Hgb (13.0-17.0) g/dL Hct (38.0-50.0) % MCV (80.0-98.0) fL MCH (27.0-32.0) pg MCHC (31.0-37.0) g/dL RDW Std Deviation (28.0-62.0) fl RDW Coeff of [place] (11.0-15.0) % Plt Count (150-400) K/uL MPV (7.40-12.00) fL Neut % (Auto) (48.0-80.0) % Lymph % (Auto) (16.0-40.0) % [place] % (Auto) (0.0-15.0) % Eos % (Auto) (0.0-7.0) % Baso % (Auto) (0.0-1.5) % Neut # (Auto) (1.4-5.7) K/uL Lymph # (Auto) (0.6-2.4) K/uL [place] # (Auto) (0.0-0.8) K/uL Eos # (Auto) (0.0-0.7) K/uL Baso # (Auto) (0.0-0.1) K/uL Nucleated RBC % /100WBC Nucleated RBCs # K/uL ABG pH (7.35-7.45) ABG pCO2 (35-45) mmHG ABG pO2 (75-100) mmHG ABG HCO3 (22-26) mEq/L ABG Total CO2 ABG Base Excess (-2.0-2.0) Lactate 0.9 (0.20-2.00) mmol/L Sodium (136-148) mmol/L Potassium (3.5-5.1) mmol/L Chloride (98-107) mmol/L Carbon Dioxide (21.0-32.0) mmol/L BUN (7.0-18.0) mg/dL Creatinine (0.8-1.3) mg/dL Est Cr Clr Drug Dosing Estimated GFR (MDRD) ml/min Glucose (74-106) mg/dL Calcium (8.5-10.1) mg/dL Total Bilirubin (0.2-1.0) mg/dL AST (15-37) IU/L ALT (14-63) IU/L Alkaline Phosphatase (46-116) U/L Creatine Kinase (26-308) U/L Troponin I (0.000-0.056) ng/mL Total Protein (6.4-8.2) g/dL Albumin (3.4-5.0) g/dL Globulin (2.6-4.0) g/dL Albumin/Globulin Ratio (0.9-1.6) Ethyl Alcohol mg/dL Departure - Departure Time of Disposition: 18:44 Disposition: Admitted As Inpatient 66 Condition: Good Clinical Impression: Chest pain - Discharge Information Referrals: PCP,None [Primary Care Provider] - Forms: ED Department Discharge Sepsis Event Note (ED) - Focused Exam Vital Signs: Vital Signs Temp Pulse Resp BP Pulse Ox 09/04/20 18:00 68 17 125/77 94 L 09/04/20 17:29 67 18 133/69 94 L 09/04/20 17:00 97.6 F 91 18 132/76 94 L - My Orders Last 24 Hours: My Active Orders 09/04/20 17:19 UA W/JENNIFER RFLX IF INDICATED [URIN] Stat 09/04/20 17:30 EKG Documentation Completion [RC] STAT 09/04/20 18:28 COVID-19/FLU A+B [MOLEC] Stat 09/04/20 18:35 Head wo Cont [CT] Stat - Assessment/Plan Last 24 Hours: My Active Orders 09/04/20 17:19 UA W/JENNIFER RFLX IF INDICATED [URIN] Stat 09/04/20 17:30 EKG Documentation Completion [RC] STAT 09/04/20 18:28 COVID-19/FLU A+B [MOLEC] Stat 09/04/20 18:35 Head wo Cont [CT] Stat Assessment:: Patient is a 85-year-old male presents today for productive cough and altered mental status. Patient daughter believes that he is sleepy as he has not slept in the past few days she states that before arrival he was up and at his baseline. Patient will answer some question when woken up but falls right back asleep. Patient has a positive troponin but has had a positive troponins in the past. Patient daughter and himself are both refused to have any invasive treatment and does not want patient to have any catheterization. This happened similar back in May and patient was admitted and given Lasix. Will give patient Lovenox as he has elevated troponin and give Lasix. Patient will be admitted for observation.
[2020-09-04 18:21] LABS: BLOOD UREA NITROGEN,BUN 33 mg/dL (7.0-18.0); CARBON DIOXIDE,CO2 27.7 mmol/L (21.0-32.0); CHLORIDE,CL 101 mmol/L (98-107); GLUCOSE RANDOM 113 mg/dL (74-106); POTASSIUM,K 3.9 mmol/L (3.5-5.1); SODIUM,NA 139 mmol/L (136-148)
--- NOTE | 2020-09-04 18:22 | CR ---
Indication: Chest pain Technique: Chest 1 view Comparison: 06/05/2020 Findings/Impression: Cardiovascular and mediastinum: Stable cardiomediastinal silhouette. Sternotomy sutures and valvular prostheses again seen. Persistent central pulmonary vascular congestion. Lungs and pleural space: Persistent perihilar interstitial and left basilar opacities. Correlate for evolving pulmonary edema and/or recurrent pneumonia, and follow-up. No gross pleural effusions. No pneumothorax seen. Bones and soft tissues: No significant change. Dictated by Brayan Juarez MD @ Sep 04 2020 6:17PM Signed by Dr. Brayan Juarez @ Sep 04 2020 6:22PM
[2020-09-04] MEDS ORDERED: Enoxaparin 100 MG/1 ML Syringe SUBCUT STA (18:48)
--- NOTE | 2020-09-04 19:02 | CT ---
INDICATION: Altered mental status. COMPARISON: CT head 05/11/2020. TECHNIQUE: CT of the head without IV contrast. Coronal and sagittal reconstructions are provided. FINDINGS: No intracranial hemorrhage, mass effect, or evidence of acute infarct. No midline shift. No abnormal extra-axial fluid collections. Moderate generalized cerebral and cerebellar volume loss with ex vacuo dilation of the lateral ventricles. Stable asymmetric dilation of the temporal horn of the right lateral ventricle. Cavum septum pellucidum. Moderate chronic small vessel ischemic disease. Intracranial vascular calcifications. Orbits and extraocular muscles are symmetric. Paranasal sinuses and mastoid air cells are clear. No acute fracture. Soft tissues are unremarkable. IMPRESSION: : No acute intracranial findings. Please note that all CT scans at this facility use dose modulation, iterative reconstruction, and/or weight-based dosing when appropriate to reduce radiation dose to as low as reasonably achievable. Dictated by Yuridia Michaels MD @ Sep 04 2020 6:53PM Signed by Dr. Yuridia Michaels @ Sep 04 2020 7:00PM
[2020-09-04] MEDS ORDERED: cefTRIAXone 1 GM Vial IVPUSH SCH (19:30)
[2020-09-04] MEDS ORDERED: Acetaminophen 325 MG Tab PO PRN (19:33)
[2020-09-04] MEDS ORDERED: Ondansetron 4 MG Tab.DIS PO PRN (19:33)
[2020-09-04 19:38] LABS: CORONAVIRUS COVID-19 NAA POSITIVE (NEGATIVE); INFLUENZA A NAA NEGATIVE (NEGATIVE); INFLUENZA B NAA NEGATIVE (NEGATIVE)
[2020-09-04] MEDS ORDERED: Furosemide 40 MG/4 ML VIAL IVPUSH ONE (19:44)
[2020-09-04] MEDS ORDERED: Azithromycin 500 MG Vial IV SCH (19:45)
[2020-09-04] MEDS ORDERED: Heparin Sodium 5,000 Units/ML Vial SUBCUT SCH (19:45)
--- NOTE | 2020-09-04 19:50 | PCM.HP.2 ---
H&P History of Present Illness - General Date of Service: 09/04/20 Admit Problem/Dx: Admission Diagnosis/Problem Admission Diagnosis/Problem Cough Altered mental status, Source of Information: Family History Limitations: Reports: Altered Mental Status - History of Present Illness Initial Comments - Free Text/Narative: Patient is a 85-year-old gentleman who resides at [facility] with his . Was brought in by his daughter who has noticed decline in his mentation since the . Noted unusual behavior of throwing up medications, decreased appetite this morning. [facility] was noted to have increased confusion and a rattly chest. Patient was brought into the ED he is a poor historian and was not able to provide any history. Therefore relied on daughter via telephone. ER course: CBCunremarkable, CMPunremarkable, lactate7.9, troponin mildly elevated 0.23, UA, EKGa flutter with no ST changes rate of 67, chest x- raypulmonary edema/recurrent pneumoniaABG - Related Data Allergies/Adverse Reactions: Allergies Allergy/AdvReac Type Severity Reaction Status Date / Time amiodarone Allergy Renal Verified 06/05/20 18:05 Insufficiency lisinopril Allergy Syncope Verified 06/05/20 18:05 simvastatin Allergy Other Verified 06/05/20 18:05 Home Medications: Home Meds Aspirin 81 mg PO DAILY 03/05/15 [History] Metoprolol Tartrate [Lopressor] 25 mg PO BID 03/05/15 [History] Tamsulosin [Flomax] 0.4 mg PO WITHDINNER 12/16/17 [History] Cholecalciferol (Vitamin D3) [Vitamin D3] 2 tab PO DAILY 04/20/20 [History] Levothyroxine 12.5 mcg PO DAILY 04/20/20 [History] Betamethasone Valerate [Valisone 0.1% Crm] 1 applic TOP DAILY PRN 06/06/20 [History] Cetirizine HCl [All Day Allergy] 10 mg PO DAILY PRN 06/06/20 [History] Famotidine 40 mg PO BEDTIME PRN 06/06/20 [History] Gabapentin [Neurontin] 100 mg PO BEDTIME 06/06/20 [History] Prednisolone Acetate/Pf [Prednisolone Acet 1% Eye Drop] 1 drop EYEBOTH BID 06/06/20 [History] levETIRAcetam [Levetiracetam] 2.5 ml PO BID 06/06/20 [History] Furosemide 40 mg PO DAILY #0 06/07/20 [Rx] Past Medical History HEENT History: Reports: Cataract, Hard of Hearing, Impaired Vision, Sinusitis Other HEENT History: bilateral hearing aids Cardiovascular History: Reports: Angina, CAD, Heart Failure, Heart Valve Replacement, High Cholesterol, Hypertension, CO, Syncope Respiratory History: Reports: None Other Respiratory History: emphysema Gastrointestinal History: Reports: Hiatal Hernia, PUD Other Gastrointestinal History: Current left inguinal hernia Genitourinary History: Reports: Prostate Disorder, UTI, Recurrent, Other (See Below) Other Genitourinary History: Prostate CA Musculoskeletal History: Reports: Other (See Below) Other Musculoskeletal History: hx: fracture leg Neurological History: Reports: None, Neuropathy, Peripheral Other Neuro History: confusion Psychiatric History: Reports: None Endocrine/Metabolic History: Reports: Hypothyroidism Hematologic History: Reports: None Immunologic History: Reports: None Oncologic (Cancer) History: Reports: Prostate Dermatologic History: Reports: Seborrheic Dermatitis, Other (See Below) Other Dermatologic History: SKin areas froze off face - Infectious Disease History Infectious Disease History: Reports: Measles Other Infectious Disease History: hepatitis back in the 60's - Past Surgical History HEENT Surgical History: Reports: Adenoidectomy, Tonsillectomy Cardiovascular Surgical History: Reports: Coronary Artery Bypass, Valve Replacement Other Cardiovascular Surgeries/Procedures: Aortic and Mitral Valve replaced Respiratory Surgical History: Reports: None GI Surgical History: Reports: Hernia, Inguinal Male Surgical History: Reports: None Endocrine Surgical History: Reports: None Neurological Surgical History: Reports: None Musculoskeletal Surgical History: Reports: Other (See Below) Other Musculoskeletal Surgeries/Procedures:: Right Total Hip Replacement Oncologic Surgical History: Reports: None Dermatological Surgical History: Reports: None Social & Family History - Family History Family Medical History: No Pertinent Family History - Caffeine Use Caffeine Use: Reports: Coffee - Recreational Drug Use Recreational Drug Use: No - Living Situation & Occupation Living situation: Reports: Occupation: Retired () H&P Review of Systems - Review of Systems: Review Of Systems: See Below General: Reports: Decreased Appetite, Other (Confusion) HEENT: Reports: No Symptoms Pulmonary: Reports: Cough, Sputum (Granados-colored) Cardiovascular: Reports: No Symptoms Gastrointestinal: Reports: No Symptoms Genitourinary: Reports: No Symptoms Musculoskeletal: Reports: No Symptoms Skin: Reports: No Symptoms Psychiatric: Reports: No Symptoms Neurological: Reports: No Symptoms Hematologic/Lymphatic: Reports: No Symptoms Immunologic: Reports: No Symptoms Exam - Exam Exam: See Below - Vital Signs Vital Signs: Last Vital Signs Temp 97.6 F 09/04/20 17:00 Pulse 68 09/04/20 18:00 Resp 17 09/04/20 18:00 BP 125/77 09/04/20 18:00 Pulse Ox 94 L 09/04/20 18:00 Weight: 170 lb - Exam Quality Assessment: DVT Prophylaxis General: Lethargic, Other (Confused) HEENT: Conjunctiva Clear, Pupils Equal, Pupils Reactive, PERRLA Neck: Supple, Trachea Midline. No: Lymphadenopathy, Carotid Bruit, JVD, Thyromegaly Lungs: Crackles Cardiovascular: Irregular Rhythm (A flutter) GI/Abdominal Exam: Normal Bowel Sounds, Soft, Non-Tender, No Organomegaly, No Distention, No Mass, Pelvis Stable. No: Guarding, Rebound Rectal (Males) Exam: Normal Exam Extremities: Normal Inspection, Normal Range of Motion, Non-Tender, Pedal Edema (1+) Peripheral Pulses: 2+: Radial (L), Radial (R), Dorsalis Pedis (L), Dorsalis Pedis (R) Skin: Warm, Dry, Intact Neurological: Cranial Nerves Intact Neuro Extensive - Mental Status: Alert, Oriented x3, Normal Mood/Affect Psychiatric: Other (Confused) - Patient Data Lab Results Last 24 hrs: Laboratory Results - last 24 hr 09/04/20 09/04/20 09/04/20 Range/Units 17:37 17:45 17:45 WBC 4.19 (4.0-11.0) K/uL RBC 3.79 L (4.50-5.90) M/uL Hgb 11.7 L (13.0-17.0) g/dL Hct 36.0 L (38.0-50.0) % MCV 95.0 (80.0-98.0) fL MCH 30.9 (27.0-32.0) pg MCHC 32.5 (31.0-37.0) g/dL RDW Std Deviation 50.6 (28.0-62.0) fl RDW Coeff of Jasper 15 (11.0-15.0) % Plt Count 136 L (150-400) K/uL MPV 10.30 (7.40-12.00) fL Neut % (Auto) 74.3 (48.0-80.0) % Lymph % (Auto) 11.2 L (16.0-40.0) % Bosque % (Auto) 13.8 (0.0-15.0) % Eos % (Auto) 0.5 (0.0-7.0) % Baso % (Auto) 0.2 (0.0-1.5) % Neut # (Auto) 3.1 (1.4-5.7) K/uL Lymph # (Auto) 0.5 L (0.6-2.4) K/uL Bosque # (Auto) 0.6 (0.0-0.8) K/uL Eos # (Auto) 0.0 (0.0-0.7) K/uL Baso # (Auto) 0.0 (0.0-0.1) K/uL Nucleated RBC % 0.0 /100WBC Nucleated RBCs # 0 K/uL ABG pH 7.468 H (7.35-7.45) ABG pCO2 38 (35-45) mmHG ABG pO2 66 L (75-100) mmHG ABG HCO3 28 H (22-26) mEq/L ABG Total CO2 24.9 ABG Base Excess 3.9 H (-2.0-2.0) Lactate (0.20-2.00) mmol/L Sodium 139 (136-148) mmol/L Potassium 3.9 (3.5-5.1) mmol/L Chloride 101 (98-107) mmol/L Carbon Dioxide 27.7 (21.0-32.0) mmol/L BUN 33 H (7.0-18.0) mg/dL Creatinine 1.0 (0.8-1.3) mg/dL Est Cr Clr Drug Dosing TNP Estimated GFR (MDRD) > 60.0 ml/min Glucose 113 H (74-106) mg/dL Calcium 9.0 (8.5-10.1) mg/dL Total Bilirubin 0.5 (0.2-1.0) mg/dL AST 53 H (15-37) IU/L ALT 27 (14-63) IU/L Alkaline Phosphatase 81 (46-116) U/L Creatine Kinase 482 H (26-308) U/L Troponin I 0.230 H* (0.000-0.056) ng/mL Total Protein 7.6 (6.4-8.2) g/dL Albumin 3.5 (3.4-5.0) g/dL Globulin 4.1 H (2.6-4.0) g/dL Albumin/Globulin Ratio 0.9 (0.9-1.6) Ethyl Alcohol <3 mg/dL Influenza Type A RNA (NEGATIVE) Influenza Type B RNA (NEGATIVE) SARS-CoV-2 RNA (ALEXANDRA) (NEGATIVE) 09/04/20 09/04/20 Range/Units 17:45 18:50 WBC (4.0-11.0) K/uL RBC (4.50-5.90) M/uL Hgb (13.0-17.0) g/dL Hct (38.0-50.0) % MCV (80.0-98.0) fL MCH (27.0-32.0) pg MCHC (31.0-37.0) g/dL RDW Std Deviation (28.0-62.0) fl RDW Coeff of Jasper (11.0-15.0) % Plt Count (150-400) K/uL MPV (7.40-12.00) fL Neut % (Auto) (48.0-80.0) % Lymph % (Auto) (16.0-40.0) % Bosque % (Auto) (0.0-15.0) % Eos % (Auto) (0.0-7.0) % Baso % (Auto) (0.0-1.5) % Neut # (Auto) (1.4-5.7) K/uL Lymph # (Auto) (0.6-2.4) K/uL Bosque # (Auto) (0.0-0.8) K/uL Eos # (Auto) (0.0-0.7) K/uL Baso # (Auto) (0.0-0.1) K/uL Nucleated RBC % /100WBC Nucleated RBCs # K/uL ABG pH (7.35-7.45) ABG pCO2 (35-45) mmHG ABG pO2 (75-100) mmHG ABG HCO3 (22-26) mEq/L ABG Total CO2 ABG Base Excess (-2.0-2.0) Lactate 0.9 (0.20-2.00) mmol/L Sodium (136-148) mmol/L Potassium (3.5-5.1) mmol/L Chloride (98-107) mmol/L Carbon Dioxide (21.0-32.0) mmol/L BUN (7.0-18.0) mg/dL Creatinine (0.8-1.3) mg/dL Est Cr Clr Drug Dosing Estimated GFR (MDRD) ml/min Glucose (74-106) mg/dL Calcium (8.5-10.1) mg/dL Total Bilirubin (0.2-1.0) mg/dL AST (15-37) IU/L ALT (14-63) IU/L Alkaline Phosphatase (46-116) U/L Creatine Kinase (26-308) U/L Troponin I (0.000-0.056) ng/mL Total Protein (6.4-8.2) g/dL Albumin (3.4-5.0) g/dL Globulin (2.6-4.0) g/dL Albumin/Globulin Ratio (0.9-1.6) Ethyl Alcohol mg/dL Influenza Type A RNA NEGATIVE (NEGATIVE) Influenza Type B RNA NEGATIVE (NEGATIVE) SARS-CoV-2 RNA (ALEXANDRA) POSITIVE H (NEGATIVE) Result Diagrams: 09/04/20 17:45 09/04/20 17:45 Sepsis Event Note - Evaluation Sepsis Screening Result: No Definite Risk - Focused Exam Vital Signs: Vital Signs Temp Pulse Resp BP Pulse Ox 09/04/20 18:00 68 17 125/77 94 L 09/04/20 17:29 67 18 133/69 94 L 09/04/20 17:00 97.6 F 91 18 132/76 94 L Problem List Initiated/Reviewed/Updated: Yes Orders Last 24hrs: Active Orders 24 hr Category Date Time Status Patient Status [ADT] Routine ADT 09/04/20 18:49 Active Antiembolic Devices [RC] PER UNIT ROUTINE Care 09/04/20 19:35 Ordered Bedrest Bedside Commode [RC] ASDIRECTED Care 09/04/20 19:33 Ordered Cardiac Monitoring [RC] CONTINUOUS Care 09/04/20 19:34 Ordered EKG Documentation Completion [RC] STAT Care 09/04/20 17:30 Active Oxygen Therapy [RC] PRN Care 09/04/20 19:33 Ordered VTE/DVT Education [RC] PER UNIT ROUTINE Care 09/04/20 19:33 Ordered Vital Signs [RC] Q4H Care 09/04/20 19:33 Ordered Heart Healthy Diet [DIET] Diet 09/04/20 Dinner Ordered CBC WITH AUTO DIFF [HEME] AM Lab 09/05/20 05:11 Ordered CBC WITH AUTO DIFF [HEME] AM Lab 09/06/20 05:11 Ordered CBC WITH AUTO DIFF [HEME] AM Lab 09/07/20 05:11 Ordered CBC WITH AUTO DIFF [HEME] AM Lab 09/08/20 05:11 Ordered CBC WITH AUTO DIFF [HEME] AM Lab 09/09/20 05:11 Ordered COMPREHENSIVE METABOLIC PN,CMP [CHEM] AM Lab 09/05/20 05:11 Ordered COMPREHENSIVE METABOLIC PN,CMP [CHEM] AM Lab 09/06/20 05:11 Ordered COMPREHENSIVE METABOLIC PN,CMP [CHEM] AM Lab 09/07/20 05:11 Ordered COMPREHENSIVE METABOLIC PN,CMP [CHEM] AM Lab 09/08/20 05:11 Ordered COMPREHENSIVE METABOLIC PN,CMP [CHEM] AM Lab 09/09/20 05:11 Ordered MAGNESIUM [CHEM] AM Lab 09/05/20 05:11 Ordered TROPONIN I [CHEM] Q6H Lab 09/04/20 22:00 Ordered TROPONIN I [CHEM] Q6H Lab 09/05/20 04:00 Ordered UA RFX JENNIFER AND CULT IF INDIC [URIN] Routine Lab 09/04/20 19:29 Ordered UA W/JENNIFER RFLX IF INDICATED [URIN] Stat Lab 09/04/20 17:19 Ordered UA W/MICROSCOPIC [URIN] Stat Lab 09/04/20 19:33 Ordered Acetaminophen [TylenoL] Med 09/04/20 19:33 Ordered 650 mg PO Q4H PRN Aspirin Med 09/05/20 09:00 Ordered 81 mg PO DAILY Azithromycin [Zithromax] Med 09/04/20 19:45 Active 500 mg IV Q24H Furosemide [Lasix] Med 09/04/20 19:44 Once 40 mg IVPUSH NOW ONE Furosemide [Lasix] Med 09/05/20 09:00 Ordered 40 mg PO DAILY Furosemide [Lasix] 40 mg Med 09/04/20 19:29 Active Sodium Chloride 0.9% [Normal Saline] 50 ml IV BID Gabapentin [Neurontin] Med 09/04/20 21:00 Ordered 100 mg PO BEDTIME Heparin Sodium Med 09/04/20 19:45 Active 5,000 units SUBCUT Q12H Levothyroxine Med 09/05/20 09:00 Ordered 12.5 mcg PO DAILY Metoprolol Tartrate [Lopressor] Med 09/04/20 21:00 Ordered 25 mg PO BID Ondansetron [Zofran ODT] Med 09/04/20 19:33 Ordered 4 mg PO Q4H PRN Pantoprazole [ProTONIX IV] 40 mg Med 09/05/20 09:00 Ordered Sodium Chloride 0.9% [Normal Saline] 10 ml IV DAILY Prednisolone Acetate/Pf [Prednisolone Acet 1% Eye Drop] Med 09/04/20 21:00 Ordered 1 drop EYEBOTH BID Tamsulosin [Flomax] Med 09/05/20 17:30 Ordered 0.4 mg PO WITHDINNER cefTRIAXone [Rocephin] Med 09/04/20 19:30 Active 1 gm IVPUSH Q24H levETIRAcetam [Keppra] Med 09/04/20 21:00 Ordered 250 mg PO BID Sequential Compression Device [OM.PC] Per Unit Routine Oth 09/04/20 19:35 Ordered Resuscitation Status Routine Resus Stat 09/04/20 19:33 Ordered Medication Orders Acetaminophen (Tylenol) 650 mg PO Q4H PRN PRN Reason: Pain (Mild 1-3)/fever Aspirin (Aspirin) 81 mg PO DAILY STEFANY Azithromycin (Zithromax) 500 mg IV Q24H STEFANY Ceftriaxone Sodium (Rocephin) 1 gm IVPUSH Q24H STEFANY Furosemide (Lasix) 40 mg PO DAILY STEFANY Furosemide (Lasix) 40 mg IVPUSH NOW ONE Stop: 09/04/20 19:45 Gabapentin (Neurontin) 100 mg PO BEDTIME STEFANY Heparin Sodium (Porcine) (Heparin Sodium) 5,000 units SUBCUT Q12H STEFANY Furosemide 40 mg/ Sodium (Chloride) 54 mls @ 100 mls/hr IV BID STEFANY Pantoprazole Sodium 40 mg/ (Sodium Chloride) 10 mls @ 300 mls/hr IV DAILY STEFANY Levetiracetam (Keppra) 250 mg PO BID [facility] Levothyroxine Sodium (Levothyroxine) 12.5 mcg PO DAILY [facility] Metoprolol Tartrate (Lopressor) 25 mg PO BID [facility] Non-Formulary Medication (Prednisolone Acetate/Pf [Prednisolone Acet 1% Eye Drop]) 1 drop EYEBOTH BID [facility] Ondansetron HCl (Zofran Odt) 4 mg PO Q4H PRN PRN Reason: nausea, able to take PO Tamsulosin HCl (Flomax) 0.4 mg PO WITHDINNER [facility] Assessment/Plan Comment:: Patient is an 85-year-old gentleman with a past medical history of coronary artery disease, CO, valve replacement, hypertension, hyperlipidemia. Was admitt ed due to altered mental status and possible pneumonia causing heart failure. 1. Possible pneumonia: Chest x-ray indicated pulmonary edema or recurrent pneumonia, crackles on physical examination, afebrile, no WBCs Started on Rocephin and azithromycin 2. Heart strain versus CHF: Monitor on telemetry, K 40 Lasix, continue to trend troponin every 3 hours x3 3. Altered mental status: UA negative O2 sats 97% on room air Heart healthy diet, bedrest to commode, DVT prophylaxis Heparin 5000 subcu, GI prophylaxis pantoprazole 40
[2020-09-04] MEDS ORDERED: Metoprolol Tartrate 50 MG Tab PO SCH (21:00)
[2020-09-04] MEDS: Azithromycin 500 MG in Sodium Chloride 0.9% 250 ML IV SCH (22:42)
[2020-09-04] MEDS: Furosemide 40 MG in Sodium Chloride 0.9% 50 ML IV SCH ×2 (22:43→22:44)
[2020-09-04] MEDS: levETIRAcetam 500 MG/5 ML Solution ML 473 ml Bottle PO SCH (22:43)
[2020-09-04] MEDS: Gabapentin 100 MG Cap PO SCH (22:43)
[2020-09-04] MEDS: Non-Formulary Medication 1 Each (Prednisolone Acetate/Pf [Prednisolone Acet 1% Eye Drop] 1 EYEBOTH SCH (22:44)
[2020-09-05] MEDS ORDERED: Haloperidol Lactate 5 MG/ML SDV IM PRN (02:09)
[2020-09-05] MEDS ORDERED: LORazepam 2 MG/ML SDV IVPUSH PRN (02:12)
[2020-09-05] MEDS ORDERED: Haloperidol Lactate 5 MG/ML SDV ONE (02:16)
[2020-09-05 04:48] LABS: BLOOD UREA NITROGEN,BUN 26 mg/dL (7.0-18.0); CARBON DIOXIDE,CO2 30.5 mmol/L (21.0-32.0); CHLORIDE,CL 99 mmol/L (98-107); GLUCOSE RANDOM 96 mg/dL (74-106); POTASSIUM,K 3.3 mmol/L (3.5-5.1); SODIUM,NA 140 mmol/L (136-148)
[2020-09-05] MEDS: Furosemide 40 MG/4 ML VIAL IV SCH ×2 (08:59→20:49)
[2020-09-05] MEDS ORDERED: Heparin Sodium 5,000 Units/ML Vial SUBCUT SCH (09:00)
[2020-09-05] MEDS ORDERED: Pantoprazole 40 MG in Sodium Chloride 0.9% 10 ML IV SCH (09:00)
[2020-09-05] MEDS ORDERED: Levothyroxine 25 MCG Tab PO SCH (09:00)
[2020-09-05] MEDS ORDERED: Furosemide 40 MG Tab PO SCH (09:00)
[2020-09-05] MEDS: Non-Formulary Medication 1 Each (Prednisolone Acetate/Pf [Prednisolone Acet 1% Eye Drop] 1 EYEBOTH SCH (09:02)
[2020-09-05] MEDS: Aspirin 81 MG Tab.Chew PO SCH (09:05)
[2020-09-05] MEDS: Metoprolol Tartrate 25 MG Tab PO SCH ×2 (09:06→20:55)
[2020-09-05] MEDS ORDERED: Enoxaparin 100 MG/1 ML Syringe SUBCUT SCH (09:24)
[2020-09-05] MEDS ORDERED: levETIRAcetam Soln 500 MG/5 ML Cup PO SCH (10:00)
[2020-09-05] MEDS ORDERED: prednisoLONE Acetate 1% Ophth Susp 5 ML Bottle EYEBOTH SCH (10:00)
[2020-09-05] MEDS: levETIRAcetam 500 MG/5 ML Solution ML 473 ml Bottle PO SCH (11:12)
[2020-09-05] MEDS ORDERED: 50% Dextrose in Water 50 ML Syringe IVPUSH ONE (12:41)
[2020-09-05] MEDS ORDERED: Lactated Ringers 1,000 ML IV SCH (12:45)
[2020-09-05] MEDS ORDERED: Lactated Ringers 500 ML IV SCH (13:25)
--- NOTE | 2020-09-05 13:28 | PCM.PN ---
- General Info Date of Service: 09/05/20 Admission Dx/Problem (Free Text): Admission Diagnosis/Problem Admission Diagnosis/Problem Altered mental status Subjective Update: Alert and oriented on first rounds today. Denies any chest pain. Denies any overt shortness of breath. Does have congested moist cough. He is eating and drinking with assistance of nurse. Appears to be weak and fatigued intermittently. Second rounds with Dr. Garcia, patient was noted to have hypotension and was not waking up. Vital signs otherwise were stable. Oxygenation remained mid 90s on room air. Patient did respond to pain. At that time daughter called on the phone. Dr. Napoles did speak with her regarding current status as well as treatment plan. She is requesting repeat Covid swabbing as she was told last evening he was negative and does not believe her testing. We will oblige to this and send a test to the state for her request to confirm positive testing. She at the time declined head CT as patient had 1 last evening. She also relayed to us that Keppra if taken in the morning causes him to be very drowsy. He did receive Keppra this morning and only receives this once a day not twice a day and receives it in the evening. After some time Jonathon did wake up and is back to normal. He was given 500 mill bolus due to hypotension and hypotension resolved. Troponin was checked which remained flat with no elevation. Functional Status: Reports: Pain Controlled, Tolerating Diet, Ambulating, Urinating - Review of Systems General: Reports: No Symptoms. Denies: Weakness, Fatigue, Malaise HEENT: Reports: No Symptoms. Denies: Headaches, Sore Throat, Visual Changes Pulmonary: Reports: Cough, Sputum. Denies: Shortness of Breath Cardiovascular: Reports: No Symptoms. Denies: Chest Pain Gastrointestinal: Reports: No Symptoms. Denies: Abdominal Pain, Nausea Genitourinary: Reports: No Symptoms. Denies: Dysuria, Frequency, Burning Musculoskeletal: Reports: No Symptoms Skin: Reports: No Symptoms Neurological: Reports: No Symptoms Psychiatric: Reports: No Symptoms - Patient Data Vitals - Most Recent: Last Vital Signs Temp 97.2 F 09/05/20 11:15 Pulse 66 09/05/20 13:21 Resp 20 09/05/20 11:15 BP 157/87 H 09/05/20 13:21 Pulse Ox 98 09/05/20 13:21 Weight - Most Recent: 74.389 kg I&O - Last 24 Hours: Intake & Output 09/04/20 09/05/20 09/05/20 22:59 06:59 14:59 Intake Total 450 Output Total 1900 Balance -1450 Lab Results Last 24 Hours: Laboratory Results - last 24 hr 09/04/20 09/04/20 09/04/20 Range/Units 17:37 17:45 17:45 WBC 4.19 (4.0-11.0) K/uL RBC 3.79 L (4.50-5.90) M/uL Hgb 11.7 L (13.0-17.0) g/dL Hct 36.0 L (38.0-50.0) % MCV 95.0 (80.0-98.0) fL MCH 30.9 (27.0-32.0) pg MCHC 32.5 (31.0-37.0) g/dL RDW Std Deviation 50.6 (28.0-62.0) fl RDW Coeff of Jasper 15 (11.0-15.0) % Plt Count 136 L (150-400) K/uL MPV 10.30 (7.40-12.00) fL Neut % (Auto) 74.3 (48.0-80.0) % Lymph % (Auto) 11.2 L (16.0-40.0) % Weber % (Auto) 13.8 (0.0-15.0) % Eos % (Auto) 0.5 (0.0-7.0) % Baso % (Auto) 0.2 (0.0-1.5) % Neut # (Auto) 3.1 (1.4-5.7) K/uL Lymph # (Auto) 0.5 L (0.6-2.4) K/uL Weber # (Auto) 0.6 (0.0-0.8) K/uL Eos # (Auto) 0.0 (0.0-0.7) K/uL Baso # (Auto) 0.0 (0.0-0.1) K/uL Nucleated RBC % 0.0 /100WBC Nucleated RBCs # 0 K/uL ABG pH 7.468 H (7.35-7.45) ABG pCO2 38 (35-45) mmHG ABG pO2 66 L (75-100) mmHG ABG HCO3 28 H (22-26) mEq/L ABG Total CO2 24.9 ABG Base Excess 3.9 H (-2.0-2.0) Lactate (0.20-2.00) mmol/L Sodium 139 (136-148) mmol/L Potassium 3.9 (3.5-5.1) mmol/L Chloride 101 (98-107) mmol/L Carbon Dioxide 27.7 (21.0-32.0) mmol/L BUN 33 H (7.0-18.0) mg/dL Creatinine 1.0 (0.8-1.3) mg/dL Est Cr Clr Drug Dosing TNP Estimated GFR (MDRD) > 60.0 ml/min Glucose 113 H (74-106) mg/dL POC Glucose (60-110) mg/dL Calcium 9.0 (8.5-10.1) mg/dL Magnesium (1.8-2.4) mg/dL Total Bilirubin 0.5 (0.2-1.0) mg/dL AST 53 H (15-37) IU/L ALT 27 (14-63) IU/L Alkaline Phosphatase 81 (46-116) U/L Creatine Kinase 482 H (26-308) U/L Troponin I 0.230 H* (0.000-0.056) ng/mL Total Protein 7.6 (6.4-8.2) g/dL Albumin 3.5 (3.4-5.0) g/dL Globulin 4.1 H (2.6-4.0) g/dL Albumin/Globulin Ratio 0.9 (0.9-1.6) Urine Color Urine Appearance Urine pH (5.0-8.0) Ur Specific [place] (1.001-1.035) Urine Protein (NEGATIVE) mg/dL Urine Glucose (UA) (NEGATIVE) mg/dL Urine Ketones (NEGATIVE) mg/dL Urine Occult Blood (NEGATIVE) Urine Nitrite (NEGATIVE) Urine Bilirubin (NEGATIVE) Urine Urobilinogen (<2.0) EU/dL Ur Leukocyte Esterase (NEGATIVE) Urine RBC (0-2/HPF) Urine WBC (0-5/HPF) Ur Epithelial Cells (NONE-FEW) Urine Bacteria (NEGATIVE) Ethyl Alcohol <3 mg/dL Influenza Type A RNA (NEGATIVE) Influenza Type B RNA (NEGATIVE) SARS-CoV-2 RNA (ALEXANDRA) (NEGATIVE) 09/04/20 09/04/20 09/04/20 Range/Units 17:45 18:50 19:55 WBC (4.0-11.0) K/uL RBC (4.50-5.90) M/uL Hgb (13.0-17.0) g/dL Hct (38.0-50.0) % MCV (80.0-98.0) fL MCH (27.0-32.0) pg MCHC (31.0-37.0) g/dL RDW Std Deviation (28.0-62.0) fl RDW Coeff of Jasper (11.0-15.0) % Plt Count (150-400) K/uL MPV (7.40-12.00) fL Neut % (Auto) (48.0-80.0) % Lymph % (Auto) (16.0-40.0) % Weber % (Auto) (0.0-15.0) % Eos % (Auto) (0.0-7.0) % Baso % (Auto) (0.0-1.5) % Neut # (Auto) (1.4-5.7) K/uL Lymph # (Auto) (0.6-2.4) K/uL Weber # (Auto) (0.0-0.8) K/uL Eos # (Auto) (0.0-0.7) K/uL Baso # (Auto) (0.0-0.1) K/uL Nucleated RBC % /100WBC Nucleated RBCs # K/uL ABG pH (7.35-7.45) ABG pCO2 (35-45) mmHG ABG pO2 (75-100) mmHG ABG HCO3 (22-26) mEq/L ABG Total CO2 ABG Base Excess (-2.0-2.0) Lactate 0.9 (0.20-2.00) mmol/L Sodium (136-148) mmol/L Potassium (3.5-5.1) mmol/L Chloride (98-107) mmol/L Carbon Dioxide (21.0-32.0) mmol/L BUN (7.0-18.0) mg/dL Creatinine (0.8-1.3) mg/dL Est Cr Clr Drug Dosing Estimated GFR (MDRD) ml/min Glucose (74-106) mg/dL POC Glucose (60-110) mg/dL Calcium (8.5-10.1) mg/dL Magnesium (1.8-2.4) mg/dL Total Bilirubin (0.2-1.0) mg/dL AST (15-37) IU/L ALT (14-63) IU/L Alkaline Phosphatase (46-116) U/L Creatine Kinase (26-308) U/L Troponin I (0.000-0.056) ng/mL Total Protein (6.4-8.2) g/dL Albumin (3.4-5.0) g/dL Globulin (2.6-4.0) g/dL Albumin/Globulin Ratio (0.9-1.6) Urine Color YELLOW Urine Appearance CLEAR Urine pH 6.0 (5.0-8.0) Ur Specific [place] 1.015 (1.001-1.035) Urine Protein NEGATIVE (NEGATIVE) mg/dL Urine Glucose (UA) NEGATIVE (NEGATIVE) mg/dL Urine Ketones NEGATIVE (NEGATIVE) mg/dL Urine Occult Blood NEGATIVE (NEGATIVE) Urine Nitrite NEGATIVE (NEGATIVE) Urine Bilirubin NEGATIVE (NEGATIVE) Urine Urobilinogen 0.2 (<2.0) EU/dL Ur Leukocyte Esterase NEGATIVE (NEGATIVE) Urine RBC 0-1 (0-2/HPF) Urine WBC 0-1 (0-5/HPF) Ur Epithelial Cells RARE (NONE-FEW) Urine Bacteria RARE (NEGATIVE) Ethyl Alcohol mg/dL Influenza Type A RNA NEGATIVE (NEGATIVE) Influenza Type B RNA NEGATIVE (NEGATIVE) SARS-CoV-2 RNA (ALEXANDRA) POSITIVE H (NEGATIVE) 09/04/20 09/05/20 09/05/20 Range/Units 22:25 04:16 04:16 WBC 4.84 (4.0-11.0) K/uL RBC 3.80 L (4.50-5.90) M/uL Hgb 11.6 L (13.0-17.0) g/dL Hct 36.3 L (38.0-50.0) % MCV 95.5 (80.0-98.0) fL MCH 30.5 (27.0-32.0) pg MCHC 32.0 (31.0-37.0) g/dL RDW Std Deviation 50.0 (28.0-62.0) fl RDW Coeff of [place]asper 14 (11.0-15.0) % Plt Count 148 L (150-400) K/uL MPV 9.80 (7.40-12.00) fL Neut % (Auto) 70.9 (48.0-80.0) % Lymph % (Auto) 13.0 L (16.0-40.0) % Weber % (Auto) 15.3 H (0.0-15.0) % Eos % (Auto) 0.8 (0.0-7.0) % Baso % (Auto) 0.0 (0.0-1.5) % Neut # (Auto) 3.4 (1.4-5.7) K/uL Lymph # (Auto) 0.6 (0.6-2.4) K/uL Weber # (Auto) 0.7 (0.0-0.8) K/uL Eos # (Auto) 0.0 (0.0-0.7) K/uL Baso # (Auto) 0.0 (0.0-0.1) K/uL Nucleated RBC % 0.0 /100WBC Nucleated RBCs # 0 K/uL ABG pH (7.35-7.45) ABG pCO2 (35-45) mmHG ABG pO2 (75-100) mmHG ABG HCO3 (22-26) mEq/L ABG Total CO2 ABG Base Excess (-2.0-2.0) Lactate (0.20-2.00) mmol/L Sodium (136-148) mmol/L Potassium (3.5-5.1) mmol/L Chloride (98-107) mmol/L Carbon Dioxide (21.0-32.0) mmol/L BUN (7.0-18.0) mg/dL Creatinine (0.8-1.3) mg/dL Est Cr Clr Drug Dosing Estimated GFR (MDRD) ml/min Glucose (74-106) mg/dL POC Glucose (60-110) mg/dL Calcium (8.5-10.1) mg/dL Magnesium (1.8-2.4) mg/dL Total Bilirubin (0.2-1.0) mg/dL AST (15-37) IU/L ALT (14-63) IU/L Alkaline Phosphatase (46-116) U/L Creatine Kinase (26-308) U/L Troponin I 0.203 H* 0.216 H* (0.000-0.056) ng/mL Total Protein (6.4-8.2) g/dL Albumin (3.4-5.0) g/dL Globulin (2.6-4.0) g/dL Albumin/Globulin Ratio (0.9-1.6) Urine Color Urine Appearance Urine pH (5.0-8.0) Ur Specific [place] (1.001-1.035) Urine Protein (NEGATIVE) mg/dL Urine Glucose (UA) (NEGATIVE) mg/dL Urine Ketones (NEGATIVE) mg/dL Urine Occult Blood (NEGATIVE) Urine Nitrite (NEGATIVE) Urine Bilirubin (NEGATIVE) Urine Urobilinogen (<2.0) EU/dL Ur Leukocyte Esterase (NEGATIVE) Urine RBC (0-2/HPF) Urine WBC (0-5/HPF) Ur Epithelial Cells (NONE-FEW) Urine Bacteria (NEGATIVE) Ethyl Alcohol mg/dL Influenza Type A RNA (NEGATIVE) Influenza Type B RNA (NEGATIVE) SARS-CoV-2 RNA (ALEXANDRA) (NEGATIVE) 09/05/20 09/05/20 Range/Units 04:16 12:37 WBC (4.0-11.0) K/uL RBC (4.50-5.90) M/uL Hgb (13.0-17.0) g/dL Hct (38.0-50.0) % MCV (80.0-98.0) fL MCH (27.0-32.0) pg MCHC (31.0-37.0) g/dL RDW Std Deviation (28.0-62.0) fl RDW Coeff of Jasper (11.0-15.0) % Plt Count (150-400) K/uL MPV (7.40-12.00) fL Neut % (Auto) (48.0-80.0) % Lymph % (Auto) (16.0-40.0) % Weber % (Auto) (0.0-15.0) % Eos % (Auto) (0.0-7.0) % Baso % (Auto) (0.0-1.5) % Neut # (Auto) (1.4-5.7) K/uL Lymph # (Auto) (0.6-2.4) K/uL Weber # (Auto) (0.0-0.8) K/uL Eos # (Auto) (0.0-0.7) K/uL Baso # (Auto) (0.0-0.1) K/uL Nucleated RBC % /100WBC Nucleated RBCs # K/uL ABG pH (7.35-7.45) ABG pCO2 (35-45) mmHG ABG pO2 (75-100) mmHG ABG HCO3 (22-26) mEq/L ABG Total CO2 ABG Base Excess (-2.0-2.0) Lactate (0.20-2.00) mmol/L Sodium 140 (136-148) mmol/L Potassium 3.3 L (3.5-5.1) mmol/L Chloride 99 (98-107) mmol/L Carbon Dioxide 30.5 (21.0-32.0) mmol/L BUN 26 H (7.0-18.0) mg/dL Creatinine 0.9 (0.8-1.3) mg/dL Est Cr Clr Drug Dosing 52.18 Estimated GFR (MDRD) > 60.0 ml/min Glucose 96 (74-106) mg/dL POC Glucose 104 (60-110) mg/dL Calcium 8.3 L (8.5-10.1) mg/dL Magnesium 1.9 (1.8-2.4) mg/dL Total Bilirubin 0.4 (0.2-1.0) mg/dL AST 48 H (15-37) IU/L ALT 27 (14-63) IU/L Alkaline Phosphatase 80 (46-116) U/L Creatine Kinase (26-308) U/L Troponin I (0.000-0.056) ng/mL Total Protein 7.4 (6.4-8.2) g/dL Albumin 3.4 (3.4-5.0) g/dL Globulin 4.0 (2.6-4.0) g/dL Albumin/Globulin Ratio 0.9 (0.9-1.6) Urine Color Urine Appearance Urine pH (5.0-8.0) Ur Specific [place] (1.001-1.035) Urine Protein (NEGATIVE) mg/dL Urine Glucose (UA) (NEGATIVE) mg/dL Urine Ketones (NEGATIVE) mg/dL Urine Occult Blood (NEGATIVE) Urine Nitrite (NEGATIVE) Urine Bilirubin (NEGATIVE) Urine Urobilinogen (<2.0) EU/dL Ur Leukocyte Esterase (NEGATIVE) Urine RBC (0-2/HPF) Urine WBC (0-5/HPF) Ur Epithelial Cells (NONE-FEW) Urine Bacteria (NEGATIVE) Ethyl Alcohol mg/dL Influenza Type A RNA (NEGATIVE) Influenza Type B RNA (NEGATIVE) SARS-CoV-2 RNA (ALEXANDRA) (NEGATIVE) Med Orders - Current: Current Medications Acetaminophen (Tylenol) 650 mg PO Q4H PRN PRN Reason: Pain (Mild 1-3)/fever Aspirin (Aspirin) 81 mg PO DAILY [facility] Last Admin: 09/05/20 09:05 Dose: 81 mg Documented by: Enoxaparin Sodium (Lovenox) 75 mg 1 mg/kg (75 mg) SUBCUT DAILY@1700 [facility] Stop: 09/07/20 21:00 Furosemide (Lasix) 40 mg IV BID [facility] Last Admin: 09/05/20 08:59 Dose: 40 mg Documented by: Gabapentin (Neurontin) 100 mg PO BEDTIME [facility] Last Admin: 09/04/20 22:43 Dose: 100 mg Documented by: Heparin Sodium (Porcine) (Heparin Sodium) 5,000 units SUBCUT Q12H [facility] Azithromycin 500 mg/ Sodium (Chloride) 250 mls @ 250 mls/hr IV Q24H [facility] Last Admin: 09/04/20 22:42 Dose: 250 mls/hr Documented by: Ceftriaxone Sodium/Dextrose 1 (gm/ Premix) 50 mls @ 100 mls/hr IV Q24H [facility] Lactated Ringer's (Ringers, Lactated) 500 mls @ 999 mls/hr IV ASDIRECTED [facility] Levetiracetam (Keppra) 250 mg PO DAILY@1700 [facility] Levothyroxine Sodium (Levothyroxine) 25 mcg PO ACBREAKFAST [facility] Metoprolol Tartrate (Lopressor) 25 mg PO BID [facility] Last Admin: 09/05/20 09:06 Dose: 25 mg Documented by: Ondansetron HCl (Zofran Odt) 4 mg PO Q4H PRN PRN Reason: nausea, able to take PO Pantoprazole Sodium (Protonix) 40 mg PO ACBREAKFAST [facility] Tamsulosin HCl (Flomax) 0.4 mg PO WITHRAOUL [facility] Discontinued Medications Azithromycin (Zithromax) 500 mg IV Q24H [facility] Last Admin: 09/04/20 22:45 Dose: Not Given Documented by: Ceftriaxone Sodium (Rocephin) 1 gm IVPUSH Q24H [facility] Last Admin: 09/04/20 20:33 Dose: 1 gm Documented by: Dextrose/Water (Dextrose 50% In Water) 50 ml IVPUSH ONETIME ONE Stop: 09/05/20 12:42 Enoxaparin Sodium (Lovenox) 75 mg 1 mg/kg (75 mg) SUBCUT NOW STA Stop: 09/04/20 18:49 Last Admin: 09/04/20 20:34 Dose: Not Given Documented by: Enoxaparin Sodium (Lovenox) 75 mg 1 mg/kg (75 mg) SUBCUT DAILY [facility] Stop: 09/07/20 21:00 Last Admin: 09/05/20 11:12 Dose: Not Given Documented by: Furosemide (Lasix) 40 mg PO DAILY [facility] Last Admin: 09/05/20 09:20 Dose: Not Given Documented by: Furosemide (Lasix) 40 mg IVPUSH NOW ONE Stop: 09/04/20 19:45 Last Admin: 09/04/20 20:33 Dose: 40 mg Documented by: Haloperidol Lactate (Haldol) 1 mg IM Q6H PRN PRN Reason: Agitation Haloperidol Lactate (Haldol) Confirm Administered Dose 5 mg .ROUTE .STK-MED ONE Stop: 09/05/20 02:17 Last Admin: 09/05/20 02:45 Dose: 5 mg Documented by: Heparin Sodium (Porcine) (Heparin Sodium) 5,000 units SUBCUT Q12H [facility] Last Admin: 09/04/20 20:33 Dose: 5,000 units Documented by: Heparin Sodium (Porcine) (Heparin Sodium) 5,000 units SUBCUT Q12H [facility] Last Admin: 09/05/20 09:03 Dose: 5,000 units Documented by: Furosemide 40 mg/ Sodium (Chloride) 54 mls @ 100 mls/hr IV BID [facility] Last Admin: 09/04/20 22:44 Dose: Not Given Documented by: Pantoprazole Sodium 40 mg/ (Sodium Chloride) 10 mls @ 300 mls/hr IV DAILY [facility] Last Admin: 09/05/20 08:55 Dose: 300 mls/hr Documented by: Lactated Ringer's (Ringers, Lactated) 1,000 mls @ 999 mls/hr IV ASDIRECTED [facility] Levetiracetam (Keppra) 250 mg PO BID [facility] Last Admin: 09/05/20 11:12 Dose: Not Given Documented by: Levetiracetam (Keppra) 250 mg PO BID [facility] Last Admin: 09/05/20 09:59 Dose: 250 mg Documented by: Levothyroxine Sodium (Levothyroxine) 12.5 mcg PO DAILY [facility] Last Admin: 09/05/20 09:05 Dose: 12.5 mcg Documented by: Lorazepam (Ativan) 1 mg IVPUSH Q6H PRN PRN Reason: Agitation Last Admin: 09/05/20 02:30 Dose: 1 mg Documented by: Metoprolol Tartrate (Lopressor) 25 mg PO BID [facility] Last Admin: 09/04/20 20:33 Dose: 25 mg Documented by: Non-Formulary Medication (Prednisolone Acetate/Pf [Prednisolone Acet 1% Eye Drop]) 1 drop EYEBOTH BID [facility] Last Admin: 09/05/20 09:02 Dose: Not Given Documented by: - Exam Quality Assessment: DVT Prophylaxis. No: Supplemental Oxygen General: Alert, Oriented, Cooperative, No Acute Distress Lungs: Decreased Breath Sounds (Bibasilar), Crackles (Bibasilar), Other (Moist congested cough) Cardiovascular: Regular Rate, Regular Rhythm GI/Abdominal Exam: Normal Bowel Sounds, Soft, Non-Tender Back Exam: Normal Inspection, Full Range of Motion Extremities: Normal Inspection, Normal Range of Motion, Non-Tender, Pedal Edema (+1 pitting edema bilateral lower extremities) Wound/Incisions: Healing Well Neurological: No New Focal Deficit Psy/Mental Status: Alert, Normal Affect, Normal Mood Sepsis Event Note - Evaluation Sepsis Screening Result: No Definite Risk - Focused Exam Vital Signs: Vital Signs Temp Pulse Pulse Pulse Resp BP BP 09/05/20 13:21 66 157/87 H 09/05/20 11:15 97.2 F 65 65 20 127/73 09/05/20 09:06 85 160/93 H 09/05/20 08:50 97.6 F 88 20 160/93 H 09/05/20 02:49 97.4 F 66 18 134/79 Pulse Ox 09/05/20 13:21 98 09/05/20 11:15 92 L 09/05/20 09:06 09/05/20 08:50 95 09/05/20 02:49 93 L - Problem List & Annotations (1) Diastolic heart failure SNOMED Code(s): 302218712 Code(s): I50.30 - UNSPECIFIED DIASTOLIC (CONGESTIVE) HEART FAILURE Status: Chronic Current Visit: No Qualifiers: Heart failure chronicity: acute on chronic Qualified Code(s): I50.33 - Acute on chronic diastolic (congestive) heart failure (2) NSTEMI (non-ST elevated myocardial infarction) SNOMED Code(s): 34360337 Code(s): I21.4 - NON-ST ELEVATION (NSTEMI) MYOCARDIAL INFARCTION Status: Acute Current Visit: No (3) COVID-19 SNOMED Code(s): 011128718 Code(s): U07.1 - COVID-19 Status: Acute Current Visit: Yes (4) History of prostate cancer SNOMED Code(s): 451170731 Code(s): Z85.46 - PERSONAL HISTORY OF MALIGNANT NEOPLASM OF PROSTATE St atus: Chronic Current Visit: No (5) CAD (coronary artery disease) SNOMED Code(s): 32419039 Code(s): I25.10 - ATHSCL HEART DISEASE OF [place] CORONARY ARTERY W/O ANG PCTRS Status: Chronic Current Visit: No (6) Elevated troponin SNOMED Code(s): 799366571, 991842320, 312018312 Code(s): R74.8 - ABNORMAL LEVELS OF OTHER SERUM ENZYMES Status: Chronic Current Visit: No (7) HTN (hypertension) SNOMED Code(s): 65520385 Code(s): I10 - ESSENTIAL (PRIMARY) HYPERTENSION Status: Chronic Current Visit: No Qualifiers: Hypertension type: essential hypertension Qualified Code(s): I10 - Essential (primary) hypertension (8) Hx of CABG SNOMED Code(s): 305610960, 224643224 Code(s): Z95.1 - PRESENCE OF AORTOCORONARY BYPASS GRAFT Status: Chronic Current Visit: No (9) Hx of aortic valve replacement SNOMED Code(s): 8971635936345, 142511383, 7178120914198 Code(s): Z95.2 - PRESENCE OF PROSTHETIC HEART VALVE Status: Chronic Current Visit: No Annotation/Comment:: Bioprothestic placed in 2012 (10) Hx of mitral valve replacement SNOMED Code(s): 8224126030790, 4879589165555 Code(s): Z95.2 - PRESENCE OF PROSTHETIC HEART VALVE Status: Chronic Current Visit: No Annotation/Comment:: Bioprothestic placed in 2012 (11) Prostate CA SNOMED Code(s): 900158516 Code(s): C61 - MALIGNANT NEOPLASM OF PROSTATE Status: Chronic Current Visit: No (12) Pulmonary hypertension SNOMED Code(s): 41025750 Code(s): I27.20 - PULMONARY HYPERTENSION, UNSPECIFIED Status: Chronic Current Visit: No (13) Seizure disorder SNOMED Code(s): 708608567 Code(s): G40.909 - EPILEPSY, UNSP, NOT INTRACTABLE, WITHOUT STATUS EPILEPTICUS Status: Chronic Current Visit: No (14) TIA (transient ischemic attack) SNOMED Code(s): 727138218 Code(s): G45.9 - TRANSIENT CEREBRAL ISCHEMIC ATTACK, UNSPECIFIED Status: Chronic Current Visit: No - Problem List Review Problem List Initiated/Reviewed/Updated: Yes - My Orders Last 24 Hours: My Active Orders 09/05/20 13:25 Lactated Ringers [Ringers, Lactated] 500 ml IV ASDIRECTED 09/05/20 17:00 Enoxaparin [Lovenox] 75 mg SUBCUT DAILY@1700 09/06/20 07:30 Pantoprazole [ProTONIX] 40 mg PO ACBREAKFAST 09/06/20 17:00 levETIRAcetam [Keppra] 250 mg PO DAILY@1700 - Plan Plan:: Patient is an 85-year-old gentleman with a past medical history of coronary artery disease, [place], valve replacement, hypertension, hyperlipidemia. Was admitted due to altered mental status and possible pneumonia causing heart failure. 1. Possible CAP: Chest x-ray indicated pulmonary edema or recurrent pneumonia Continue Rocephin and azithromycin - Encourage coughing and deep breathing along with incentive spirometer 2. Acute on chronic diastolic heart failure with NSTEMI: Continue Lasix 40 mg IV twice daily -Strict I's and O's, daily weight, heart healthy diet, low sodium 2 L fluid restriction -Recent echo showed EF of 55% with severe concentric hypertrophy and poor LV compliance and likely pulmonary hypertension -Troponin remains elevated patient and family have declined aggressive treatment continue palliative care at this time for NSTEMI -Continue Lovenox full dose x48 hours -Continue metoprolol -Monitor on telemetry -Has history of hypertension and valvular heart disease continue aspirin patient is statin intolerant 3. Altered mental status: Likely secondary to COVID-19 infection and NSTEMI along with possible CAP -Head CT negative 4. COVID-19 -No hypoxia noted. -Supportive care at this time -Daughter has requested confirmatory testing with a send out to the state lab. Swab taken this a.m. and sent out to this afternoon. -Not currently meeting guidelines for remdesivir or dexamethasone treatment. Daughter request prior to these being started if needed she would like to be notified. 5. Seizure disorder -Keppra dose at home is 250 mg daily Will change to once daily. Patient daughter states that he becomes lethargic with dosing of Keppra in the afternoon and has only been giving it in the evenings at home. VTE prophylaxis: Lovenox full dose at this time then Heparin SQ CODE STATUS: DNR/DNI Dispo: 2 to 3 days pending improvement
[2020-09-05] MEDS ORDERED: Potassium Chloride 10 MEQ Tab.ER PO ONE (13:56)
[2020-09-05] MEDS: Tamsulosin 0.4 MG Cap.ER PO SCH (17:19)
[2020-09-05] MEDS: Enoxaparin 100 MG/1 ML Syringe SUBCUT SCH (17:20)
[2020-09-05] MEDS: Gabapentin 100 MG Cap PO SCH (20:54)
[2020-09-05] MEDS: cefTRIAXone 1 GM in Premix Bag 1 BAG IV SCH (21:02)
[2020-09-05] MEDS: Azithromycin 500 MG in Sodium Chloride 0.9% 250 ML IV SCH (21:43)
[2020-09-06] MEDS: Pantoprazole 40 MG Tab.CR PO SCH ×2 (06:05→07:36)
[2020-09-06] MEDS: Levothyroxine 25 MCG Tab PO SCH ×2 (06:08→07:39)
[2020-09-06 06:50] LABS: BLOOD UREA NITROGEN,BUN 27 mg/dL (7.0-18.0); CARBON DIOXIDE,CO2 33.8 mmol/L (21.0-32.0); CHLORIDE,CL 100 mmol/L (98-107); GLUCOSE RANDOM 99 mg/dL (74-106); POTASSIUM,K 3.3 mmol/L (3.5-5.1); SODIUM,NA 140 mmol/L (136-148)
[2020-09-06] MEDS: Furosemide 40 MG/4 ML VIAL IV SCH ×2 (08:24→20:21)
[2020-09-06] MEDS: Metoprolol Tartrate 25 MG Tab PO SCH ×2 (08:31→20:21)
[2020-09-06] MEDS: Aspirin 81 MG Tab.Chew PO SCH (08:31)
--- NOTE | 2020-09-06 09:29 | PCM.PN ---
- General Info Date of Service: 09/06/20 Admission Dx/Problem (Free Text): Admission Diagnosis/Problem Admission Diagnosis/Problem Altered mental status Subjective Update: Alert and oriented this morning. He was up ambulating to the bathroom with assist of SALAD CHEF. He is eating breakfast and SALAD CHEF said he was eating a good amount. He denies any chest pain or shortness of breath. He reports that the shortness of breath has always been there and feels like it is no different. He is asking about going home. As he does not want to stay in the hospital any longer. Communication with Jonathon is best used with pen and paper as he has a very hard time hearing and is not able to read lips due to masking. Functional Status: Reports: Pain Controlled, Tolerating Diet, Ambulating - Review of Systems General: Reports: No Symptoms. Denies: Weakness, Fatigue HEENT: Reports: No Symptoms. Denies: Glasses, Sore Throat, Visual Changes Pulmonary: Reports: Shortness of Breath (Reports this is at baseline), Cough Cardiovascular: Reports: No Symptoms. Denies: Chest Pain Gastrointestinal: Reports: No Symptoms. Denies: Abdominal Pain, Nausea, Vomiting Genitourinary: Reports: No Symptoms. Denies: Dysuria, Frequency, Burning Musculoskeletal: Reports: No Symptoms Skin: Reports: No Symptoms Neurological: Reports: No Symptoms Psychiatric: Reports: No Symptoms - Patient Data Vitals - Most Recent: Last Vital Signs Temp 97.5 F 09/06/20 08:18 Pulse 66 09/06/20 08:31 Resp 20 09/06/20 08:18 BP 154/91 H 09/06/20 08:31 Pulse Ox 94 L 09/06/20 08:18 Weight - Most Recent: 73.845 kg I&O - Last 24 Hours: Intake & Output 09/05/20 09/06/20 09/06/20 22:59 06:59 14:59 Intake Total 1120 370 Output Total 1669 134 Balance -549 236 Lab Results Last 24 Hours: Laboratory Results - last 24 hr 09/05/20 09/05/20 09/05/20 Range/Units 12:37 13:09 13:29 WBC (4.0-11.0) K/uL RBC (4.50-5.90) M/uL Hgb (13.0-17.0) g/dL Hct (38.0-50.0) % MCV (80.0-98.0) fL MCH (27.0-32.0) pg MCHC (31.0-37.0) g/dL RDW Std Deviation (28.0-62.0) fl RDW Coeff of [place]asper (11.0-15.0) % Plt Count (150-400) K/uL MPV (7.40-12.00) fL Neut % (Auto) (48.0-80.0) % Lymph % (Auto) (16.0-40.0) % Mcculloch % (Auto) (0.0-15.0) % Eos % (Auto) (0.0-7.0) % Baso % (Auto) (0.0-1.5) % Neut # (Auto) (1.4-5.7) K/uL Lymph # (Auto) (0.6-2.4) K/uL M[place]ulloch # (Auto) (0.0-0.8) K/uL Eos # (Auto) (0.0-0.7) K/uL Baso # (Auto) (0.0-0.1) K/uL Nucleated RBC % /100WBC Nucleated RBCs # K/uL Sodium (136-148) mmol/L Potassium (3.5-5.1) mmol/L Chloride (98-107) mmol/L Carbon Dioxide (21.0-32.0) mmol/L BUN (7.0-18.0) mg/dL Creatinine (0.8-1.3) mg/dL Est Cr Clr Drug Dosing mL/min Estimated GFR (MDRD) ml/min Glucose (74-106) mg/dL POC Glucose 104 185 H (60-110) mg/dL Calcium (8.5-10.1) mg/dL Phosphorus (2.6-4.7) mg/dL Magnesium (1.8-2.4) mg/dL Total Bilirubin (0.2-1.0) mg/dL AST (15-37) IU/L ALT (14-63) IU/L Alkaline Phosphatase (46-116) U/L Troponin I 0.217 H* (0.000-0.056) ng/mL Total Protein (6.4-8.2) g/dL Albumin (3.4-5.0) g/dL Globulin (2.6-4.0) g/dL Albumin/Globulin Ratio (0.9-1.6) 09/06/20 09/06/20 Range/Units 06:18 06:18 WBC 4.30 (4.0-11.0) K/uL RBC 4.08 L (4.50-5.90) M/uL Hgb 12.4 L (13.0-17.0) g/dL Hct 38.6 (38.0-50.0) % MCV 94.6 (80.0-98.0) fL MCH 30.4 (27.0-32.0) pg MCHC 32.1 (31.0-37.0) g/dL RDW Std Deviation 49.5 (28.0-62.0) fl RDW Coeff of Jasper 14 (11.0-15.0) % Plt Count 148 L (150-400) K/uL MPV 9.90 (7.40-12.00) fL Neut % (Auto) 63.7 (48.0-80.0) % Lymph % (Auto) 23.0 (16.0-40.0) % M[place]och % (Auto) 11.4 (0.0-15.0) % Eos % (Auto) 1.9 (0.0-7.0) % Baso % (Auto) 0.0 (0.0-1.5) % Neut # (Auto) 2.7 (1.4-5.7) K/uL Lymph # (Auto) 1.0 (0.6-2.4) K/uL M[place]ulloch # (Auto) 0.5 (0.0-0.8) K/uL Eos # (Auto) 0.1 (0.0-0.7) K/uL Baso # (Auto) 0.0 (0.0-0.1) K/uL Nucleated RBC % 0.0 /100WBC Nucleated RBCs # 0 K/uL Sodium 140 (136-148) mmol/L Potassium 3.3 L (3.5-5.1) mmol/L Chloride 100 (98-107) mmol/L Carbon Dioxide 33.8 H (21.0-32.0) mmol/L BUN 27 H (7.0-18.0) mg/dL Creatinine 1.0 (0.8-1.3) mg/dL Est Cr Clr Drug Dosing 46.96 mL/min Estimated GFR (MDRD) > 60.0 ml/min Glucose 99 (74-106) mg/dL POC Glucose (60-110) mg/dL Calcium 8.4 L (8.5-10.1) mg/dL Phosphorus 3.3 (2.6-4.7) mg/dL Magnesium 1.9 (1.8-2.4) mg/dL Total Bilirubin 0.6 (0.2-1.0) mg/dL AST 47 H (15-37) IU/L ALT 34 (14-63) IU/L Alkaline Phosphatase 79 (46-116) U/L Troponin I (0.000-0.056) ng/mL Total Protein 7.6 (6.4-8.2) g/dL Albumin 3.3 L (3.4-5.0) g/dL Globulin 4.3 H (2.6-4.0) g/dL Albumin/Globulin Ratio 0.8 L (0.9-1.6) Med Orders - Current: Current Medications Acetaminophen (Tylenol) 650 mg PO Q4H PRN PRN Reason: Pain (Mild 1-3)/fever Aspirin (Aspirin) 81 mg PO DAILY [facility] Last Admin: 09/06/20 08:31 Dose: 81 mg Documented by: Enoxaparin Sodium (Lovenox) 75 mg 1 mg/kg (75 mg) SUBCUT DAILY@1700 [facility] Stop: 09/07/20 21:00 Last Admin: 09/05/20 17:20 Dose: 75 mg Documented by: Furosemide (Lasix) 40 mg IV BID [facility] Last Admin: 09/06/20 08:24 Dose: 40 mg Documented by: Gabapentin (Neurontin) 100 mg PO BEDTIME [facility] Last Admin: 09/05/20 20:54 Dose: 100 mg Documented by: Heparin Sodium (Porcine) (Heparin Sodium) 5,000 units SUBCUT Q12H [facility] Azithromycin 500 mg/ Sodium (Chloride) 250 mls @ 250 mls/hr IV Q24H [facility] Last Admin: 09/05/20 21:43 Dose: 250 mls/hr Documented by: Ceftriaxone Sodium/Dextrose 1 (gm/ Premix) 50 mls @ 100 mls/hr IV Q24H [facility] Last Admin: 09/05/20 21:02 Dose: 100 mls/hr Documented by: Lactated Ringer's (Ringers, Lactated) 500 mls @ 999 mls/hr IV ASDIRECTED [facility] Last Admin: 09/05/20 12:50 Dose: 999 mls/hr Documented by: Levetiracetam (Keppra) 250 mg PO DAILY@1700 [facility] Levothyroxine Sodium (Levothyroxine) 25 mcg PO ACBREAKFAST [facility] Last Admin: 09/06/20 07:39 Dose: Not Given Documented by: Metoprolol Tartrate (Lopressor) 25 mg PO BID [facility] Last Admin: 09/06/20 08:31 Dose: 25 mg Documented by: Ondansetron HCl (Zofran Odt) 4 mg PO Q4H PRN PRN Reason: nausea, able to take PO Pantoprazole Sodium (Protonix) 40 mg PO ACBREAKFAST [facility] Last Admin: 09/06/20 07:36 Dose: Not Given Documented by: Tamsulosin HCl (Flomax) 0.4 mg PO WITHDINNER [facility] Last Admin: 09/05/20 17:19 Dose: 0.4 mg Documented by: Discontinued Medications Azithromycin (Zithromax) 500 mg IV Q24H [facility] Last Admin: 09/04/20 22:45 Dose: Not Given Documented by: Ceftriaxone Sodium (Rocephin) 1 gm IVPUSH Q24H [facility] Last Admin: 09/04/20 20:33 Dose: 1 gm Documented by: Dextrose/Water (Dextrose 50% In Water) 50 ml IVPUSH ONETIME ONE Stop: 09/05/20 12:42 Last Admin: 09/05/20 12:50 Dose: 50 ml Documented by: Enoxaparin Sodium (Lovenox) 75 mg 1 mg/kg (75 mg) SUBCUT NOW [facility] Stop: 09/04/20 18:49 Last Admin: 09/04/20 20:34 Dose: Not Given Documented by: Enoxaparin Sodium (Lovenox) 75 mg 1 mg/kg (75 mg) SUBCUT DAILY [facility] Stop: 09/07/20 21:00 Last Admin: 09/05/20 11:12 Dose: Not Given Documented by: Furosemide (Lasix) 40 mg PO DAILY [facility] Last Admin: 09/05/20 09:20 Dose: Not Given Documented by: Furosemide (Lasix) 40 mg IVPUSH NOW ONE Stop: 09/04/20 19:45 Last Admin: 09/04/20 20:33 Dose: 40 mg Documented by: Haloperidol Lactate (Haldol) 1 mg IM Q6H PRN PRN Reason: Agitation Haloperidol Lactate (Haldol) Confirm Administered Dose 5 mg .ROUTE .STK-MED ONE Stop: 09/05/20 02:17 Last Admin: 09/05/20 02:45 Dose: 5 mg Documented by: Heparin Sodium (Porcine) (Heparin Sodium) 5,000 units SUBCUT Q12H [facility] Last Admin: 09/04/20 20:33 Dose: 5,000 units Documented by: Heparin Sodium (Porcine) (Heparin Sodium) 5,000 units SUBCUT Q12H [facility] Last Admin: 09/05/20 09:03 Dose: 5,000 units Documented by: Furosemide 40 mg/ Sodium (Chloride) 54 mls @ 100 mls/hr IV BID [facility] Last Admin: 09/04/20 22:44 Dose: Not Given Documented by: Pantoprazole Sodium 40 mg/ (Sodium Chloride) 10 mls @ 300 mls/hr IV DAILY [facility] Last Admin: 09/05/20 08:55 Dose: 300 mls/hr Documented by: Lactated Ringer's (Ringers, Lactated) 1,000 mls @ 999 mls/hr IV ASDIRECTED [facility] Levetiracetam (Keppra) 250 mg PO BID [facility] Last Admin: 09/05/20 11:12 Dose: Not Given Documented by: Levetiracetam (Keppra) 250 mg PO BID [facility] Last Admin: 09/05/20 09:59 Dose: 250 mg Documented by: Levothyroxine Sodium (Levothyroxine) 12.5 mcg PO DAILY [facility] Last Admin: 09/05/20 09:05 Dose: 12.5 mcg Documented by: Lorazepam (Ativan) 1 mg IVPUSH Q6H PRN PRN Reason: Agitation Last Admin: 09/05/20 02:30 Dose: 1 mg Documented by: Metoprolol Tartrate (Lopressor) 25 mg PO BID [facility] Last Admin: 09/04/20 20:33 Dose: 25 mg Documented by: Non-Formulary Medication (Prednisolone Acetate/Pf [Prednisolone Acet 1% Eye Drop]) 1 drop EYEBOTH BID [facility] Last Admin: 09/05/20 09:02 Dose: Not Given Documented by: Potassium Chloride (Klor-Con 10) 40 meq PO ONETIME ONE Stop: 09/05/20 13:57 Last Admin: 09/05/20 14:35 Dose: 40 meq Documented by: - Exam General: Alert, Oriented, Cooperative, No Acute Distress Neck: Supple Lungs: Clear to Auscultation, Normal Respiratory Effort, Other (Has moist bronchial sounds but these clear significantly with coughing.) Cardiovascular: Regular Rate, Regular Rhythm GI/Abdominal Exam: Normal Bowel Sounds, Soft, Non-Tender Extremities: Normal Inspection, Normal Range of Motion, Non-Tender, Pedal Edema (+1 bilateral pitting edema lower extremities much improved from yesterday.) Neurological: No New Focal Deficit Psy/Mental Status: Alert, Normal Affect, Normal Mood Sepsis Event Note - Evaluation Sepsis Screening Result: No Definite Risk - Focused Exam Vital Signs: Vital Signs Temp Pulse Pulse Resp BP BP Pulse Ox 09/06/20 08:31 66 154/91 H 09/06/20 08:18 97.5 F 66 20 154/91 H 94 L 09/06/20 04:12 97.2 F 64 18 130/75 96 09/06/20 01:00 97 F 76 20 124/61 94 L - Problem List & Annotations (1) Diastolic heart failure SNOMED Code(s): 125854008 Code(s): I50.30 - UNSPECIFIED DIASTOLIC (CONGESTIVE) HEART FAILURE Status: Chronic Current Visit: No Qualifiers: Heart failure chronicity: acute on chronic Qualified Code(s): I50.33 - Acute on chronic diastolic (congestive) heart failure (2) NSTEMI (non-ST elevated myocardial infarction) SNOMED Code(s): 73341097 Code(s): I21.4 - NON-ST ELEVATION (NSTEMI) MYOCARDIAL INFARCTION Status: Acute Current Visit: No (3) COVID-19 SNOMED Code(s): 521195867 Code(s): U07.1 - COVID-19 Status: Acute Current Visit: Yes (4) History of prostate cancer SNOMED Code(s): 483551901 Code(s): Z85.46 - PERSONAL HISTORY OF MALIGNANT NEOPLASM OF PROSTATE Status: Chronic Current Visit: No (5) CAD (coronary artery disease) SNOMED Code(s): 81097201 Code(s): I25.10 - ATHSCL HEART DISEASE OF [place] CORONARY ARTERY W/O ANG PCTRS Status: Chronic Current Visit: No (6) Elevated troponin SNOMED Code(s): 171480176, 390252719, 967685465 Code(s): R74.8 - ABNORMAL LEVELS OF OTHER SERUM ENZYMES Status: Chronic Current Visit: No (7) HTN (hypertension) SNOMED Code(s): 64502819 Code(s): I10 - ESSENTIAL (PRIMARY) HYPERTENSION Status: Chronic Current Visit: No Qualifiers: Hypertension type: essential hypertension Qualified Code(s): I10 - Essential (primary) hypertension (8) Hx of CABG SNOMED Code(s): 323928629, 569139666 Code(s): Z95.1 - PRESENCE OF AORTOCORONARY BYPASS GRAFT Status: Chronic Current Visit: No (9) Hx of aortic valve replacement SNOMED Code(s): 5788247072019, 014277547, 2265078642280 Code(s): Z95.2 - PRESENCE OF PROSTHETIC HEART VALVE Status: Chronic Current Visit: No Annotation/Comment:: Bioprothestic placed in 2013 (10) Hx of mitral valve replacement SNOMED Code(s): 7720025418804, 9745019390352 Code(s): Z95.2 - PRESENCE OF PROSTHETIC HEART VALVE Status: Chronic Current Visit: No Annotation/Comment:: Bioprothestic placed in 2012 (11) Prostate CA SNOMED Code(s): 658046446 Code(s): C61 - MALIGNANT NEOPLASM OF PROSTATE Status: Chronic Current Visit: No (12) Pulmonary hypertension SNOMED Code(s): 44007668 Code(s): I27.20 - PULMONARY HYPERTENSION, UNSPECIFIED Status: Chronic Current Visit: No (13) Seizure disorder SNOMED Code(s): 582607027 Code(s): G40.909 - EPILEPSY, UNSP, NOT INTRACTABLE, WITHOUT STATUS EPILEPTICUS Status: Chronic Current Visit: No (14) TIA (transient ischemic attack) SNOMED Code(s): 881087019 Code(s): G45.9 - TRANSIENT CEREBRAL ISCHEMIC ATTACK, UNSPECIFIED Status: Chronic Current Visit: No - Problem List Review Problem List Initiated/Reviewed/Updated: Yes - My Orders Last 24 Hours: My Active Orders 09/05/20 13:25 Lactated Ringers [Ringers, Lactated] 500 ml IV ASDIRECTED 09/05/20 14:49 Daily Weight [Height and Weight] [RC] DAILY Intake and Output Strict [RC] ASDIRECTED 09/05/20 17:00 Enoxaparin [Lovenox] 75 mg SUBCUT DAILY@1700 09/06/20 07:30 Pantoprazole [ProTONIX] 40 mg PO ACBREAKFAST 09/06/20 17:00 levETIRAcetam [Keppra] 250 mg PO DAILY@1700 09/07/20 05:11 MAGNESIUM [CHEM] AM PHOSPHORUS [CHEM] AM 09/08/20 05:11 MAGNESIUM [CHEM] AM PHOSPHORUS [CHEM] AM - Plan Plan:: Patient is an 85-year-old gentleman with a past medical history of coronary artery disease, [place], valve replacement, hypertension, hyperlipidemia. Was admitted due to altered mental status and possible pneumonia causing heart failure. 1. Possible CAP: Chest x-ray indicated pulmonary edema or recurrent pneumonia Continue Rocephin and azithromycin - Encourage coughing and deep breathing along with incentive spirometer 2. Acute on chronic diastolic heart failure with NSTEMI: Continue Lasix 40 mg IV twice daily diuresing well -Strict I's and O's, daily weight, heart healthy diet, low sodium 2 L fluid restriction -Recent echo showed EF of 55% with severe concentric hypertrophy and poor LV compliance and likely pulmonary hypertension -Troponin remains elevated patient and family have declined aggressive treatment continue palliative care at this time for NSTEMI -Continue Lovenox full dose x48 hours -Continue metoprolol -Monitor on telemetry -Has history of hypertension and valvular heart disease continue aspirin patient is statin intolerant 3. Altered mental status: Back to baseline likely secondary to acute illness 4. COVID-19 -No hypoxia noted. -Supportive care at this time -Confirmatory Covid testing pending. -Not currently meeting guidelines for remdesivir or dexamethasone treatment. Daughter request prior to these being started if needed she would like to be notified. 5. Seizure disorder -Keppra dose at home is 250 mg daily VTE prophylaxis: Lovenox full dose at this time then Heparin SQ CODE STATUS: DNR/DNI Dispo: Possible discharge in a.m. 09/06/2020 : attempted to call daughter Aggie this afternoon. No answer and mailbox is full. Will update if she calls later today.
[2020-09-06] MEDS ORDERED: Potassium Chloride 20 MEQ Tab.ER PO ONE (11:21)
[2020-09-06] MEDS: levETIRAcetam Soln 500 MG/5 ML Cup PO SCH (16:53)
[2020-09-06] MEDS: Tamsulosin 0.4 MG Cap.ER PO SCH (16:54)
[2020-09-06] MEDS: Enoxaparin 100 MG/1 ML Syringe SUBCUT SCH (16:55)
[2020-09-06] MEDS ORDERED: LORazepam 2 MG/ML SDV IVPUSH PRN (20:07)
[2020-09-06] MEDS: cefTRIAXone 1 GM in Premix Bag 1 BAG IV SCH (20:19)
[2020-09-06] MEDS: Azithromycin 500 MG in Sodium Chloride 0.9% 250 ML IV SCH ×2 (20:20→21:59)
[2020-09-06] MEDS: Gabapentin 100 MG Cap PO SCH ×2 (20:21→20:25)
[2020-09-07] MEDS: Metoprolol Tartrate 25 MG Tab PO SCH ×3 (01:03→20:32)
[2020-09-07 06:17] LABS: BLOOD UREA NITROGEN,BUN 23 mg/dL (7.0-18.0); CARBON DIOXIDE,CO2 33.7 mmol/L (21.0-32.0); CHLORIDE,CL 100 mmol/L (98-107); GLUCOSE RANDOM 100 mg/dL (74-106); POTASSIUM,K 3.6 mmol/L (3.5-5.1); SODIUM,NA 139 mmol/L (136-148)
[2020-09-07] MEDS: Levothyroxine 25 MCG Tab PO SCH (08:26)
[2020-09-07] MEDS: Pantoprazole 40 MG Tab.CR PO SCH (08:27)
[2020-09-07] MEDS: Furosemide 40 MG/4 ML VIAL IV SCH ×2 (08:27→20:32)
[2020-09-07] MEDS: Aspirin 81 MG Tab.Chew PO SCH (08:31)
--- NOTE | 2020-09-07 09:38 | PCM.PN ---
- General Info Date of Service: 09/07/20 Admission Dx/Problem (Free Text): Admission Diagnosis/Problem Admission Diagnosis/Problem Altered mental status Subjective Update: Denies chest pain or SOB. NO concerns today. I did discuss with him that his daughter has concerns about his strength and would like him to go to [place] for short period of time to get stronger before returning home. He was not happy with this but did not say no. Functional Status: Reports: Pain Controlled, Tolerating Diet, Ambulating (needs 1 assist and is very weak) - Review of Systems General: Reports: No Symptoms. Denies: Weakness, Fatigue, Malaise HEENT: Reports: No Symptoms. Denies: Headaches, Sore Throat, Visual Changes Pulmonary: Reports: Shortness of Breath (at baseline) Cardiovascular: Reports: No Symptoms. Denies: Chest Pain Gastrointestinal: Reports: No Symptoms. Denies: Abdominal Pain, Nausea, Vomiting Genitourinary: Reports: No Symptoms. Denies: Dysuria, Frequency, Burning Musculoskeletal: Reports: No Symptoms Skin: Reports: No Symptoms Neurological: Reports: No Symptoms Psychiatric: Reports: No Symptoms - Patient Data Vitals - Most Recent: Last Vital Signs Temp 96.9 F 09/07/20 04:00 Pulse 86 09/07/20 08:31 Resp 20 09/07/20 04:00 BP 143/84 H 09/07/20 08:31 Pulse Ox 96 09/07/20 04:00 Weight - Most Recent: 74.162 kg I&O - Last 24 Hours: Intake & Output 09/06/20 09/07/20 09/07/20 22:59 06:59 14:59 Intake Total 575 500 Output Total 620 722 Balance -45 -222 Lab Results Last 24 Hours: Laboratory Results - last 24 hr 09/05/20 09/07/20 09/07/20 Range/Units 13:35 05:24 05:24 WBC 3.61 L (4.0-11.0) K/uL RBC 3.97 L (4.50-5.90) M/uL Hgb 12.1 L (13.0-17.0) g/dL Hct 37.5 L (38.0-50.0) % MCV 94.5 (80.0-98.0) fL MCH 30.5 (27.0-32.0) pg MCHC 32.3 (31.0-37.0) g/dL RDW Std Deviation 48.1 (28.0-62.0) fl RDW Coeff of [place] 14 (11.0-15.0) % Plt Count 151 (150-400) K/uL MPV 10.50 (7.40-12.00) fL Neut % (Auto) 64.0 (48.0-80.0) % Lymph % (Auto) 16.6 (16.0-40.0) % [place] % (Auto) 15.0 (0.0-15.0) % Eos % (Auto) 4.4 (0.0-7.0) % Baso % (Auto) 0.0 (0.0-1.5) % Neut # (Auto) 2.3 (1.4-5.7) K/uL Lymph # (Auto) 0.6 (0.6-2.4) K/uL [place] # (Auto) 0.5 (0.0-0.8) K/uL Eos # (Auto) 0.2 (0.0-0.7) K/uL Baso # (Auto) 0.0 (0.0-0.1) K/uL Nucleated RBC % 0.0 /100WBC Nucleated RBCs # 0 K/uL Sodium 139 (136-148) mmol/L Potassium 3.6 (3.5-5.1) mmol/L Chloride 100 (98-107) mmol/L Carbon Dioxide 33.7 H (21.0-32.0) mmol/L BUN 23 H (7.0-18.0) mg/dL Creatinine 0.8 (0.8-1.3) mg/dL Est Cr Clr Drug Dosing 58.70 mL/min Estimated GFR (MDRD) > 60.0 ml/min Glucose 100 (74-106) mg/dL Calcium 8.3 L (8.5-10.1) mg/dL Phosphorus 2.5 L (2.6-4.7) mg/dL Magnesium 1.9 (1.8-2.4) mg/dL Total Bilirubin 0.5 (0.2-1.0) mg/dL AST 44 H (15-37) IU/L ALT 33 (14-63) IU/L Alkaline Phosphatase 80 (46-116) U/L Total Protein 7.5 (6.4-8.2) g/dL Albumin 3.1 L (3.4-5.0) g/dL Globulin 4.4 H (2.6-4.0) g/dL Albumin/Globulin Ratio 0.7 L (0.9-1.6) SARS-CoV-2 (PCR) DETECTED H (NOT DETECT) Med Orders - Current: Current Medications Acetaminophen (Tylenol) 650 mg PO Q4H PRN PRN Reason: Pain (Mild 1-3)/fever Aspirin (Aspirin) 81 mg PO DAILY [facility] Last Admin: 09/07/20 08:31 Dose: 81 mg Documented by: Enoxaparin Sodium (Lovenox) 75 mg 1 mg/kg (75 mg) SUBCUT DAILY@1700 [facility] Stop: 09/07/20 21:00 Last Admin: 09/06/20 16:55 Dose: 75 mg Documented by: Furosemide (Lasix) 40 mg IV BID [facility] Last Admin: 09/07/20 08:27 Dose: 40 mg Documented by: Gabapentin (Neurontin) 100 mg PO BEDTIME [facility] Last Admin: 09/06/20 20:25 Dose: Not Given Documented by: Heparin Sodium (Porcine) (Heparin Sodium) 5,000 units SUBCUT Q12H [facility] Azithromycin 500 mg/ Sodium (Chloride) 250 mls @ 250 mls/hr IV Q24H [facility] Last Admin: 09/06/20 21:59 Dose: Not Given Documented by: Ceftriaxone Sodium/Dextrose 1 (gm/ Premix) 50 mls @ 100 mls/hr IV Q24H [facility] Last Admin: 09/06/20 20:19 Dose: 100 mls/hr Documented by: Lactated Ringer's (Ringers, Lactated) 500 mls @ 999 mls/hr IV ASDIRECTED [facility] Last Admin: 09/05/20 12:50 Dose: 999 mls/hr Documented by: Levetiracetam (Keppra) 250 mg PO DAILY@1700 [facility] Last Admin: 09/06/20 16:53 Dose: 250 mg Documented by: Levothyroxine Sodium (Levothyroxine) 25 mcg PO ACBREAKFAST [facility] Last Admin: 09/07/20 08:26 Dose: 25 mcg Documented by: Lorazepam (Ativan) 2 mg IVPUSH ONETIME PRN PRN Reason: Agitation Last Admin: 09/07/20 01:04 Dose: 2 mg Documented by: Metoprolol Tartrate (Lopressor) 25 mg PO BID [facility] Last Admin: 09/07/20 08:31 Dose: 25 mg Documented by: Ondansetron HCl (Zofran Odt) 4 mg PO Q4H PRN PRN Reason: nausea, able to take PO Pantoprazole Sodium (Protonix) 40 mg PO ACBREAKFAST [facility] Last Admin: 09/07/20 08:27 Dose: 40 mg Documented by: Sodium Phosphate (Neutra-Phos) 250 mg PO QID [facility] Tamsulosin HCl (Flomax) 0.4 mg PO WITHDINNER [facility] Last Admin: 09/06/20 16:54 Dose: 0.4 mg Documented by: Discontinued Medications Azithromycin (Zithromax) 500 mg IV Q24H [facility] Last Admin: 09/04/20 22:45 Dose: Not Given Documented by: Ceftriaxone Sodium (Rocephin) 1 gm IVPUSH Q24H [facility] Last Admin: 09/04/20 20:33 Dose: 1 gm Documented by: Dextrose/Water (Dextrose 50% In Water) 50 ml IVPUSH ONETIME ONE Stop: 09/05/20 12:42 Last Admin: 09/05/20 12:50 Dose: 50 ml Documented by: Enoxaparin Sodium (Lovenox) 75 mg 1 mg/kg (75 mg) SUBCUT NOW [facility] Stop: 09/04/20 18:49 Last Admin: 09/04/20 20:34 Dose: Not Given Documented by: Enoxaparin Sodium (Lovenox) 75 mg 1 mg/kg (75 mg) SUBCUT DAILY [facility] Stop: 09/07/20 21:00 Last Admin: 09/05/20 11:12 Dose: Not Given Documented by: Furosemide (Lasix) 40 mg PO DAILY [facility] Last Admin: 09/05/20 09:20 Dose: Not Given Documented by: Furosemide (Lasix) 40 mg IVPUSH NOW ONE Stop: 09/04/20 19:45 Last Admin: 09/04/20 20:33 Dose: 40 mg Documented by: Haloperidol Lactate (Haldol) 1 mg IM Q6H PRN PRN Reason: Agitation Haloperidol Lactate (Haldol) Confirm Administered Dose 5 mg .ROUTE .STK-MED ONE Stop: 09/05/20 02:17 Last Admin: 09/05/20 02:45 Dose: 5 mg Documented by: Heparin Sodium (Porcine) (Heparin Sodium) 5,000 units SUBCUT Q12H [facility] Last Admin: 09/04/20 20:33 Dose: 5,000 units Documented by: Heparin Sodium (Porcine) (Heparin Sodium) 5,000 units SUBCUT Q12H [facility] Last Admin: 09/05/20 09:03 Dose: 5,000 units Documented by: Furosemide 40 mg/ Sodium (Chloride) 54 mls @ 100 mls/hr IV BID [facility] Last Admin: 09/04/20 22:44 Dose: Not Given Documented by: Pantoprazole Sodium 40 mg/ (Sodium Chloride) 10 mls @ 300 mls/hr IV DAILY [facility] Last Admin: 09/05/20 08:55 Dose: 300 mls/hr Documented by: Lactated Ringer's (Ringers, Lactated) 1,000 mls @ 999 mls/hr IV ASDIRECTED [facility] Levetiracetam (Keppra) 250 mg PO BID [facility] Last Admin: 09/05/20 11:12 Dose: Not Given Documented by: Levetiracetam (Keppra) 250 mg PO BID [facility] Last Admin: 09/05/20 09:59 Dose: 250 mg Documented by: Levothyroxine Sodium (Levothyroxine) 12.5 mcg PO DAILY [facility] Last Admin: 09/05/20 09:05 Dose: 12.5 mcg Documented by: Lorazepam (Ativan) 1 mg IVPUSH Q6H PRN PRN Reason: Agitation Last Admin: 09/05/20 02:30 Dose: 1 mg Documented by: Metoprolol Tartrate (Lopressor) 25 mg PO BID [facility] Last Admin: 09/04/20 20:33 Dose: 25 mg Documented by: Non-Formulary Medication (Prednisolone Acetate/Pf [Prednisolone Acet 1% Eye Drop]) 1 drop EYEBOTH BID [facility] Last Admin: 09/05/20 09:02 Dose: Not Given Documented by: Potassium Chloride (Klor-Con 10) 40 meq PO ONETIME ONE Stop: 09/05/20 13:57 Last Admin: 09/05/20 14:35 Dose: 40 meq Documented by: Potassium Chloride (Klor-Con M20) 40 meq PO ONETIME ONE Stop: 09/06/20 11:22 Last Admin: 09/06/20 12:02 Dose: 40 meq Documented by: - Exam Quality Assessment: DVT Prophylaxis. No: Supplemental Oxygen General: Alert, Oriented, Cooperative, No Acute Distress Lungs: Decreased Breath Sounds (bibasilar), Crackles (fine) Cardiovascular: Regular Rate, Regular Rhythm GI/Abdominal Exam: Normal Bowel Sounds, Soft, Non-Tender Back Exam: Normal Inspection, Full Range of Motion Extremities: Normal Inspection, Normal Range of Motion, Non-Tender, Pedal Edema (+1) Wound/Incisions: Healing Well Neurological: No New Focal Deficit Psy/Mental Status: Alert, Normal Affect, Normal Mood Sepsis Event Note - Evaluation Sepsis Screening Result: No Definite Risk - Focused Exam Vital Signs: Vital Signs Temp Pulse Pulse Resp BP BP Pulse Ox 09/07/20 08:31 86 143/84 H 09/07/20 04:00 96.9 F 65 20 145/89 H 96 09/07/20 01:03 103 H 148/98 H 09/07/20 00:45 98.1 F 99 20 148/98 H 97 09/06/20 23:16 Pulse Ox 09/07/20 08:31 09/07/20 04:00 09/07/20 01:03 09/07/20 00:45 09/06/20 23:16 95 - Problem List & Annotations (1) Diastolic heart failure SNOMED Code(s): 551000423 Code(s): I50.30 - UNSPECIFIED DIASTOLIC (CONGESTIVE) HEART FAILURE Status: Chronic Current Visit: No Qualifiers: Heart failure chronicity: acute on chronic Qualified Code(s): I50.33 - Acute on chronic diastolic (congestive) heart failure (2) NSTEMI (non-ST elevated myocardial infarction) SNOMED Code(s): 96741924 Code(s): I21.4 - NON-ST ELEVATION (NSTEMI) MYOCARDIAL INFARCTION Status: Acute Current Visit: No (3) COVID-19 SNOMED Code(s): 270559857 Code(s): U07.1 - COVID-19 Status: Acute Current Visit: Yes (4) History of prostate cancer SNOMED Code(s): 471967459 Code(s): Z85.46 - PERSONAL HISTORY OF MALIGNANT NEOPLASM OF PROSTATE Status: Chronic Current Visit: No (5) CAD (coronary artery disease) SNOMED Code(s): 11339166 Code(s): I25.10 - ATHSCL HEART DISEASE OF [place] CORONARY ARTERY W/O ANG PCTRS Status: Chronic Current Visit: No (6) Elevated troponin SNOMED Code(s): 476563113, 216959019, 645221234 Code(s): R74.8 - ABNORMAL LEVELS OF OTHER SERUM ENZYMES Status: Chronic Current Visit: No (7) HTN (hypertension) SNOMED Code(s): 33528230 Code(s): I10 - ESSENTIAL (PRIMARY) HYPERTENSION Status: Chronic Current Visit: No Qualifiers: Hypertension type: essential hypertension Qualified Code(s): I10 - Ess ential (primary) hypertension (8) Hx of CABG SNOMED Code(s): 592887361, 035830099 Code(s): Z95.1 - PRESENCE OF AORTOCORONARY BYPASS GRAFT Status: Chronic Current Visit: No (9) Hx of aortic valve replacement SNOMED Code(s): 7444617933577, 154730596, 3899213198147 Code(s): Z95.2 - PRESENCE OF PROSTHETIC HEART VALVE Status: Chronic Current Visit: No Annotation/Comment:: Bioprothestic placed in 2013 (10) Hx of mitral valve replacement SNOMED Code(s): 4706468609778, 4183665678310 Code(s): Z95.2 - PRESENCE OF PROSTHETIC HEART VALVE Status: Chronic Current Visit: No Annotation/Comment:: Bioprothestic placed in 2012 (11) Prostate CA SNOMED Code(s): 432848683 Code(s): C61 - MALIGNANT NEOPLASM OF PROSTATE Status: Chronic Current Visit: No (12) Pulmonary hypertension SNOMED Code(s): 11990546 Code(s): I27.20 - PULMONARY HYPERTENSION, UNSPECIFIED Status: Chronic Current Visit: No (13) Seizure disorder SNOMED Code(s): 630454216 Code(s): G40.909 - EPILEPSY, UNSP, NOT INTRACTABLE, WITHOUT STATUS EPILEPTICUS Status: Chronic Current Visit: No (14) TIA (transient ischemic attack) SNOMED Code(s): 322074715 Code(s): G45.9 - TRANSIENT CEREBRAL ISCHEMIC ATTACK, UNSPECIFIED Status: Chronic Current Visit: No - Problem List Review Problem List Initiated/Reviewed/Updated: Yes - My Orders Last 24 Hours: My Active Orders 09/06/20 11:36 Consult to Speech Language Pathology [ROUGE MIXER Evaluation and Treatment] [CONS] Routine 09/06/20 16:57 Patient Status [ADT] Stat 09/06/20 17:00 levETIRAcetam [Keppra] 250 mg PO DAILY@1700 09/07/20 12:00 Phosphorus #1 [Neutra-Phos] 250 mg PO QID 09/08/20 05:11 MAGNESIUM [CHEM] AM PHOSPHORUS [CHEM] AM - Plan Plan:: Patient is an 85-year-old gentleman with a past medical history of coronary artery disease, [place], valve replacement, hypertension, hyperlipidemia. Was admitted due to altered mental status and possible pneumonia causing heart failure. 1. Possible CAP: Chest x-ray indicated pulmonary edema or recurrent pneumonia Continue Rocephin and azithromycin - Encourage coughing and deep breathing along with incentive spirometer -Speech therapy evaluated him this morning. No overt signs of aspiration. Did recommend modified barium swallow eval in the future. 2. Acute on chronic diastolic heart failure with NSTEMI: Continue Lasix 40 mg IV twice daily, will transition to home dose of Lasix 60 mg p.o. in the morning -Strict I's and O's, daily weight, heart healthy diet, low sodium 2 L fluid restriction -Recent echo showed EF of 55% with severe concentric hypertrophy and poor LV compliance and likely pulmonary hypertension -Troponin remains elevated patient and family have declined aggressive treatment continue palliative care at this time for NSTEMI - Lovenox x1 more day, then heparin VTE prophylaxis -Continue metoprolol -Monitor on telemetry -Has history of hypertension and valvular heart disease continue aspirin patient, is statin intolerant 3. COVID-19 -No hypoxia noted. -Supportive care at this time -Confirmatory Covid testing confirmed positive. Will update daughter -Not currently meeting guidelines for remdesivir or dexamethasone treatment. Daughter request prior to these being started if needed she would like to be notified. 4. Seizure disorder -Keppra dose at home is 250 mg daily 5. Deconditioning: - PT to evaluate and treat VTE prophylaxis: Lovenox full dose x 1 more dose then Heparin SQ CODE STATUS: DNR/DNI Dispo: change to inpatient last evening. Continues to have significant weakness needs rehabilitation before safe return to home Updated Aggie this morning she is agreeable with treatment plan list above. She is able to be reached at [phone]
[2020-09-07] MEDS: Phosphorus #1 250 MG Tab PO SCH ×3 (14:34→23:23)
[2020-09-07] MEDS: Tamsulosin 0.4 MG Cap.ER PO SCH (17:15)
[2020-09-07] MEDS: levETIRAcetam Soln 500 MG/5 ML Cup PO SCH (17:15)
[2020-09-07] MEDS: Enoxaparin 100 MG/1 ML Syringe SUBCUT SCH (17:17)
[2020-09-07] MEDS: cefTRIAXone 1 GM in Premix Bag 1 BAG IV SCH (20:31)
[2020-09-07] MEDS: Gabapentin 100 MG Cap PO SCH (20:32)
[2020-09-07] MEDS: Azithromycin 500 MG in Sodium Chloride 0.9% 250 ML IV SCH (21:50)
[2020-09-08] MEDS: Phosphorus #1 250 MG Tab PO SCH ×4 (06:12→23:58)
[2020-09-08] MEDS: Levothyroxine 25 MCG Tab PO SCH ×3 (06:32→06:34)
[2020-09-08] MEDS: Pantoprazole 40 MG Tab.CR PO SCH ×2 (06:32→06:33)
[2020-09-08 06:56] LABS: BLOOD UREA NITROGEN,BUN 26 mg/dL (7.0-18.0); CHLORIDE,CL 100 mmol/L (98-107); GLUCOSE RANDOM 100 mg/dL (74-106); POTASSIUM,K 3.5 mmol/L (3.5-5.1); SODIUM,NA 138 mmol/L (136-148)
[2020-09-08] MEDS: Furosemide 20 MG Tab PO SCH (08:43)
[2020-09-08] MEDS: Aspirin 81 MG Tab.Chew PO SCH (08:43)
[2020-09-08] MEDS: Metoprolol Tartrate 25 MG Tab PO SCH ×2 (08:44→21:11)
[2020-09-08] MEDS: Heparin Sodium 5,000 Units/ML Vial SUBCUT SCH ×2 (08:45→21:12)
[2020-09-08] MEDS: Ascorbic Acid 500 MG Tab PO SCH (13:14)
--- NOTE | 2020-09-08 13:23 | PCM.PN ---
- General Info Date of Service: 09/08/20 Admission Dx/Problem (Free Text): Admission Diagnosis/Problem Admission Diagnosis/Problem Altered mental status Subjective Update: Denies chest pain or SOB. No concerns today. sitting in chair, eating breakfast, comfortable, spoke to daughter, she requested to start zn and vit c, I Functional Status: Reports: Tolerating Diet, Ambulating, Urinating - Review of Systems General: Reports: Weakness. Denies: Fever, Fatigue, Malaise Pulmonary: Denies: Shortness of Breath, Pleuritic Chest Pain Cardiovascular: Denies: Chest Pain, Palpitations Gastrointestinal: Denies: Abdominal Pain, Constipation, Decreased Appetite Genitourinary: Denies: Dysuria, Frequency, Burning Musculoskeletal: Denies: Neck Pain, Shoulder Pain, Arm Pain Skin: Denies: Cyanosis, Jaundice, Mottled - Patient Data Vitals - Most Recent: Last Vital Signs Temp 36.7 C 09/08/20 11:39 Pulse 68 09/08/20 11:39 Resp 16 09/08/20 11:39 BP 94/49 L 09/08/20 11:39 Pulse Ox 97 09/08/20 11:39 Weight - Most Recent: 107.048 kg I&O - Last 24 Hours: Intake & Output 09/07/20 09/08/20 09/08/20 22:59 06:59 14:59 Intake Total 560 700 Output Total 150 523 Balance 410 177 Lab Results Last 24 Hours: Laboratory Results - last 24 hr 09/08/20 09/08/20 Range/Units 05:45 05:45 WBC 3.15 L (4.0-11.0) K/uL RBC 3.89 L (4.50-5.90) M/uL Hgb 11.7 L (13.0-17.0) g/dL Hct 36.5 L (38.0-50.0) % MCV 93.8 (80.0-98.0) fL MCH 30.1 (27.0-32.0) pg MCHC 32.1 (31.0-37.0) g/dL RDW Std Deviation 48.6 (28.0-62.0) fl RDW Coeff of [place] 14 (11.0-15.0) % Plt Count 160 (150-400) K/uL MPV 11.00 (7.40-12.00) fL Neut % (Auto) 66.0 (48.0-80.0) % Lymph % (Auto) 15.9 L (16.0-40.0) % [place] % (Auto) 13.3 (0.0-15.0) % Eos % (Auto) 4.8 (0.0-7.0) % Baso % (Auto) 0.0 (0.0-1.5) % Neut # (Auto) 2.1 (1.4-5.7) K/uL Lymph # (Auto) 0.5 L (0.6-2.4) K/uL [place] # (Auto) 0.4 (0.0-0.8) K/uL Eos # (Auto) 0.2 (0.0-0.7) K/uL Baso # (Auto) 0.0 (0.0-0.1) K/uL Nucleated RBC % 0.0 /100WBC Nucleated RBCs # 0 K/uL Sodium 138 (136-148) mmol/L Potassium 3.5 (3.5-5.1) mmol/L Chloride 100 (98-107) mmol/L Carbon Dioxide 29.0 (21.0-32.0) mmol/L BUN 26 H (7.0-18.0) mg/dL Creatinine 0.8 (0.8-1.3) mg/dL Est Cr Clr Drug Dosing 58.70 mL/min Estimated GFR (MDRD) > 60.0 ml/min Glucose 100 (74-106) mg/dL Calcium 8.2 L (8.5-10.1) mg/dL Phosphorus 3.5 (2.6-4.7) mg/dL Magnesium 1.9 (1.8-2.4) mg/dL Total Bilirubin 0.5 (0.2-1.0) mg/dL AST 34 (15-37) IU/L ALT 27 (14-63) IU/L Alkaline Phosphatase 73 (46-116) U/L Total Protein 7.0 (6.4-8.2) g/dL Albumin 2.9 L (3.4-5.0) g/dL Globulin 4.1 H (2.6-4.0) g/dL Albumin/Globulin Ratio 0.7 L (0.9-1.6) Med Orders - Current: Current Medications Acetaminophen (Tylenol) 650 mg PO Q4H PRN PRN Reason: Pain (Mild 1-3)/fever Ascorbic Acid (Vitamin C) 500 mg PO DAILY [facility] Last Admin: 09/08/20 13:14 Dose: 500 mg Documented by: Aspirin (Aspirin) 81 mg PO DAILY [facility] Last Admin: 09/08/20 08:43 Dose: 81 mg Documented by: Cholecalciferol (Vitamin D3) 25 mcg PO DAILY [facility] Furosemide (Lasix) 60 mg PO DAILY [facility] Last Admin: 09/08/20 08:43 Dose: 60 mg Documented by: Heparin Sodium (Porcine) (Heparin Sodium) 5,000 units SUBCUT Q12H [facility] Last Admin: 09/08/20 08:45 Dose: 5,000 units Documented by: Azithromycin 500 mg/ Sodium (Chloride) 250 mls @ 250 mls/hr IV Q24H [facility] Last Admin: 09/07/20 21:50 Dose: 250 mls/hr Documented by: Ceftriaxone Sodium/Dextrose 1 (gm/ Premix) 50 mls @ 100 mls/hr IV Q24H [facility] Last Admin: 09/07/20 20:31 Dose: 100 mls/hr Documented by: Lactated Ringer's (Ringers, Lactated) 500 mls @ 999 mls/hr IV ASDIRECTED [facility] Last Admin: 09/05/20 12:50 Dose: 999 mls/hr Documented by: Levetiracetam (Keppra) 250 mg PO DAILY@1700 [facility] Last Admin: 09/07/20 17:15 Dose: 250 mg Documented by: Levothyroxine Sodium (Levothyroxine) 25 mcg PO ACBREAKFAST [facility] Last Admin: 09/08/20 06:34 Dose: Not Given Documented by: Lorazepam (Ativan) 2 mg IVPUSH ONETIME PRN PRN Reason: Agitation Last Admin: 09/07/20 01:04 Dose: 2 mg Documented by: Metoprolol Tartrate (Lopressor) 25 mg PO BID [facility] Last Admin: 09/08/20 08:44 Dose: 25 mg Documented by: Ondansetron HCl (Zofran Odt) 4 mg PO Q4H PRN PRN Reason: nausea, able to take PO Pantoprazole Sodium (Protonix) 40 mg PO ACBREAKFAST [facility] Last Admin: 09/08/20 06:33 Dose: 40 mg Documented by: Sodium Phosphate (Neutra-Phos) 250 mg PO QID [facility] Last Admin: 09/08/20 11:36 Dose: 250 mg Documented by: Discontinued Medications Azithromycin (Zithromax) 500 mg IV Q24H [facility] Last Admin: 09/04/20 22:45 Dose: Not Given Documented by: Ceftriaxone Sodium (Rocephin) 1 gm IVPUSH Q24H [facility] Last Admin: 09/04/20 20:33 Dose: 1 gm Documented by: Dextrose/Water (Dextrose 50% In Water) 50 ml IVPUSH ONETIME ONE Stop: 09/05/20 12:42 Last Admin: 09/05/20 12:50 Dose: 50 ml Documented by: Enoxaparin Sodium (Lovenox) 75 mg 1 mg/kg (75 mg) SUBCUT NOW STA Stop: 09/04/20 18:49 Last Admin: 09/04/20 20:34 Dose: Not Given Documented by: Enoxaparin Sodium (Lovenox) 75 mg 1 mg/kg (75 mg) SUBCUT DAILY [facility] Stop: 09/07/20 21:00 Last Admin: 09/05/20 11:12 Dose: Not Given Documented by: Enoxaparin Sodium (Lovenox) 75 mg 1 mg/kg (75 mg) SUBCUT DAILY@1700 [facility] Stop: 09/07/20 21:00 Last Admin: 09/07/20 17:17 Dose: 75 mg Documented by: Furosemide (Lasix) 40 mg PO DAILY [facility] Last Admin: 09/05/20 09:20 Dose: Not Given Documented by: Furosemide (Lasix) 40 mg IVPUSH NOW ONE Stop: 09/04/20 19:45 Last Admin: 09/04/20 20:33 Dose: 40 mg Documented by: Furosemide (Lasix) 40 mg IV BID [facility] Stop: 09/07/20 23:00 Last Admin: 09/07/20 20:32 Dose: 40 mg Documented by: Gabapentin (Neurontin) 100 mg PO BEDTIME [facility] Last Admin: 09/07/20 20:32 Dose: 100 mg Documented by: Haloperidol Lactate (Haldol) 1 mg IM Q6H PRN PRN Reason: Agitation Haloperidol Lactate (Haldol) Confirm Administered Dose 5 mg .ROUTE .STK-MED ONE Stop: 09/05/20 02:17 Last Admin: 09/05/20 02:45 Dose: 5 mg Documented by: Heparin Sodium (Porcine) (Heparin Sodium) 5,000 units SUBCUT Q12H [facility] Last Admin: 09/04/20 20:33 Dose: 5,000 units Documented by: Heparin Sodium (Porcine) (Heparin Sodium) 5,000 units SUBCUT Q12H [facility] Last Admin: 09/05/20 09:03 Dose: 5,000 units Documented by: Furosemide 40 mg/ Sodium (Chloride) 54 mls @ 100 mls/hr IV BID [facility] Last Admin: 09/04/20 22:44 Dose: Not Given Documented by: Pantoprazole Sodium 40 mg/ (Sodium Chloride) 10 mls @ 300 mls/hr IV DAILY [facility] Last Admin: 09/05/20 08:55 Dose: 300 mls/hr Documented by: Lactated Ringer's (Ringers, Lactated) 1,000 mls @ 999 mls/hr IV ASDIRECTED [facility] Levetiracetam (Keppra) 250 mg PO BID [facility] Last Admin: 09/05/20 11:12 Dose: Not Given Documented by: Levetiracetam (Keppra) 250 mg PO BID [facility] Last Admin: 09/05/20 09:59 Dose: 250 mg Documented by: Levothyroxine Sodium (Levothyroxine) 12.5 mcg PO DAILY [facility] Last Admin: 09/05/20 09:05 Dose: 12.5 mcg Documented by: Lorazepam (Ativan) 1 mg IVPUSH Q6H PRN PRN Reason: Agitation Last Admin: 09/05/20 02:30 Dose: 1 mg Documented by: Metoprolol Tartrate (Lopressor) 25 mg PO BID [facility] Last Admin: 09/04/20 20:33 Dose: 25 mg Documented by: Non-Formulary Medication (Prednisolone Acetate/Pf [Prednisolone Acet 1% Eye Drop]) 1 drop EYEBOTH BID [facility] Last Admin: 09/05/20 09:02 Dose: Not Given Documented by: Potassium Chloride (Klor-Con 10) 40 meq PO ONETIME ONE Stop: 09/05/20 13:57 Last Admin: 09/05/20 14:35 Dose: 40 meq Documented by: Potassium Chloride (Klor-Con M20) 40 meq PO ONETIME ONE Stop: 09/06/20 11:22 Last Admin: 09/06/20 12:02 Dose: 40 meq Documented by: Tamsulosin HCl (Flomax) 0.4 mg PO WITHDINNER STEFANY Last Admin: 09/07/20 17:15 Dose: 0.4 mg Documented by: - Exam General: Alert, Oriented Lungs: Clear to Auscultation, Normal Respiratory Effort Cardiovascular: Regular Rate, Regular Rhythm GI/Abdominal Exam: Normal Bowel Sounds, Soft, Non-Tender Extremities: Normal Inspection, Normal Range of Motion Neurological: Normal Tone, Strength Equal Bilateral Sepsis Event Note - Evaluation Sepsis Screening Result: No Definite Risk - Focused Exam Vital Signs: Vital Signs Temp Pulse Pulse Resp BP BP Pulse Ox 09/08/20 11:39 36.7 C 68 16 94/49 L 97 09/08/20 08:44 70 114/72 09/08/20 08:00 36.4 C 60 18 114/72 91 L 09/08/20 03:03 36.5 C 71 18 103/53 L 96 - Problem List & Annotations (1) COVID-19 SNOMED Code(s): 523300382 Code(s): U07.1 - COVID-19 Status: Acute Current Visit: Yes (2) Atrial fibrillation SNOMED Code(s): 55552572 Code(s): I48.91 - UNSPECIFIED ATRIAL FIBRILLATION Status: Acute Current Visit: No (3) CVA (cerebral vascular accident) SNOMED Code(s): 944341465 Code(s): I63.9 - CEREBRAL INFARCTION, UNSPECIFIED Status: Acute Current Visit: No (4) History of prostate cancer SNOMED Code(s): 366680605 Code(s): Z85.46 - PERSONAL HISTORY OF MALIGNANT NEOPLASM OF PROSTATE Status: Chronic Current Visit: No (5) Hx of CABG SNOMED Code(s): 253589955, 526062080 Code(s): Z95.1 - PRESENCE OF AORTOCORONARY BYPASS GRAFT Status: Chronic Current Visit: No (6) Hx of aortic valve replacement SNOMED Code(s): 4214595216754, 762401114, 6567540245182 Code(s): Z95.2 - PRESENCE OF PROSTHETIC HEART VALVE Status: Chronic Current Visit: No Annotation/Comment:: Bioprothestic placed in 2012 (7) Hx of mitral valve replacement SNOMED Code(s): 9380021802682, 1750968900139 Code(s): Z95.2 - PRESENCE OF PROSTHETIC HEART VALVE Status: Chronic Current Visit: No Annotation/Comment:: Bioprothestic placed in 2013 (8) Hx of non-ST elevation myocardial infarction (NSTEMI) SNOMED Code(s): 761569811 Code(s): I25.2 - OLD MYOCARDIAL INFARCTION Status: Chronic Current Visit: No (9) Seizure disorder SNOMED Code(s): 996056037 Code(s): G40.909 - EPILEPSY, UNSP, NOT INTRACTABLE, WITHOUT STATUS EPILEPTICUS Status: Chronic Current Visit: No (10) TIA (transient ischemic attack) SNOMED Code(s): 749228268 Code(s): G45.9 - TRANSIENT CEREBRAL ISCHEMIC ATTACK, UNSPECIFIED Status: Chronic Current Visit: No (11) CAP (community acquired pneumonia) SNOMED Code(s): 975601921 Code(s): J18.9 - PNEUMONIA, UNSPECIFIED ORGANISM Status: Acute Current Visit: Yes (12) Acute exacerbation of congestive heart failure SNOMED Code(s): 293966037, 28737640820296 Code(s): I50.9 - HEART FAILURE, UNSPECIFIED Status: Acute Current Visit: No Qualifiers: Heart failure type: unspecified Qualified Code(s): I50.9 - Heart failure, unspecified - Problem List Review Problem List Initiated/Reviewed/Updated: Yes - My Orders Last 24 Hours: My Active Orders 09/08/20 09:00 Heparin Sodium 5,000 units SUBCUT Q12H 09/08/20 12:45 Ascorbic Acid [Vitamin C] 500 mg PO DAILY 09/09/20 09:00 Cholecalciferol (Vitamin D3) [Vitamin D3] 25 mcg PO DAILY - Plan Plan:: Patient is an 85-year-old gentleman with a past medical history of coronary artery disease, [place], valve replacement, hypertension, hyperlipidemia. Was admitted due to altered mental status and possible pneumonia causing heart failure. 1. Possible CAP: Chest x-ray indicated pulmonary edema or recurrent pneumonia Continue Rocephin and azithromycin - Encourage coughing and deep breathing along with incentive spirometer -Speech therapy evaluated him this morning. No overt signs of aspiration. Did recommend modified barium swallow eval in the future. 2. Acute on chronic diastolic heart failure with NSTEMI: Continue Lasix 40 mg IV twice daily, will transition to home dose of Lasix 60 mg p.o. in the morning -Strict I's and O's, daily weight, heart healthy diet, low sodium 2 L fluid restriction -Recent echo showed EF of 55% with severe concentric hypertrophy and poor LV compliance and likely pulmonary hypertension -Troponin remains elevated patient and family have declined aggressive treatment continue palliative care at this time for NSTEMI - heparin VTE prophylaxis -Continue metoprolol -Monitor on telemetry -Has history of hypertension and valvular heart disease continue aspirin patient, is statin intolerant 3. COVID-19 -No hypoxia noted. -Supportive care at this time -Not currently meeting guidelines for remdesivir or dexamethasone treatment. Daughter request prior to these being started if needed she would like to be notified. -Vit c and Zn per daughters request 4. Seizure disorder -Keppra dose at home is 250 mg daily 5. Deconditioning: - PT to evaluate and treat VTE prophylaxis: Lovenox full dose x 1 more dose then Heparin SQ CODE STATUS: DNR/DNI Dispo: change to inpatient last evening. Continues to have significant weakness needs rehabilitation before safe return to home Malina Marcial this morning she is agreeable with treatment plan list above. She is able to be reached at [phone]
[2020-09-08] MEDS ORDERED: Diltiazem 25 MG/5 ML SDV IVPUSH PRN (14:00)
[2020-09-08] MEDS ORDERED: LORazepam 2 MG/ML SDV IVPUSH PRN ×2 (14:03→14:56)
[2020-09-08] MEDS ORDERED: Sodium Chloride 0.9% 1,000 ML IV ONE (14:31)
[2020-09-08] MEDS ORDERED: LORazepam 2 MG/ML SDV IVPUSH ONE (14:32)
[2020-09-08] MEDS ORDERED: Lactated Ringers 1,000 ML IV SCH (14:45)
[2020-09-08] MEDS: levETIRAcetam Soln 500 MG/5 ML Cup PO SCH (17:08)
[2020-09-08] MEDS: cefTRIAXone 1 GM in Premix Bag 1 BAG IV SCH (20:16)
[2020-09-08] MEDS: Azithromycin 500 MG in Sodium Chloride 0.9% 250 ML IV SCH (21:00)
[2020-09-09] MEDS: Levothyroxine 25 MCG Tab PO SCH (06:35)
[2020-09-09] MEDS: Phosphorus #1 250 MG Tab PO SCH ×4 (06:35→23:16)
[2020-09-09] MEDS: Pantoprazole 40 MG Tab.CR PO SCH (06:35)
[2020-09-09 06:57] LABS: BLOOD UREA NITROGEN,BUN 26 mg/dL (7.0-18.0); CARBON DIOXIDE,CO2 29.2 mmol/L (21.0-32.0); CHLORIDE,CL 101 mmol/L (98-107); GLUCOSE RANDOM 97 mg/dL (74-106); POTASSIUM,K 3.4 mmol/L (3.5-5.1); SODIUM,NA 138 mmol/L (136-148)
[2020-09-09] MEDS: Aspirin 81 MG Tab.Chew PO SCH (08:40)
[2020-09-09] MEDS: Cholecalciferol (Vitamin D3) 25 MCG Tab PO SCH (08:40)
[2020-09-09] MEDS: Ascorbic Acid 500 MG Tab PO SCH (08:41)
[2020-09-09] MEDS: Heparin Sodium 5,000 Units/ML Vial SUBCUT SCH (08:42)
[2020-09-09] MEDS: Furosemide 20 MG Tab PO SCH (08:42)
[2020-09-09] MEDS: Metoprolol Tartrate 25 MG Tab PO SCH ×2 (08:49→21:25)
[2020-09-09] MEDS ORDERED: Potassium Chloride 10% 20 MEQ/15 ML Soln 30 ML UD Cup PO ONE (10:34)
--- NOTE | 2020-09-09 10:45 | PCM.PN ---
- General Info Date of Service: 09/09/20 Admission Dx/Problem (Free Text): Admission Diagnosis/Problem Admission Diagnosis/Problem Altered mental status Subjective Update: Denies chest pain or SOB. No concerns today. sitting in chair, eating breakfast, comfortable, was little frustrated, states he wants to be with his and feels like he is in detention. I - Review of Systems General: Reports: Weakness. Denies: Fever, Fatigue, Malaise Pulmonary: Denies: Shortness of Breath, Pleuritic Chest Pain Cardiovascular: Denies: Chest Pain, Palpitations Gastrointestinal: Denies: Abdominal Pain, Constipation, Decreased Appetite Genitourinary: Denies: Dysuria, Frequency, Burning Musculoskeletal: Denies: Neck Pain, Shoulder Pain - Patient Data Vitals - Most Recent: Last Vital Signs Temp 36.6 C 09/09/20 08:00 Pulse 110 H 09/09/20 08:49 Resp 18 09/09/20 08:00 BP 151/74 H 09/09/20 08:49 Pulse Ox 95 09/09/20 08:00 Weight - Most Recent: 105.506 kg I&O - Last 24 Hours: Intake & Output 09/08/20 09/09/20 09/09/20 22:59 06:59 14:59 Intake Total 870 800 Output Total 600 Balance 270 800 Lab Results Last 24 Hours: Laboratory Results - last 24 hr 09/09/20 09/09/20 Range/Units 06:10 06:10 WBC 3.67 L (4.0-11.0) K/uL RBC 3.89 L (4.50-5.90) M/uL Hgb 12.0 L (13.0-17.0) g/dL Hct 36.3 L (38.0-50.0) % MCV 93.3 (80.0-98.0) fL MCH 30.8 (27.0-32.0) pg MCHC 33.1 (31.0-37.0) g/dL RDW Std Deviation 48.3 (28.0-62.0) fl RDW Coeff of [place] 14 (11.0-15.0) % Plt Count 143 L (150-400) K/uL MPV 11.10 (7.40-12.00) fL Neut % (Auto) 58.0 (48.0-80.0) % Lymph % (Auto) 20.7 (16.0-40.0) % [place]wey % (Auto) 17.7 H (0.0-15.0) % Eos % (Auto) 3.3 (0.0-7.0) % Baso % (Auto) 0.3 (0.0-1.5) % Neut # (Auto) 2.1 (1.4-5.7) K/uL Lymph # (Auto) 0.8 (0.6-2.4) K/uL [place]wey # (Auto) 0.7 (0.0-0.8) K/uL Eos # (Auto) 0.1 (0.0-0.7) K/uL Baso # (Auto) 0.0 (0.0-0.1) K/uL Nucleated RBC % 0.0 /100WBC Nucleated RBCs # 0 K/uL Sodium 138 (136-148) mmol/L Potassium 3.4 L (3.5-5.1) mmol/L Chloride 101 (98-107) mmol/L Carbon Dioxide 29.2 (21.0-32.0) mmol/L BUN 26 H (7.0-18.0) mg/dL Creatinine 0.8 (0.8-1.3) mg/dL Est Cr Clr Drug Dosing 58.70 mL/min Estimated GFR (MDRD) > 60.0 ml/min Glucose 97 (74-106) mg/dL Calcium 8.3 L (8.5-10.1) mg/dL Phosphorus 3.2 (2.6-4.7) mg/dL Magnesium 2.0 (1.8-2.4) mg/dL Med Orders - Current: Current Medications Acetaminophen (Tylenol) 650 mg PO Q4H PRN PRN Reason: Pain (Mild 1-3)/fever Ascorbic Acid (Vitamin C) 500 mg PO DAILY [facility] Last Admin: 09/09/20 08:41 Dose: 500 mg Documented by: Aspirin (Aspirin) 81 mg PO DAILY [facility] Last Admin: 09/09/20 08:40 Dose: 81 mg Documented by: Cholecalciferol (Vitamin D3) 25 mcg PO DAILY [facility] Last Admin: 09/09/20 08:40 Dose: 25 mcg Documented by: Diltiazem HCl (Diltiazem) 20 mg IVPUSH Q6H PRN PRN Reason: Tachycardia Enoxaparin Sodium (Lovenox) 40 mg SUBCUT Q12HR [facility] Furosemide (Lasix) 60 mg PO DAILY [facility] Last Admin: 09/09/20 08:42 Dose: 60 mg Documented by: Azithromycin 500 mg/ Sodium (Chloride) 250 mls @ 250 mls/hr IV Q24H [facility] Last Admin: 09/08/20 21:00 Dose: 250 mls/hr Documented by: Ceftriaxone Sodium/Dextrose 1 (gm/ Premix) 50 mls @ 100 mls/hr IV Q24H [facility] Last Admin: 09/08/20 20:16 Dose: 100 mls/hr Documented by: Lactated Ringer's (Ringers, Lactated) 1,000 mls @ 999 mls/hr IV ASDIRECTED [facility] Levetiracetam (Keppra) 250 mg PO DAILY@1700 [facility] Last Admin: 09/08/20 17:08 Dose: 250 mg Documented by: Levothyroxine Sodium (Levothyroxine) 25 mcg PO ACBREAKFAST [facility] Last Admin: 09/09/20 06:35 Dose: 25 mcg Documented by: Lorazepam (Ativan) 1 mg IVPUSH ONETIME PRN PRN Reason: Agitation Metoprolol Tartrate (Lopressor) 25 mg PO BID [facility] Last Admin: 09/09/20 08:49 Dose: 25 mg Documented by: Ondansetron HCl (Zofran Odt) 4 mg PO Q4H PRN PRN Reason: nausea, able to take PO Pantoprazole Sodium (Protonix) 40 mg PO ACBREAKFAST [facility] Last Admin: 09/09/20 06:35 Dose: 40 mg Documented by: Sodium Phosphate (Neutra-Phos) 250 mg PO QID [facility] Last Admin: 09/09/20 06:35 Dose: 250 mg Documented by: Discontinued Medications Azithromycin (Zithromax) 500 mg IV Q24H [facility] Last Admin: 09/04/20 22:45 Dose: Not Given Documented by: Ceftriaxone Sodium (Rocephin) 1 gm IVPUSH Q24H [facility] Last Admin: 09/04/20 20:33 Dose: 1 gm Documented by: Dextrose/Water (Dextrose 50% In Water) 50 ml IVPUSH ONETIME ONE Stop: 09/05/20 12:42 Last Admin: 09/05/20 12:50 Dose: 50 ml Documented by: Enoxaparin Sodium (Lovenox) 75 mg 1 mg/kg (75 mg) SUBCUT NOW STA Stop: 09/04/20 18:49 Last Admin: 09/04/20 20:34 Dose: Not Given Documented by: Enoxaparin Sodium (Lovenox) 75 mg 1 mg/kg (75 mg) SUBCUT DAILY [facility] Stop: 09/07/20 21:00 Last Admin: 09/05/20 11:12 Dose: Not Given Documented by: Enoxaparin Sodium (Lovenox) 75 mg 1 mg/kg (75 mg) SUBCUT DAILY@1700 [facility] Stop: 09/07/20 21:00 Last Admin: 09/07/20 17:17 Dose: 75 mg Documented by: Furosemide (Lasix) 40 mg PO DAILY [facility] Last Admin: 09/05/20 09:20 Dose: Not Given Documented by: Furosemide (Lasix) 40 mg IVPUSH NOW ONE Stop: 09/04/20 19:45 Last Admin: 09/04/20 20:33 Dose: 40 mg Documented by: Furosemide (Lasix) 40 mg IV BID [facility] Stop: 09/07/20 23:00 Last Admin: 09/07/20 20:32 Dose: 40 mg Documented by: Gabapentin (Neurontin) 100 mg PO BEDTIME [facility] Last Admin: 09/07/20 20:32 Dose: 100 mg Documented by: Haloperidol Lactate (Haldol) 1 mg IM Q6H PRN PRN Reason: Agitation Haloperidol Lactate (Haldol) Confirm Administered Dose 5 mg .ROUTE .STK-MED ONE Stop: 09/05/20 02:17 Last Admin: 09/05/20 02:45 Dose: 5 mg Documented by: Heparin Sodium (Porcine) (Heparin Sodium) 5,000 units SUBCUT Q12H [facility] Last Admin: 09/04/20 20:33 Dose: 5,000 units Documented by: Heparin Sodium (Porcine) (Heparin Sodium) 5,000 units SUBCUT Q12H [facility] Last Admin: 09/05/20 09:03 Dose: 5,000 units Documented by: Heparin Sodium (Porcine) (Heparin Sodium) 5,000 units SUBCUT Q12H [facility] Last Admin: 09/09/20 08:42 Dose: 5,000 units Documented by: Furosemide 40 mg/ Sodium (Chloride) 54 mls @ 100 mls/hr IV BID [facility] Last Admin: 09/04/20 22:44 Dose: Not Given Documented by: Pantoprazole Sodium 40 mg/ (Sodium Chloride) 10 mls @ 300 mls/hr IV DAILY [facility] Last Admin: 09/05/20 08:55 Dose: 300 mls/hr Documented by: Lactated Ringer's (Ringers, Lactated) 1,000 mls @ 999 mls/hr IV ASDIRECTED [facility] Lactated Ringer's (Ringers, Lactated) 500 mls @ 999 mls/hr IV ASDIRECTED [facility] Last Admin: 09/05/20 12:50 Dose: 999 mls/hr Documented by: Sodium Chloride (Normal Saline) 1,000 mls @ 999 mls/hr IV .BOLUS ONE Stop: 09/08/20 15:31 Last Admin: 09/08/20 17:09 Dose: 999 mls/hr Documented by: Levetiracetam (Keppra) 250 mg PO BID [facility] Last Admin: 09/05/20 11:12 Dose: Not Given Documented by: Levetiracetam (Keppra) 250 mg PO BID [facility] Last Admin: 09/05/20 09:59 Dose: 250 mg Documented by: Levothyroxine Sodium (Levothyroxine) 12.5 mcg PO DAILY [facility] Last Admin: 09/05/20 09:05 Dose: 12.5 mcg Documented by: Lorazepam (Ativan) 1 mg IVPUSH Q6H PRN PRN Reason: Agitation Last Admin: 09/05/20 02:30 Dose: 1 mg Documented by: Lorazepam (Ativan) 2 mg IVPUSH ONETIME PRN PRN Reason: Agitation Last Admin: 09/07/20 01:04 Dose: 2 mg Documented by: Lorazepam (Ativan) 1 mg IVPUSH ONETIME PRN PRN Reason: Agitation Lorazepam (Ativan) 1 mg IVPUSH ONETIME ONE Stop: 09/08/20 14:33 Last Admin: 09/08/20 16:06 Dose: Not Given Documented by: Metoprolol Tartrate (Lopressor) 25 mg PO BID [facility] Last Admin: 09/04/20 20:33 Dose: 25 mg Documented by: Non-Formulary Medication (Prednisolone Acetate/Pf [Prednisolone Acet 1% Eye Dr op]) 1 drop EYEBOTH BID [facility] Last Admin: 09/05/20 09:02 Dose: Not Given Documented by: Potassium Chloride (Klor-Con 10) 40 meq PO ONETIME ONE Stop: 09/05/20 13:57 Last Admin: 09/05/20 14:35 Dose: 40 meq Documented by: Potassium Chloride (Klor-Con M20) 40 meq PO ONETIME ONE Stop: 09/06/20 11:22 Last Admin: 09/06/20 12:02 Dose: 40 meq Documented by: Potassium Chloride (Potassium Chloride) 40 meq PO ONETIME ONE Stop: 09/09/20 10:35 Tamsulosin HCl (Flomax) 0.4 mg PO WITHDINNER [facility] Last Admin: 09/07/20 17:15 Dose: 0.4 mg Documented by: - Exam General: Alert, Oriented Neck: Supple Lungs: Clear to Auscultation, Normal Respiratory Effort Cardiovascular: Regular Rate, Irregular Rhythm Extremities: Normal Inspection, Normal Range of Motion Sepsis Event Note - Evaluation Sepsis Screening Result: No Definite Risk - Focused Exam Vital Signs: Vital Signs Temp Pulse Pulse Pulse Resp BP BP 09/09/20 08:49 110 H 151/74 H 09/09/20 08:00 36.6 C 108 H 18 151/74 H 09/09/20 04:00 36.4 C 74 16 140/73 09/08/20 23:39 36.4 C 64 16 113/58 L Pulse Ox 09/09/20 08:49 09/09/20 08:00 95 09/09/20 04:00 97 09/08/20 23:39 97 - Problem List & Annotations (1) COVID-19 SNOMED Code(s): 817004875 Code(s): U07.1 - COVID-19 Status: Acute Current Visit: Yes (2) Atrial fibrillation SNOMED Code(s): 94401900 Code(s): I48.91 - UNSPECIFIED ATRIAL FIBRILLATION Status: Acute Current Visit: No (3) CVA (cerebral vascular accident) SNOMED Code(s): 298350739 Code(s): I63.9 - CEREBRAL INFARCTION, UNSPECIFIED Status: Acute Current Visit: No (4) History of prostate cancer SNOMED Code(s): 438222499 Code(s): Z85.46 - PERSONAL HISTORY OF MALIGNANT NEOPLASM OF PROSTATE Status: Chronic Current Visit: No (5) Hx of CABG SNOMED Code(s): 795531769, 826183541 Code(s): Z95.1 - PRESENCE OF AORTOCORONARY BYPASS GRAFT Status: Chronic Current Visit: No (6) Hx of aortic valve replacement SNOMED Code(s): 7115575709878, 772680209, 5266203502576 Code(s): Z95.2 - PRESENCE OF PROSTHETIC HEART VALVE Status: Chronic Current Visit: No Annotation/Comment:: Bioprothestic placed in 2012 (7) Hx of mitral valve replacement SNOMED Code(s): 3712204978637, 3494429031375 Code(s): Z95.2 - PRESENCE OF PROSTHETIC HEART VALVE Status: Chronic Current Visit: No Annotation/Comment:: Bioprothestic placed in 2012 (8) Hx of non-ST elevation myocardial infarction (NSTEMI) SNOMED Code(s): 251233882 Code(s): I25.2 - OLD MYOCARDIAL INFARCTION Status: Chronic Current Visit: No (9) Seizure disorder SNOMED Code(s): 191620020 Code(s): G40.909 - EPILEPSY, UNSP, NOT INTRACTABLE, WITHOUT STATUS EPILEPTICUS Status: Chronic Current Visit: No (10) TIA (transient ischemic attack) SNOMED Code(s): 501886668 Code(s): G45.9 - TRANSIENT CEREBRAL ISCHEMIC ATTACK, UNSPECIFIED Status: Chronic Current Visit: No (11) CAP (community acquired pneumonia) SNOMED Code(s): 105231629 Code(s): J18.9 - PNEUMONIA, UNSPECIFIED ORGANISM Status: Acute Current Visit: Yes (12) Acute exacerbation of congestive heart failure SNOMED Code(s): 691189626, 60422758657540 Code(s): I50.9 - HEART FAILURE, UNSPECIFIED Status: Acute Current Visit: No Qualifiers: Heart failure type: unspecified Qualified Code(s): I50.9 - Heart failure, unspecified - Problem List Review Problem List Initiated/Reviewed/Updated: Yes - My Orders Last 24 Hours: My Active Orders 09/08/20 12:45 Ascorbic Acid [Vitamin C] 500 mg PO DAILY 09/08/20 14:00 Diltiazem 20 mg IVPUSH Q6H PRN 09/08/20 14:45 Lactated Ringers [Ringers, Lactated] 1,000 ml IV ASDIRECTED 09/09/20 09:00 Cholecalciferol (Vitamin D3) [Vitamin D3] 25 mcg PO DAILY 09/09/20 17:00 Enoxaparin [Lovenox] 40 mg SUBCUT Q12HR 09/10/20 05:11 BMP [BASIC METABOLIC PANEL,BMP] [CHEM] AM CBC WITH AUTO DIFF [HEME] AM MAGNESIUM [CHEM] AM PHOSPHORUS [CHEM] AM - Plan Plan:: Patient is an 85-year-old gentleman with a past medical history of coronary artery disease, [place], valve replacement, hypertension, hyperlipidemia. Was admitted due to altered mental status and possible pneumonia causing heart failure. 1. Possible CAP: Continue Rocephin and azithromycin - Encourage coughing and deep breathing along with incentive spirometer -Speech therapy evaluated him this morning. No overt signs of aspiration. Did recommend modified barium swallow eval in the future. 2. Acute on chronic diastolic heart failure with NSTEMI: cont Lasix 60 mg p.o. in the morning -Strict I's and O's, daily weight, heart healthy diet, low sodium 2 L fluid restriction -Recent echo showed EF of 55% with severe concentric hypertrophy and poor LV compliance and likely pulmonary hypertension -Troponin remains elevated patient and family have declined aggressive treatment continue palliative care at this time for NSTEMI - Heparin VTE prophylaxis -Continue metoprolol -Monitor on telemetry -Has history of hypertension and valvular heart disease continue aspirin patient, is statin intolerant 3. COVID-19 -No hypoxia noted. -Supportive care at this time -Not currently meeting guidelines for remdesivir or dexamethasone treatment. Daughter request prior to these being started if needed she would like to be notified. -Vit c and Zn per daughters request 4. Seizure disorder -Keppra dose at home is 250 mg daily 5. Deconditioning: - PT to evaluate and treat 6. A-flutter: Present on admission, currently rate controlled, cont Lovenox BID for now Will have to discuss with family about [facility] use of AC VTE prophylaxis: Lovenox full dose x 1 more dose then Heparin SQ CODE STATUS: DNR/DNI Dispo: change to inpatient last evening. Continues to have significant weakness needs rehabilitation before safe return to home Updated Aggie this morning she is agreeable with treatment plan list above. She is able to be reached at [phone]
[2020-09-09] MEDS: Enoxaparin 40 MG/0.4 ML Syringe SUBCUT SCH ×2 (17:49→21:34)
[2020-09-09] MEDS: levETIRAcetam Soln 500 MG/5 ML Cup PO SCH (17:49)
[2020-09-09] MEDS ORDERED: Carboxymethylcellulose Sodium 0.5% Ophth Soln 0.4 ML UD Box of 30 EYEBOTH PRN (18:20)
[2020-09-09] MEDS: cefTRIAXone 1 GM in Premix Bag 1 BAG IV SCH (21:31)
[2020-09-09] MEDS: Azithromycin 500 MG in Sodium Chloride 0.9% 250 ML IV SCH (22:14)
[2020-09-10] MEDS: Levothyroxine 25 MCG Tab PO SCH (06:35)
[2020-09-10] MEDS: Phosphorus #1 250 MG Tab PO SCH ×3 (06:35→17:10)
[2020-09-10] MEDS: Pantoprazole 40 MG Tab.CR PO SCH (06:35)
[2020-09-10 06:51] LABS: BLOOD UREA NITROGEN,BUN 21 mg/dL (7.0-18.0); CARBON DIOXIDE,CO2 27.7 mmol/L (21.0-32.0); CHLORIDE,CL 102 mmol/L (98-107); GLUCOSE RANDOM 97 mg/dL (74-106); POTASSIUM,K 3.2 mmol/L (3.5-5.1); SODIUM,NA 141 mmol/L (136-148)
[2020-09-10] MEDS ORDERED: Potassium Chloride 10% 20 MEQ/15 ML Soln 30 ML UD Cup PO ONE (08:07)
[2020-09-10] MEDS: Furosemide 20 MG Tab PO SCH (08:17)
[2020-09-10] MEDS: Ascorbic Acid 500 MG Tab PO SCH (08:17)
[2020-09-10] MEDS: Cholecalciferol (Vitamin D3) 25 MCG Tab PO SCH (08:17)
[2020-09-10] MEDS: Aspirin 81 MG Tab.Chew PO SCH (08:17)
[2020-09-10] MEDS: Enoxaparin 40 MG/0.4 ML Syringe SUBCUT SCH (08:18)
[2020-09-10] MEDS: Metoprolol Tartrate 25 MG Tab PO SCH ×2 (08:18→20:17)
--- NOTE | 2020-09-10 08:20 | PCM.PN ---
- General Info Date of Service: 09/10/20 Admission Dx/Problem (Free Text): Admission Diagnosis/Problem Admission Diagnosis/Problem Altered mental status Subjective Update: Denies any concerns as warning. He is wanting to go home. He is on the phone with his she is explaining to him he needs to listen to the nursing staff and help with cares. He denies any chest pain or shortness of breath. He is eating and drinking well and has been up to the bathroom with assistance of the nurse and a walker. Functional Status: Reports: Pain Controlled, Tolerating Diet, Ambulating, Urinating - Review of Systems General: Reports: No Symptoms. Denies: Weakness, Fatigue Pulmonary: Reports: No Symptoms. Denies: Shortness of Breath Cardiovascular: Reports: No Symptoms. Denies: Chest Pain Gastrointestinal: Reports: No Symptoms. Denies: Abdominal Pain, Nausea, Vomiting Genitourinary: Reports: No Symptoms. Denies: Dysuria, Frequency Musculoskeletal: Reports: No Symptoms Skin: Reports: No Symptoms Neurological: Reports: No Symptoms Psychiatric: Reports: No Symptoms - Patient Data Vitals - Most Recent: Last Vital Signs Temp 98.4 F 09/10/20 07:39 Pulse 86 09/10/20 08:18 Resp 18 09/10/20 07:39 BP 144/75 H 09/10/20 08:18 Pulse Ox 94 L 09/10/20 07:39 Weight - Most Recent: 109.134 kg I&O - Last 24 Hours: Intake & Output 09/09/20 09/10/20 09/10/20 22:59 06:59 14:59 Intake Total 520 520 Output Total 620 554 Balance -100 -34 Lab Results Last 24 Hours: Laboratory Results - last 24 hr 09/10/20 09/10/20 Range/Units 05:55 05:55 WBC 3.20 L (4.0-11.0) K/uL RBC 3.87 L (4.50-5.90) M/uL Hgb 11.8 L (13.0-17.0) g/dL Hct 36.3 L (38.0-50.0) % MCV 93.8 (80.0-98.0) fL MCH 30.5 (27.0-32.0) pg MCHC 32.5 (31.0-37.0) g/dL RDW Std Deviation 48.5 (28.0-62.0) fl RDW Coeff of [place] 14 (11.0-15.0) % Plt Count 162 (150-400) K/uL MPV 10.80 (7.40-12.00) fL Neut % (Auto) 62.8 (48.0-80.0) % Lymph % (Auto) 20.3 (16.0-40.0) % [place] % (Auto) 13.8 (0.0-15.0) % Eos % (Auto) 3.1 (0.0-7.0) % Baso % (Auto) 0.0 (0.0-1.5) % Neut # (Auto) 2.0 (1.4-5.7) K/uL Lymph # (Auto) 0.7 (0.6-2.4) K/uL [place] # (Auto) 0.4 (0.0-0.8) K/uL Eos # (Auto) 0.1 (0.0-0.7) K/uL Baso # (Auto) 0.0 (0.0-0.1) K/uL Nucleated RBC % 0.0 /100WBC Nucleated RBCs # 0 K/uL Sodium 141 (136-148) mmol/L Potassium 3.2 L (3.5-5.1) mmol/L Chloride 102 (98-107) mmol/L Carbon Dioxide 27.7 (21.0-32.0) mmol/L BUN 21 H (7.0-18.0) mg/dL Creatinine 0.8 (0.8-1.3) mg/dL Est Cr Clr Drug Dosing 58.70 mL/min Estimated GFR (MDRD) > 60.0 ml/min Glucose 97 (74-106) mg/dL Calcium 8.6 (8.5-10.1) mg/dL Phosphorus 3.2 (2.6-4.7) mg/dL Magnesium 2.0 (1.8-2.4) mg/dL Med Orders - Current: Current Medications Acetaminophen (Tylenol) 650 mg PO Q4H PRN PRN Reason: Pain (Mild 1-3)/fever Artificial Tears (Refresh Plus 0.5%) 1 each EYEBOTH ASDIRECTED PRN PRN Reason: Dry Eyes Ascorbic Acid (Vitamin C) 500 mg PO DAILY [facility] Last Admin: 09/10/20 08:17 Dose: 500 mg Documented by: Aspirin (Aspirin) 81 mg PO DAILY [facility] Last Admin: 09/10/20 08:17 Dose: 81 mg Documented by: Cholecalciferol (Vitamin D3) 25 mcg PO DAILY [facility] Last Admin: 09/10/20 08:17 Dose: 25 mcg Documented by: Diltiazem HCl (Diltiazem) 20 mg IVPUSH Q6H PRN PRN Reason: Tachycardia Enoxaparin Sodium (Lovenox) 40 mg SUBCUT Q12HR [facility] Last Admin: 09/10/20 08:18 Dose: 40 mg Documented by: Furosemide (Lasix) 60 mg PO DAILY [facility] Last Admin: 09/10/20 08:17 Dose: 60 mg Documented by: Azithromycin 500 mg/ Sodium (Chloride) 250 mls @ 250 mls/hr IV Q24H [facility] Stop: 09/10/20 22:59 Last Admin: 09/09/20 22:14 Dose: 250 mls/hr Documented by: Ceftriaxone Sodium/Dextrose 1 (gm/ Premix) 50 mls @ 100 mls/hr IV Q24H [facility] Stop: 09/11/20 21:29 Last Admin: 09/09/20 21:31 Dose: 100 mls/hr Documented by: Levetiracetam (Keppra) 250 mg PO DAILY@1700 [facility] Last Admin: 09/09/20 17:49 Dose: 250 mg Documented by: Levothyroxine Sodium (Levothyroxine) 25 mcg PO ACBREAKFAST [facility] Last Admin: 09/10/20 06:35 Dose: 25 mcg Documented by: Lorazepam (Ativan) 1 mg IVPUSH ONETIME PRN PRN Reason: Agitation Metoprolol Tartrate (Lopressor) 25 mg PO BID [facility] Last Admin: 09/10/20 08:18 Dose: 25 mg Documented by: Ondansetron HCl (Zofran Odt) 4 mg PO Q4H PRN PRN Reason: nausea, able to take PO Pantoprazole Sodium (Protonix) 40 mg PO ACBREAKFAST [facility] Last Admin: 09/10/20 06:35 Dose: 40 mg Documented by: Sodium Phosphate (Neutra-Phos) 250 mg PO QID [facility] Last Admin: 09/10/20 06:35 Dose: 250 mg Documented by: Discontinued Medications Azithromycin (Zithromax) 500 mg IV Q24H [facility] Last Admin: 09/04/20 22:45 Dose: Not Given Documented by: Ceftriaxone Sodium (Rocephin) 1 gm IVPUSH Q24H [facility] Last Admin: 09/04/20 20:33 Dose: 1 gm Documented by: Dextrose/Water (Dextrose 50% In Water) 50 ml IVPUSH ONETIME ONE Stop: 09/05/20 12:42 Last Admin: 09/05/20 12:50 Dose: 50 ml Documented by: Enoxaparin Sodium (Lovenox) 75 mg 1 mg/kg (75 mg) SUBCUT NOW STA Stop: 09/04/20 18:49 Last Admin: 09/04/20 20:34 Dose: Not Given Documented by: Enoxaparin Sodium (Lovenox) 75 mg 1 mg/kg (75 mg) SUBCUT DAILY [facility] Stop: 09/07/20 21:00 Last Admin: 09/05/20 11:12 Dose: Not Given Documented by: Enoxaparin Sodium (Lovenox) 75 mg 1 mg/kg (75 mg) SUBCUT DAILY@1700 [facility] Stop: 09/07/20 21:00 Last Admin: 09/07/20 17:17 Dose: 75 mg Documented by: Furosemide (Lasix) 40 mg PO DAILY [facility] Last Admin: 09/05/20 09:20 Dose: Not Given Documented by: Furosemide (Lasix) 40 mg IVPUSH NOW ONE Stop: 09/04/20 19:45 Last Admin: 09/04/20 20:33 Dose: 40 mg Documented by: Furosemide (Lasix) 40 mg IV BID [facility] Stop: 09/07/20 23:00 Last Admin: 09/07/20 20:32 Dose: 40 mg Documented by: Gabapentin (Neurontin) 100 mg PO BEDTIME [facility] Last Admin: 09/07/20 20:32 Dose: 100 mg Documented by: Haloperidol Lactate (Haldol) 1 mg IM Q6H PRN PRN Reason: Agitation Haloperidol Lactate (Haldol) Confirm Administered Dose 5 mg .ROUTE .STK-MED ONE Stop: 09/05/20 02:17 Last Admin: 09/05/20 02:45 Dose: 5 mg Documented by: Heparin Sodium (Porcine) (Heparin Sodium) 5,000 units SUBCUT Q12H [facility] Last Admin: 09/04/20 20:33 Dose: 5,000 units Documented by: Heparin Sodium (Porcine) (Heparin Sodium) 5,000 units SUBCUT Q12H [facility] Last Admin: 09/05/20 09:03 Dose: 5,000 units Documented by: Heparin Sodium (Porcine) (Heparin Sodium) 5,000 units SUBCUT Q12H [facility] Last Admin: 09/09/20 08:42 Dose: 5,000 units Documented by: Furosemide 40 mg/ Sodium (Chloride) 54 mls @ 100 mls/hr IV BID [facility] Last Admin: 09/04/20 22:44 Dose: Not Given Documented by: Pantoprazole Sodium 40 mg/ (Sodium Chloride) 10 mls @ 300 mls/hr IV DAILY [facility] Last Admin: 09/05/20 08:55 Dose: 300 mls/hr Documented by: Lactated Ringer's (Ringers, Lactated) 1,000 mls @ 999 mls/hr IV ASDIRECTED [facility] Lactated Ringer's (Ringers, Lactated) 500 mls @ 999 mls/hr IV ASDIRECTED [facility] Last Admin: 09/05/20 12:50 Dose: 999 mls/hr Documented by: Sodium Chloride (Normal Saline) 1,000 mls @ 999 mls/hr IV .BOLUS ONE Stop: 09/08/20 15:31 Last Admin: 09/08/20 17:09 Dose: 999 mls/hr Documented by: Lactated Ringer's (Ringers, Lactated) 1,000 mls @ 999 mls/hr IV ASDIRECTED [facility] Levetiracetam (Keppra) 250 mg PO BID [facility] Last Admin: 09/05/20 11:12 Dose: Not Given Documented by: Levetiracetam (Keppra) 250 mg PO BID [facility] Last Admin: 09/05/20 09:59 Dose: 250 mg Documented by: Levothyroxine Sodium (Levothyroxine) 12.5 mcg PO DAILY [facility] Last Admin: 09/05/20 09:05 Dose: 12.5 mcg Documented by: Lorazepam (Ativan) 1 mg IVPUSH Q6H PRN PRN Reason: Agitation Last Admin: 09/05/20 02:30 Dose: 1 mg Documented by: Lorazepam (Ativan) 2 mg IVPUSH ONETIME PRN PRN Reason: Agitation Last Admin: 09/07/20 01:04 Dose: 2 mg Documented by: Lorazepam (Ativan) 1 mg IVPUSH ONETIME PRN PRN Reason: Agitation Lorazepam (Ativan) 1 mg IVPUSH ONETIME ONE Stop: 09/08/20 14:33 Last Admin: 09/08/20 16:06 Dose: Not Given Documented by: Metoprolol Tartrate (Lopressor) 25 mg PO BID [facility] Last Admin: 09/04/20 20:33 Dose: 25 mg Documented by: Non-Formulary Medication (Prednisolone Acetate/Pf [Prednisolone Acet 1% Eye Drop]) 1 drop EYEBOTH BID [facility] Last Admin: 09/05/20 09:02 Dose: Not Given Documented by: Potassium Chloride (Klor-Con 10) 40 meq PO ONETIME ONE Stop: 09/05/20 13:57 Last Admin: 09/05/20 14:35 Dose: 40 meq Documented by: Potassium Chloride (Klor-Con M20) 40 meq PO ONETIME ONE Stop: 09/06/20 11:22 Last Admin: 09/06/20 12:02 Dose: 40 meq Documented by: Potassium Chloride (Potassium Chloride) 40 meq PO ONETIME ONE Stop: 09/09/20 10:35 Last Admin: 09/09/20 10:57 Dose: 40 meq Documented by: Potassium Chloride (Potassium Chloride) 40 meq PO ONETIME ONE Stop: 09/10/20 08:08 Tamsulosin HCl (Flomax) 0.4 mg PO WITHDINNER [facility] Last Admin: 09/07/20 17:15 Dose: 0.4 mg Documented by: - Exam General: Alert, Oriented, Cooperative, No Acute Distress Lungs: Normal Respiratory Effort, Decreased Breath Sounds Cardiovascular: Regular Rate, Regular Rhythm GI/Abdominal Exam: Normal Bowel Sounds, Soft, Non-Tender Extremities: Normal Inspection, Normal Range of Motion, Non-Tender, Pedal Edema (+1 nonpitting edema) Wound/Incisions: Healing Well Neurological: No New Focal Deficit Psy/Mental Status: Alert, Normal Affect, Normal Mood Sepsis Event Note - Evaluation Sepsis Screening Result: No Definite Risk - Focused Exam Vital Signs: Vital Signs Temp Pulse Pulse Pulse Resp BP BP 09/10/20 08:18 86 144/75 H 09/10/20 07:39 98.4 F 86 18 144/75 H 09/10/20 03:57 98.0 F 60 18 129/80 09/09/20 23:22 97.7 F 66 16 121/61 09/09/20 21:25 109 H 141/78 H Pulse Ox 09/10/20 08:18 09/10/20 07:39 94 L 09/10/20 03:57 98 09/09/20 23:22 97 09/09/20 21:25 - Problem List & Annotations (1) Diastolic heart failure SNOMED Code(s): 325915095 Code(s): I50.30 - UNSPECIFIED DIASTOLIC (CONGESTIVE) HEART FAILURE Status: Chronic Current Visit: No Qualifiers: Heart failure chronicity: acute on chronic Qualified Code(s): I50.33 - Acute on chronic diastolic (congestive) heart failure (2) NSTEMI (non-ST elevated myocardial infarction) SNOMED Code(s): 29572651 Code(s): I21.4 - NON-ST ELEVATION (NSTEMI) MYOCARDIAL INFARCTION Status: Acute Current Visit: No (3) COVID-19 SNOMED Code(s): 120932949 Code(s): U07.1 - COVID-19 Status: Acute Current Visit: Yes (4) History of prostate cancer SNOMED Code(s): 356854808 Code(s): Z85.46 - PERSONAL HISTORY OF MALIGNANT NEOPLASM OF PROSTATE Status: Chronic Current Visit: No (5) CAD (coronary artery disease) SNOMED Code(s): 34538651 Code(s): I25.10 - ATHSCL HEART DISEASE OF [place] CORONARY ARTERY W/O ANG PCTRS Status: Chronic Current Visit: No (6) Elevated troponin SNOMED Code(s): 583759173, 770022065, 902627553 Code(s): R74.8 - ABNORMAL LEVELS OF OTHER SERUM ENZYMES Status: Chronic Current Visit: No (7) HTN (hypertension) SNOMED Code(s): 57337147 Code(s): I10 - ESSENTIAL (PRIMARY) HYPERTENSION Status: Chronic Current Visit: No Qualifiers: Hypertension type: essential hypertension Qualified Code(s): I10 - Essential (primary) hypertension (8) Hx of CABG SNOMED Code(s): 495399625, 649939194 Code(s): Z95.1 - PRESENCE OF AORTOCORONARY BYPASS GRAFT Status: Chronic Current Visit: No (9) Hx of aortic valve replacement SNOMED Code(s): 2655067880257, 783228846, 7198010108013 Code(s): Z95.2 - PRESENCE OF PROSTHETIC HEART VALVE Status: Chronic Current Visit: No Annotation/Comment:: Bioprothestic placed in 2012 (10) Hx of mitral valve replacement SNOMED Code(s): 5263876491973, 5761911991729 Code(s): Z95.2 - PRESENCE OF PROSTHETIC HEART VALVE Status: Chronic Current Visit: No Annotation/Comment:: Bioprothestic placed in 2013 (11) Prostate CA SNOMED Code(s): 724434349 Code(s): C61 - MALIGNANT NEOPLASM OF PROSTATE Status: Chronic Current Visit: No (12) Pulmonary hypertension SNOMED Code(s): 62556915 Code(s): I27.20 - PULMONARY HYPERTENSION, UNSPECIFIED Status: Chronic Current Visit: No (13) Seizure disorder SNOMED Code(s): 362741939 Code(s): G40.909 - EPILEPSY, UNSP, NOT INTRACTABLE, WITHOUT STATUS EPILEPTICUS Status: Chronic Current Visit: No (14) TIA (transient ischemic attack) SNOMED Code(s): 475926206 Code(s): G45.9 - TRANSIENT CEREBRAL ISCHEMIC ATTACK, UNSPECIFIED Status: Chronic Current Visit: No - Problem List Review Problem List Initiated/Reviewed/Updated: Yes - Plan Plan:: Patient is an 85-year-old gentleman with a past medical history of coronary artery disease, MS, valve replacement, hypertension, hyperlipidemia. Was admitted due to altered mental status and possible pneumonia causing heart failure. 1. Possible CAP: Continue Rocephin and azithromycin x1 more day then will finish course. - Encourage coughing and deep breathing along with incentive spirometer - Speech therapy evaluated him this morning. No overt signs of aspiration. Did recommend modified barium swallow eval in the future. 2. Acute on chronic diastolic heart failure with NSTEMI: cont Lasix 60 mg p.o. in the morning -Strict I's and O's, daily weight, heart healthy diet, low sodium 2 L fluid restriction -Recent echo showed EF of 55% with severe concentric hypertrophy and poor LV compliance and likely pulmonary hypertension -Continue metoprolol -Monitor on telemetry -Has history of hypertension and valvular heart disease continue aspirin patient , is statin intolerant 3. COVID-19 -No hypoxia noted. -Supportive care at this time -Not currently meeting guidelines for remdesivir or dexamethasone treatment. Daughter request prior to these being started if needed she would like to be notified. -Vit c and Zn per daughters request 4. Seizure disorder -Keppra dose at home is 250 mg daily 5. Deconditioning: - PT to evaluate and treat 6. A-flutter: -Present on admission, currently rate controlled, -Discussed long-term anticoagulation with daughter she feels at this time he would be a higher risk of bleeding due to his high risk of falls and does not want to change that now. She is agreeable to aspirin only. VTE prophylaxis: Lovenox daily CODE STATUS: DNR/DNI Dispo: 2 to 3 days Updated Aggie this morning she is agreeable with treatment plan list above. She is able to be reached at [phone]. Discussed today that Jonathon potentially could go home with home health along with nursing care and PT OT. She feels she needs to discuss this with her sister as well as ria. The ria is not wanting caregivers within the home at night due to her mother having dementia and this causing disruptions with her dementia. Aggie will discuss this and get back to us.
[2020-09-10] MEDS: levETIRAcetam Soln 500 MG/5 ML Cup PO SCH (17:06)
[2020-09-10] MEDS: Azithromycin 500 MG in Sodium Chloride 0.9% 250 ML IV SCH ×2 (20:16→21:28)
[2020-09-10] MEDS: cefTRIAXone 1 GM in Premix Bag 1 BAG IV SCH (20:16)
[2020-09-11] MEDS: Phosphorus #1 250 MG Tab PO SCH ×6 (00:33→23:59)
[2020-09-11] MEDS ORDERED: LORazepam 2 MG/ML SDV IVPUSH ONE (04:01)
[2020-09-11 06:38] LABS: BLOOD UREA NITROGEN,BUN 21 mg/dL (7.0-18.0); CARBON DIOXIDE,CO2 29.7 mmol/L (21.0-32.0); CHLORIDE,CL 102 mmol/L (98-107); GLUCOSE RANDOM 103 mg/dL (74-106); POTASSIUM,K 3.1 mmol/L (3.5-5.1); SODIUM,NA 140 mmol/L (136-148)
[2020-09-11] MEDS: Metoprolol Tartrate 25 MG Tab PO SCH ×3 (09:21→23:59)
[2020-09-11] MEDS: Furosemide 20 MG Tab PO SCH (09:22)
[2020-09-11] MEDS: Pantoprazole 40 MG Tab.CR PO SCH (09:22)
[2020-09-11] MEDS: Ascorbic Acid 500 MG Tab PO SCH (09:22)
[2020-09-11] MEDS: Potassium Chloride 20 MEQ Tab.ER PO SCH ×2 (09:22→17:36)
[2020-09-11] MEDS: Levothyroxine 25 MCG Tab PO SCH (09:22)
[2020-09-11] MEDS: Aspirin 81 MG Tab.Chew PO SCH (09:22)
[2020-09-11] MEDS: Cholecalciferol (Vitamin D3) 25 MCG Tab PO SCH (09:23)
[2020-09-11] MEDS: Enoxaparin 40 MG/0.4 ML Syringe SUBCUT SCH (09:23)
--- NOTE | 2020-09-11 12:42 | PCM.PN ---
- General Info Date of Service: 09/11/20 Admission Dx/Problem (Free Text): Admission Diagnosis/Problem Admission Diagnosis/Problem Altered mental status Subjective Update: Patient had difficult night as he is asking to go home and wants to see his . Denies any chest pain or shortness of breath today. No cough. Functional Status: Reports: Pain Controlled, Tolerating Diet, Ambulating, Urinating - Review of Systems General: Reports: No Symptoms. Denies: Weakness, Fatigue, Malaise Pulmonary: Reports: No Symptoms. Denies: Shortness of Breath Cardiovascular: Reports: No Symptoms. Denies: Chest Pain Gastrointestinal: Reports: No Symptoms. Denies: Abdominal Pain, Nausea, Vomiting Genitourinary: Reports: No Symptoms. Denies: Dysuria, Frequency Musculoskeletal: Reports: No Symptoms Skin: Reports: No Symptoms Neurological: Reports: No Symptoms Psychiatric: Reports: No Symptoms - Patient Data Vitals - Most Recent: Last Vital Signs Temp 97.4 F 09/11/20 11:40 Pulse 79 09/11/20 11:40 Resp 18 09/11/20 11:40 BP 112/66 09/11/20 11:40 Pulse Ox 94 L 09/11/20 11:40 Weight - Most Recent: 109.27 kg I&O - Last 24 Hours: Intake & Output 09/10/20 09/11/20 09/11/20 22:59 06:59 14:59 Intake Total 550 500 Output Total 450 700 Balance 100 -200 Lab Results Last 24 Hours: Laboratory Results - last 24 hr 09/11/20 09/11/20 Range/Units 06:00 06:00 WBC 3.28 L (4.0-11.0) K/uL RBC 3.80 L (4.50-5.90) M/uL Hgb 11.8 L (13.0-17.0) g/dL Hct 35.5 L (38.0-50.0) % MCV 93.4 (80.0-98.0) fL MCH 31.1 (27.0-32.0) pg MCHC 33.2 (31.0-37.0) g/dL RDW Std Deviation 45.2 (28.0-62.0) fl RDW Coeff of [place] 14 (11.0-15.0) % Plt Count 134 L (150-400) K/uL MPV 10.80 (7.40-12.00) fL Neut % (Auto) 70.1 (48.0-80.0) % Lymph % (Auto) 11.9 L (16.0-40.0) % [place] % (Auto) 14.3 (0.0-15.0) % Eos % (Auto) 3.4 (0.0-7.0) % Baso % (Auto) 0.3 (0.0-1.5) % Neut # (Auto) 2.3 (1.4-5.7) K/uL Lymph # (Auto) 0.4 L (0.6-2.4) K/uL [place] # (Auto) 0.5 (0.0-0.8) K/uL Eos # (Auto) 0.1 (0.0-0.7) K/uL Baso # (Auto) 0.0 (0.0-0.1) K/uL Sodium 140 (136-148) mmol/L Potassium 3.1 L (3.5-5.1) mmol/L Chloride 102 (98-107) mmol/L Carbon Dioxide 29.7 (21.0-32.0) mmol/L BUN 21 H (7.0-18.0) mg/dL Creatinine 0.8 (0.8-1.3) mg/dL Est Cr Clr Drug Dosing 58.70 mL/min Estimated GFR (MDRD) > 60.0 ml/min Glucose 103 (74-106) mg/dL Calcium 8.5 (8.5-10.1) mg/dL Magnesium 2.0 (1.8-2.4) mg/dL Med Orders - Current: Current Medications Acetaminophen (Tylenol) 650 mg PO Q4H PRN PRN Reason: Pain (Mild 1-3)/fever Artificial Tears (Refresh Plus 0.5%) 1 each EYEBOTH ASDIRECTED PRN PRN Reason: Dry Eyes Ascorbic Acid (Vitamin C) 500 mg PO DAILY [facility] Last Admin: 09/11/20 09:22 Dose: 500 mg Documented by: Aspirin (Aspirin) 81 mg PO DAILY [facility] Last Admin: 09/11/20 09:22 Dose: 81 mg Documented by: Cholecalciferol (Vitamin D3) 25 mcg PO DAILY [facility] Last Admin: 09/11/20 09:23 Dose: 25 mcg Documented by: Diltiazem HCl (Diltiazem) 20 mg IVPUSH Q6H PRN PRN Reason: Tachycardia Enoxaparin Sodium (Lovenox) 40 mg SUBCUT Q24H [facility] Last Admin: 09/11/20 09:23 Dose: 40 mg Documented by: Furosemide (Lasix) 60 mg PO DAILY [facility] Last Admin: 09/11/20 09:22 Dose: 60 mg Documented by: Ceftriaxone Sodium/Dextrose 1 (gm/ Premix) 50 mls @ 100 mls/hr IV Q24H [facility] Stop: 09/11/20 21:29 Last Admin: 09/10/20 20:16 Dose: 100 mls/hr Documented by: Levetiracetam (Keppra) 250 mg PO DAILY@1700 [facility] Last Admin: 09/10/20 17:06 Dose: 250 mg Documented by: Levothyroxine Sodium (Levothyroxine) 25 mcg PO ACBREAKFAST [facility] Last Admin: 09/11/20 09:22 Dose: 25 mcg Documented by: Lorazepam (Ativan) 1 mg IVPUSH ONETIME PRN PRN Reason: Agitation Last Admin: 09/10/20 21:29 Dose: 1 mg Documented by: Metoprolol Tartrate (Lopressor) 25 mg PO BID [facility] Last Admin: 09/11/20 09:21 Dose: 25 mg Documented by: Ondansetron HCl (Zofran Odt) 4 mg PO Q4H PRN PRN Reason: nausea, able to take PO Pantoprazole Sodium (Protonix) 40 mg PO ACBREAKFAST [facility] Last Admin: 09/11/20 09:22 Dose: 40 mg Documented by: Potassium Chloride (Klor-Con M20) 40 meq PO BIDMEALS [facility] Last Admin: 09/11/20 09:22 Dose: 40 meq Documented by: Sodium Phosphate (Neutra-Phos) 250 mg PO QID [facility] Last Admin: 09/11/20 11:43 Dose: 250 mg Documented by: Discontinued Medications Azithromycin (Zithromax) 500 mg IV Q24H [facility] Last Admin: 09/04/20 22:45 Dose: Not Given Documented by: Ceftriaxone Sodium (Rocephin) 1 gm IVPUSH Q24H [facility] Last Admin: 09/04/20 20:33 Dose: 1 gm Documented by: Dextrose/Water (Dextrose 50% In Water) 50 ml IVPUSH ONETIME ONE Stop: 09/05/20 12:42 Last Admin: 09/05/20 12:50 Dose: 50 ml Documented by: Enoxaparin Sodium (Lovenox) 75 mg 1 mg/kg (75 mg) SUBCUT NOW STA Stop: 09/04/20 18:49 Last Admin: 09/04/20 20:34 Dose: Not Given Documented by: Enoxaparin Sodium (Lovenox) 75 mg 1 mg/kg (75 mg) SUBCUT DAILY [facility] Stop: 09/07/20 21:00 Last Admin: 09/05/20 11:12 Dose: Not Given Documented by: Enoxaparin Sodium (Lovenox) 75 mg 1 mg/kg (75 mg) SUBCUT DAILY@1700 [facility] Stop: 09/07/20 21:00 Last Admin: 09/07/20 17:17 Dose: 75 mg Documented by: Enoxaparin Sodium (Lovenox) 40 mg SUBCUT Q12HR [facility] Last Admin: 09/10/20 08:18 Dose: 40 mg Documented by: Furosemide (Lasix) 40 mg PO DAILY [facility] Last Admin: 09/05/20 09:20 Dose: Not Given Documented by: Furosemide (Lasix) 40 mg IVPUSH NOW ONE Stop: 09/04/20 19:45 Last Admin: 09/04/20 20:33 Dose: 40 mg Documented by: Furosemide (Lasix) 40 mg IV BID [facility] Stop: 09/07/20 23:00 Last Admin: 09/07/20 20:32 Dose: 40 mg Documented by: Gabapentin (Neurontin) 100 mg PO BEDTIME [facility] Last Admin: 09/07/20 20:32 Dose: 100 mg Documented by: Haloperidol Lactate (Haldol) 1 mg IM Q6H PRN PRN Reason: Agitation Haloperidol Lactate (Haldol) Confirm Administered Dose 5 mg .ROUTE .STK-MED ONE Stop: 09/05/20 02:17 Last Admin: 09/05/20 02:45 Dose: 5 mg Documented by: Heparin Sodium (Porcine) (Heparin Sodium) 5,000 units SUBCUT Q12H [facility] Last Admin: 09/04/20 20:33 Dose: 5,000 units Documented by: Heparin Sodium (Porcine) (Heparin Sodium) 5,000 units SUBCUT Q12H [facility] Last Admin: 09/05/20 09:03 Dose: 5,000 units Documented by: Heparin Sodium (Porcine) (Heparin Sodium) 5,000 units SUBCUT Q12H [facility] Last Admin: 09/09/20 08:42 Dose: 5,000 units Documented by: Furosemide 40 mg/ Sodium (Chloride) 54 mls @ 100 mls/hr IV BID [facility] Last Admin: 09/04/20 22:44 Dose: Not Given Documented by: Pantoprazole Sodium 40 mg/ (Sodium Chloride) 10 mls @ 300 mls/hr IV DAILY [facility] Last Admin: 09/05/20 08:55 Dose: 300 mls/hr Documented by: Azithromycin 500 mg/ Sodium (Chloride) 250 mls @ 250 mls/hr IV Q24H [facility] Stop: 09/10/20 22:59 Last Admin: 09/10/20 21:28 Dose: Not Given Documented by: Lactated Ringer's (Ringers, Lactated) 1,000 mls @ 999 mls/hr IV ASDIRECTED [facility] Lactated Ringer's (Ringers, Lactated) 500 mls @ 999 mls/hr IV ASDIRECTED [facility] Last Admin: 09/05/20 12:50 Dose: 999 mls/hr Documented by: Sodium Chloride (Normal Saline) 1,000 mls @ 999 mls/hr IV .BOLUS ONE Stop: 09/08/20 15:31 Last Admin: 09/08/20 17:09 Dose: 999 mls/hr Documented by: Lactated Ringer's (Ringers, Lactated) 1,000 mls @ 999 mls/hr IV ASDIRECTED [facility] Levetiracetam (Keppra) 250 mg PO BID [facility] Last Admin: 09/05/20 11:12 Dose: Not Given Documented by: Levetiracetam (Keppra) 250 mg PO BID [facility] Last Admin: 09/05/20 09:59 Dose: 250 mg Documented by: Levothyroxine Sodium (Levothyroxine) 12.5 mcg PO DAILY [facility] Last Admin: 09/05/20 09:05 Dose: 12.5 mcg Documented by: Lorazepam (Ativan) 1 mg IVPUSH Q6H PRN PRN Reason: Agitation Last Admin: 09/05/20 02:30 Dose: 1 mg Documented by: Lorazepam (Ativan) 2 mg IVPUSH ONETIME PRN PRN Reason: Agitation Last Admin: 09/07/20 01:04 Dose: 2 mg Documented by: Lorazepam (Ativan) 1 mg IVPUSH ONETIME PRN PRN Reason: Agitation Lorazepam (Ativan) 1 mg IVPUSH ONETIME ONE Stop: 09/08/20 14:33 Last Admin: 09/08/20 16:06 Dose: Not Given Documented by: Lorazepam (Ativan) 1 mg IVPUSH ONETIME ONE Stop: 09/11/20 04:02 Last Admin: 09/11/20 04:18 Dose: 1 mg Documented by: Metoprolol Tartrate (Lopressor) 25 mg PO BID [facility] Last Admin: 09/04/20 20:33 Dose: 25 mg Documented by: Non-Formulary Medication (Prednisolone Acetate/Pf [Prednisolone Acet 1% Eye Drop]) 1 drop EYEBOTH BID [facility] Last Admin: 09/05/20 09:02 Dose: Not Given Documented by: Potassium Chloride (Klor-Con 10) 40 meq PO ONETIME ONE Stop: 09/05/20 13:57 Last Admin: 09/05/20 14:35 Dose: 40 meq Documented by: Potassium Chloride (Klor-Con M20) 40 meq PO ONETIME ONE Stop: 09/06/20 11:22 Last Admin: 09/06/20 12:02 Dose: 40 meq Documented by: Potassium Chloride (Potassium Chloride) 40 meq PO ONETIME ONE Stop: 09/09/20 10:35 Last Admin: 09/09/20 10:57 Dose: 40 meq Documented by: Potassium Chloride (Potassium Chloride) 40 meq PO ONETIME ONE Stop: 09/10/20 08:08 Last Admin: 09/10/20 08:55 Dose: 40 meq Documented by: Tamsulosin HCl (Flomax) 0.4 mg PO WITHDINNER [facility] Last Admin: 09/07/20 17:15 Dose: 0.4 mg Documented by: - Exam Quality Assessment: DVT Prophylaxis. No: Supplemental Oxygen General: Alert, Oriented, Cooperative, No Acute Distress Lungs: Clear to Auscultation, Normal Respiratory Effort Cardiovascular: Regular Rate, Regular Rhythm GI/Abdominal Exam: Normal Bowel Sounds, Soft, Non-Tender Extremities: Normal Inspection, Normal Range of Motion, Non-Tender, No Pedal Edema Wound/Incisions: Healing Well Neurological: No New Focal Deficit Psy/Mental Status: Alert, Normal Affect, Normal Mood Sepsis Event Note - Evaluation Sepsis Screening Result: No Definite Risk - Focused Exam Vital Signs: Vital Signs Temp Pulse Pulse Resp BP BP Pulse Ox 09/11/20 11:40 97.4 F 79 18 112/66 94 L 09/11/20 09:21 77 144/73 H 09/11/20 09:13 98 F 77 18 144/73 H 95 09/11/20 04:24 98.1 F 95 20 130/80 95 - Problem List & Annotations (1) Diastolic heart failure SNOMED Code(s): 876620602 Code(s): I50.30 - UNSPECIFIED DIASTOLIC (CONGESTIVE) HEART FAILURE Status: Chronic Current Visit: No Qualifiers: Heart failure chronicity: acute on chronic Qualified Code(s): I50.33 - Acute on chronic diastolic (congestive) heart failure (2) NSTEMI (non-ST elevated myocardial infarction) SNOMED Code(s): 63505445 Code(s): I21.4 - NON-ST ELEVATION (NSTEMI) MYOCARDIAL INFARCTION Status: Acute Current Visit: No (3) COVID-19 SNOMED Code(s): 018666360 Code(s): U07.1 - COVID-19 Status: Acute Current Visit: Yes (4) History of prostate cancer SNOMED Code(s): 215331520 Code(s): Z85.46 - PERSONAL HISTORY OF MALIGNANT NEOPLASM OF PROSTATE Status: Chronic Current Visit: No (5) CAD (coronary artery disease) SNOMED Code(s): 99363485 Code(s): I25.10 - ATHSCL HEART DISEASE OF [place] CORONARY ARTERY W/O ANG PCTRS Status: Chronic Current Visit: No (6) Elevated troponin SNOMED Code(s): 491236004, 491642092, 990100045 Code(s): R74.8 - ABNORMAL LEVELS OF OTHER SERUM ENZYMES Status: Chronic Current Visit: No (7) HTN (hypertension) SNOMED Code(s): 18644668 Code(s): I10 - ESSENTIAL (PRIMARY) HYPERTENSION Status: Chronic Current Visit: No Qualifiers: Hypertension type: essential hypertension Qualified Code(s): I10 - Es sential (primary) hypertension (8) Hx of CABG SNOMED Code(s): 569268181, 487981648 Code(s): Z95.1 - PRESENCE OF AORTOCORONARY BYPASS GRAFT Status: Chronic Current Visit: No (9) Hx of aortic valve replacement SNOMED Code(s): 4479556148926, 003169680, 5528869083921 Code(s): Z95.2 - PRESENCE OF PROSTHETIC HEART VALVE Status: Chronic Current Visit: No Annotation/Comment:: Bioprothestic placed in 2012 (10) Hx of mitral valve replacement SNOMED Code(s): 4667255585212, 5458629459168 Code(s): Z95.2 - PRESENCE OF PROSTHETIC HEART VALVE Status: Chronic Current Visit: No Annotation/Comment:: Bioprothestic placed in 2012 (11) Prostate CA SNOMED Code(s): 633349676 Code(s): C61 - MALIGNANT NEOPLASM OF PROSTATE Status: Chronic Current Visit: No (12) Pulmonary hypertension SNOMED Code(s): 98970374 Code(s): I27.20 - PULMONARY HYPERTENSION, UNSPECIFIED Status: Chronic Current Visit: No (13) Seizure disorder SNOMED Code(s): 506505587 Code(s): G40.909 - EPILEPSY, UNSP, NOT INTRACTABLE, WITHOUT STATUS EPILEPTICUS Status: Chronic Current Visit: No (14) TIA (transient ischemic attack) SNOMED Code(s): 625630440 Code(s): G45.9 - TRANSIENT CEREBRAL ISCHEMIC ATTACK, UNSPECIFIED Status: Chronic Current Visit: No - Problem List Review Problem List Initiated/Reviewed/Updated: Yes - My Orders Last 24 Hours: My Active Orders 09/11/20 08:00 Enoxaparin [Lovenox] 40 mg SUBCUT Q24H Potassium Chloride [Klor-Con M20] 40 meq PO BIDMEALS 09/11/20 12:24 PT Evaluation and Treatment [CONS] Routine 09/12/20 05:11 BASIC METABOLIC PANEL,BMP [CHEM] AM CBC WITH AUTO DIFF [HEME] AM MAGNESIUM [CHEM] AM 09/13/20 05:11 BASIC METABOLIC PANEL,BMP [CHEM] AM CBC WITH AUTO DIFF [HEME] AM MAGNESIUM [CHEM] AM 09/14/20 05:11 BASIC METABOLIC PANEL,BMP [CHEM] AM CBC WITH AUTO DIFF [HEME] AM MAGNESIUM [CHEM] AM 09/15/20 05:11 BASIC METABOLIC PANEL,BMP [CHEM] AM CBC WITH AUTO DIFF [HEME] AM MAGNESIUM [CHEM] AM - Plan Plan:: Patient is an 85-year-old gentleman with a past medical history of coronary artery disease, [place], valve replacement, hypertension, hyperlipidemia. Was admitted due to altered mental status and possible pneumonia causing heart failure. 1. Possible CAP: Last dose of Rocephin this evening then has completed 7-day course - Encourage coughing and deep breathing along with incentive spirometer -Was seen by speech therapy no overt signs of aspiration did recommend MBS as outpatient 2. Acute on chronic diastolic heart failure with NSTEMI: cont Lasix 60 mg p.o. in the morning -Strict I's and O's, daily weight, heart healthy diet, low sodium 2 L fluid restriction -Recent echo showed EF of 55% with severe concentric hypertrophy and poor LV compliance and likely pulmonary hypertension -Continue metoprolol -Monitor on telemetry -Has history of hypertension and valvular heart disease continue aspirin patient, is statin intolerant 3. COVID-19 -No hypoxia noted. -Supportive care at this time -Vit c and Zn per daughters request 4. Seizure disorder -Keppra dose at home is 250 mg daily 5. Deconditioning: - PT to evaluate and treat -Continues to have weakness and needing increased assistance of nurse and HAND DRILLER getting out of bed and to complete daily cares. PT had initially signed off but will reconsult for further evaluation. 6. A-flutter: -Present on admission, currently rate controlled, -Discussed long-term anticoagulation with daughter she feels at this time he would be a higher risk of bleeding due to his high risk of falls and does not want to change that now. She is agreeable to aspirin only. VTE prophylaxis: Lovenox daily CODE STATUS: DNR/DNI Dispo: 2 to 3 days Aggie, daughter. She is able to be reached at [phone]. Dr. Napoles and myself updated Aggie this morning she is continuing to want placement as Jonathon's 's family is unwilling to allow him back in the apartment and they are in the process of moving Jonathon's to assisted living. We did discuss with her that this is potentially detrimental Jonathon as he is wanting to see his frequently during his stay here in the hospital. She voices understanding and feels that she has no other choice due to family situation.
[2020-09-11] MEDS: levETIRAcetam Soln 500 MG/5 ML Cup PO SCH (17:36)
[2020-09-11] MEDS: cefTRIAXone 1 GM in Premix Bag 1 BAG IV SCH (20:03)
[2020-09-12] MEDS: Pantoprazole 40 MG Tab.CR PO SCH ×2 (04:43→07:53)
[2020-09-12] MEDS: Levothyroxine 25 MCG Tab PO SCH ×2 (04:43→07:53)
[2020-09-12] MEDS: Phosphorus #1 250 MG Tab PO SCH ×5 (04:43→23:31)
[2020-09-12 07:05] LABS: BLOOD UREA NITROGEN,BUN 21 mg/dL (7.0-18.0); CARBON DIOXIDE,CO2 30.7 mmol/L (21.0-32.0); CHLORIDE,CL 104 mmol/L (98-107); GLUCOSE RANDOM 96 mg/dL (74-106); POTASSIUM,K 3.6 mmol/L (3.5-5.1); SODIUM,NA 144 mmol/L (136-148)
--- NOTE | 2020-09-12 08:06 | PCM.PN ---
- General Info Date of Service: 09/12/20 Admission Dx/Problem (Free Text): Admission Diagnosis/Problem Admission Diagnosis/Problem Altered mental status Subjective Update: Denies any chest pain or shortness of breath. Reports he is feeling okay today. He is very cooperative with nursing in the room at this time. He is taking his medications as prescribed and getting ready for breakfast. He is continuously asking for his and wanting to talk to her reporting that no one is letting her do this. Apparently family has been disconnecting the phone so calling is tough. Will discuss with daughter Aggie today though she has limited say on what is happening. Functional Status: Reports: Pain Controlled, Tolerating Diet, Ambulating (With assist of 1-2 and walker and gait belt), Urinating (Continent and incontinent intermittently) - Review of Systems General: Reports: Weakness. Denies: Fever HEENT: Reports: No Symptoms. Denies: Headaches, Sore Throat, Visual Changes Pulmonary: Reports: No Symptoms. Denies: Shortness of Breath Cardiovascular: Reports: No Symptoms. Denies: Chest Pain Gastrointestinal: Reports: No Symptoms. Denies: Abdominal Pain, Constipation, Diarrhea, Nausea, Vomiting Genitourinary: Reports: No Symptoms. Denies: Dysuria, Frequency Musculoskeletal: Reports: No Symptoms Skin: Reports: No Symptoms Neurological: Reports: No Symptoms Psychiatric: Reports: No Symptoms - Patient Data Vitals - Most Recent: Last Vital Signs Temp 97.3 F 09/12/20 07:45 Pulse 66 09/12/20 07:45 Resp 18 09/12/20 07:45 BP 139/90 09/12/20 07:45 Pulse Ox 96 09/12/20 07:45 Weight - Most Recent: 73.119 kg I&O - Last 24 Hours: Intake & Output 09/11/20 09/12/20 09/12/20 22:59 06:59 14:59 Intake Total 420 350 Output Total 550 400 Balance -130 -50 Lab Results Last 24 Hours: Laboratory Results - last 24 hr 09/12/20 09/12/20 Range/Units 06:38 06:38 WBC 3.77 L (4.0-11.0) K/uL RBC 4.15 L (4.50-5.90) M/uL Hgb 12.5 L (13.0-17.0) g/dL Hct 39.2 (38.0-50.0) % MCV 94.5 (80.0-98.0) fL MCH 30.1 (27.0-32.0) pg MCHC 31.9 (31.0-37.0) g/dL RDW Std Deviation 48.8 (28.0-62.0) fl RDW Coeff of [place] 14 (11.0-15.0) % Plt Count 170 (150-400) K/uL MPV 10.40 (7.40-12.00) fL Neut % (Auto) 64.5 (48.0-80.0) % Lymph % (Auto) 18.0 (16.0-40.0) % [place] % (Auto) 13.8 (0.0-15.0) % Eos % (Auto) 3.7 (0.0-7.0) % Baso % (Auto) 0.0 (0.0-1.5) % Neut # (Auto) 2.4 (1.4-5.7) K/uL Lymph # (Auto) 0.7 (0.6-2.4) K/uL [place] # (Auto) 0.5 (0.0-0.8) K/uL Eos # (Auto) 0.1 (0.0-0.7) K/uL Baso # (Auto) 0.0 (0.0-0.1) K/uL Nucleated RBC % 0.0 /100WBC Nucleated RBCs # 0 K/uL Sodium 144 (136-148) mmol/L Potassium 3.6 (3.5-5.1) mmol/L Chloride 104 (98-107) mmol/L Carbon Dioxide 30.7 (21.0-32.0) mmol/L BUN 21 H (7.0-18.0) mg/dL Creatinine 0.9 (0.8-1.3) mg/dL Est Cr Clr Drug Dosing 52.18 mL/min Estimated GFR (MDRD) > 60.0 ml/min Glucose 96 (74-106) mg/dL Calcium 8.8 (8.5-10.1) mg/dL Magnesium 2.1 (1.8-2.4) mg/dL Med Orders - Current: Current Medications Acetaminophen (Tylenol) 650 mg PO Q4H PRN PRN Reason: Pain (Mild 1-3)/fever Artificial Tears (Refresh Plus 0.5%) 1 each EYEBOTH ASDIRECTED PRN PRN Reason: Dry Eyes Ascorbic Acid (Vitamin C) 500 mg PO DAILY [facility] Last Admin: 09/11/20 09:22 Dose: 500 mg Documented by: Aspirin (Aspirin) 81 mg PO DAILY [facility] Last Admin: 09/11/20 09:22 Dose: 81 mg Documented by: Cholecalciferol (Vitamin D3) 25 mcg PO DAILY [facility] Last Admin: 09/11/20 09:23 Dose: 25 mcg Documented by: Diltiazem HCl (Diltiazem) 20 mg IVPUSH Q6H PRN PRN Reason: Tachycardia Enoxaparin Sodium (Lovenox) 40 mg SUBCUT Q24H [facility] Last Admin: 09/11/20 09:23 Dose: 40 mg Documented by: Furosemide (Lasix) 60 mg PO DAILY [facility] Last Admin: 09/11/20 09:22 Dose: 60 mg Documented by: Levetiracetam (Keppra) 250 mg PO DAILY@1700 [facility] Last Admin: 09/11/20 17:36 Dose: 250 mg Documented by: Levothyroxine Sodium (Levothyroxine) 25 mcg PO ACBREAKFAST [facility] Last Admin: 09/12/20 07:53 Dose: Not Given Documented by: Lorazepam (Ativan) 1 mg IVPUSH ONETIME PRN PRN Reason: Agitation Last Admin: 09/10/20 21:29 Dose: 1 mg Documented by: Metoprolol Tartrate (Lopressor) 25 mg PO BID [facility] Last Admin: 09/11/20 23:59 Dose: 25 mg Documented by: Ondansetron HCl (Zofran Odt) 4 mg PO Q4H PRN PRN Reason: nausea, able to take PO Pantoprazole Sodium (Protonix) 40 mg PO ACBREAKFAST [facility] Last Admin: 09/12/20 07:53 Dose: Not Given Documented by: Potassium Chloride (Klor-Con M20) 40 meq PO BIDMEALS [facility] Last Admin: 09/11/20 17:36 Dose: 40 meq Documented by: Sodium Phosphate (Neutra-Phos) 250 mg PO QID [facility] Last Admin: 09/12/20 05:42 Dose: Not Given Documented by: Discontinued Medications Azithromycin (Zithromax) 500 mg IV Q24H [facility] Last Admin: 09/04/20 22:45 Dose: Not Given Documented by: Ceftriaxone Sodium (Rocephin) 1 gm IVPUSH Q24H [facility] Last Admin: 09/04/20 20:33 Dose: 1 gm Documented by: Dextrose/Water (Dextrose 50% In Water) 50 ml IVPUSH ONETIME ONE Stop: 09/05/20 12:42 Last Admin: 09/05/20 12:50 Dose: 50 ml Documented by: Enoxaparin Sodium (Lovenox) 75 mg 1 mg/kg (75 mg) SUBCUT NOW STA Stop: 09/04/20 18:49 Last Admin: 09/04/20 20:34 Dose: Not Given Documented by: Enoxaparin Sodium (Lovenox) 75 mg 1 mg/kg (75 mg) SUBCUT DAILY [facility] Stop: 09/07/20 21:00 Last Admin: 09/05/20 11:12 Dose: Not Given Documented by: Enoxaparin Sodium (Lovenox) 75 mg 1 mg/kg (75 mg) SUBCUT DAILY@1700 [facility] Stop: 09/07/20 21:00 Last Admin: 09/07/20 17:17 Dose: 75 mg Documented by: Enoxaparin Sodium (Lovenox) 40 mg SUBCUT Q12HR [facility] Last Admin: 09/10/20 08:18 Dose: 40 mg Documented by: Furosemide (Lasix) 40 mg PO DAILY [facility] Last Admin: 09/05/20 09:20 Dose: Not Given Documented by: Furosemide (Lasix) 40 mg IVPUSH NOW ONE Stop: 09/04/20 19:45 Last Admin: 09/04/20 20:33 Dose: 40 mg Documented by: Furosemide (Lasix) 40 mg IV BID [facility] Stop: 09/07/20 23:00 Last Admin: 09/07/20 20:32 Dose: 40 mg Documented by: Gabapentin (Neurontin) 100 mg PO BEDTIME [facility] Last Admin: 09/07/20 20:32 Dose: 100 mg Documented by: Haloperidol Lactate (Haldol) 1 mg IM Q6H PRN PRN Reason: Agitation Haloperidol Lactate (Haldol) Confirm Administered Dose 5 mg .ROUTE .STK-MED ONE Stop: 09/05/20 02:17 Last Admin: 09/05/20 02:45 Dose: 5 mg Documented by: Heparin Sodium (Porcine) (Heparin Sodium) 5,000 units SUBCUT Q12H [facility] Last Admin: 09/04/20 20:33 Dose: 5,000 units Documented by: Heparin Sodium (Porcine) (Heparin Sodium) 5,000 units SUBCUT Q12H [facility] Last Admin: 09/05/20 09:03 Dose: 5,000 units Documented by: Heparin Sodium (Porcine) (Heparin Sodium) 5,000 units SUBCUT Q12H [facility] Last Admin: 09/09/20 08:42 Dose: 5,000 units Documented by: Furosemide 40 mg/ Sodium (Chloride) 54 mls @ 100 mls/hr IV BID [facility] Last Admin: 09/04/20 22:44 Dose: Not Given Documented by: Pantoprazole Sodium 40 mg/ (Sodium Chloride) 10 mls @ 300 mls/hr IV DAILY [facility] Last Admin: 09/05/20 08:55 Dose: 300 mls/hr Documented by: Azithromycin 500 mg/ Sodium (Chloride) 250 mls @ 250 mls/hr IV Q24H [facility] Stop: 09/10/20 22:59 Last Admin: 09/10/20 21:28 Dose: Not Given Documented by: Ceftriaxone Sodium/Dextrose 1 (gm/ Premix) 50 mls @ 100 mls/hr IV Q24H [facility] Stop: 09/11/20 21:29 Last Admin: 09/11/20 20:03 Dose: 100 mls/hr Documented by: Lactated Ringer's (Ringers, Lactated) 1,000 mls @ 999 mls/hr IV ASDIRECTED [facility] Lactated Ringer's (Ringers, Lactated) 500 mls @ 999 mls/hr IV ASDIRECTED [facility] Last Admin: 09/05/20 12:50 Dose: 999 mls/hr Documented by: Sodium Chloride (Normal Saline) 1,000 mls @ 999 mls/hr IV .BOLUS ONE Stop: 09/08/20 15:31 Last Admin: 09/08/20 17:09 Dose: 999 mls/hr Documented by: Lactated Ringer's (Ringers, Lactated) 1,000 mls @ 999 mls/hr IV ASDIRECTED [facility] Levetiracetam (Keppra) 250 mg PO BID [facility] Last Admin: 09/05/20 11:12 Dose: Not Given Documented by: Levetiracetam (Keppra) 250 mg PO BID [facility] Last Admin: 09/05/20 09:59 Dose: 250 mg Documented by: Levothyroxine Sodium (Levothyroxine) 12.5 mcg PO DAILY [facility] Last Admin: 09/05/20 09:05 Dose: 12.5 mcg Documented by: Lorazepam (Ativan) 1 mg IVPUSH Q6H PRN PRN Reason: Agitation Last Admin: 09/05/20 02:30 Dose: 1 mg Documented by: Lorazepam (Ativan) 2 mg IVPUSH ONETIME PRN PRN Reason: Agitation Last Admin: 09/07/20 01:04 Dose: 2 mg Documented by: Lorazepam (Ativan) 1 mg IVPUSH ONETIME PRN PRN Reason: Agitation Lorazepam (Ativan) 1 mg IVPUSH ONETIME ONE Stop: 09/08/20 14:33 Last Admin: 09/08/20 16:06 Dose: Not Given Documented by: Lorazepam (Ativan) 1 mg IVPUSH ONETIME ONE Stop: 09/11/20 04:02 Last Admin: 09/11/20 04:18 Dose: 1 mg Documented by: Metoprolol Tartrate (Lopressor) 25 mg PO BID [facility] Last Admin: 09/04/20 20:33 Dose: 25 mg Documented by: Non-Formulary Medication (Prednisolone Acetate/Pf [Prednisolone Acet 1% Eye Drop]) 1 drop EYEBOTH BID [facility] Last Admin: 09/05/20 09:02 Dose: Not Given Documented by: Potassium Chloride (Klor-Con 10) 40 meq PO ONETIME ONE Stop: 09/05/20 13:57 Last Admin: 09/05/20 14:35 Dose: 40 meq Documented by: Potassium Chloride (Klor-Con M20) 40 meq PO ONETIME ONE Stop: 09/06/20 11:22 Last Admin: 09/06/20 12:02 Dose: 40 meq Documented by: Potassium Chloride (Potassium Chloride) 40 meq PO ONETIME ONE Stop: 09/09/20 10:35 Last Admin: 09/09/20 10:57 Dose: 40 meq Documented by: Potassium Chloride (Potassium Chloride) 40 meq PO ONETIME ONE Stop: 09/10/20 08:08 Last Admin: 09/10/20 08:55 Dose: 40 meq Documented by: Tamsulosin [facility] Admin: 09/07/20 17:15 Dose: 0.4 mg Documented by: - Exam Quality Assessment: DVT Prophylaxis. No: Supplemental Oxygen General: Alert, Oriented, Cooperative, No Acute Distress HEENT: Pupils Equal, Mucous Membr. Moist/[place] Neck: Supple Lungs: Normal Respiratory Effort, Decreased Breath Sounds (Bibasilar but significantly improved from previous days). No: Crackles, Wheezing Cardiovascular: Regular Rate, Regular Rhythm, No Murmurs GI/Abdominal Exam: Normal Bowel Sounds, Soft, Non-Tender Back Exam: Normal Inspection, Full Range of Motion Extremities: Normal Inspection, Normal Range of Motion, Non-Tender, No Pedal Edema Skin: Ecchymosis (From lab pokes and IV sticks to arms bilaterally) Neurological: No New Focal Deficit Psy/Mental Status: Alert, Normal Affect, Normal Mood Sepsis Event Note - Evaluation Sepsis Screening Result: No Definite Risk - Focused Exam Vital Signs: Vital Signs Temp Pulse Pulse Resp BP BP Pulse Ox 09/12/20 07:45 97.3 F 66 18 139/90 96 09/12/20 04:33 97.8 F 64 20 141/78 H 96 09/11/20 23:59 79 129/87 09/11/20 23:50 97.5 F 79 19 129/87 96 09/11/20 22:41 Pulse Ox 09/12/20 07:45 09/12/20 04:33 09/11/20 23:59 09/11/20 23:50 09/11/20 22:41 95 - Problem List & Annotations (1) Diastolic heart failure SNOMED Code(s): 239063334 Code(s): I50.30 - UNSPECIFIED DIASTOLIC (CONGESTIVE) HEART FAILURE Status: Chronic Current Visit: No Qualifiers: Heart failure chronicity: acute on chronic Qualified Code(s): I50.33 - Acute on chronic diastolic (congestive) heart failure (2) NSTEMI (non-ST elevated myocardial infarction) SNOMED Code(s): 42729651 Code(s): I21.4 - NON-ST ELEVATION (NSTEMI) MYOCARDIAL INFARCTION Status: Acute Current Visit: No (3) COVID-19 SNOMED Code(s): 923972266 Code(s): U07.1 - COVID-19 Status: Acute Current Visit: Yes (4) History of prostate cancer SNOMED Code(s): 775871708 Code(s): Z85.46 - PERSONAL HISTORY OF MALIGNANT NEOPLASM OF PROSTATE Status: Chronic Current Visit: No (5) CAD (coronary artery disease) SNOMED Code(s): 43023039 Code(s): I25.10 - ATHSCL HEART DISEASE OF [place] CORONARY ARTERY W/O ANG PCTRS Status: Chronic Current Visit: No (6) Elevated troponin SNOMED Code(s): 141438197, 592535659, 352885664 Code(s): R74.8 - ABNORMAL LEVELS OF OTHER SERUM ENZYMES Status: Chronic Current Visit: No (7) HTN (hypertension) SNOMED Code(s): 98820534 Code(s): I10 - ESSENTIAL (PRIMARY) HYPERTENSION Status: Chronic Current Visit: No Qualifiers: Hypertension type: essential hypertension Qualified Code(s): I10 - Essential (primary) hypertension (8) Hx of CABG SNOMED Code(s): 681176097, 923015392 Code(s): Z95.1 - PRESENCE OF AORTOCORONARY BYPASS GRAFT Status: Chronic Current Visit: No (9) Hx of aortic valve replacement SNOMED Code(s): 7519890868718, 556262998, 6655853292692 Code(s): Z95.2 - PRESENCE OF PROSTHETIC HEART VALVE Status: Chronic Current Visit: No Annotation/Comment:: Bioprothestic placed in 2012 (10) Hx of mitral valve replacement SNOMED Code(s): 3423533980208, 7974500160705 Code(s): Z95.2 - PRESENCE OF PROSTHETIC HEART VALVE Status: Chronic Cur rent Visit: No Annotation/Comment:: Bioprothestic placed in 2012 (11) Prostate CA SNOMED Code(s): 724418402 Code(s): C61 - MALIGNANT NEOPLASM OF PROSTATE Status: Chronic Current Visit: No (12) Pulmonary hypertension SNOMED Code(s): 57675956 Code(s): I27.20 - PULMONARY HYPERTENSION, UNSPECIFIED Status: Chronic Current Visit: No (13) Seizure disorder SNOMED Code(s): 525592479 Code(s): G40.909 - EPILEPSY, UNSP, NOT INTRACTABLE, WITHOUT STATUS EPILEPTICUS Status: Chronic Current Visit: No (14) TIA (transient ischemic attack) SNOMED Code(s): 470852747 Code(s): G45.9 - TRANSIENT CEREBRAL ISCHEMIC ATTACK, UNSPECIFIED Status: Chronic Current Visit: No - Problem List Review Problem List Initiated/Reviewed/Updated: Yes - My Orders Last 24 Hours: My Active Orders 09/11/20 08:00 Enoxaparin [Lovenox] 40 mg SUBCUT Q24H Potassium Chloride [Klor-Con M20] 40 meq PO BIDMEALS 09/11/20 12:24 PT Evaluation and Treatment [CONS] Routine 09/13/20 05:11 BASIC METABOLIC PANEL,BMP [CHEM] AM CBC WITH AUTO DIFF [HEME] AM MAGNESIUM [CHEM] AM 09/14/20 05:11 BASIC METABOLIC PANEL,BMP [CHEM] AM CBC WITH AUTO DIFF [HEME] AM MAGNESIUM [CHEM] AM 09/15/20 05:11 BASIC METABOLIC PANEL,BMP [CHEM] AM CBC WITH AUTO DIFF [HEME] AM MAGNESIUM [CHEM] AM - Plan Plan:: Patient is an 85-year-old gentleman with a past medical history of coronary artery disease, [place], valve replacement, hypertension, hyperlipidemia. Was admitted due to altered mental status and possible pneumonia causing heart failure. 1. Possible CAP: Has completed course of Rocephin and azithromycin. -Monitor symptoms but overall fully treated. 2. Acute on chronic diastolic heart failure with NSTEMI: -Stable and back to baseline cont Lasix 60 mg p.o. in the morning -Strict I's and O's, daily weight, heart healthy diet, low sodium 2 L fluid restriction -Recent echo showed EF of 55% with severe concentric hypertrophy and poor LV compliance and likely pulmonary hypertension -Continue metoprolol -Monitor on telemetry -Has history of hypertension and valvular heart disease continue aspirin patient, is statin intolerant 3. COVID-19 -Stable last day of quarantine is 09/14/2020 in the evening. -No hypoxia noted. -Supportive care at this time -Vit c and Zn per daughters request 4. Seizure disorder -Keppra dose at home is 250 mg daily 5. 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 PT had initially signed off but will reconsult for further evaluation. 6. A-flutter: -Present on admission, currently rate controlled -Continue metoprolol -Discussed long-term anticoagulation with daughter she feels at this time he would be a higher risk of bleeding due to his high risk of falls and does not want to change that now. She is agreeable to aspirin only. VTE prophylaxis: Lovenox daily CODE STATUS: DNR/DNI Dispo: 2 to 3 days Aggie, daughter. She is able to be reached at [phone].
[2020-09-12] MEDS: Cholecalciferol (Vitamin D3) 25 MCG Tab PO SCH (08:09)
[2020-09-12] MEDS: Potassium Chloride 20 MEQ Tab.ER PO SCH ×2 (08:10→17:15)
[2020-09-12] MEDS: Metoprolol Tartrate 25 MG Tab PO SCH ×2 (08:10→21:30)
[2020-09-12] MEDS: Ascorbic Acid 500 MG Tab PO SCH (08:10)
[2020-09-12] MEDS: Aspirin 81 MG Tab.Chew PO SCH (08:10)
[2020-09-12] MEDS: Furosemide 20 MG Tab PO SCH (08:10)
[2020-09-12] MEDS: Enoxaparin 40 MG/0.4 ML Syringe SUBCUT SCH (08:11)
[2020-09-12] MEDS: levETIRAcetam Soln 500 MG/5 ML Cup PO SCH (17:21)
[2020-09-13] MEDS: Phosphorus #1 250 MG Tab PO SCH ×2 (06:32→12:56)
[2020-09-13] MEDS: Levothyroxine 25 MCG Tab PO SCH (06:35)
[2020-09-13] MEDS: Pantoprazole 40 MG Tab.CR PO SCH (06:35)
[2020-09-13 06:48] LABS: BLOOD UREA NITROGEN,BUN 18 mg/dL (7.0-18.0); CARBON DIOXIDE,CO2 30.9 mmol/L (21.0-32.0); CHLORIDE,CL 103 mmol/L (98-107); GLUCOSE RANDOM 102 mg/dL (74-106); SODIUM,NA 141 mmol/L (136-148)
--- NOTE | 2020-09-13 08:14 | PCM.PN ---
- General Info Date of Service: 09/13/20 Admission Dx/Problem (Free Text): Admission Diagnosis/Problem Admission Diagnosis/Problem Altered mental status Subjective Update: Doing well this morning. Assisted SEMAPHORE OPERATOR with getting patient to chair. He was stable but definitely needed some assist with transferring. Denies any chest pain no shortness of breath. No other concerns this morning. He is requesting to talk to Sharonda his or Aggie his daughter. Functional Status: Reports: Pain Controlled, Tolerating Diet, Ambulating - Review of Systems General: Denies: No Symptoms, Fatigue, Malaise HEENT: Reports: No Symptoms Pulmonary: Reports: No Symptoms. Denies: Shortness of Breath Cardiovascular: Reports: No Symptoms. Denies: Chest Pain Gastrointestinal: Reports: No Symptoms. Denies: Abdominal Pain, Nausea, Vomiting Genitourinary: Reports: No Symptoms. Denies: Dysuria, Frequency, Burning Musculoskeletal: Reports: No Symptoms Skin: Reports: No Symptoms Neurological: Reports: No Symptoms Psychiatric: Reports: No Symptoms - Patient Data Vitals - Most Recent: Last Vital Signs Temp 97.0 F 09/13/20 07:54 Pulse 85 09/13/20 07:54 Resp 16 09/13/20 07:54 BP 140/73 09/13/20 07:54 Pulse Ox 96 09/13/20 07:54 Weight - Most Recent: 72.575 kg I&O - Last 24 Hours: Intake & Output 09/12/20 09/13/20 09/13/20 22:59 06:59 14:59 Intake Total 640 Output Total 500 Balance 140 Lab Results Last 24 Hours: Laboratory Results - last 24 hr 09/13/20 09/13/20 Range/Units 06:18 06:18 WBC 4.20 (4.0-11.0) K/uL RBC 4.21 L (4.50-5.90) M/uL Hgb 12.8 L (13.0-17.0) g/dL Hct 39.8 (38.0-50.0) % MCV 94.5 (80.0-98.0) fL MCH 30.4 (27.0-32.0) pg MCHC 32.2 (31.0-37.0) g/dL RDW Std Deviation 48.6 (28.0-62.0) fl RDW Coeff of J[place] 14 (11.0-15.0) % Plt Count 175 (150-400) K/uL MPV 10.80 (7.40-12.00) fL Neut % (Auto) 68.1 (48.0-80.0) % Lymph % (Auto) 12.9 L (16.0-40.0) % Humphreys % (Auto) 15.0 (0.0-15.0) % Eos % (Auto) 3.8 (0.0-7.0) % Baso % (Auto) 0.2 (0.0-1.5) % Neut # (Auto) 2.9 (1.4-5.7) K/uL Lymph # (Auto) 0.5 L (0.6-2.4) K/uL Humphreys # (Auto) 0.6 (0.0-0.8) K/uL Eos # (Auto) 0.2 (0.0-0.7) K/uL Baso # (Auto) 0.0 (0.0-0.1) K/uL Nucleated RBC % 0.0 /100WBC Nucleated RBCs # 0 K/uL Sodium 141 (136-148) mmol/L Potassium 4.0 (3.5-5.1) mmol/L Chloride 103 (98-107) mmol/L Carbon Dioxide 30.9 (21.0-32.0) mmol/L BUN 18 (7.0-18.0) mg/dL Creatinine 0.9 (0.8-1.3) mg/dL Est Cr Clr Drug Dosing 52.18 mL/min Estimated GFR (MDRD) > 60.0 ml/min Glucose 102 (74-106) mg/dL Calcium 8.8 (8.5-10.1) mg/dL Magnesium 2.0 (1.8-2.4) mg/dL Med Orders - Current: Current Medications Acetaminophen (Tylenol) 650 mg PO Q4H PRN PRN Reason: Pain (Mild 1-3)/fever Artificial Tears (Refresh Plus 0.5%) 1 each EYEBOTH ASDIRECTED PRN PRN Reason: Dry Eyes Ascorbic Acid (Vitamin C) 500 mg PO DAILY [facility] Last Admin: 09/12/20 08:10 Dose: 500 mg Documented by: Aspirin (Aspirin) 81 mg PO DAILY [facility] Last Admin: 09/12/20 08:10 Dose: 81 mg Documented by: Cholecalciferol (Vitamin D3) 25 mcg PO DAILY [facility] Last Admin: 09/12/20 08:09 Dose: 25 mcg Documented by: Diltiazem HCl (Diltiazem) 20 mg IVPUSH Q6H PRN PRN Reason: Tachycardia Enoxaparin Sodium (Lovenox) 40 mg SUBCUT Q24H [facility] Last Admin: 09/12/20 08:11 Dose: 40 mg Documented by: Furosemide (Lasix) 60 mg PO DAILY [facility] Last Admin: 09/12/20 08:10 Dose: 60 mg Documented by: Levetiracetam (Keppra) 250 mg PO DAILY@1700 [facility] Last Admin: 09/12/20 17:21 Dose: 250 mg Documented by: Levothyroxine Sodium (Levothyroxine) 25 mcg PO ACBREAKFAST [facility] Last Admin: 09/13/20 06:35 Dose: 25 mcg Documented by: Lorazepam (Ativan) 1 mg IVPUSH ONETIME PRN PRN Reason: Agitation Last Admin: 09/10/20 21:29 Dose: 1 mg Documented by: Metoprolol Tartrate (Lopressor) 25 mg PO BID [facility] Last Admin: 09/12/20 21:30 Dose: 25 mg Documented by: Ondansetron HCl (Zofran Odt) 4 mg PO Q4H PRN PRN Reason: nausea, able to take PO Pantoprazole Sodium (Protonix) 40 mg PO ACBREAKFAST [facility] Last Admin: 09/13/20 06:35 Dose: 40 mg Documented by: Potassium Chloride (Klor-Con M20) 40 meq PO BIDMEALS [facility] Last Admin: 09/12/20 17:15 Dose: 40 meq Documented by: Sodium Phosphate (Neutra-Phos) 250 mg PO QID [facility] Last Admin: 09/13/20 06:32 Dose: 250 mg Documented by: Discontinued Medications Azithromycin (Zithromax) 500 mg IV Q24H [facility] Last Admin: 09/04/20 22:45 Dose: Not Given Documented by: Ceftriaxone Sodium (Rocephin) 1 gm IVPUSH Q24H [facility] Last Admin: 09/04/20 20:33 Dose: 1 gm Documented by: Dextrose/Water (Dextrose 50% In Water) 50 ml IVPUSH ONETIME ONE Stop: 09/05/20 12:42 Last Admin: 09/05/20 12:50 Dose: 50 ml Documented by: Enoxaparin Sodium (Lovenox) 75 mg 1 mg/kg (75 mg) SUBCUT NOW STA Stop: 09/04/20 18:49 Last Admin: 09/04/20 20:34 Dose: Not Given Documented by: Enoxaparin Sodium (Lovenox) 75 mg 1 mg/kg (75 mg) SUBCUT DAILY [facility] Stop: 09/07/20 21:00 Last Admin: 09/05/20 11:12 Dose: Not Given Documented by: Enoxaparin Sodium (Lovenox) 75 mg 1 mg/kg (75 mg) SUBCUT DAILY@1700 [facility] Stop: 09/07/20 21:00 Last Admin: 09/07/20 17:17 Dose: 75 mg Documented by: Enoxaparin Sodium (Lovenox) 40 mg SUBCUT Q12HR [facility] Last Admin: 09/10/20 08:18 Dose: 40 mg Documented by: Furosemide (Lasix) 40 mg PO DAILY [facility] Last Admin: 09/05/20 09:20 Dose: Not Given Documented by: Furosemide (Lasix) 40 mg IVPUSH NOW ONE Stop: 09/04/20 19:45 Last Admin: 09/04/20 20:33 Dose: 40 mg Documented by: Furosemide (Lasix) 40 mg IV BID [facility] Stop: 09/07/20 23:00 Last Admin: 09/07/20 20:32 Dose: 40 mg Documented by: Gabapentin (Neurontin) 100 mg PO BEDTIME [facility] Last Admin: 09/07/20 20:32 Dose: 100 mg Documented by: Haloperidol Lactate (Haldol) 1 mg IM Q6H PRN PRN Reason: Agitation Haloperidol Lactate (Haldol) Confirm Administered Dose 5 mg .ROUTE .STK-MED ONE Stop: 09/05/20 02:17 Last Admin: 09/05/20 02:45 Dose: 5 mg Documented by: Heparin Sodium (Porcine) (Heparin Sodium) 5,000 units SUBCUT Q12H [facility] Last Admin: 09/04/20 20:33 Dose: 5,000 units Documented by: Heparin Sodium (Porcine) (Heparin Sodium) 5,000 units SUBCUT Q12H [facility] Last Admin: 09/05/20 09:03 Dose: 5,000 units Documented by: Heparin Sodium (Porcine) (Heparin Sodium) 5,000 units SUBCUT Q12H [facility] Last Admin: 09/09/20 08:42 Dose: 5,000 units Documented by: Furosemide 40 mg/ Sodium (Chloride) 54 mls @ 100 mls/hr IV BID [facility] Last Admin: 09/04/20 22:44 Dose: Not Given Documented by: Pantoprazole Sodium 40 mg/ (Sodium Chloride) 10 mls @ 300 mls/hr IV DAILY [facility] Last Admin: 09/05/20 08:55 Dose: 300 mls/hr Documented by: Azithromycin 500 mg/ Sodium (Chloride) 250 mls @ 250 mls/hr IV Q24H [facility] Stop: 09/10/20 22:59 Last Admin: 09/10/20 21:28 Dose: Not Given Documented by: Ceftriaxone Sodium/Dextrose 1 (gm/ Premix) 50 mls @ 100 mls/hr IV Q24H [facility] Stop: 09/11/20 21:29 Last Admin: 09/11/20 20:03 Dose: 100 mls/hr Documented by: Lactated Ringer's (Ringers, Lactated) 1,000 mls @ 999 mls/hr IV ASDIRECTED [facility] Lactated Ringer's (Ringers, Lactated) 500 mls @ 999 mls/hr IV ASDIRECTED [facility] Last Admin: 09/05/20 12:50 Dose: 999 mls/hr Documented by: Sodium Chloride (Normal Saline) 1,000 mls @ 999 mls/hr IV .BOLUS ONE Stop: 09/08/20 15:31 Last Admin: 09/08/20 17:09 Dose: 999 mls/hr Documented by: Lactated Ringer's (Ringers, Lactated) 1,000 mls @ 999 mls/hr IV ASDIRECTED [facility] Levetiracetam (Keppra) 250 mg PO BID [facility] Last Admin: 09/05/20 11:12 Dose: Not Given Documented by: Levetiracetam (Keppra) 250 mg PO BID [facility] Last Admin: 09/05/20 09:59 Dose: 250 mg Documented by: Levothyroxine Sodium (Levothyroxine) 12.5 mcg PO DAILY [facility] Last Admin: 09/05/20 09:05 Dose: 12.5 mcg Documented by: Lorazepam (Ativan) 1 mg IVPUSH Q6H PRN PRN Reason: Agitation Last Admin: 09/05/20 02:30 Dose: 1 mg Documented by: Lorazepam (Ativan) 2 mg IVPUSH ONETIME PRN PRN Reason: Agitation Last Admin: 09/07/20 01:04 Dose: 2 mg Documented by: Lorazepam (Ativan) 1 mg IVPUSH ONETIME PRN PRN Reason: Agitation Lorazepam (Ativan) 1 mg IVPUSH ONETIME ONE Stop: 09/08/20 14:33 Last Admin: 09/08/20 16:06 Dose: Not Given Documented by: Lorazepam (Ativan) 1 mg IVPUSH ONETIME ONE Stop: 09/11/20 04:02 Last Admin: 09/11/20 04:18 Dose: 1 mg Documented by: Metoprolol Tartrate (Lopressor) 25 mg PO BID [facility] Last Admin: 09/04/20 20:33 Dose: 25 mg Documented by: Non-Formulary Medication (Prednisolone Acetate/Pf [Prednisolone Acet 1% Eye Drop]) 1 drop EYEBOTH BID [facility] Last Admin: 09/05/20 09:02 Dose: Not Given Documented by: Potassium Chloride (Klor-Con 10) 40 meq PO ONETIME ONE Stop: 09/05/20 13:57 Last Admin: 09/05/20 14:35 Dose: 40 meq Documented by: Potassium Chloride (Klor-Con M20) 40 meq PO ONETIME ONE Stop: 09/06/20 11:22 Last Admin: 09/06/20 12:02 Dose: 40 meq Documented by: Potassium Chloride (Potassium Chloride) 40 meq PO ONETIME ONE Stop: 09/09/20 10:35 Last Admin: 09/09/20 10:57 Dose: 40 meq Documented by: Potassium Chloride (Potassium Chloride) 40 meq PO ONETIME ONE Stop: 09/10/20 08:08 Last Admin: 09/10/20 08:55 Dose: 40 meq Documented by: Tamsulosin HCl (Flomax) 0.4 mg PO WITHDINNER [facility] Last Admin: 09/07/20 17:15 Dose: 0.4 mg Documented by: - Exam General: Alert, Oriented, Cooperative, No Acute Distress Lungs: Clear to Auscultation, Normal Respiratory Effort Cardiovascular: Regular Rate, Regular Rhythm GI/Abdominal Exam: Normal Bowel Sounds, Soft, Non-Tender Back Exam: Normal Inspection, Full Range of Motion Extremities: Normal Inspection, Normal Range of Motion, Non-Tender, No Pedal Edema Wound/Incisions: Healing Well Neurological: No New Focal Deficit Psy/Mental Status: Alert, Normal Affect, Normal Mood Sepsis Event Note - Evaluation Sepsis Screening Result: No Definite Risk - Focused Exam Vital Signs: Vital Signs Temp Pulse Pulse Resp BP BP Pulse Ox 09/13/20 07:54 97.0 F 85 16 140/73 96 09/13/20 04:08 96.8 F L 65 20 138/64 96 09/12/20 23:22 96.5 F L 64 18 142/79 H 96 09/12/20 21:30 103 H 138/81 - Problem List & Annotations (1) Diastolic heart failure SNOMED Code(s): 008641675 Code(s): I50.30 - UNSPECIFIED DIASTOLIC (CONGESTIVE) HEART FAILURE Status: Chronic Current Visit: No Qualifiers: Heart failure chronicity: acute on chronic Qualified Code(s): I50.33 - Acute on chronic diastolic (congestive) heart failure (2) NSTEMI (non-ST elevated myocardial infarction) SNOMED Code(s): 23161217 Code(s): I21.4 - NON-ST ELEVATION (NSTEMI) MYOCARDIAL INFARCTION Status: Acute Current Visit: No (3) COVID-19 SNOMED Code(s): 165384970 Code(s): U07.1 - COVID-19 Status: Acute Current Visit: Yes (4) History of prostate cancer SNOMED Code(s): 236059449 Code(s): Z85.46 - PERSONAL HISTORY OF MALIGNANT NEOPLASM OF PROSTATE Status: Chronic Current Visit: No (5) CAD (coronary artery disease) SNOMED Code(s): 33180582 Code(s): I25.10 - ATHSCL HEART DISEASE OF [place] CORONARY ARTERY W/O ANG PCTRS Status: Chronic Current Visit: No (6) Elevated troponin SNOMED Code(s): 506835576, 271196601, 891086262 Code(s): R74.8 - ABNORMAL LEVELS OF OTHER SERUM ENZYMES Status: Chronic Current Visit: No (7) HTN (hypertension) SNOMED Code(s): 85856969 Code(s): I10 - ESSENTIAL (PRIMARY) HYPERTENSION Status: Chronic Current Visit: No Qualifiers: Hypertension type: essential hypertension Qualified Code(s): I10 - Essential (primary) hypertension (8) Hx of CABG SNOMED Code(s): 705356017, 433695276 Code(s): Z95.1 - PRESENCE OF AORTOCORONARY BYPASS GRAFT Status: Chronic Current Visit: No (9) Hx of aortic valve replacement SNOMED Code(s): 8657348221157, 092283961, 8412249416917 Code(s): Z95.2 - PRESENCE OF PROSTHETIC HEART VALVE Status: Chronic Current Visit: No Annotation/Comment:: Bioprothestic placed in 2012 (10) Hx of mitral valve replacement SNOMED Code(s): 8564871479364, 5790952276444 Code(s): Z95.2 - PRESENCE OF PROSTHETIC HEART VALVE Status: Chronic Current Visit: No Annotation/Comment:: Bioprothestic placed in 2012 (11) Prostate CA SNOMED Code(s): 224674981 Code(s): C61 - MALIGNANT NEOPLASM OF PROSTATE Status: Chronic Current Visit: No (12) Pulmonary hypertension SNOMED Code(s): 03856040 Code(s): I27.20 - PULMONARY HYPERTENSION, UNSPECIFIED Status: Chronic Current Visit: No (13) Seizure disorder SNOMED Code(s): 620531233 Code(s): G40.909 - EPILEPSY, UNSP, NOT INTRACTABLE, WITHOUT STATUS EPILEPTICUS Status: Chronic Current Visit: No (14) TIA (transient ischemic attack) SNOMED Code(s): 698679746 Code(s): G45.9 - TRANSIENT CEREBRAL ISCHEMIC ATTACK, UNSPECIFIED Status: Chronic Current Visit: No - Problem List Review Problem List Initiated/Reviewed/Updated: Yes - My Orders Last 24 Hours: My Active Orders 09/14/20 05:11 BASIC METABOLIC PANEL,BMP [CHEM] AM CBC WITH AUTO DIFF [HEME] AM MAGNESIUM [CHEM] AM 09/15/20 05:11 BASIC METABOLIC PANEL,BMP [CHEM] AM CBC WITH AUTO DIFF [HEME] AM MAGNESIUM [CHEM] AM - Plan Plan:: Patient is an 85-year-old gentleman with a past medical history of coronary artery disease, DC, valve replacement, hypertension, hyperlipidemia. Was admitted due to altered mental status and possible pneumonia causing heart failure. 1. Acute on chronic diastolic heart failure with NSTEMI: -Stable and back to baseline cont Lasix 60 mg p.o. in the morning -Strict I's and O's, daily weight, heart healthy diet, low sodium 2 L fluid restriction -Recent echo showed EF of 55% with severe concentric hypertrophy and poor LV compliance and likely pulmonary hypertension -Continue metoprolol -Monitor on telemetry -Has history of hypertension and valvular heart disease continue aspirin patient, is statin intolerant 2. COVID-19 -Stable last day of quarantine is 09/14/2020 in the evening. -No hypoxia noted. -Supportive care at this time -Vit c and Zn per daughters request 3. Seizure disorder -Keppra dose at home is 250 mg daily 4. Deconditioning: - PT to evaluate and treat -Continues to have weakness and needing increased assistance of nurse and SEMAPHORE OPERATOR getting out of bed and to complete daily cares. PT had initially signed off but will reconsult for further evaluation. 5. A-flutter: -Present on admission, currently rate controlled -Continue metoprolol -Discussed long-term anticoagulation with daughter she feels at this time he would be a higher risk of bleeding due to his high risk of falls and does not want to change that now. She is agreeable to aspirin only. VTE prophylaxis: Lovenox daily CODE STATUS: DNR/DNI Dispo: 2 to 3 days Aggie, daughter. She is able to be reached at [phone].
[2020-09-13] MEDS: Furosemide 20 MG Tab PO SCH (09:26)
[2020-09-13] MEDS: Metoprolol Tartrate 25 MG Tab PO SCH ×2 (09:26→20:23)
[2020-09-13] MEDS: Aspirin 81 MG Tab.Chew PO SCH (09:27)
[2020-09-13] MEDS: Ascorbic Acid 500 MG Tab PO SCH (09:28)
[2020-09-13] MEDS: Potassium Chloride 20 MEQ Tab.ER PO SCH (09:28)
[2020-09-13] MEDS: Enoxaparin 40 MG/0.4 ML Syringe SUBCUT SCH (09:29)
[2020-09-13] MEDS: Cholecalciferol (Vitamin D3) 25 MCG Tab PO SCH (09:32)
[2020-09-13] MEDS: levETIRAcetam Soln 500 MG/5 ML Cup PO SCH (16:25)
[2020-09-14 05:42] LABS: BLOOD UREA NITROGEN,BUN 24 mg/dL (7.0-18.0); CARBON DIOXIDE,CO2 28.3 mmol/L (21.0-32.0); CHLORIDE,CL 102 mmol/L (98-107); GLUCOSE RANDOM 106 mg/dL (74-106); POTASSIUM,K 4.1 mmol/L (3.5-5.1); SODIUM,NA 137 mmol/L (136-148)
[2020-09-14] MEDS: Levothyroxine 25 MCG Tab PO SCH (06:36)
[2020-09-14] MEDS: Pantoprazole 40 MG Tab.CR PO SCH (06:36)
[2020-09-14] MEDS: Potassium Chloride 20 MEQ Tab.ER PO SCH (08:21)
[2020-09-14] MEDS: Aspirin 81 MG Tab.Chew PO SCH (08:21)
[2020-09-14] MEDS: Cholecalciferol (Vitamin D3) 25 MCG Tab PO SCH (08:21)
[2020-09-14] MEDS: Metoprolol Tartrate 25 MG Tab PO SCH ×2 (08:21→20:39)
[2020-09-14] MEDS: Furosemide 20 MG Tab PO SCH (08:21)
[2020-09-14] MEDS: Ascorbic Acid 500 MG Tab PO SCH (08:22)
[2020-09-14] MEDS: Enoxaparin 40 MG/0.4 ML Syringe SUBCUT SCH (08:22)
--- NOTE | 2020-09-14 08:52 | PCM.PN ---
- General Info Date of Service: 09/14/20 Admission Dx/Problem (Free Text): Admission Diagnosis/Problem Admission Diagnosis/Problem Altered mental status Subjective Update: Doing well this morning. Denies any chest pain shortness of breath or palpitations. He is asking to call his or daughter on the phone. We did discuss him going to [facility] again which he is not overtly happy about but is willing to get stronger with PT and [place]. Functional Status: Reports: Pain Controlled, Tolerating Diet, Ambulating (With assistance of nurse or TANNERY WORKER) - Review of Systems General: Reports: No Symptoms. Denies: Fatigue, Malaise Pulmonary: Reports: No Symptoms. Denies: Shortness of Breath, Cough, Sputum Cardiovascular: Reports: No Symptoms. Denies: Chest Pain, Edema Gastrointestinal: Reports: No Symptoms. Denies: Abdominal Pain, Nausea, Vomiting Genitourinary: Reports: No Symptoms Musculoskeletal: Reports: No Symptoms Skin: Reports: No Symptoms Neurological: Reports: No Symptoms Psychiatric: Reports: No Symptoms - Patient Data Vitals - Most Recent: Last Vital Signs Temp 97.4 F 09/14/20 08:11 Pulse 66 09/14/20 08:21 Resp 18 09/14/20 08:11 BP 142/77 H 09/14/20 08:21 Pulse Ox 96 09/14/20 08:11 Weight - Most Recent: 73.028 kg I&O - Last 24 Hours: Intake & Output 09/13/20 09/14/20 09/14/20 22:59 06:59 14:59 Intake Total 680 370 Output Total 600 500 Balance 80 -130 Lab Results Last 24 Hours: Laboratory Results - last 24 hr 09/14/20 09/14/20 09/14/20 Range/Units 05:11 05:13 05:13 WBC 4.24 (4.0-11.0) K/uL RBC 3.86 L (4.50-5.90) M/uL Hgb 11.8 L (13.0-17.0) g/dL Hct 36.3 L (38.0-50.0) % MCV 94.0 (80.0-98.0) fL MCH 30.6 (27.0-32.0) pg MCHC 32.5 (31.0-37.0) g/dL RDW Std Deviation 48.3 (28.0-62.0) fl RDW Coeff of [place] 14 (11.0-15.0) % Plt Count 176 (150-400) K/uL MPV 10.90 (7.40-12.00) fL Neut % (Auto) 69.3 (48.0-80.0) % Lymph % (Auto) 12.3 L (16.0-40.0) % [place]entry % (Auto) 13.2 (0.0-15.0) % Eos % (Auto) 5.0 (0.0-7.0) % Baso % (Auto) 0.2 (0.0-1.5) % Neut # (Auto) 2.9 (1.4-5.7) K/uL Lymph # (Auto) 0.5 L (0.6-2.4) K/uL Gentry # (Auto) 0.6 (0.0-0.8) K/uL Eos # (Auto) 0.2 (0.0-0.7) K/uL Baso # (Auto) 0.0 (0.0-0.1) K/uL Nucleated RBC % 0.0 /100WBC Nucleated RBCs # 0 K/uL Sodium 137 (136-148) mmol/L Potassium 4.1 (3.5-5.1) mmol/L Chloride 102 (98-107) mmol/L Carbon Dioxide 28.3 (21.0-32.0) mmol/L BUN 24 H (7.0-18.0) mg/dL Creatinine 0.8 (0.8-1.3) mg/dL Est Cr Clr Drug Dosing 58.70 mL/min Estimated GFR (MDRD) > 60.0 ml/min Glucose 106 (74-106) mg/dL Calcium 8.5 (8.5-10.1) mg/dL Magnesium 1.9 (1.8-2.4) mg/dL TSH 3rd Generation 3.26 (0.36-3.74) uIU/mL Med Orders - Current: Current Medications Acetaminophen (Tylenol) 650 mg PO Q4H PRN PRN Reason: Pain (Mild 1-3)/fever Artificial Tears (Refresh Plus 0.5%) 1 each EYEBOTH ASDIRECTED PRN PRN Reason: Dry Eyes Last Admin: 09/13/20 20:37 Dose: 1 drop Documented by: Ascorbic Acid (Vitamin C) 500 mg PO DAILY [facility] Last Admin: 09/14/20 08:22 Dose: 500 mg Documented by: Aspirin (Aspirin) 81 mg PO DAILY [facility] Last Admin: 09/14/20 08:21 Dose: 81 mg Documented by: Cholecalciferol (Vitamin D3) 25 mcg PO DAILY [facility] Last Admin: 09/14/20 08:21 Dose: 25 mcg Documented by: Diltiazem HCl (Diltiazem) 20 mg IVPUSH Q6H PRN PRN Reason: Tachycardia Enoxaparin Sodium (Lovenox) 40 mg SUBCUT Q24H [facility] Last Admin: 09/14/20 08:22 Dose: 40 mg Documented by: Furosemide (Lasix) 60 mg PO DAILY [facility] Last Admin: 09/14/20 08:21 Dose: 60 mg Documented by: Levetiracetam (Keppra) 250 mg PO DAILY@1700 [facility] Last Admin: 09/13/20 16:25 Dose: 250 mg Documented by: Levothyroxine Sodium (Levothyroxine) 25 mcg PO ACBREAKFAST [facility] Last Admin: 09/14/20 06:36 Dose: 25 mcg Documented by: Lorazepam (Ativan) 1 mg IVPUSH ONETIME PRN PRN Reason: Agitation Last Admin: 09/10/20 21:29 Dose: 1 mg Documented by: Metoprolol Tartrate (Lopressor) 25 mg PO BID [facility] Last Admin: 09/14/20 08:21 Dose: 25 mg Documented by: Ondansetron HCl (Zofran Odt) 4 mg PO Q4H PRN PRN Reason: nausea, able to take PO Pantoprazole Sodium (Protonix) 40 mg PO ACBREAKFAST [facility] Last Admin: 09/14/20 06:36 Dose: 40 mg Documented by: Potassium Chloride (Klor-Con M20) 40 meq PO DAILY [facility] Last Admin: 09/14/20 08:21 Dose: 40 meq Documented by: Discontinued Medications Azithromycin (Zithromax) 500 mg IV Q24H [facility] Last Admin: 09/04/20 22:45 Dose: Not Given Documented by: Ceftriaxone Sodium (Rocephin) 1 gm IVPUSH Q24H [facility] Last Admin: 09/04/20 20:33 Dose: 1 gm Documented by: Dextrose/Water (Dextrose 50% In Water) 50 ml IVPUSH ONETIME ONE Stop: 09/05/20 12:42 Last Admin: 09/05/20 12:50 Dose: 50 ml Documented by: Enoxaparin Sodium (Lovenox) 75 mg 1 mg/kg (75 mg) SUBCUT NOW STA Stop: 09/04/20 18:49 Last Admin: 09/04/20 20:34 Dose: Not Given Documented by: Enoxaparin Sodium (Lovenox) 75 mg 1 mg/kg (75 mg) SUBCUT DAILY [facility] Stop: 09/07/20 21:00 Last Admin: 09/05/20 11:12 Dose: Not Given Documented by: Enoxaparin Sodium (Lovenox) 75 mg 1 mg/kg (75 mg) SUBCUT DAILY@1700 [facility] Stop: 09/07/20 21:00 Last Admin: 09/07/20 17:17 Dose: 75 mg Documented by: Enoxaparin Sodium (Lovenox) 40 mg SUBCUT Q12HR [facility] Last Admin: 09/10/20 08:18 Dose: 40 mg Documented by: Furosemide (Lasix) 40 mg PO DAILY [facility] Last Admin: 09/05/20 09:20 Dose: Not Given Documented by: Furosemide (Lasix) 40 mg IVPUSH NOW ONE Stop: 09/04/20 19:45 Last Admin: 09/04/20 20:33 Dose: 40 mg Documented by: Furosemide (Lasix) 40 mg IV BID [facility] Stop: 09/07/20 23:00 Last Admin: 09/07/20 20:32 Dose: 40 mg Documented by: Gabapentin (Neurontin) 100 mg PO BEDTIME [facility] Last Admin: 09/07/20 20:32 Dose: 100 mg Documented by: Haloperidol Lactate (Haldol) 1 mg IM Q6H PRN PRN Reason: Agitation Haloperidol Lactate (Haldol) Confirm Administered Dose 5 mg .ROUTE .STK-MED ONE Stop: 09/05/20 02:17 Last Admin: 09/05/20 02:45 Dose: 5 mg Documented by: Heparin Sodium (Porcine) (Heparin Sodium) 5,000 units SUBCUT Q12H [facility] Last Admin: 09/04/20 20:33 Dose: 5,000 units Documented by: Heparin Sodium (Porcine) (Heparin Sodium) 5,000 units SUBCUT Q12H [facility] Last Admin: 09/05/20 09:03 Dose: 5,000 units Documented by: Heparin Sodium (Porcine) (Heparin Sodium) 5,000 units SUBCUT Q12H [facility] Last Admin: 09/09/20 08:42 Dose: 5,000 units Documented by: Furosemide 40 mg/ Sodium (Chloride) 54 mls @ 100 mls/hr IV BID [facility] Last Admin: 09/04/20 22:44 Dose: Not Given Documented by: Pantoprazole Sodium 40 mg/ (Sodium Chloride) 10 mls @ 300 mls/hr IV DAILY [facility] Last Admin: 09/05/20 08:55 Dose: 300 mls/hr Documented by: Azithromycin 500 mg/ Sodium (Chloride) 250 mls @ 250 mls/hr IV Q24H [facility] Stop: 09/10/20 22:59 Last Admin: 09/10/20 21:28 Dose: Not Given Documented by: Ceftriaxone Sodium/Dextrose 1 (gm/ Premix) 50 mls @ 100 mls/hr IV Q24H [facility] Stop: 09/11/20 21:29 Last Admin: 09/11/20 20:03 Dose: 100 mls/hr Documented by: Lactated Ringer's (Ringers, Lactated) 1,000 mls @ 999 mls/hr IV ASDIRECTED [facility] Lactated Ringer's (Ringers, Lactated) 500 mls @ 999 mls/hr IV ASDIRECTED [facility] Last Admin: 09/05/20 12:50 Dose: 999 mls/hr Documented by: Sodium Chloride (Normal Saline) 1,000 mls @ 999 mls/hr IV .BOLUS ONE Stop: 09/08/20 15:31 Last Admin: 09/08/20 17:09 Dose: 999 mls/hr Documented by: Lactated Ringer's (Ringers, Lactated) 1,000 mls @ 999 mls/hr IV ASDIRECTED [facility] Levetiracetam (Keppra) 250 mg PO BID [facility] Last Admin: 09/05/20 11:12 Dose: Not Given Documented by: Levetiracetam (Keppra) 250 mg PO BID [facility] Last Admin: 09/05/20 09:59 Dose: 250 mg Documented by: Levothyroxine Sodium (Levothyroxine) 12.5 mcg PO DAILY [facility] Last Admin: 09/05/20 09:05 Dose: 12.5 mcg Documented by: Lorazepam (Ativan) 1 mg IVPUSH Q6H PRN PRN Reason: Agitation Last Admin: 09/05/20 02:30 Dose: 1 mg Documented by: Lorazepam (Ativan) 2 mg IVPUSH ONETIME PRN PRN Reason: Agitation Last Admin: 09/07/20 01:04 Dose: 2 mg Documented by: Lorazepam (Ativan) 1 mg IVPUSH ONETIME PRN PRN Reason: Agitation Lorazepam (Ativan) 1 mg IVPUSH ONETIME ONE Stop: 09/08/20 14:33 Last Admin: 09/08/20 16:06 Dose: Not Given Documented by: Lorazepam (Ativan) 1 mg IVPUSH ONETIME ONE Stop: 09/11/20 04:02 Last Admin: 09/11/20 04:18 Dose: 1 mg Documented by: Metoprolol Tartrate (Lopressor) 25 mg PO BID [facility] Last Admin: 09/04/20 20:33 Dose: 25 mg Documented by: Non-Formulary Medication (Prednisolone Acetate/Pf [Prednisolone Acet 1% Eye Drop]) 1 drop EYEBOTH BID [facility] Last Admin: 09/05/20 09:02 Dose: Not Given Documented by: Potassium Chloride (Klor-Con 10) 40 meq PO ONETIME ONE Stop: 09/05/20 13:57 Last Admin: 09/05/20 14:35 Dose: 40 meq Documented by: Potassium Chloride (Klor-Con M20) 40 meq PO ONETIME ONE Stop: 09/06/20 11:22 Last Admin: 09/06/20 12:02 Dose: 40 meq Documented by: Potassium Chloride (Potassium Chloride) 40 meq PO ONETIME ONE Stop: 09/09/20 10:35 Last Admin: 09/09/20 10:57 Dose: 40 meq Documented by: Potassium Chloride (Potassium Chloride) 40 meq PO ONETIME ONE Stop: 09/10/20 08:08 Last Admin: 09/10/20 08:55 Dose: 40 meq Documented by: Potassium Chloride (Klor-Con M20) 40 meq PO BIDMEALS [facility] Last Admin: 09/13/20 09:28 Dose: 40 meq Documented by: Sodium Phosphate (Neutra-Phos) 250 mg PO QID [facility] Last Admin: 09/13/20 12:56 Dose: 250 mg Documented by: Tamsulosin HCl (Flomax) 0.4 mg PO WITHRAOUL [facility] Last Admin: 09/07/20 17:15 Dose: 0.4 mg Documented by: - Exam Quality Assessment: DVT Prophylaxis. No: Supplemental Oxygen, Urine Catheter General: Alert, Oriented (X2), Cooperative, No Acute Distress Lungs: Normal Respiratory Effort, Decreased Breath Sounds (Fine bibasilar crackles) Cardiovascular: Regular Rate, Regular Rhythm GI/Abdominal Exam: Normal Bowel Sounds, Soft, Non-Tender Extremities: Normal Inspection, Normal Range of Motion, Non-Tender, Pedal Edema (+1 nonpitting edema bilateral lower extremities, stable) Skin: Warm, Dry, Ecchymosis (To arms from lab and IV sticks) Neurological: No New Focal Deficit Psy/Mental Status: Alert, Normal Affect, Normal Mood Sepsis Event Note - Evaluation Sepsis Screening Result: No Definite Risk - Focused Exam Vital Signs: Vital Signs Temp Pulse Pulse Resp BP BP Pulse Ox 09/14/20 08:21 66 142/77 H 09/14/20 08:11 97.4 F 66 18 142/77 H 96 09/14/20 03:25 97.2 F 65 20 138/64 97 09/13/20 23:58 97.4 F 67 20 130/79 98 - Problem List & Annotations (1) Diastolic heart failure SNOMED Code(s): 447980492 Code(s): I50.30 - UNSPECIFIED DIASTOLIC (CONGESTIVE) HEART FAILURE Status: Chronic Current Visit: No Qualifiers: Heart failure chronicity: acute on chronic Qualified Code(s): I50.33 - Acute on chronic diastolic (congestive) heart failure (2) NSTEMI (non-ST elevated myocardial infarction) SNOMED Code(s): 89828045 Code(s): I21.4 - NON-ST ELEVATION (NSTEMI) MYOCARDIAL INFARCTION Status: Acute Current Visit: No (3) COVID-19 SNOMED Code(s): 313982376 Code(s): U07.1 - COVID-19 Status: Acute Current Visit: Yes (4) History of prostate cancer SNOMED Code(s): 337551986 Code(s): Z85.46 - PERSONAL HISTORY OF MALIGNANT NEOPLASM OF PROSTATE Status: Chronic Current Visit: No (5) CAD (coronary artery disease) SNOMED Code(s): 96778332 Code(s): I25.10 - ATHSCL HEART DISEASE OF [place] CORONARY ARTERY W/O ANG PCTRS Status: Chronic Current Visit: No (6) Elevated troponin SNOMED Code(s): 894562681, 916477234, 151698831 Code(s): R74.8 - ABNORMAL LEVELS OF OTHER SERUM ENZYMES Status: Chronic Current Visit: No (7) HTN (hypertension) SNOMED Code(s): 90477200 Code(s): I10 - ESSENTIAL (PRIMARY) HYPERTENSION Status: Chronic Current Visit: No Qualifiers: Hypertension type: essential hypertension Qualified Code(s): I10 - Essential (primary) hypertension (8) Hx of CABG SNOMED Code(s): 789370664, 746703037 Code(s): Z95.1 - PRESENCE OF AORTOCORONARY BYPASS GRAFT Status: Chronic Current Visit: No (9) Hx of aortic valve replacement SNOMED Code(s): 7849711661563, 748773029, 5094123610006 Code(s): Z95.2 - PRESENCE OF PROSTHETIC HEART VALVE Status: Chronic Current Visit: No Annotation/Comment:: Bioprothestic placed in 2012 (10) Hx of mitral valve replacement SNOMED Code(s): 8771068329880, 1966783633088 Code(s): Z95.2 - PRESENCE OF PROSTHETIC HEART VALVE Status: Chronic Current Visit: No Annotation/Comment:: Bioprothestic placed in 2012 (11) Prostate CA SNOMED Code(s): 571690916 Code(s): C61 - MALIGNANT NEOPLASM OF PROSTATE Status: Chronic Current Visit: No (12) Pulmonary hypertension SNOMED Code(s): 67440530 Code(s): I27.20 - PULMONARY HYPERTENSION, UNSPECIFIED Status: Chronic Current Visit: No (13) Seizure disorder SNOMED Code(s): 926939921 Code(s): G40.909 - EPILEPSY, UNSP, NOT INTRACTABLE, WITHOUT STATUS EPILEPTICUS Status: Chronic Current Visit: No (14) TIA (transient ischemic attack) SNOMED Code(s): 773251258 Code(s): G45.9 - TRANSIENT CEREBRAL ISCHEMIC ATTACK, UNSPECIFIED Status: Chronic Current Visit: No - Problem List Review Problem List Initiated/Reviewed/Updated: Yes - My Orders Last 24 Hours: My Active Orders 09/13/20 10:41 Senior Office Assistant Discontinue [Cardiac Monitoring Discontinue] [RC] Click to Edit 09/13/20 12:10 Communication Order [RC] ROUTINE 09/14/20 09:00 Potassium Chloride [Klor-Con M20] 40 meq PO DAILY 09/15/20 05:11 BASIC METABOLIC PANEL,BMP [CHEM] AM CBC WITH AUTO DIFF [HEME] AM MAGNESIUM [CHEM] AM - Plan Plan:: Patient is an 85-year-old gentleman with a past medical history of coronary artery disease, [place], valve replacement, hypertension, hyperlipidemia. Was admitted due to altered mental status and possible pneumonia causing heart failure. 1. Chronic diastolic heart failure with NSTEMI: -Stable and back to baseline cont Lasix 60 mg p.o. in the morning -Strict I's and O's, daily weight, heart healthy diet, low sodium 2 L fluid restriction -Recent echo showed EF of 55% with severe concentric hypertrophy and poor LV compliance and likely pulmonary hypertension -Continue metoprolol -Has history of hypertension and valvular heart disease continue aspirin patient, is statin intolerant 2. COVID-19 -Last day of quarantine is 09/14/2020 at 1900. -No hypoxia noted. -Supportive care at this time 3. Seizure disorder -Keppra dose at home is 250 mg daily 4. Deconditioning: - PT to evaluate and treat -slowly improving 5. A-flutter: -Present on admission, currently rate controlled -Continue metoprolol -Discussed long-term anticoagulation with daughter she feels at this time he would be a higher risk of bleeding due to his high risk of falls and does not want to change that now. She is agreeable to aspirin only. VTE prophylaxis: Lovenox daily CODE STATUS: DNR/DNI Dispo: 2 pending placement, likely discharge to [place] on Thursday Aggie, daughter. She is able to be reached at [phone]. Updated Aggie on discharge to [place] on Thursday and that he is currently medically stable.
[2020-09-14] MEDS: levETIRAcetam Soln 500 MG/5 ML Cup PO SCH (16:40)
[2020-09-15 06:54] LABS: BLOOD UREA NITROGEN,BUN 28 mg/dL (7.0-18.0); CARBON DIOXIDE,CO2 28.4 mmol/L (21.0-32.0); CHLORIDE,CL 103 mmol/L (98-107); GLUCOSE RANDOM 111 mg/dL (74-106); POTASSIUM,K 4.1 mmol/L (3.5-5.1); SODIUM,NA 139 mmol/L (136-148)
[2020-09-15] MEDS: Pantoprazole 40 MG Tab.CR PO SCH (08:54)
[2020-09-15] MEDS: Levothyroxine 25 MCG Tab PO SCH (08:54)
[2020-09-15] MEDS: Ascorbic Acid 500 MG Tab PO SCH (08:55)
[2020-09-15] MEDS: Furosemide 20 MG Tab PO SCH (08:55)
[2020-09-15] MEDS: Aspirin 81 MG Tab.Chew PO SCH (08:55)
[2020-09-15] MEDS: Cholecalciferol (Vitamin D3) 25 MCG Tab PO SCH (08:55)
[2020-09-15] MEDS: Metoprolol Tartrate 25 MG Tab PO SCH ×2 (08:56→20:32)
[2020-09-15] MEDS: Potassium Chloride 20 MEQ Tab.ER PO SCH (08:56)
[2020-09-15] MEDS: Enoxaparin 40 MG/0.4 ML Syringe SUBCUT SCH (08:58)
--- NOTE | 2020-09-15 12:15 | PCM.PN ---
- General Info Date of Service: 09/15/20 - Review of Systems Systems Review Comment:: pain controlled - Patient Data Vitals - Most Recent: Last Vital Signs Temp 36.2 C 09/15/20 10:54 Pulse 72 09/15/20 10:54 Resp 16 09/15/20 10:54 BP 127/70 09/15/20 10:54 Pulse Ox 96 09/15/20 10:54 Weight - Most Recent: 73.119 kg I&O - Last 24 Hours: Intake & Output 09/14/20 09/15/20 09/15/20 22:59 06:59 14:59 Intake Total 550 200 Output Total 650 650 Balance -100 -450 Lab Results Last 24 Hours: Laboratory Results - last 24 hr 09/15/20 09/15/20 Range/Units 06:17 06:17 WBC 3.97 L (4.0-11.0) K/uL RBC 3.85 L (4.50-5.90) M/uL Hgb 11.6 L (13.0-17.0) g/dL Hct 36.3 L (38.0-50.0) % MCV 94.3 (80.0-98.0) fL MCH 30.1 (27.0-32.0) pg MCHC 32.0 (31.0-37.0) g/dL RDW Std Deviation 48.6 (28.0-62.0) fl RDW Coeff of Jasper 14 (11.0-15.0) % Plt Count 192 (150-400) K/uL MPV 11.00 (7.40-12.00) fL Neut % (Auto) 67.0 (48.0-80.0) % Lymph % (Auto) 14.4 L (16.0-40.0) % Burnett % (Auto) 11.8 (0.0-15.0) % Eos % (Auto) 6.8 (0.0-7.0) % Baso % (Auto) 0.0 (0.0-1.5) % Neut # (Auto) 2.7 (1.4-5.7) K/uL Lymph # (Auto) 0.6 (0.6-2.4) K/uL Burnett # (Auto) 0.5 (0.0-0.8) K/uL Eos # (Auto) 0.3 (0.0-0.7) K/uL Baso # (Auto) 0.0 (0.0-0.1) K/uL Nucleated RBC % 0.0 /100WBC Nucleated RBCs # 0 K/uL Sodium 139 (136-148) mmol/L Potassium 4.1 (3.5-5.1) mmol/L Chloride 103 (98-107) mmol/L Carbon Dioxide 28.4 (21.0-32.0) mmol/L BUN 28 H (7.0-18.0) mg/dL Creatinine 0.9 (0.8-1.3) mg/dL Est Cr Clr Drug Dosing 52.18 mL/min Estimated GFR (MDRD) > 60.0 ml/min Glucose 111 H (74-106) mg/dL Calcium 9.0 (8.5-10.1) mg/dL Magnesium 1.9 (1.8-2.4) mg/dL Med Orders - Current: Current Medications Acetaminophen (Tylenol) 650 mg PO Q4H PRN PRN Reason: Pain (Mild 1-3)/fever Artificial Tears (Refresh Plus 0.5%) 1 each EYEBOTH ASDIRECTED PRN PRN Reason: Dry Eyes Last Admin: 09/13/20 20:37 Dose: 1 drop Documented by: Ascorbic Acid (Vitamin C) 500 mg PO DAILY [facility] Last Admin: 09/15/20 08:55 Dose: 500 mg Documented by: Aspirin (Aspirin) 81 mg PO DAILY [facility] Last Admin: 09/15/20 08:55 Dose: 81 mg Documented by: Cholecalciferol (Vitamin D3) 25 mcg PO DAILY [facility] Last Admin: 09/15/20 08:55 Dose: 25 mcg Documented by: Diltiazem HCl (Diltiazem) 20 mg IVPUSH Q6H PRN PRN Reason: Tachycardia Enoxaparin Sodium (Lovenox) 40 mg SUBCUT Q24H [facility] Last Admin: 09/15/20 08:58 Dose: 40 mg Documented by: Furosemide (Lasix) 60 mg PO DAILY [facility] Last Admin: 09/15/20 08:55 Dose: 60 mg Documented by: Levetiracetam (Keppra) 250 mg PO DAILY@1700 [facility] Last Admin: 09/14/20 16:40 Dose: 250 mg Documented by: Levothyroxine Sodium (Levothyroxine) 25 mcg PO ACBREAKFAST [facility] Last Admin: 09/15/20 08:54 Dose: 25 mcg Documented by: Lorazepam (Ativan) 1 mg IVPUSH ONETIME PRN PRN Reason: Agitation Last Admin: 09/10/20 21:29 Dose: 1 mg Documented by: Metoprolol Tartrate (Lopressor) 25 mg PO BID [facility] Last Admin: 09/15/20 08:56 Dose: 25 mg Documented by: Ondansetron HCl (Zofran Odt) 4 mg PO Q4H PRN PRN Reason: nausea, able to take PO Pantoprazole Sodium (Protonix) 40 mg PO ACBREAKFAST [facility] Last Admin: 09/15/20 08:54 Dose: 40 mg Documented by: Potassium Chloride (Klor-Con M20) 40 meq PO DAILY [facility] Last Admin: 09/15/20 08:56 Dose: 40 meq Documented by: Discontinued Medications Azithromycin (Zithromax) 500 mg IV Q24H [facility] Last Admin: 09/04/20 22:45 Dose: Not Given Documented by: Ceftriaxone Sodium (Rocephin) 1 gm IVPUSH Q24H [facility] Last Admin: 09/04/20 20:33 Dose: 1 gm Documented by: Dextrose/Water (Dextrose 50% In Water) 50 ml IVPUSH ONETIME ONE Stop: 09/05/20 12:42 Last Admin: 09/05/20 12:50 Dose: 50 ml Documented by: Enoxaparin Sodium (Lovenox) 75 mg 1 mg/kg (75 mg) SUBCUT NOW [facility] Stop: 09/04/20 18:49 Last Admin: 09/04/20 20:34 Dose: Not Given Documented by: Enoxaparin Sodium (Lovenox) 75 mg 1 mg/kg (75 mg) SUBCUT DAILY [facility] Stop: 09/07/20 21:00 Last Admin: 09/05/20 11:12 Dose: Not Given Documented by: Enoxaparin Sodium (Lovenox) 75 mg 1 mg/kg (75 mg) SUBCUT DAILY@1700 [facility] Stop: 09/07/20 21:00 Last Admin: 09/07/20 17:17 Dose: 75 mg Documented by: Enoxaparin Sodium (Lovenox) 40 mg SUBCUT Q12HR [facility] Last Admin: 09/10/20 08:18 Dose: 40 mg Documented by: Furosemide (Lasix) 40 mg PO DAILY [facility] Last Admin: 09/05/20 09:20 Dose: Not Given Documented by: Furosemide (Lasix) 40 mg IVPUSH NOW ONE Stop: 09/04/20 19:45 Last Admin: 09/04/20 20:33 Dose: 40 mg Documented by: Furosemide (Lasix) 40 mg IV BID [facility] Stop: 09/07/20 23:00 Last Admin: 09/07/20 20:32 Dose: 40 mg Documented by: Gabapentin (Neurontin) 100 mg PO BEDTIME [facility] Last Admin: 09/07/20 20:32 Dose: 100 mg Documented by: Haloperidol Lactate (Haldol) 1 mg IM Q6H PRN PRN Reason: Agitation Haloperidol Lactate (Haldol) Confirm Administered Dose 5 mg .ROUTE .STK-MED ONE Stop: 09/05/20 02:17 Last Admin: 09/05/20 02:45 Dose: 5 mg Documented by: Heparin Sodium (Porcine) (Heparin Sodium) 5,000 units SUBCUT Q12H [facility] Last Admin: 09/04/20 20:33 Dose: 5,000 units Documented by: Heparin Sodium (Porcine) (Heparin Sodium) 5,000 units SUBCUT Q12H [facility] Last Admin: 09/05/20 09:03 Dose: 5,000 units Documented by: Heparin Sodium (Porcine) (Heparin Sodium) 5,000 units SUBCUT Q12H [facility] Last Admin: 09/09/20 08:42 Dose: 5,000 units Documented by: Furosemide 40 mg/ Sodium (Chloride) 54 mls @ 100 mls/hr IV BID [facility] Last Admin: 09/04/20 22:44 Dose: Not Given Documented by: Pantoprazole Sodium 40 mg/ (Sodium Chloride) 10 mls @ 300 mls/hr IV DAILY [facility] Last Admin: 09/05/20 08:55 Dose: 300 mls/hr Documented by: Azithromycin 500 mg/ Sodium (Chloride) 250 mls @ 250 mls/hr IV Q24H [facility] Stop: 09/10/20 22:59 Last Admin: 09/10/20 21:28 Dose: Not Given Documented by: Ceftriaxone Sodium/Dextrose 1 (gm/ Premix) 50 mls @ 100 mls/hr IV Q24H [facility] Stop: 09/11/20 21:29 Last Admin: 09/11/20 20:03 Dose: 100 mls/hr Documented by: Lactated Ringer's (Ringers, Lactated) 1,000 mls @ 999 mls/hr IV ASDIRECTED [facility] Lactated Ringer's (Ringers, Lactated) 500 mls @ 999 mls/hr IV ASDIRECTED [facility] Last Admin: 09/05/20 12:50 Dose: 999 mls/hr Documented by: Sodium Chloride (Normal Saline) 1,000 mls @ 999 mls/hr IV .BOLUS ONE Stop: 09/08/20 15:31 Last Admin: 09/08/20 17:09 Dose: 999 mls/hr Documented by: Lactated Ringer's (Ringers, Lactated) 1,000 mls @ 999 mls/hr IV ASDIRECTED [facility] Levetiracetam (Keppra) 250 mg PO BID [facility] Last Admin: 09/05/20 11:12 Dose: Not Given Documented by: Levetiracetam (Keppra) 250 mg PO BID [facility] Last Admin: 09/05/20 09:59 Dose: 250 mg Documented by: Levothyroxine Sodium (Levothyroxine) 12.5 mcg PO DAILY [facility] Last Admin: 09/05/20 09:05 Dose: 12.5 mcg Documented by: Lorazepam (Ativan) 1 mg IVPUSH Q6H PRN PRN Reason: Agitation Last Admin: 09/05/20 02:30 Dose: 1 mg Documented by: Lorazepam (Ativan) 2 mg IVPUSH ONETIME PRN PRN Reason: Agitation Last Admin: 09/07/20 01:04 Dose: 2 mg Documented by: Lorazepam (Ativan) 1 mg IVPUSH ONETIME PRN PRN Reason: Agitation Lorazepam (Ativan) 1 mg IVPUSH ONETIME ONE Stop: 09/08/20 14:33 Last Admin: 09/08/20 16:06 Dose: Not Given Documented by: Lorazepam (Ativan) 1 mg IVPUSH ONETIME ONE Stop: 09/11/20 04:02 Last Admin: 09/11/20 04:18 Dose: 1 mg Documented by: Metoprolol Tartrate (Lopressor) 25 mg PO BID [facility] Last Admin: 09/04/20 20:33 Dose: 25 mg Documented by: Non-Formulary Medication (Prednisolone Acetate/Pf [Prednisolone Acet 1% Eye Drop]) 1 drop EYEBOTH BID [facility] Last Admin: 09/05/20 09:02 Dose: Not Given Documented by: Potassium Chloride (Klor-Con 10) 40 meq PO ONETIME ONE Stop: 09/05/20 13:57 Last Admin: 09/05/20 14:35 Dose: 40 meq Documented by: Potassium Chloride (Klor-Con M20) 40 meq PO ONETIME ONE Stop: 09/06/20 11:22 Last Admin: 09/06/20 12:02 Dose: 40 meq Documented by: Potassium Chloride (Potassium Chloride) 40 meq PO ONETIME ONE Stop: 09/09/20 10:35 Last Admin: 09/09/20 10:57 Dose: 40 meq Documented by: Potassium Chloride (Potassium Chloride) 40 meq PO ONETIME ONE Stop: 09/10/20 08:08 Last Admin: 09/10/20 08:55 Dose: 40 meq Documented by: Potassium Chloride (Klor-Con M20) 40 meq PO BIDMEALS [facility] Last Admin: 09/13/20 09:28 Dose: 40 meq Documented by: Sodium Phosphate (Neutra-Phos) 250 mg PO QID [facility] Last Admin: 09/13/20 12:56 Dose: 250 mg Documented by: Tamsulosin HCl (Flomax) 0.4 mg PO WITHDINNER [facility] Last Admin: 09/07/20 17:15 Dose: 0.4 mg Documented by: - Exam General: Alert, Cooperative Lungs: Clear to Auscultation, Normal Respiratory Effort Cardiovascular: Regular Rate, Regular Rhythm GI/Abdominal Exam: Normal Bowel Sounds, Soft, Non-Tender, No Distention Extremities: No Pedal Edema Skin: Warm, Dry, Intact Sepsis Event Note - Evaluation Sepsis Screening Result: No Definite Risk - Focused Exam Vital Signs: Vital Signs Temp Pulse Pulse Resp BP BP Pulse Ox 09/15/20 10:54 36.2 C 72 16 127/70 96 09/15/20 08:56 66 140/77 09/15/20 07:59 36.3 C 66 16 139/77 96 09/15/20 04:00 36.1 C 73 18 127/69 95 - Problem List Review Problem List Initiated/Reviewed/Updated: Yes - Plan Plan:: Patient is an 85-year-old gentleman with a past medical history of coronary artery disease, [place], valve replacement, hypertension, hyperlipidemia. He was admitted due to altered mental status and possible pneumonia causing heart failure. 1. Chronic diastolic heart failure with NSTEMI: -Stable and back to baseline cont Lasix 60 mg p.o. in the morning -Strict I's and O's, daily weight, heart healthy diet, low sodium 2 L fluid restriction -Recent echo showed EF of 55% with severe concentric hypertrophy and poor LV compliance and likely pulmonary hypertension -Continue metoprolol -Has history of hypertension and valvular heart disease continue aspirin patient, is statin intolerant 2. COVID-19 -Last day of quarantine is 09/14/2020 at 1900. 3. Seizure disorder -Keppra dose at home is 250 mg daily 4. Deconditioning: - PT to evaluate and treat 5. A-flutter: -Present on admission, currently rate controlled -Continue metoprolol VTE prophylaxis: Lovenox daily CODE STATUS: DNR/DNI Dispo: plan on discharge to [place] Thursday
[2020-09-15] MEDS: levETIRAcetam Soln 500 MG/5 ML Cup PO SCH (17:20)
[2020-09-16] MEDS: Enoxaparin 40 MG/0.4 ML Syringe SUBCUT SCH (08:08)
[2020-09-16] MEDS: Pantoprazole 40 MG Tab.CR PO SCH (08:09)
[2020-09-16] MEDS: Levothyroxine 25 MCG Tab PO SCH (08:09)
[2020-09-16] MEDS: Ascorbic Acid 500 MG Tab PO SCH (08:10)
[2020-09-16] MEDS: Aspirin 81 MG Tab.Chew PO SCH (08:10)
[2020-09-16] MEDS: Cholecalciferol (Vitamin D3) 25 MCG Tab PO SCH (08:10)
[2020-09-16] MEDS: Metoprolol Tartrate 25 MG Tab PO SCH ×2 (08:11→20:22)
[2020-09-16] MEDS: Furosemide 20 MG Tab PO SCH (08:12)
[2020-09-16] MEDS: Potassium Chloride 20 MEQ Tab.ER PO SCH (08:13)
--- NOTE | 2020-09-16 11:50 | PCM.PN ---
- General Info Date of Service: 09/16/20 Admission Dx/Problem (Free Text): Admission Diagnosis/Problem Admission Diagnosis/Problem Altered mental status Subjective Update: Doing well this morning. Denies any chest pain shortness of breath or palpitations. having his breakfast Functional Status: Reports: Pain Controlled, Tolerating Diet, Ambulating - Review of Systems General: Reports: Weakness. Denies: Fever, Fatigue Pulmonary: Denies: Shortness of Breath, Pleuritic Chest Pain Cardiovascular: Denies: Chest Pain, Palpitations, Dyspnea on Exertion Gastrointestinal: Denies: Abdominal Pain, Constipation, Decreased Appetite Genitourinary: Denies: Dysuria, Frequency, Burning Musculoskeletal: Denies: Neck Pain, Shoulder Pain, Arm Pain - Patient Data Vitals - Most Recent: Last Vital Signs Temp 36.3 C 09/16/20 08:00 Pulse 66 09/16/20 08:11 Resp 16 09/16/20 08:00 BP 126/65 09/16/20 08:11 Pulse Ox 97 09/16/20 08:00 Weight - Most Recent: 73.119 kg I&O - Last 24 Hours: Intake & Output 09/15/20 09/16/20 09/16/20 22:59 06:59 14:59 Intake Total 1026 440 Output Total 1100 450 Balance -74 -10 Med Orders - Current: Current Medications Acetaminophen (Tylenol) 650 mg PO Q4H PRN PRN Reason: Pain (Mild 1-3)/fever Artificial Tears (Refresh Plus 0.5%) 1 each EYEBOTH ASDIRECTED PRN PRN Reason: Dry Eyes Last Admin: 09/13/20 20:37 Dose: 1 drop Documented by: Ascorbic Acid (Vitamin C) 500 mg PO DAILY [facility] Last Admin: 09/16/20 08:10 Dose: 500 mg Documented by: Aspirin (Aspirin) 81 mg PO DAILY [facility] Last Admin: 09/16/20 08:10 Dose: 81 mg Documented by: Cholecalciferol (Vitamin D3) 25 mcg PO DAILY [facility] Last Admin: 09/16/20 08:10 Dose: 25 mcg Documented by: Diltiazem HCl (Diltiazem) 20 mg IVPUSH Q6H PRN PRN Reason: Tachycardia Enoxaparin Sodium (Lovenox) 40 mg SUBCUT Q24H [facility] Last Admin: 09/16/20 08:08 Dose: 40 mg Documented by: Furosemide (Lasix) 60 mg PO DAILY [facility] Last Admin: 09/16/20 08:12 Dose: 60 mg Documented by: Levetiracetam (Keppra) 250 mg PO DAILY@1700 [facility] Levothyroxine Sodium (Levothyroxine) 25 mcg PO ACBREAKFAST [facility] Last Admin: 09/16/20 08:09 Dose: 25 mcg Documented by: Lorazepam (Ativan) 1 mg IVPUSH ONETIME PRN PRN Reason: Agitation Last Admin: 09/10/20 21:29 Dose: 1 mg Documented by: Metoprolol Tartrate (Lopressor) 25 mg PO BID [facility] Last Admin: 09/16/20 08:11 Dose: 25 mg Documented by: Ondansetron HCl (Zofran Odt) 4 mg PO Q4H PRN PRN Reason: nausea, able to take PO Pantoprazole Sodium (Protonix) 40 mg PO ACBREAKFAST [facility] Last Admin: 09/16/20 08:09 Dose: 40 mg Documented by: Potassium Chloride (Klor-Con M20) 40 meq PO DAILY [facility] Last Admin: 09/16/20 08:13 Dose: 40 meq Documented by: Discontinued Medications Azithromycin (Zithromax) 500 mg IV Q24H [facility] Last Admin: 09/04/20 22:45 Dose: Not Given Documented by: Ceftriaxone Sodium (Rocephin) 1 gm IVPUSH Q24H [facility] Last Admin: 09/04/20 20:33 Dose: 1 gm Documented by: Dextrose/Water (Dextrose 50% In Water) 50 ml IVPUSH ONETIME ONE Stop: 09/05/20 12:42 Last Admin: 09/05/20 12:50 Dose: 50 ml Documented by: Enoxaparin Sodium (Lovenox) 75 mg 1 mg/kg (75 mg) SUBCUT NOW [facility] Stop: 09/04/20 18:49 Last Admin: 09/04/20 20:34 Dose: Not Given Documented by: Enoxaparin Sodium (Lovenox) 75 mg 1 mg/kg (75 mg) SUBCUT DAILY [facility] Stop: 09/07/20 21:00 Last Admin: 09/05/20 11:12 Dose: Not Given Documented by: Enoxaparin Sodium (Lovenox) 75 mg 1 mg/kg (75 mg) SUBCUT DAILY@1700 [facility] Stop: 09/07/20 21:00 Last Admin: 09/07/20 17:17 Dose: 75 mg Documented by: Enoxaparin Sodium (Lovenox) 40 mg SUBCUT Q12HR [facility] Last Admin: 09/10/20 08:18 Dose: 40 mg Documented by: Furosemide (Lasix) 40 mg PO DAILY [facility] Last Admin: 09/05/20 09:20 Dose: Not Given Documented by: Furosemide (Lasix) 40 mg IVPUSH NOW ONE Stop: 09/04/20 19:45 Last Admin: 09/04/20 20:33 Dose: 40 mg Documented by: Furosemide (Lasix) 40 mg IV BID [facility] Stop: 09/07/20 23:00 Last Admin: 09/07/20 20:32 Dose: 40 mg Documented by: Gabapentin (Neurontin) 100 mg PO BEDTIME [facility] Last Admin: 09/07/20 20:32 Dose: 100 mg Documented by: Haloperidol Lactate (Haldol) 1 mg IM Q6H PRN PRN Reason: Agitation Haloperidol Lactate (Haldol) Confirm Administered Dose 5 mg .ROUTE .STK-MED ONE Stop: 09/05/20 02:17 Last Admin: 09/05/20 02:45 Dose: 5 mg Documented by: Heparin Sodium (Porcine) (Heparin Sodium) 5,000 units SUBCUT Q12H [facility] Last Admin: 09/04/20 20:33 Dose: 5,000 units Documented by: Heparin Sodium (Porcine) (Heparin Sodium) 5,000 units SUBCUT Q12H [facility] Last Admin: 09/05/20 09:03 Dose: 5,000 units Documented by: Heparin Sodium (Porcine) (Heparin Sodium) 5,000 units SUBCUT Q12H [facility] Last Admin: 09/09/20 08:42 Dose: 5,000 units Documented by: Furosemide 40 mg/ Sodium (Chloride) 54 mls @ 100 mls/hr IV BID [facility] Last Admin: 09/04/20 22:44 Dose: Not Given Documented by: Pantoprazole Sodium 40 mg/ (Sodium Chloride) 10 mls @ 300 mls/hr IV DAILY [facility] Last Admin: 09/05/20 08:55 Dose: 300 mls/hr Documented by: Azithromycin 500 mg/ Sodium (Chloride) 250 mls @ 250 mls/hr IV Q24H [facility] Stop: 09/10/20 22:59 Last Admin: 09/10/20 21:28 Dose: Not Given Documented by: Ceftriaxone Sodium/Dextrose 1 (gm/ Premix) 50 mls @ 100 mls/hr IV Q24H [facility] Stop: 09/11/20 21:29 Last Admin: 09/11/20 20:03 Dose: 100 mls/hr Documented by: Lactated Ringer's (Ringers, Lactated) 1,000 mls @ 999 mls/hr IV ASDIRECTED [facility] Lactated Ringer's (Ringers, Lactated) 500 mls @ 999 mls/hr IV ASDIRECTED [facility] Last Admin: 09/05/20 12:50 Dose: 999 mls/hr Documented by: Sodium Chloride (Normal Saline) 1,000 mls @ 999 mls/hr IV .BOLUS ONE Stop: 09/08/20 15:31 Last Admin: 09/08/20 17:09 Dose: 999 mls/hr Documented by: Lactated Ringer's (Ringers, Lactated) 1,000 mls @ 999 mls/hr IV ASDIRECTED [facility] Levetiracetam (Keppra) 250 mg PO BID [facility] Last Admin: 09/05/20 11:12 Dose: Not Given Documented by: Levetiracetam (Keppra) 250 mg PO BID [facility] Last Admin: 09/05/20 09:59 Dose: 250 mg Documented by: Levetiracetam (Keppra) 250 mg PO DAILY@1700 [facility] Last Admin: 09/15/20 17:20 Dose: 250 mg Documented by: Levothyroxine Sodium (Levothyroxine) 12.5 mcg PO DAILY [facility] Last Admin: 09/05/20 09:05 Dose: 12.5 mcg Documented by: Lorazepam (Ativan) 1 mg IVPUSH Q6H PRN PRN Reason: Agitation Last Admin: 09/05/20 02:30 Dose: 1 mg Documented by: Lorazepam (Ativan) 2 mg IVPUSH ONETIME PRN PRN Reason: Agitation Last Admin: 09/07/20 01:04 Dose: 2 mg Documented by: Lorazepam (Ativan) 1 mg IVPUSH ONETIME PRN PRN Reason: Agitation Lorazepam (Ativan) 1 mg IVPUSH ONETIME ONE Stop: 09/08/20 14:33 Last Admin: 09/08/20 16:06 Dose: Not Given Documented by: Lorazepam (Ativan) 1 mg IVPUSH ONETIME ONE Stop: 09/11/20 04:02 Last Admin: 09/11/20 04:18 Dose: 1 mg Documented by: Metoprolol Tartrate (Lopressor) 25 mg PO BID [facility] Last Admin: 09/04/20 20:33 Dose: 25 mg Documented by: Non-Formulary Medication (Prednisolone Acetate/Pf [Prednisolone Acet 1% Eye Drop]) 1 drop EYEBOTH BID [facility] Last Admin: 09/05/20 09:02 Dose: Not Given Documented by: Potassium Chloride (Klor-Con 10) 40 meq PO ONETIME ONE Stop: 09/05/20 13:57 Last Admin: 09/05/20 14:35 Dose: 40 meq Documented by: Potassium Chloride (Klor-Con M20) 40 meq PO ONETIME ONE Stop: 09/06/20 11:22 Last Admin: 09/06/20 12:02 Dose: 40 meq Documented by: Potassium Chloride (Potassium Chloride) 40 meq PO ONETIME ONE Stop: 09/09/20 10:35 Last Admin: 09/09/20 10:57 Dose: 40 meq Documented by: Potassium Chloride (Potassium Chloride) 40 meq PO ONETIME ONE Stop: 09/10/20 08:08 Last Admin: 09/10/20 08:55 Dose: 40 meq Documented by: Potassium Chloride (Klor-Con M20) 40 meq PO BIDMEALS [facility] Last Admin: 09/13/20 09:28 Dose: 40 meq Documented by: Sodium Phosphate (Neutra-Phos) 250 mg PO QID [facility] Last Admin: 09/13/20 12:56 Dose: 250 mg Documented by: Tamsulosin HCl (Flomax) 0.4 mg PO WITHDINNER [facility] Last Admin: 09/07/20 17:15 Dose: 0.4 mg Documented by: - Exam Quality Assessment: No: Supplemental Oxygen General: Alert, Oriented Lungs: Clear to Auscultation, Normal Respiratory Effort Cardiovascular: Regular Rate, Regular Rhythm GI/Abdominal Exam: Normal Bowel Sounds, Soft, Non-Tender Sepsis Event Note - Evaluation Sepsis Screening Result: No Definite Risk - Focused Exam Vital Signs: Vital Signs Temp Pulse Pulse Resp BP BP Pulse Ox 09/16/20 08:11 66 126/65 09/16/20 08:00 36.3 C 66 16 126/65 97 09/16/20 04:00 36.2 C 103 H 18 143/96 H 97 09/15/20 23:53 36.5 C 89 18 133/76 97 - Problem List & Annotations (1) COVID-19 SNOMED Code(s): 425831297 Code(s): U07.1 - COVID-19 Status: Acute Current Visit: Yes (2) Atrial fibrillation SNOMED Code(s): 87525526 Code(s): I48.91 - UNSPECIFIED ATRIAL FIBRILLATION Status: Acute Current Visit: No (3) CVA (cerebral vascular accident) SNOMED Code(s): 216088236 Code(s): I63.9 - CEREBRAL INFARCTION, UNSPECIFIED Status: Acute Current Visit: No (4) History of prostate cancer SNOMED Code(s): 924750807 Code(s): Z85.46 - PERSONAL HISTORY OF MALIGNANT NEOPLASM OF PROSTATE Status: Chronic Current Visit: No (5) Hx of CABG SNOMED Code(s): 709411369, 784416427 Code(s): Z95.1 - PRESENCE OF AORTOCORONARY BYPASS GRAFT Status: Chronic Current Visit: No (6) Hx of aortic valve replacement SNOMED Code(s): 4415233608833, 385126857, 6469620058470 Code(s): Z95.2 - PRESENCE OF PROSTHETIC HEART VALVE Status: Chronic Current Visit: No Annotation/Comment:: Bioprothestic placed in 2012 (7) Hx of mitral valve replacement SNOMED Code(s): 6641551204278, 9597601483851 Code(s): Z95.2 - PRESENCE OF PROSTHETIC HEART VALVE Status: Chronic Current Visit: No Annotation/Comment:: Bioprothestic placed in 2012 (8) Hx of non-ST elevation myocardial infarction (NSTEMI) SNOMED Code(s): 103085267 Code(s): I25.2 - OLD MYOCARDIAL INFARCTION Status: Chronic Current Visit: No (9) Seizure disorder SNOMED Code(s): 486990057 Code(s): G40.909 - EPILEPSY, UNSP, NOT INTRACTABLE, WITHOUT STATUS EPILEPT ICUS Status: Chronic Current Visit: No (10) TIA (transient ischemic attack) SNOMED Code(s): 352014747 Code(s): G45.9 - TRANSIENT CEREBRAL ISCHEMIC ATTACK, UNSPECIFIED Status: Chronic Current Visit: No (11) CAP (community acquired pneumonia) SNOMED Code(s): 808887169 Code(s): J18.9 - PNEUMONIA, UNSPECIFIED ORGANISM Status: Acute Current Visit: Yes (12) Acute exacerbation of congestive heart failure SNOMED Code(s): 713771078, 59723486105087 Code(s): I50.9 - HEART FAILURE, UNSPECIFIED Status: Acute Current Visit: No Qualifiers: Heart failure type: unspecified Qualified Code(s): I50.9 - Heart failure, unspecified - Problem List Review Problem List Initiated/Reviewed/Updated: Yes - Plan Plan:: Patient is an 85-year-old gentleman with a past medical history of coronary artery disease, [place], valve replacement, hypertension, hyperlipidemia. He was admitted due to altered mental status and possible pneumonia causing heart failure. 1. Chronic diastolic heart failure with NSTEMI: -Stable and back to baseline cont Lasix 60 mg p.o. in the morning -Strict I's and O's, daily weight, heart healthy diet, low sodium 2 L fluid restriction -Recent echo showed EF of 55% with severe concentric hypertrophy and poor LV compliance and likely pulmonary hypertension -Continue metoprolol -Has history of hypertension and valvular heart disease continue aspirin patient, is statin intolerant 2. COVID-19 -Last day of quarantine is 09/14/2020 at 1900. 3. Seizure disorder -Keppra dose at home is 250 mg daily 4. Deconditioning: - PT to evaluate and treat 5. A-flutter: -Present on admission, currently rate controlled -Continue metoprolol, family declined blood thinner VTE prophylaxis: Lovenox daily CODE STATUS: DNR/DNI Dispo: plan on discharge to [place] Thursday
[2020-09-16] MEDS ORDERED: levETIRAcetam 500 MG Tab PO SCH (17:00)
--- NOTE | 2020-09-17 07:56 | PCM.DCSUM1 ---
<Valerie Diaz - Last Filed: 09/17/20 10:13> Discharge Summary - Hospital Course Brief History: kerline is a 85-year-old gentleman who resides at [facility] with his . Was brought in by his daughter who has noticed decline in his mentation since the . Noted unusual behavior of throwing up medications, decreased appetite this morning. [facility] to have increased confusion and a rattly chest. Patient was brought into the ED he is a poor historian and was not able to provide any history. Therefore relied on daughter via telephone. ER course: CBCunremarkable, CMPunremarkable, lactate7.9, troponin mildly elevated 0.23, UA, EKGa flutter with no ST changes rate of 67, chest x-raypulmonary edema/recurrent pneumonia Diagnosis: Stroke: No - Discharge Data Discharge Date: 09/17/20 Discharge Disposition: DC/Tfer to SNF 03 Condition: Stable - Referral to Home Health Primary Care Physician: PCP None - Discharge Diagnosis/Problem(s) (1) Diastolic heart failure SNOMED Code(s): 196606010 ICD Code: I50.30 - UNSPECIFIED DIASTOLIC (CONGESTIVE) HEART FAILURE Status: Chronic Qualifiers: Heart failure chronicity: acute on chronic Qualified Code(s): I50.33 - Acute on chronic diastolic (congestive) heart failure (2) NSTEMI (non-ST elevated myocardial infarction) SNOMED Code(s): 84696580 ICD Code: I21.4 - NON-ST ELEVATION (NSTEMI) MYOCARDIAL INFARCTION Status: Acute (3) COVID-19 SNOMED Code(s): 852696398 ICD Code: U07.1 - COVID-19 Status: Acute (4) History of prostate cancer SNOMED Code(s): 104185198 ICD Code: Z85.46 - PERSONAL HISTORY OF MALIGNANT NEOPLASM OF PROSTATE Status: Chronic (5) CAD (coronary artery disease) SNOMED Code(s): 97329176 ICD Code: I25.10 - ATHSCL HEART DISEASE OF [place] CORONARY ARTERY W/O ANG PCTRS Status: Chronic (6) Elevated troponin SNOMED Code(s): 310496309, 266606424, 095656901 ICD Code: R74.8 - ABNORMAL LEVELS OF OTHER SERUM ENZYMES Status: Chronic (7) HTN (hypertension) SNOMED Code(s): 92341798 ICD Code: I10 - ESSENTIAL (PRIMARY) HYPERTENSION Status: Chronic Qualifiers: Hypertension type: essential hypertension Qualified Code(s): I10 - Essential (primary) hypertension (8) Hx of CABG SNOMED Code(s): 433640839, 715527691 ICD Code: Z95.1 - PRESENCE OF AORTOCORONARY BYPASS GRAFT Status: Chronic (9) Hx of aortic valve replacement SNOMED Code(s): 1885585566161, 766777651, 2576492814639 ICD Code: Z95.2 - PRESENCE OF PROSTHETIC HEART VALVE Status: Chronic Problem Details: Bioprothestic placed in 2013 (10) Hx of mitral valve replacement SNOMED Code(s): 0592334328499, 3574058970754 ICD Code: Z95.2 - PRESENCE OF PROSTHETIC HEART VALVE Status: Chronic Problem Details: Bioprothestic placed in 2012 (11) Prostate CA SNOMED Code(s): 113338123 ICD Code: C61 - MALIGNANT NEOPLASM OF PROSTATE Status: Chronic (12) Pulmonary hypertension SNOMED Code(s): 37323382 ICD Code: I27.20 - PULMONARY HYPERTENSION, UNSPECIFIED Status: Chronic (13) Seizure disorder SNOMED Code(s): 859317981 ICD Code: G40.909 - EPILEPSY, UNSP, NOT INTRACTABLE, WITHOUT STATUS EPILEPTICUS Status: Chronic (14) TIA (transient ischemic attack) SNOMED Code(s): 642874807 ICD Code: G45.9 - TRANSIENT CEREBRAL ISCHEMIC ATTACK, UNSPECIFIED Status: Chronic - Patient Summary/Data Consults: Consultations 09/06/20 11:36 Consult to Speech Language Pathology [AMUSEMENT MACHINE MECHANIC Evaluation and Treatment] [CONS] Ramona isbell 09/11/20 12:24 PT Evaluation and Treatment [CONS] Routine Hospital Course: Admission diagnoses: CHF, diastolic exacerbation COVID-19 NSTEMI Failure to thrive Generalized weakness Discharge diagnoses: CHF, diastolic exacerbation-stabilized [id number] 10-day quarantine. NSTEMI Failure to thrive-improved Generalized weakness-improved Other PMH; History of prostate cancer CAD Hypertension History of CABG History of aortic and mitral valve replacement Pulmonary hypertension Seizure disorder TIA History elevated troponins Jonathon was admitted secondary to increased weakness and failure to thrive noted at home. He does live with his who has dementia with family assistance for caregiving. Upon admission he was noted to have CHF exacerbation along with COVID-19 and possible NSTEMI. Troponins were elevated EKG revealed no signs of ST elevation or T wave changes, but did show a flutter. He was placed on full dose Lovenox x2 days he was diuresed with Lasix and troponins were trended. Troponins remained flat likely secondary to chronic elevation. Atrial flutter is new diagnosis as previous EKGs have not shown this. He did discuss with daughter, Aggie, regarding anticoagulation but she was against this and would prefer to use aspirin only daily. She understands the risk of stroke but feels the risk of bleeding secondary to falls is higher for her father. He was continued on Lasix for 3 days, Lasix IV 40 mg twice daily. He diuresed well and was transitioned back to p.o. 60 mg Lasix daily which is his home dose. Potassium supplemented daily and was started at 40 mEq daily. For his COVID-19 diagnosis, patient never was hypoxic so ultimately he did not receive any medications including remdesivir or dexamethasone. Physical therapy was consulted due to generalized weakness and debility secondary to acute illness as well as chronic debility. Jonathon is extremely hard of hearing which does limit assessment and conversation but using whiteboard has helped significantly. He has been up with 1-2 assist for ADLs as well as ambulation to the bathroom. In discussion with Aggie, patient is unable to return home as he is needing more care than she can provide as well as his 's family is unwilling to allow caregivers hours the day to help provide care for him. His has dementia and suffer significantly at night if new people are in the house. He will be transferred to [place] for correction and rehabilitation for generalized weakness and debility. He has remained on room air during his entire stay. He has completed his COVID-19 10-day quarantine which ended 09/14/2020 at 1930. He will be discharged home with no new medications. He is to continue Lasix 60 mg daily along with potassium and aspirin. He is to stay on his Keppra 250 mg daily which should be given in the evenings as if given in the morning this causes significant drowsiness. This was confirmed with daughter Aggie. He is to follow-up with PCP as outpatient in [place]. I did speak with Dr. Wilder regarding admission to [place] and he is kindly accepted. - Patient Instructions Diet: Heart Healthy Diet, Low Sodium Fluid Restriction: 2000 mL Activity: As Tolerated, No Strenuous Activities Driving: Do Not Drive Showering/Bathing: May Shower Notify Provider of: Fever, Increased Pain, Swelling and Redness, Drainage, Nausea and/or Vomiting Other/Special Instructions: PT/OT to evaluate and treat. Monitor weights daily. Notify physician if increase of 3 to 5 pounds in 2 to 3 days. - Discharge Plan *PRESCRIPTION DRUG MONITORING PROGRAM REVIEWED*: Not Applicable *COPY OF PRESCRIPTION DRUG MONITORING REPORT IN PATIENT SARIKA: Not Applicable Prescriptions/Med Rec: Potassium Chloride [Klor-Con M20] 40 meq PO DAILY #30 tab.er Home Medications: Home Meds Aspirin 81 mg PO DAILY 03/05/15 [History] Metoprolol Tartrate [Lopressor] 25 mg PO BID 03/05/15 [History] Cholecalciferol (Vitamin D3) [Vitamin D3] 2,000 unit PO DAILY 04/20/20 [History] Levothyroxine 25 mcg PO DAILY 04/20/20 [History] Furosemide 60 mg PO DAILY 09/05/20 [History] Acetaminophen [Tylenol] 650 mg PO Q4H PRN tablet 09/12/20 [Rx] Ascorbic Acid [Vitamin C] 500 mg PO DAILY tablet 09/12/20 [Rx] Carboxymethylcellulose Sodium [Refresh Plus 0.5%] 1 each EYEBOTH Q4H PRN box 09/12/20 [Rx] Potassium Chloride [Klor-Con M20] 40 meq PO DAILY #30 tab.er 09/12/20 [Rx] levETIRAcetam [Levetiracetam] 250 mg PO DAILY@1700 #1 bottle 09/12/20 [Rx] Oxygen Therapy Mode: Room Air Patient Handouts: COVID-19 Frequently Asked Questions, COVID-19, Nonspecific Chest Pain, Adult, [id number], COVID-19: How to Protect Yourself and Others - CDC, Coronavirus Information 11/14/19, Potassium chloride injection Referrals: Agustín Forbes MD [Physician] - 10/05/20 1:30 pm Elton Lopez MD [Ordering Only Provider] - - Discharge Summary/Plan Comment DC Time >30 min.: Yes (discussed with Dr Wilder for acceptance at [place]) - Patient Data Vitals - Most Recent: Last Vital Signs Temp 97.0 F 09/17/20 03:50 Pulse 74 09/17/20 03:50 Resp 16 09/17/20 03:50 BP 110/68 09/17/20 03:50 Pulse Ox 95 09/17/20 03:50 Weight - Most Recent: 71.033 kg I&O - Last 24 hours: Intake & Output 09/16/20 09/17/20 09/17/20 22:59 06:59 14:59 Intake Total 917 847 Output Total 1100 400 Balance -183 447 Med Orders - Current: Current Medications Acetaminophen (Tylenol) 650 mg PO Q4H PRN PRN Reason: Pain (Mild 1-3)/fever Artificial Tears (Refresh Plus 0.5%) 1 each EYEBOTH ASDIRECTED PRN PRN Reason: Dry Eyes Last Admin: 09/13/20 20:37 Dose: 1 drop Documented by: Ascorbic Acid (Vitamin C) [address] [facility] Last Admin: 09/16/20 08:10 Dose: 500 mg Documented by: Aspirin (Aspirin) [address] [facility] Last Admin: 09/16/20 08:10 Dose: 81 mg Documented by: Cholecalciferol (Vitamin D3) [address] [facility] Last Admin: 09/16/20 08:10 Dose: 25 mcg Documented by: Diltiazem HCl (Diltiazem) 20 mg IVPUSH Q6H PRN PRN Reason: Tachycardia Enoxaparin Sodium (Lovenox) [address] [facility] Last Admin: 09/16/20 08:08 Dose: 40 mg Documented by: Furosemide (Lasix) [address] [facility] Last Admin: 09/16/20 08:12 Dose: 60 mg Documented by: Levetiracetam (Keppra) 250 mg PO DAILY@1700 [facility] Last Admin: 09/16/20 17:46 Dose: 250 mg Documented by: Levothyroxine Sodium (Levothyroxine) [address] [facility] Last Admin: 09/16/20 08:09 Dose: 25 mcg Documented by: Lorazepam (Ativan) 1 mg IVPUSH ONETIME PRN PRN Reason: Agitation Last Admin: 09/10/20 21:29 Dose: 1 mg Documented by: Metoprolol Tartrate (Lopressor) [address] [facility] Last Admin: 09/16/20 20:22 Dose: 25 mg Documented by: Ondansetron HCl (Zofran Odt) 4 mg PO Q4H PRN PRN Reason: nausea, able to take PO Pantoprazole Sodium (Protonix) [address] [facility] Last Admin: 09/16/20 08:09 Dose: 40 mg Documented by: Potassium Chloride (Klor-Con M20) [address] [facility] Last Admin: 09/16/20 08:13 Dose: 40 meq Documented by: Discontinued Medications Azithromycin (Zithromax) [address] [facility] Last Admin: 09/04/20 22:45 Dose: Not Given Documented by: Ceftriaxone Sodium (Rocephin) [address] [facility] Last Admin: 09/04/20 20:33 Dose: 1 gm Documented by: Dextrose/Water (Dextrose 50% In Water) 50 ml IVPUSH ONETIME ONE Stop: 09/05/20 12:42 Last Admin: 09/05/20 12:50 Dose: 50 ml Documented by: Enoxaparin Sodium (Lovenox) 75 mg 1 mg/kg (75 mg) SUBCUT [facility] Stop: 09/04/20 18:49 Last Admin: 09/04/20 20:34 Dose: Not Given Documented by: Enoxaparin Sodium (Lovenox) 75 mg 1 mg/kg (75 mg) SUBCUT DAILY [facility] Stop: 09/07/20 21:00 Last Admin: 09/05/20 11:12 Dose: Not Given Documented by: Enoxaparin Sodium (Lovenox) 75 mg 1 mg/kg (75 mg) SUBCUT DAILY@1700 [facility] Stop: 09/07/20 21:00 Last Admin: 09/07/20 17:17 Dose: 75 mg Documented by: Enoxaparin Sodium (Lovenox) [address] [facility] Last Admin: 09/10/20 08:18 Dose: 40 mg Documented by: Furosemide (Lasix) [address] [facility] Last Admin: 09/05/20 09:20 Dose: Not Given Documented by: Furosemide (Lasix) 40 mg IVPUSH NOW ONE Stop: 09/04/20 19:45 Last Admin: 09/04/20 20:33 Dose: 40 mg Documented by: Furosemide (Lasix) [address] [facility] Stop: 09/07/20 23:00 Last Admin: 09/07/20 20:32 Dose: 40 mg Documented by: Gabapentin (Neurontin) [address] [facility] Last Admin: 09/07/20 20:32 Dose: 100 mg Documented by: Haloperidol Lactate (Haldol) 1 mg IM Q6H PRN PRN Reason: Agitation Haloperidol Lactate (Haldol) Confirm Administered Dose 5 mg .ROUTE .STK-MED ONE Stop: 09/05/20 02:17 Last Admin: 09/05/20 02:45 Dose: 5 mg Documented by: Heparin Sodium (Porcine) (Heparin Sodium) 5,[address] [facility] Last Admin: 09/04/20 20:33 Dose: 5,000 units Documented by: Heparin Sodium (Porcine) (Heparin Sodium) 5,[address] [facility] Last Admin: 09/05/20 09:03 Dose: 5,000 units Documented by: Heparin Sodium (Porcine) (Heparin Sodium) 5,[address] [facility] Last Admin: 09/09/20 08:42 Dose: 5,000 units Documented by: Furosemide 40 mg/ Sodium (Chloride) 54 mls @ 100 mls/hr IV BID [facility] Last Admin: 09/04/20 22:44 Dose: Not Given Documented by: Pantoprazole Sodium 40 mg/ (Sodium Chloride) 10 mls @ 300 mls/hr IV DAILY [facility] Last Admin: 09/05/20 08:55 Dose: 300 mls/hr Documented by: Azithromycin 500 mg/ Sodium (Chloride) 250 mls @ 250 mls/hr IV Q24H [facility] Stop: 09/10/20 22:59 Last Admin: 09/10/20 21:28 Dose: Not Given Documented by: Ceftriaxone Sodium/Dextrose 1 (gm/ Premix) 50 mls @ 100 mls/hr IV Q24H [facility] Stop: 09/11/20 21:29 Last Admin: 09/11/20 20:03 Dose: 100 mls/hr Documented by: Lactated Ringer's (Ringers, Lactated) 1,000 mls @ 999 mls/hr IV ASDIRECTED [facility] Lactated Ringer's (Ringers, Lactated) 500 mls @ 999 mls/hr IV ASDIRECTED [facility] Last Admin: 09/05/20 12:50 Dose: 999 mls/hr Documented by: Sodium Chloride (Normal Saline) 1,000 mls @ 999 mls/hr IV .BOLUS ONE Stop: 09/08/20 15:31 Last Admin: 09/08/20 17:09 Dose: 999 mls/hr Documented by: Lactated Ringer's (Ringers, Lactated) 1,000 mls @ 999 mls/hr IV ASDIRECTED [facility] Levetiracetam (Keppra) [address] [facility] Last Admin: 09/05/20 11:12 Dose: Not Given Documented by: Levetiracetam (Keppra) [address] [facility] Last Admin: 09/05/20 09:59 Dose: 250 mg Documented by: Levetiracetam (Keppra) 250 mg PO DAILY@1700 [facility] Last Admin: 09/15/20 17:20 Dose: 250 mg Documented by: Levothyroxine Sodium (Levothyroxine) 12.[address] [facility] Last Admin: 09/05/20 09:05 Dose: 12.5 mcg Documented by: Lorazepam (Ativan) 1 mg IVPUSH Q6H PRN PRN Reason: Agitation Last Admin: 09/05/20 02:30 Dose: 1 mg Documented by: Lorazepam (Ativan) 2 mg IVPUSH ONETIME PRN PRN Reason: Agitation Last Admin: 09/07/20 01:04 Dose: 2 mg Documented by: Lorazepam (Ativan) 1 mg IVPUSH ONETIME PRN PRN Reason: Agitation Lorazepam (Ativan) 1 mg IVPUSH ONETIME ONE Stop: 09/08/20 14:33 Last Admin: 09/08/20 16:06 Dose: Not Given Documented by: Lorazepam (Ativan) 1 mg IVPUSH ONETIME ONE Stop: 09/11/20 04:02 Last Admin: 09/11/20 04:18 Dose: 1 mg Documented by: Metoprolol Tartrate (Lopressor) [address] [facility] Last Admin: 09/04/20 20:33 Dose: 25 mg Documented by: Non-Formulary Medication (Prednisolone Acetate/Pf [Prednisolone Acet 1% Eye Drop]) [address] [facility] Last Admin: 09/05/20 09:02 Dose: Not Given Documented by: Potassium Chloride (Klor-Con 10) 40 meq PO ONETIME ONE Stop: 09/05/20 13:57 Last Admin: 09/05/20 14:35 Dose: 40 meq Documented by: Potassium Chloride (Klor-Con M20) 40 meq PO ONETIME ONE Stop: 09/06/20 11:22 Last Admin: 09/06/20 12:02 Dose: 40 meq Documented by: Potassium Chloride (Potassium Chloride) 40 meq PO ONETIME ONE Stop: 09/09/20 10:35 Last Admin: 09/09/20 10:57 Dose: 40 meq Documented by: Potassium Chloride (Potassium Chloride) 40 meq PO ONETIME ONE Stop: 09/10/20 08:08 Last Admin: 09/10/20 08:55 Dose: 40 meq Documented by: Potassium Chloride (Klor-Con M20) [address] [facility] Last Admin: 09/13/20 09:28 Dose: 40 meq Documented by: Sodium Phosphate (Neutra-Phos) [address] [facility] Last Admin: 09/13/20 12:56 Dose: 250 mg Documented by: Tamsulosin HCl (Flomax) 0.[address] [facility] Last Admin: 09/07/20 17:15 Dose: 0.4 mg Documented by: - Exam Quality Assessment: Reports: DVT Prophylaxis. Denies: Supplemental Oxygen General: Reports: Alert, Oriented, Cooperative, No Acute Distress Neck: Reports: Supple Lungs: Reports: Clear to Auscultation, Normal Respiratory Effort Cardiovascular: Reports: Regular Rate, Regular Rhythm GI/Abdominal Exam: Normal Bowel Sounds, Soft, Non-Tender Extremities: Normal Inspection, Normal Range of Motion, Non-Tender, No Pedal Edema Skin: Reports: Warm, Dry, Intact Wound/Incisions: Reports: Healing Well Neurological: Reports: No New Focal Deficit Psy/Mental Status: Reports: Alert, Normal Affect, Normal Mood <Jose Eduardo Garcia - Last Filed: 09/18/20 10:40> Discharge Summary - Hospital Course Free Text/Narrative:: I have seen and evaluated the patient and agree with the residents note unless specified in my note. - Referral to Home Health Primary Care Physician: PCP None - Discharge Diagnosis/Problem(s) (1) COVID-19 SNOMED Code(s): 995367791 ICD Code: U07.1 - COVID-19 Status: Acute (2) Atrial fibrillation SNOMED Code(s): 44159849 ICD Code: I48.91 - UNSPECIFIED ATRIAL FIBRILLATION Status: Acute (3) CVA (cerebral vascular accident) SNOMED Code(s): 695654143 ICD Code: I63.9 - CEREBRAL INFARCTION, UNSPECIFIED Status: Acute (4) History of prostate cancer SNOMED Code(s): 105900581 ICD Code: Z85.46 - PERSONAL HISTORY OF MALIGNANT NEOPLASM OF PROSTATE Status: Chronic (5) Hx of CABG SNOMED Code(s): 582212337, 881025440 ICD Code: Z95.1 - PRESENCE OF AORTOCORONARY BYPASS GRAFT Status: Chronic (6) Hx of aortic valve replacement SNOMED Code(s): 7941123238637, 341174108, 9129842251640 ICD Code: Z95.2 - PRESENCE OF PROSTHETIC HEART VALVE Status: Chronic Problem Details: Bioprothestic placed in 2012 (7) Hx of mitral valve replacement SNOMED Code(s): 8831967408480, 1753864412419 ICD Code: Z95.2 - PRESENCE OF PROSTHETIC HEART VALVE Status: Chronic Problem Details: Bioprothestic placed in 2013 (8) Hx of non-ST elevation myocardial infarction (NSTEMI) SNOMED Code(s): 429879148 ICD Code: I25.2 - OLD MYOCARDIAL INFARCTION Status: Chronic (9) Seizure disorder SNOMED Code(s): 536036343 ICD Code: G40.909 - EPILEPSY, UNSP, NOT INTRACTABLE, WITHOUT STATUS EPILEPTICUS Status: Chronic (10) TIA (transient ischemic attack) SNOMED Code(s): 231984214 ICD Code: G45.9 - TRANSIENT CEREBRAL ISCHEMIC ATTACK, UNSPECIFIED Status: Chronic (11) CAP (community acquired pneumonia) SNOMED Code(s): 301624951 ICD Code: J18.9 - PNEUMONIA, UNSPECIFIED ORGANISM Status: Acute (12) Acute exacerbation of congestive heart failure SNOMED Code(s): 227120788, 29529434950821 ICD Code: I50.9 - HEART FAILURE, UNSPECIFIED Status: Acute Qualifiers: Heart failure type: unspecified Qualified Code(s): I50.9 - Heart failure, unspecified - Patient Summary/Data Consults: Consultations 09/06/20 11:36 Consult to Speech Language Pathology [AMUSEMENT MACHINE MECHANIC Evaluation and Treatment] [CONS] Routine 09/11/20 12:24 PT Evaluation and Treatment [CONS] Routine - Patient Data Vitals - Most Recent: Last Vital Signs Temp 36.3 C 09/17/20 07:55 Pulse 88 09/17/20 08:01 Resp 17 09/17/20 07:55 BP 129/74 09/17/20 08:01 Pulse Ox 95 09/17/20 07:55 Med Orders - Current: Current Medications Discontinued Medications Acetaminophen (Tylenol) 650 mg PO Q4H PRN PRN Reason: Pain (Mild 1-3)/fever Artificial Tears (Refresh Plus 0.5%) 1 each EYEBOTH ASDIRECTED PRN PRN Reason: Dry Eyes Last Admin: 09/13/20 20:37 Dose: 1 drop Documented by: Ascorbic Acid (Vitamin C) [address] [facility] Last Admin: 09/17/20 08:01 Dose: 500 mg Documented by: Aspirin (Aspirin) [address] [facility] Last Admin: 09/17/20 08:01 Dose: 81 mg Documented by: Azithromycin (Zithromax) [address] [facility] Last Admin: 09/04/20 22:45 Dose: Not Given Documented by: Ceftriaxone Sodium (Rocephin) [address] [facility] Last Admin: 09/04/20 20:33 Dose: 1 gm Documented by: Cholecalciferol (Vitamin D3) [address] [facility] Last Admin: 09/17/20 08:01 Dose: 25 mcg Documented by: Dextrose/Water (Dextrose 50% In Water) 50 ml IVPUSH ONETIME ONE Stop: 09/05/20 12:42 Last Admin: 09/05/20 12:50 Dose: 50 ml Documented by: Diltiazem HCl (Diltiazem) 20 mg IVPUSH Q6H PRN PRN Reason: Tachycardia Enoxaparin Sodium (Lovenox) 75 mg 1 mg/kg (75 mg) SUBCUT NOW [facility] Stop: 09/04/20 18:49 Last Admin: 09/04/20 20:34 Dose: Not Given Documented by: Enoxaparin Sodium (Lovenox) 75 mg 1 mg/kg (75 mg) SUBCUT DAILY [facility] Stop: 09/07/20 21:00 Last Admin: 09/05/20 11:12 Dose: Not Given Documented by: Enoxaparin Sodium (Lovenox) 75 mg 1 mg/kg (75 mg) SUBCUT DAILY@1700 [facility] Stop: 09/07/20 21:00 Last Admin: 09/07/20 17:17 Dose: 75 mg Documented by: Enoxaparin Sodium (Lovenox) [address] [facility] Last Admin: 09/10/20 08:18 Dose: 40 mg Documented by: Enoxaparin Sodium (Lovenox) [address] [facility] Last Admin: 09/17/20 08:03 Dose: 40 mg Documented by: Furosemide (Lasix) [address] [facility] Last Admin: 09/05/20 09:20 Dose: Not Given Documented by: Furosemide (Lasix) 40 mg IVPUSH NOW ONE Stop: 09/04/20 19:45 Last Admin: 09/04/20 20:33 Dose: 40 mg Documented by: Furosemide (Lasix) [address] [facility] Stop: 09/07/20 23:00 Last Admin: 09/07/20 20:32 Dose: 40 mg Documented by: Furosemide (Lasix) [address] [facility] Last Admin: 09/17/20 08:01 Dose: 60 mg Documented by: Gabapentin (Neurontin) [address] [facility] Last Admin: 09/07/20 20:32 Dose: 100 mg Documented by: Haloperidol Lactate (Haldol) 1 mg IM Q6H PRN PRN Reason: Agitation Haloperidol Lactate (Haldol) Confirm Administered Dose 5 mg .ROUTE .STK-MED ONE Stop: 09/05/20 02:17 Last Admin: 09/05/20 02:45 Dose: 5 mg Documented by: Heparin Sodium (Porcine) (Heparin Sodium) 5,[address] [facility] Last Admin: 09/04/20 20:33 Dose: 5,000 units Documented by: Heparin Sodium (Porcine) (Heparin Sodium) 5,[address] [facility] Last Admin: 09/05/20 09:03 Dose: 5,000 units Documented by: Heparin Sodium (Porcine) (Heparin Sodium) 5,[address] [facility] Last Admin: 09/09/20 08:42 Dose: 5,000 units Documented by: Furosemide 40 mg/ Sodium (Chloride) 54 mls @ 100 mls/hr IV BID [facility] Last Admin: 09/04/20 22:44 Dose: Not Given Documented by: Pantoprazole Sodium 40 mg/ (Sodium Chloride) 10 mls @ 300 mls/hr IV DAILY [facility] Last Admin: 09/05/20 08:55 Dose: 300 mls/hr Documented by: Azithromycin 500 mg/ Sodium (Chloride) 250 mls @ 250 mls/hr IV Q24H [facility] Stop: 09/10/20 22:59 Last Admin: 09/10/20 21:28 Dose: Not Given Documented by: Ceftriaxone Sodium/Dextrose 1 (gm/ Premix) 50 mls @ 100 mls/hr IV Q24H [facility] Stop: 09/11/20 21:29 Last Admin: 09/11/20 20:03 Dose: 100 mls/hr Documented by: Lactated Ringer's (Ringers, Lactated) 1,000 mls @ 999 mls/hr IV ASDIRECTED [facility] Lactated Ringer's (Ringers, Lactated) 500 mls @ 999 mls/hr IV ASDIRECTED [facility] Last Admin: 09/05/20 12:50 Dose: 999 mls/hr Documented by: Sodium Chloride (Normal Saline) 1,000 mls @ 999 mls/hr IV .BOLUS ONE Stop: 09/08/20 15:31 Last Admin: 09/08/20 17:09 Dose: 999 mls/hr Documented by: Lactated Ringer's (Ringers, Lactated) 1,000 mls @ 999 mls/hr IV ASDIRECTED [facility] Levetiracetam (Keppra) [address] [facility] Last Admin: 09/05/20 11:12 Dose: Not Given Documented by: Levetiracetam (Keppra) [address] [facility] Last Admin: 09/05/20 09:59 Dose: 250 mg Documented by: Levetiracetam (Keppra) 250 mg PO DAILY@1700 [facility] Last Admin: 09/15/20 17:20 Dose: 250 mg Documented by: Levetiracetam (Keppra) 250 mg PO DAILY@1700 [facility] Last Admin: 09/16/20 17:46 Dose: 250 mg Documented by: Levothyroxine Sodium (Levothyroxine) 12.[address] [facility] Last Admin: 09/05/20 09:05 Dose: 12.5 mcg Documented by: Levothyroxine Sodium (Levothyroxine) [address] [facility] Last Admin: 09/17/20 08:02 Dose: 25 mcg Documented by: Lorazepam (Ativan) 1 mg IVPUSH Q6H PRN PRN Reason: Agitation Last Admin: 09/05/20 02:30 Dose: 1 mg Documented by: Lorazepam (Ativan) 2 mg IVPUSH ONETIME PRN PRN Reason: Agitation Last Admin: 09/07/20 01:04 Dose: 2 mg Documented by: Lorazepam (Ativan) 1 mg IVPUSH ONETIME PRN PRN Reason: Agitation Lorazepam (Ativan) 1 mg IVPUSH ONETIME ONE Stop: 09/08/20 14:33 Last Admin: 09/08/20 16:06 Dose: Not Given Documented by: Lorazepam (Ativan) 1 mg IVPUSH ONETIME PRN PRN Reason: Agitation Last Admin: 09/10/20 21:29 Dose: 1 mg Documented by: Lorazepam (Ativan) 1 mg IVPUSH ONETIME ONE Stop: 09/11/20 04:02 Last Admin: 09/11/20 04:18 Dose: 1 mg Documented by: Metoprolol Tartrate (Lopressor) [address] [facility] Last Admin: 09/04/20 20:33 Dose: 25 mg Documented by: Metoprolol Tartrate (Lopressor) [address] [facility] Last Admin: 09/17/20 08:01 Dose: 25 mg Documented by: Non-Formulary Medication (Prednisolone Acetate/Pf [Prednisolone Acet 1% Eye Drop]) [address] [facility] Last Admin: 09/05/20 09:02 Dose: Not Given Documented by: Ondansetron HCl (Zofran Odt) 4 mg PO Q4H PRN PRN Reason: nausea, able to take PO Pantoprazole Sodium (Protonix) [address] [facility] Last Admin: 09/17/20 08:01 Dose: 40 mg Documented by: Potassium Chloride (Klor-Con 10) 40 meq PO ONETIME ONE Stop: 09/05/20 13:57 Last Admin: 09/05/20 14:35 Dose: 40 meq Documented by: Potassium Chloride (Klor-Con M20) 40 meq PO ONETIME ONE Stop: 09/06/20 11:22 Last Admin: 09/06/20 12:02 Dose: 40 meq Documented by: Potassium Chloride (Potassium Chloride) 40 meq PO ONETIME ONE Stop: 09/09/20 10:35 Last Admin: 09/09/20 10:57 Dose: 40 meq Documented by: Potassium Chloride (Potassium Chloride) 40 meq PO ONETIME ONE Stop: 09/10/20 08:08 Last Admin: 09/10/20 08:55 Dose: 40 meq Documented by: Potassium Chloride (Klor-Con M20) [address] [facility] Last Admin: 09/13/20 09:28 Dose: 40 meq Documented by: Potassium Chloride (Klor-Con M20) [address] [facility] Last Admin: 09/17/20 08:03 Dose: 40 meq Documented by: Sodium Phosphate (Neutra-Phos) [address] [facility] Last Admin: 09/13/20 12:56 Dose: 250 mg Documented by: Tamsulosin HCl (Flomax) 0.[address] [facility] Last Admin: 09/07/20 17:15 Dose: 0.4 mg Documented by:
[2020-09-17 07:57] VITALS: BP 129/74; PULSE 88
[2020-09-17] MEDS: Metoprolol Tartrate 25 MG Tab PO SCH (08:01)
[2020-09-17] MEDS: Ascorbic Acid 500 MG Tab PO SCH (08:01)
[2020-09-17] MEDS: Furosemide 20 MG Tab PO SCH (08:01)
[2020-09-17] MEDS: Cholecalciferol (Vitamin D3) 25 MCG Tab PO SCH (08:01)
[2020-09-17] MEDS: Pantoprazole 40 MG Tab.CR PO SCH (08:01)
[2020-09-17] MEDS: Aspirin 81 MG Tab.Chew PO SCH (08:01)
[2020-09-17] MEDS: Levothyroxine 25 MCG Tab PO SCH (08:02)
[2020-09-17] MEDS: Potassium Chloride 20 MEQ Tab.ER PO SCH (08:03)
[2020-09-17] MEDS: Enoxaparin 40 MG/0.4 ML Syringe SUBCUT SCH (08:03)
== END 2020-09-17 11:50 | DRG 177 ==
LOC: MW.ED 16:54 → MW.MS 21:32 → OBSVTOIN 09-06 16:57
PROVIDERS: ADMIT Internal Medicine; ATTEND Internal Medicine
DX: U07.1 COVID-19 (principal); I50.33 Acute on chronic diastolic (congestive) heart failure; I21.4 Non-ST elevation (NSTEMI) myocardial infarction; R41.82 Altered mental status, unspecified; H54.7 Unspecified visual loss; H91.93 Unspecified hearing loss, bilateral; G45.9 Transient cerebral ischemic attack, unspecified; E78.00 Pure hypercholesterolemia, unspecified; I25.2 Old myocardial infarction; J43.9 Emphysema, unspecified; K44.9 Diaphragmatic hernia without obstruction or gangrene; Z87.11 Personal history of peptic ulcer disease; K40.90 Unilateral inguinal hernia, without obstruction or gangrene, not specified as recurrent; J44.1 Chronic obstructive pulmonary disease with (acute) exacerbation; I48.92 Unspecified atrial flutter; I25.10 Atherosclerotic heart disease of native coronary artery without angina pectoris; G62.9 Polyneuropathy, unspecified; E03.9 Hypothyroidism, unspecified; R74.8 Abnormal levels of other serum enzymes; I27.20 Pulmonary hypertension, unspecified; Z96.641 Presence of right artificial hip joint; Z88.8 Allergy status to other drugs, medicaments and biological substances; G40.909 Epilepsy, unspecified, not intractable, without status epilepticus; R77.8 Other specified abnormalities of plasma proteins; R53.81 Other malaise; I11.0 Hypertensive heart disease with heart failure; H91.90 Unspecified hearing loss, unspecified ear; Z85.46 Personal history of malignant neoplasm of prostate; Z95.1 Presence of aortocoronary bypass graft; Z95.2 Presence of prosthetic heart valve; Z86.73 Personal history of transient ischemic attack (TIA), and cerebral infarction without residual deficits; Z79.01 Long term (current) use of anticoagulants; Z79.82 Long term (current) use of aspirin; Z79.890 Hormone replacement therapy; Z79.899 Other long term (current) drug therapy
CPT/HCPCS: 0240U; 36415; 36600; 70450; 71045; 80048; 80053; 80179; 81001; 82550; 82803; 82962; 83605; 83735; 84100; 84443; 84484; 85025; 87635; 92610; 93005; 96372; 96374; 96375; 97110; 97116; 97162; 97164; 97530; 99285; 93010; 96365; 96376; 99219; 99226; 99232; 99233; 99239; 99283; A9270-GY; C9113; G0378; J0456; J0696; J1630; J1644; J1650; J1940; J2060; J7030; J7050; J7120; U0002

== ENCOUNTER 2021-02-23 01:55 | Emergency (ER) | payer MEDICARE, OTHER ==
[2021-02-23] MEDS ORDERED: Sodium Chloride 0.9% 2.5 ML Syringe FLUSH PRN (02:03)
[2021-02-23] MEDS ORDERED: Sodium Chloride 0.9% 10 ML Syringe FLUSH PRN (02:03)
[2021-02-23] MEDS ORDERED: Sodium Chloride 0.9% 1,000 ML IV ONE (02:05)
[2021-02-23] MEDS ORDERED: LORazepam 2 MG/ML SDV IVPUSH ONE (02:09)
[2021-02-23 02:20] LABS: BLOOD UREA NITROGEN,BUN 26 mg/dL (7.0-18.0); CARBON DIOXIDE,CO2 30.6 mmol/L (21.0-32.0); CHLORIDE,CL 102 mmol/L (98-107); GLUCOSE RANDOM 106 mg/dL (74-106); POTASSIUM,K 4.1 mmol/L (3.5-5.1); SODIUM,NA 139 mmol/L (136-148)
[2021-02-23] MEDS ORDERED: Metoprolol Tartrate 5 MG/5 ML SDV IVPUSH ONE ×2 (03:11→04:58)
[2021-02-23 04:16] VITALS: BP 119/83
[2021-02-23] MEDS ORDERED: Metoprolol Tartrate 5 MG in Sodium Chloride 0.9% 50 ML IV ONE (04:25)
[2021-02-23] MEDS ORDERED: Metoprolol Tartrate 5 MG/5 ML SDV ONE (04:38)
--- NOTE | 2021-02-23 05:11 | EDM.PDOC ---
ED HPI GENERAL MEDICAL PROBLEM - General Chief Complaint: General Stated Complaint: ALTERED MENTAL STATUS Time Seen by Provider: 02/23/21 01:57 - Related Data Allergies Allergy/AdvReac Type Severity Reaction Status Date / Time amiodarone Allergy Renal Verified 02/23/21 02:01 Insufficiency lisinopril Allergy Syncope Verified 02/23/21 02:01 simvastatin Allergy Other Verified 02/23/21 02:01 Home Meds: Home Meds Aspirin 81 mg PO DAILY 03/05/15 [History] Metoprolol Tartrate [Lopressor] 25 mg PO BID 03/05/15 [History] Cholecalciferol (Vitamin D3) [Vitamin D3] 2,000 unit PO DAILY 04/20/20 [History] Levothyroxine 25 mcg PO DAILY 04/20/20 [History] Furosemide 60 mg PO DAILY 09/05/20 [History] Acetaminophen [Tylenol] 650 mg PO Q4H PRN tablet 09/12/20 [Rx] Ascorbic Acid [Vitamin C] 500 mg PO DAILY tablet 09/12/20 [Rx] Carboxymethylcellulose Sodium [Refresh Plus 0.5%] 1 each EYEBOTH Q4H PRN box 09/12/20 [Rx] Potassium Chloride [Klor-Con M20] 40 meq PO DAILY #30 tab.er 09/12/20 [Rx] levETIRAcetam [Levetiracetam] 250 mg PO DAILY@1700 #1 bottle 09/12/20 [Rx] Past Medical History HEENT History: Reports: Cataract, Hard of Hearing, Impaired Vision, Sinusitis Other HEENT History: bilateral hearing aids Cardiovascular History: Reports: Angina, CAD, Heart Failure, Heart Valve Replacement, High Cholesterol, Hypertension, [place], Syncope Respiratory History: Reports: None Other Respiratory History: emphysema Gastrointestinal History: Reports: Hiatal Hernia, PUD Other Gastrointestinal History: Current left inguinal hernia Genitourinary History: Reports: BPH, Prostate Disorder, Urinary Incontinence, UTI, Recurrent, Other (See Below) Other Genitourinary History: Prostate CA Musculoskeletal History: Reports: Other (See Below) Other Musculoskeletal History: hx: fracture leg Neurological History: Reports: None, Neuropathy, Peripheral, Other (See Below) Other Neuro History: confusion. dementia Psychiatric History: Reports: None Endocrine/Metabolic History: Reports: Hypothyroidism Hematologic History: Reports: None Immunologic History: Reports: None Oncologic (Cancer) History: Reports: Prostate Dermatologic History: Reports: Seborrheic Dermatitis, Other (See Below) Other Dermatologic History: SKin areas froze off face - Infectious Disease History Infectious Disease History: Reports: Measles Other Infectious Disease History: hepatitis back in the 60's - Past Surgical History HEENT Surgical History: Reports: Adenoidectomy, Tonsillectomy Cardiovascular Surgical History: Reports: Coronary Artery Bypass, Valve Replacement Other Cardiovascular Surgeries/Procedures: Aortic and Mitral Valve replaced Respiratory Surgical History: Reports: None GI Surgical History: Reports: Hernia, Inguinal Male Surgical History: Reports: None Endocrine Surgical History: Reports: None Neurological Surgical History: Reports: None Musculoskeletal Surgical History: Reports: Other (See Below) Other Musculoskeletal Surgeries/Procedures:: Right Total Hip Replacement Oncologic Surgical History: Reports: None Dermatological Surgical History: Reports: None Social & Family History - Family History Family Medical History: No Pertinent Family History - Tobacco Use Tobacco Use Status *Q: Unknown Ever Used Tobacco Second Hand Smoke Exposure: No - Caffeine Use Caffeine Use: Reports: Coffee - Recreational Drug Use Recreational Drug Use: No - Living Situation & Occupation Living situation: Reports: Occupation: Retired () ED ROS GENERAL - Review of Systems Review Of Systems: Comprehensive ROS is negative, except as noted in HPI. ED EXAM, GENERAL - Physical Exam Exam: See Below Free Text/Narrative:: My physical exam is in the HPI Course - Vital Signs Text/Narrative:: 2 doses of metoprolol 5 mg IV got his heart rate under 100. Comparison with the old EKG indicates that the night he had an uncontrolled rate. He had also responded well to fluids. Patient discharged with instruction to drink more fluids and take twice his metoprolol dose at bedtime until further evaluation by his PMD. Last Recorded V/S: Last Vital Signs Temp 37.0 C 02/23/21 01:57 Pulse 126 H 02/23/21 05:00 Resp 20 02/23/21 04:15 BP 119/83 02/23/21 05:00 Pulse Ox 94 L 02/23/21 04:15 - Orders/Labs/Meds Orders: Active Orders 24 hr Category Date Time Status EKG Documentation Completion [RC] AM Care 02/23/21 02:03 Active Sodium Chloride 0.9% [Saline Flush] Med 02/23/21 02:03 Active 10 ml FLUSH ASDIRECTED PRN Sodium Chloride 0.9% [Saline Flush] Med 02/23/21 02:03 Active 2.5 ml FLUSH ASDIRECTED PRN Saline Lock Insert [OM.PC] Stat Oth 02/23/21 02:03 Ordered Medication Orders Sodium Chloride (Sodium Chloride 0.9% 10 Ml Syringe) 10 ml FLUSH ASDIRECTED PRN PRN Reason: Keep Vein Open Sodium Chloride (Sodium Chloride 0.9% 2.5 Ml Syringe) 2.5 ml FLUSH ASDIRECTED PRN PRN Reason: Keep Vein Open Labs: Laboratory Tests 02/23/21 02/23/21 02/23/21 Range/Units 01:55 01:55 04:08 WBC 12.75 H (4.0-11.0) K/uL RBC 3.91 L (4.50-5.90) M/uL Hgb 12.0 L (13.0-17.0) g/dL Hct 36.3 L (38.0-50.0) % MCV 92.8 (80.0-98.0) fL MCH 30.7 (27.0-32.0) pg MCHC 33.1 (31.0-37.0) g/dL RDW Std Deviation 48.2 (28.0-62.0) fl RDW Coeff of [place] 15 (11.0-15.0) % Plt Count 170 (150-400) K/uL MPV 11.30 (7.40-12.00) fL Neut % (Auto) 92.8 H (48.0-80.0) % Lymph % (Auto) 2.7 L (16.0-40.0) % [place] % (Auto) 4.2 (0.0-15.0) % Eos % (Auto) 0.2 (0.0-7.0) % Baso % (Auto) 0.1 (0.0-1.5) % Neut # (Auto) 11.8 H (1.4-5.7) K/uL Lymph # (Auto) 0.3 L (0.6-2.4) K/uL [place] # (Auto) 0.5 (0.0-0.8) K/uL Eos # (Auto) 0.0 (0.0-0.7) K/uL Baso # (Auto) 0.0 (0.0-0.1) K/uL Sodium 139 (136-148) mmol/L Potassium 4.1 (3.5-5.1) mmol/L Chloride 102 (98-107) mmol/L Carbon Dioxide 30.6 (21.0-32.0) mmol/L BUN 26 H (7.0-18.0) mg/dL Creatinine 0.8 (0.8-1.3) mg/dL Est Cr Clr Drug Dosing TNP Estimated GFR (MDRD) > 60.0 ml/min Glucose 106 (74-106) mg/dL Calcium 9.0 (8.5-10.1) mg/dL Total Bilirubin 0.5 (0.2-1.0) mg/dL AST 32 (15-37) IU/L ALT 24 (14-63) IU/L Alkaline Phosphatase 105 (46-116) U/L Total Protein 8.0 (6.4-8.2) g/dL Albumin 3.5 (3.4-5.0) g/dL Globulin 4.5 H (2.6-4.0) g/dL Albumin/Globulin Ratio 0.8 L (0.9-1.6) Urine Color YELLOW Urine Appearance CLEAR Urine pH 7.0 (5.0-8.0) Ur Specific [place] 1.015 (1.001-1.035) Urine Protein TRACE H (NEGATIVE) mg/dL Urine Glucose (UA) NEGATIVE (NEGATIVE) mg/dL Urine Ketones TRACE H (NEGATIVE) mg/dL Urine Occult Blood TRACE-INTACT H (NEGATIVE) Urine Nitrite NEGATIVE (NEGATIVE) Urine Bilirubin NEGATIVE (NEGATIVE) Urine Urobilinogen 0.2 (<2.0) EU/dL Ur Leukocyte Esterase NEGATIVE (NEGATIVE) Urine RBC 2-4 (0-2/HPF) Urine WBC 0-2 (0-5/HPF) Ur Epithelial Cells RARE (NONE-FEW) Urine Bacteria RARE (NEGATIVE) Meds: Medications Generic Name Dose Route Start Last Admin Trade Name Freq PRN Reason Stop Dose Admin Sodium Chloride 10 ml 02/23/21 02:03 Sodium Chloride 0.9% 10 Ml Syringe FLUSH ASDIRECTED PRN Keep Vein Open Sodium Chloride 2.5 ml 02/23/21 02:03 Sodium Chloride 0.9% 2.5 Ml Syringe FLUSH ASDIRECTED PRN Keep Vein Open Discontinued Medications Generic Name Dose Route Start Last Admin Trade Name Sadaf PRN Reason Stop Dose Admin Sodium Chloride 1,000 mls @ 1,000 mls/hr 02/23/21 02:05 02/23/21 02:18 Normal Saline IV 02/23/21 03:04 1,000 mls/hr .Bolus ONE Administration Metoprolol Tartrate 5 mg/ 55 mls @ 100 mls/hr 02/23/21 04:25 02/23/21 04:58 Sodium Chloride IV 02/23/21 04:57 Not Given ONETIME ONE Lorazepam 1 mg 02/23/21 02:09 02/23/21 02:17 Lorazepam 2 Mg/Ml Sdv IVPUSH 02/23/21 02:10 1 mg ONETIME ONE Administration Metoprolol Tartrate 5 mg 02/23/21 03:11 02/23/21 03:15 Metoprolol Tartrate 5 Mg/5 Ml Sdv IVPUSH 02/23/21 03:12 5 mg ONETIME ONE Administration Metoprolol Tartrate Confirm 02/23/21 04:38 02/23/21 04:42 Metoprolol Tartrate 5 Mg/5 Ml Sdv Administered 02/23/21 04:39 Not Given Dose 5 mg .ROUTE .STK-MED ONE Metoprolol Tartrate 5 mg 02/23/21 04:58 02/23/21 05:00 Metoprolol Tartrate 5 Mg/5 Ml Sdv IVPUSH 02/23/21 04:59 5 mg ONETIME ONE Administration Departure - Departure Time of Disposition: 05:10 Disposition: Home, Self-Care 01 Clinical Impression: Atrial fibrillation with RVR, Unsteady gait - Discharge Information Instructions: Atrial Fibrillation, [id number] Referrals: PCP,None [Primary Care Provider] - Additional Instructions: The patient's rate was uncontrolled. He needs to drink more fluids and avoid dehydration. Until further evaluation by his primary doctor or clinic he should take 2 of his metoprolol tartrate at bedtime. [facility] - cardiology [address] [place] [id number] [facility] - Primary Care [address] [place] [id number] [facility] [address] [place] [id number] The following information is given to patients seen in the emergency department who are being discharged to home. This information is to outline your options for follow-up care. We provide all patients seen in our emergency department with a follow-up referral. The need for follow-up, as well as the timing and circumstances, are variable depending upon the specifics of your emergency department visit. If you don't have a primary care physician on staff, we will provide you with a referral. We always advise you to contact your personal physician following an emergency department visit to inform them of the circumstance of the visit and for follow-up with them and/or the need for any referrals to a consulting specialist. The emergency department will also refer you to a specialist when appropriate. This referral assures that you have the opportunity for follow-up care with a specialist. All of these measure are taken in an effort to provide you with optimal care, which includes your follow-up. Under all circumstances we always encourage you to contact your private physician who remains a resource for coordinating your care. When calling for follow-up care, please make the office aware that this follow-up is from your recent emergency room visit. If for any reason you are refused follow-up, please contact the [facility] Emergency Department at and asked to speak to the emergency department charge nurse. Sepsis Event Note (ED) - Evaluation Sepsis Screening Result: No Definite Risk - Focused Exam Vital Signs: Vital Signs Temp Pulse Pulse Resp BP BP Pulse Ox 02/23/21 05:00 126 H 119/83 02/23/21 04:15 126 H 20 119/83 94 L 02/23/21 03:15 125 H 134/80 02/23/21 03:12 125 H 18 134/82 94 L 02/23/21 01:57 37.0 C 131 H 24 H 146/74 H 94 L - My Orders Last 24 Hours: My Active Orders 02/23/21 02:03 EKG Documentation Completion [RC] AM Sodium Chloride 0.9% [Saline Flush] 10 ml FLUSH ASDIRECTED PRN Sodium Chloride 0.9% [Saline Flush] 2.5 ml FLUSH ASDIRECTED PRN Saline Lock Insert [OM.PC] Stat - Assessment/Plan Last 24 Hours: My Active Orders 02/23/21 02:03 EKG Documentation Completion [RC] AM Sodium Chloride 0.9% [Saline Flush] 10 ml FLUSH ASDIRECTED PRN Sodium Chloride 0.9% [Saline Flush] 2.5 ml FLUSH ASDIRECTED PRN Saline Lock Insert [OM.PC] Stat
[2021-02-23 05:27] VITALS: PULSE 86
== END 2021-02-23 06:07 | disposition home or self-care (01) ==
LOC: MW.ED 01:55
DX: I48.91 Unspecified atrial fibrillation (principal); R26.81 Unsteadiness on feet; I25.10 Atherosclerotic heart disease of native coronary artery without angina pectoris; E78.00 Pure hypercholesterolemia, unspecified; I11.0 Hypertensive heart disease with heart failure; I50.9 Heart failure, unspecified; I25.2 Old myocardial infarction; N40.0 Benign prostatic hyperplasia without lower urinary tract symptoms; F03.90 Unspecified dementia, unspecified severity, without behavioral disturbance, psychotic disturbance, mood disturbance, and anxiety; E03.9 Hypothyroidism, unspecified; Z79.82 Long term (current) use of aspirin; Z79.899 Other long term (current) drug therapy; Z88.8 Allergy status to other drugs, medicaments and biological substances
CPT/HCPCS: 36415; 80053; 81001; 85025; 93005; 96374; 96375; 96376; 99285; J2060; J3490; J7030; 99284

== ENCOUNTER 2021-06-15 00:43 | Observation (INO) | payer MEDICARE, OTHER ==
[2021-06-15] MEDS ORDERED: Sodium Chloride 0.9% 2.5 ML Syringe FLUSH PRN (01:03)
[2021-06-15] MEDS ORDERED: Sodium Chloride 0.9% 10 ML Syringe FLUSH PRN (01:03)
[2021-06-15] MEDS ORDERED: Ondansetron 4 MG/2 ML SDV IVPUSH ONE (01:03)
[2021-06-15] MEDS ORDERED: Morphine 4 MG/ML Syringe IVPUSH ONE (01:03)
[2021-06-15] MEDS ORDERED: Sodium Chloride 0.9% 1,000 ML IV ONE ×2 (01:03→02:36)
[2021-06-15] MEDS ORDERED: Piperacillin/Tazobactam 3.375 GM in Sodium Chloride 0.9% 100 ML IV ONE (01:03)
[2021-06-15] MEDS ORDERED: Acetaminophen 650 MG Supp RECTAL ONE (01:06)
[2021-06-15] MEDS ORDERED: Ketorolac 15 MG/ML SDV IVPUSH STA (01:06)
[2021-06-15] MEDS ORDERED: Morphine 2 MG/ML SYRINGE ONE (01:09)
[2021-06-15] MEDS ORDERED: Morphine 2 MG/ML SYRINGE IVPUSH ONE (01:26)
[2021-06-15] MEDS ORDERED: VANCOmycin 1.75 GM/350 ML 1.75 GM in Premix Bag 1 BAG IV ONE (01:45)
[2021-06-15 01:53] LABS: CARBON DIOXIDE,CO2 23.6 mmol/L (21.0-32.0); POTASSIUM,K 3.8 mmol/L (3.5-5.1)
--- NOTE | 2021-06-15 01:53 | CR ---
INDICATION: Shortness of breath. COMPARISON: 09/04/2020. FINDINGS/IMPRESSION: No significant change in diffuse interstitial thickening throughout both lungs likely representing interstitial fibrosis. No definite acute consolidation identified. No pleural effusions. Stable cardiac configuration. Status post sternotomy and cardiac valve replacement, as before. No acute osseous findings. Dictated by Kraig Lee MD @ 06/15/2021 1:52:27 AM Dictated by: Kraig Lee MD @ 06/15/2021 01:52:48 (Electronically Signed)
[2021-06-15] MEDS ORDERED: Sodium Chloride 0.9% 500 ML IV ONE (05:50)
--- NOTE | 2021-06-15 05:51 | EDM.PDOC ---
ED HPI GENERAL MEDICAL PROBLEM - General Chief Complaint: Respiratory Problem Stated Complaint: UNRESPONSIVE Time Seen by Provider: 06/15/21 00:59 - History of Present Illness INITIAL COMMENTS - FREE TEXT/NARRATIVE: HISTORY AND PHYSICAL: History of present illness: This is an 86-year-old gentleman with a history significant for hypertension, CAD status post bypass, prostate CA, CHF, status post COVID-19 infection who was transferred from [place] for further evaluation of decreased responsiveness and worsening respiratory rates. It appears that the patient has had decreased level of consciousness over the last 24 hours however this evening he became unresponsive so EMS was dispatched. Upon arrival by EMS he was noted to have increased labored breathing with diminished responsiveness. Patient was hypoxic per EMS with a pulse ox of 85%. Patient's pulse ox did improve with supplemental O2 and was transferred to the ER for further evaluation. Patient does have a signed advanced directive that has requested no mechanical or artificial means of ventilation, no vasopressors, to withhold antiarrhythmic medications, withhold intravenous vasoactive drugs, withhold defibrillation/cardioversion, withhold ventilation by mask, withhold endotracheal intubation, withhold mechanical ventilation. Upon arrival to the ED, no further history is obtainable from the patient secondary to his unresponsive state. Review of systems: As per history of present illness and below otherwise all systems reviewed and negative. Past medical history: As per history of present illness and as reviewed below otherwise noncontribut ory. Surgical history: As per history of present illness and as reviewed below otherwise noncontributory. Social history: No reported history of drug abuse. Family history: As per history of present illness and as reviewed below otherwise noncontributory. Physical exam: This patient was seen and evaluated during the 2019 SARS-CoV-2 novel coronavirus pandemic period. Community viral transmission is ongoing at time of this encounter and the emergency department is operating under pandemic response procedures. Constitutional: Patient is oriented to person, place, and time. Appears well- developed and well-nourished. No distress. HEENT: Dry mucous membranes Head: Normocephalic and atraumatic Eyes: Right eye exhibits no discharge. Left eye exhibits no discharge. No scleral icterus. Pupils 3 mm bilaterally and reactive to light. Neck: Normal range of motion. No tracheal deviation present. Cardiovascular: Tachycardic with a heart rate of 135-40 bpm Pulmonary: Increased respiratory effort with increased respiratory rate. Patient has diffuse rhonchi and rales throughout his lungs. Patient has diffuse upper respiratory sounds as well. Abdominal: No distention Musculoskeletal: Normal range of motion Neurologic: Unresponsive. Occasional withdrawal to pain. Skin: [place], warm and dry. Skin is warm to touch Psychiatric: Unable to assess Nursing note and vital signs have been reviewed Diagnostics: Patient's labs are significant for a white blood cell count of 3.3 with 22 segs and 15 bands. Patient has a sodium of 155, potassium 3.8, chloride 114, BUN of 92, creatinine 3.7, lactic acid 8.5, troponin 0 0.27, urinalysis is normal, Covid test was negative. Radiological report reveals no significant change in diffuse interstitial thickening throughout both lungs likely representing interstitial fibrosis however when reviewing his old x-ray I believe that the patient has increased interstitial markings in the right lung consistent with likely pneumonia. Therapeutics: Multiple attempts were made to contact patient's daughter Aggie Springer. Called her straight to voicemail and mailbox is full. Assessment and plan: This is an 86-year-old gentleman who presents to the ER today with a presentation of respiratory failure most likely secondary to pneumonia. Patient was noted to have a fever of 106 degrees here in the ED with hypoxia. Patient was extremely warm to touch and tachycardic. Patient's presentation is highly consistent with sepsis most likely secondary to a pulmonary source given his hypoxia. Given that the patient has limited cardio pulmonary resuscitation and has a signed advanced directive withholding antiarrhythmics, intra venous vasoactive drugs, defibrillation/cardioversion, ventilation by mask, endo tracheal intubation, and mechanical ventilation, the patient will be treated for comfort care while we attempt to treat his respiratory failure and sepsis with antibiotics. Patient has been given vancomycin and Zosyn to treat sepsis. Patient has been given 30 mils per kilo of NSS for treatment of his hypotension and sepsis. Patient has been given morphine to assist with comfort as well as Zofran. At this time, patient is extremely high mortality and morbidity given his sepsis, hypoxia, hypotension, non-STEMI secondary to sepsis. Patient will be made comfort care at this time as I feel that any further aggressive measures would be futile. We will continue giving IV fluids and IV antibiotics but I believe that if the patient should code that doing CPR would be futile. We will respect patient's advanced directives for no intubation or mechanical ventilation but given that no intubation or mechanical ventilation is desired as well as no vasoactive drugs, cardioversion I feel that doing CPR would be futile and would not be in the best interest of the patient. Patient will be made comfort measures on the floor. This has been discussed with Dr. Garcia. Critical Care: The high probability of sudden, clinically significant deterioration in the patient's condition required the highest level of my preparedness to intervene urgently. The services I provided to this patient were to treat and/or prevent clinically significant deterioration. Services included the following: chart data review, reviewing nursing notes and/or old charts, documentation time, multi site leasing consultant collaboration regarding findings and treatment options, medication orders and management, direct patient care, vital sign assessments and ordering, interpreting and reviewing diagnostic studies/lab tests. Aggregate critical care time includes only time during which I was engaged inwork directly related to the patient's care, as described above, whether at the bedside or elsewhere in the Emergency Department. It did not include time spent performing other reported procedures or the services of residents, students, nurses or physician assistants. Critical Care Time: 35 minutes Definitive disposition and diagnosis as appropriate pending reevaluation and review of above. Treatments AMUSEMENT CENTRE MANAGER: Reports: IV/IO, Other Medication(s), Oxygen Other Treatments AMUSEMENT CENTRE MANAGER: neb x 1 - Related Data Allergies Allergy/AdvReac Type Severity Reaction Status Date / Time amiodarone Allergy Renal Verified 02/23/21 02:01 Insufficiency lisinopril Allergy Syncope Verified 02/23/21 02:01 simvastatin Allergy Other Verified 02/23/21 02:01 Home Meds: Home Meds Aspirin 81 mg PO DAILY 03/05/15 [History] Metoprolol Tartrate [Lopressor] 25 mg PO BID 03/05/15 [History] Cholecalciferol (Vitamin D3) [Vitamin D3] 2,000 unit PO DAILY 04/20/20 [History] Levothyroxine 25 mcg PO DAILY 04/20/20 [History] Furosemide 60 mg PO DAILY 09/05/20 [History] Acetaminophen [Tylenol] 650 mg PO Q4H PRN tablet 09/12/20 [Rx] Ascorbic Acid [Vitamin C] 500 mg PO DAILY tablet 09/12/20 [Rx] Carboxymethylcellulose Sodium [Refresh Plus 0.5%] 1 each EYEBOTH Q4H PRN box 09/12/20 [Rx] Potassium Chloride [Klor-Con M20] 40 meq PO DAILY #30 tab.er 09/12/20 [Rx] levETIRAcetam [Levetiracetam] 250 mg PO DAILY@1700 #1 bottle 09/12/20 [Rx] Past Medical History HEENT History: Reports: Cataract, Hard of Hearing, Impaired Vision, Sinusitis Other HEENT History: bilateral hearing aids Cardiovascular History: Reports: Angina, CAD, Heart Failure, Heart Valve Replacement, High Cholesterol, Hypertension, RI, Syncope Respiratory History: Reports: Pneumonia, Recurrent Other Respiratory History: emphysema Gastrointestinal History: Reports: Hiatal Hernia, PUD Other Gastrointestinal History: Current left inguinal hernia Genitourinary History: Reports: BPH, Prostate Disorder, Urinary Incontinence, UTI, Recurrent, Other (See Below) Other Genitourinary History: Prostate CA Musculoskeletal History: Reports: Other (See Below) Other Musculoskeletal History: hx: fracture leg Neurological History: Reports: Neuropathy, Peripheral, TIA, Other (See Below) Other Neuro History: confusion. dementia Psychiatric History: Reports: Dementia Endocrine/Metabolic History: Reports: Hypothyroidism Hematologic History: Reports: None Immunologic History: Reports: None Oncologic (Cancer) History: Reports: Prostate Dermatologic History: Reports: Seborrheic Dermatitis, Other (See Below) Other Dermatologic History: SKin areas froze off face - Infectious Disease History Infectious Disease History: Reports: Measles Other Infectious Disease History: hepatitis back in the 60's - Past Surgical History HEENT Surgical History: Reports: Adenoidectomy, Tonsillectomy Cardiovascular Surgical History: Reports: Coronary Artery Bypass, Valve Replacement Other Cardiovascular Surgeries/Procedures: Aortic and Mitral Valve replaced Respiratory Surgical History: Reports: None GI Surgical History: Reports: Hernia, Inguinal Male Surgical History: Reports: None Endocrine Surgical History: Reports: None Neurological Surgical History: Reports: None Musculoskeletal Surgical History: Reports: Other (See Below) Other Musculoskeletal Surgeries/Procedures:: Right Total Hip Replacement Oncologic Surgical History: Reports: None Dermatological Surgical History: Reports: None Social & Family History - Family History Family Medical History: No Pertinent Family History - Tobacco Use Tobacco Use Status *Q: Unknown Ever Used Tobacco Second Hand Smoke Exposure: No - Caffeine Use Caffeine Use: Reports: Coffee - Recreational Drug Use Recreational Drug Use: No - Living Situation & Occupation Living situation: Reports: Occupation: Retired () ED [facility] GENERAL - Review of Systems Review Of Systems: See Below ED EXAM, GENERAL - Physical Exam Exam: See Below Course - Vital Signs Last Recorded V/S: Last Vital Signs Temp 102.0 F H 06/15/21 03:17 Pulse 131 H 06/15/21 05:38 Resp 25 H 06/15/21 05:38 BP 56/30 L 06/15/21 05:38 Pulse Ox 89 L 06/15/21 05:38 - Orders/Labs/Meds Orders: Active Orders 24 hr Category Date Time Status Patient Status [ADT] Routine ADT 06/15/21 06:00 Active CULTURE BLOOD [BC] Stat Lab 06/15/21 01:10 Results CULTURE BLOOD [BC] Stat Lab 06/15/21 01:20 Received LACTIC ACID [CHEM] Routine Lab 06/15/21 05:58 Ordered VANCOMYCIN RANDOM [CHEM] Timed Lab 06/17/21 03:30 Ordered Pharmacy to Dose - Vancomycin Med 06/15/21 01:03 Pending 1 dose .XX ONETIME ONE Sodium Chloride 0.9% [Normal Saline] 500 ml Med 06/15/21 05:50 Active IV .BOLUS Sodium Chloride 0.9% [Saline Flush] Med 06/15/21 01:03 Active 10 ml FLUSH ASDIRECTED PRN Sodium Chloride 0.9% [Saline Flush] Med 06/15/21 01:03 Active 2.5 ml FLUSH ASDIRECTED PRN Blood Culture x2 Reflex Set [OM.PC] Stat Oth 06/15/21 01:03 Ordered Isolation [COMM] Routine Oth 06/15/21 01:03 Active Saline Lock Insert [OM.PC] Stat Oth 06/15/21 01:03 Ordered Resuscitation Status Stat Resus Stat 06/15/21 06:02 Ordered Medication Orders Sodium Chloride (Normal Saline) 500 mls @ 999 mls/hr IV .BOLUS ONE Stop: 06/15/21 06:20 Last Admin: 06/15/21 05:53 Dose: 999 mls/hr Documented by: BREWKRI Sodium Chloride (Sodium Chloride 0.9% 10 Ml Syringe) 10 ml FLUSH ASDIRECTED PRN PRN Reason: Keep Vein Open Last Admin: 06/15/21 01:22 Dose: 10 ml Documented by: BREWKRI Sodium Chloride (Sodium Chloride 0.9% 2.5 Ml Syringe) 2.5 ml FLUSH ASDIRECTED PRN PRN Reason: Keep Vein Open Last Admin: 06/15/21 01:22 Dose: 2.5 ml Documented by: ANG Vancomycin HCl (Pharmacy To Dose - Vancomycin) 1 dose .XX ONETIME ONE Stop: 06/15/21 01:04 Labs: Laboratory Tests 06/15/21 06/15/21 06/15/21 Range/Units 01:05 01:20 01:20 WBC 3.33 L (4.0-11.0) K/uL RBC 4.24 L (4.50-5.90) M/uL Hgb 13.5 (13.0-17.0) g/dL Hct 43.2 (38.0-50.0) % MCV 101.9 H (80.0-98.0) fL MCH 31.8 (27.0-32.0) pg MCHC 31.3 (31.0-37.0) g/dL RDW Std Deviation 61.4 (28.0-62.0) fl RDW Coeff of [place] 17 H (11.0-15.0) % Plt Count 148 L (150-400) K/uL MPV 12.60 H (7.40-12.00) fL Add Manual Diff YES Neutrophils % (Manual) 22 L (48.0-80.0) % Band Neutrophils % 50 % Lymphocytes % (Manual) 22 (16.0-40.0) % Monocytes % (Manual) 4 (0.0-15.0) % Eosinophils % (Manual) 2 (0.0-7.0) % Nucleated RBC % 0.0 /100WBC Absolute Seg Neuts 0.7 L (1.4-5.7) Band Neutrophils # 1.7 Lymphocytes # (Manual) 0.7 (0.6-2.4) Monocytes # (Manual) 0.1 (0.0-0.8) Eosinophils # (Manual) 0.1 (0.0-0.7) Nucleated RBCs # 0 K/uL Sodium 155 H (136-148) mmol/L Potassium 3.8 (3.5-5.1) mmol/L Chloride 114 H (98-107) mmol/L Carbon Dioxide 23.6 (21.0-32.0) mmol/L BUN 92 H (7.0-18.0) mg/dL Creatinine 3.7 H (0.8-1.3) mg/dL Est Cr Clr Drug Dosing 14.61 mL/min Estimated GFR (MDRD) 15.6 ml/min Glucose 134 H (74-106) mg/dL Lactic Acid (0.4-2.0) mmol/L Calcium 9.1 (8.5-10.1) mg/dL Total Bilirubin 0.7 (0.2-1.0) mg/dL AST 37 (15-37) IU/L ALT 28 (14-63) IU/L Alkaline Phosphatase 87 (46-116) U/L Troponin I 0.271 H* (0.000-0.056) ng/mL Total Protein 8.5 H (6.4-8.2) g/dL Albumin 2.7 L (3.4-5.0) g/dL Globulin 5.8 H (2.6-4.0) g/dL Albumin/Globulin Ratio 0.5 L (0.9-1.6) Urine Color YELLOW Urine Appearance CLEAR Urine pH 5.5 (5.0-8.0) Ur Specific [place] 1.025 (1.001-1.035) Urine Protein NEGATIVE (NEGATIVE) mg/dL Urine Glucose (UA) NEGATIVE (NEGATIVE) mg/dL Urine Ketones TRACE H (NEGATIVE) mg/dL Urine Occult Blood NEGATIVE (NEGATIVE) Urine Nitrite NEGATIVE (NEGATIVE) Urine Bilirubin NEGATIVE (NEGATIVE) Urine Urobilinogen 0.2 (<2.0) EU/dL Ur Leukocyte Esterase NEGATIVE (NEGATIVE) SARS-CoV-2 RNA (ALEXANDRA) (NEGATIVE) 06/15/21 06/15/21 Range/Units 01:20 01:29 WBC (4.0-11.0) K/uL RBC (4.50-5.90) M/uL Hgb (13.0-17.0) g/dL Hct (38.0-50.0) % MCV (80.0-98.0) fL MCH (27.0-32.0) pg MCHC (31.0-37.0) g/dL RDW Std Deviation (28.0-62.0) fl RDW Coeff of [place] (11.0-15.0) % Plt Count (150-400) K/uL MPV (7.40-12.00) fL Add Manual Diff Neutrophils % (Manual) (48.0-80.0) % Band Neutrophils % % Lymphocytes % (Manual) (16.0-40.0) % Monocytes % (Manual) (0.0-15.0) % Eosinophils % (Manual) (0.0-7.0) % Nucleated RBC % /100WBC Absolute Seg Neuts (1.4-5.7) Band Neutrophils # Lymphocytes # (Manual) (0.6-2.4) Monocytes # (Manual) (0.0-0.8) Eosinophils # (Manual) (0.0-0.7) Nucleated RBCs # K/uL Sodium (136-148) mmol/L Potassium (3.5-5.1) mmol/L Chloride (98-107) mmol/L Carbon Dioxide (21.0-32.0) mmol/L BUN (7.0-18.0) mg/dL Creatinine (0.8-1.3) mg/dL Est Cr Clr Drug Dosing mL/min Estimated GFR (MDRD) ml/min Glucose (74-106) mg/dL Lactic Acid 8.5 H* (0.4-2.0) mmol/L Calcium (8.5-10.1) mg/dL Total Bilirubin (0.2-1.0) mg/dL AST (15-37) IU/L ALT (14-63) IU/L Alkaline Phosphatase (46-116) U/L Troponin I (0.000-0.056) ng/mL Total Protein (6.4-8.2) g/dL Albumin (3.4-5.0) g/dL Globulin (2.6-4.0) g/dL Albumin/Globulin Ratio (0.9-1.6) Urine Color Urine Appearance Urine pH (5.0-8.0) Ur Specific [place] (1.001-1.035) Urine Protein (NEGATIVE) mg/dL Urine Glucose (UA) (NEGATIVE) mg/dL Urine Ketones (NEGATIVE) mg/dL Urine Occult Blood (NEGATIVE) Urine Nitrite (NEGATIVE) Urine Bilirubin (NEGATIVE) Urine Urobilinogen (<2.0) EU/dL Ur Leukocyte Esterase (NEGATIVE) SARS-CoV-2 RNA (ALEXANDRA) NEGATIVE (NEGATIVE) Meds: Medications Generic Name Dose Route Start Last Admin Trade Name Freq PRN Reason Stop Dose Admin Sodium Chloride 500 mls @ 999 mls/hr 06/15/21 05:50 06/15/21 05:53 Normal Saline IV 06/15/21 06:20 999 mls/hr .BOLUS ONE Administration Sodium Chloride 10 ml 06/15/21 01:03 06/15/21 01:22 Sodium Chloride 0.9% 10 Ml Syringe FLUSH 10 ml ASDIRECTED PRN Administration Keep Vein Open Sodium Chloride 2.5 ml 06/15/21 01:03 06/15/21 01:22 Sodium Chloride 0.9% 2.5 Ml Syringe FLUSH 2.5 ml ASDIRECTED PRN Administration Keep Vein Open Vancomycin HCl 1 dose 06/15/21 01:03 Pharmacy To Dose - Vancomycin .XX 06/15/21 01:04 ONETIME ONE Discontinued Medications Generic Name Dose Route Start Last Admin Trade Name Freq PRN Reason Stop Dose Admin Acetaminophen 650 mg 06/15/21 01:06 06/15/21 01:40 Acetaminophen 650 Mg Supp RECTAL 06/15/21 01:07 650 mg NOW ONE Administration Sodium Chloride 1,000 mls @ 999 mls/hr 06/15/21 01:03 06/15/21 01:22 Normal Saline IV 06/15/21 02:03 999 mls/hr .Bolus ONE Administration Piperacillin Sod/Tazobactam 100 mls @ 100 mls/hr 06/15/21 01:03 06/15/21 01:31 Sod 3.375 gm/ Sodium Chloride IV 06/15/21 02:02 100 mls/hr ONETIME ONE Administration Vancomycin HCl 1.75 gm/ Premix 350 mls @ 200 mls/hr 06/15/21 01:45 06/15/21 03:40 IV 06/15/21 03:29 200 mls/hr NOW ONE Administration Sodium Chloride 1,000 mls @ 999 mls/hr 06/15/21 02:36 06/15/21 02:38 Normal Saline IV 06/15/21 03:36 999 mls/hr .BOLUS ONE Administration Ketorolac Tromethamine 15 mg 06/15/21 01:06 06/15/21 01:23 Ketorolac 15 Mg/Ml Sdv IVPUSH 06/15/21 01:07 15 mg Q6H STA Administration Morphine Sulfate 4 mg 06/15/21 01:03 06/15/21 01:26 Morphine 4 Mg/Ml Syringe IVPUSH 06/15/21 01:04 Not Given ONETIME ONE Morphine Sulfate Confirm 06/15/21 01:09 06/15/21 01:25 Morphine 2 Mg/Ml Syringe Administered 06/15/21 01:10 Not Given Dose 4 mg .ROUTE .STK-MED ONE Morphine Sulfate 4 mg 06/15/21 01:26 06/15/21 01:29 Morphine 2 Mg/Ml Syringe IVPUSH 06/15/21 01:27 4 mg ONETIME ONE Administration Ondansetron HCl 4 mg 06/15/21 01:03 06/15/21 01:18 Ondansetron 4 Mg/2 Ml Sdv IVPUSH 06/15/21 01:04 4 mg ONETIME ONE Administration Departure - Departure Time of Disposition: 05:59 Disposition: Refer to Observation Condition: Critical Clinical Impression: Sepsis, Respiratory failure with hypoxia, DNR (do not resuscitate), Need for comfort care - Discharge Information Referrals: PCP,None [Primary Care Provider] - Forms: ED Department Discharge Sepsis Event Note (ED) - Evaluation Sepsis Screening Result: Possible Sepsis Risk - Focused Exam Vital Signs: Vital Signs Temp Temp Pulse Resp BP Pulse Ox 06/15/21 05:38 131 H 25 H 56/30 L 89 L 06/15/21 04:33 132 H 25 H 60/28 L 90 L 06/15/21 03:17 102.0 F H 133 H 23 H 59/30 L 91 L 06/15/21 02:13 137 H 30 H 53/28 L 89 L 06/15/21 02:10 215.6 F H 06/15/21 01:45 137 H 29 H 51/27 L 89 L 06/15/21 01:40 106.0 F H 06/15/21 01:30 146 H 29 H 55/26 L 88 L 06/15/21 01:15 145 H 30 H 53/32 L 88 L 06/15/21 00:58 106.0 F H 144 H 32 H 55/27 L 87 L - My Orders Last 24 Hours: My Active Orders 06/15/21 01:03 Pharmacy to Dose - Vancomycin 1 dose .XX ONETIME ONE Sodium Chloride 0.9% [Saline Flush] 10 ml FLUSH ASDIRECTED PRN Sodium Chloride 0.9% [Saline Flush] 2.5 ml FLUSH ASDIRECTED PRN Blood Culture x2 Reflex Set [OM.PC] Stat Isolation [COMM] Routine Saline Lock Insert [OM.PC] Stat 06/15/21 01:10 CULTURE BLOOD [BC] Stat 06/15/21 01:20 CULTURE BLOOD [BC] Stat 06/15/21 05:50 Sodium Chloride 0.9% [Normal Saline] 500 ml IV .BOLUS 06/15/21 05:58 LACTIC ACID [CHEM] Routine 06/15/21 06:00 Patient Status [ADT] Routine 06/15/21 06:02 Resuscitation Status Stat 06/17/21 03:30 VANCOMYCIN RANDOM [CHEM] Timed - Assessment/Plan Last 24 Hours: My Active Orders 06/15/21 01:03 Pharmacy to Dose - Vancomycin 1 dose .XX ONETIME ONE Sodium Chloride 0.9% [Saline Flush] 10 ml FLUSH ASDIRECTED PRN Sodium Chloride 0.9% [Saline Flush] 2.5 ml FLUSH ASDIRECTED PRN Blood Culture x2 Reflex Set [OM.PC] Stat Isolation [COMM] Routine Saline Lock Insert [OM.PC] Stat 06/15/21 01:10 CULTURE BLOOD [BC] Stat 06/15/21 01:20 CULTURE BLOOD [BC] Stat 06/15/21 05:50 Sodium Chloride 0.9% [Normal Saline] 500 ml IV .BOLUS 06/15/21 05:58 LACTIC ACID [CHEM] Routine 06/15/21 06:00 Patient Status [ADT] Routine 06/15/21 06:02 Resuscitation Status Stat 06/17/21 03:30 VANCOMYCIN RANDOM [CHEM] Timed
[2021-06-15] MEDS ORDERED: Morphine 2 MG/ML SYRINGE IVPUSH PRN (07:59)
[2021-06-15] MEDS ORDERED: LORazepam 2 MG/ML SDV IVPUSH PRN (08:00)
[2021-06-15] MEDS ORDERED: Albuterol/Ipratropium 3.0-0.5 MG/3 ML Neb Soln NEB PRN (08:01)
[2021-06-15] MEDS ORDERED: Scopolamine 1.5 MG Transdermal Patch TOP ONE ×2 (08:04→12:15)
[2021-06-15] MEDS ORDERED: Lactated Ringers 1,000 ML IV SCH (08:15)
--- NOTE | 2021-06-15 08:17 | PCM.HP.2 ---
<GulshanAmari - Last Filed: 06/15/21 15:56> H&P History of Present Illness - General Date of Service: 06/15/21 Admit Problem/Dx: Admission Diagnosis/Problem Admission Diagnosis/Problem Sepsis - History of Present Illness Initial Comments - Free Text/Narative: 86-year-old male with past medical history of hypertension, CAD, CHF who was residing at [facility] was admitted to the medical floor with sepsis from a respiratory infection, hypoxia and hypotension. Patient was placed on DNR/DNI comfort care measures. Per ED documentation, which stated that the patient does have a signed advanced directive that has requested no mechanical or artificial means of ventilation, no vasopressors, to withhold antiarrhythmic medications, withhold intravenous vasoactive drugs, withhold def ibrillation/cardioversion, withhold ventilation by mask, withhold endotracheal intubation, withhold mechanical ventilation. Per documentation patient was transferred from [facility] to ER via EMS due to decreased responsiveness and decreased respiratory rate. On admission to the medical floor patient was unconscious. At admission, patient was febrile at 102 F, tachycardic with heart rates in the low to mid 130s, hypotensive with systolic blood pressures in the 55-60 range. Oxygen saturations in the low to mid 80s. Laboratory on admission includes white blood cell count 3.3, lactic acid 8.5 and 7.6, creatinine 3.7, BUN 92, sodium 155, troponin 0.271. COVID-19 negative per testing on admission. Patient was made comfortable on the medical floor, but remained unconscious, hypotensive, tachycardic and hypoxic. Patients family was in the room with the patient, who at 1:05 pm, 06-15-21. DISCHARGE SUMMARY: Patient occurred at 1:05 pm, 06-15-21. Family present at bedside - Related Data Allergies/Adverse Reactions: Allergies Allergy/AdvReac Type Severity Reaction Status Date / Time amiodarone Allergy Renal Verified 02/23/21 02:01 Insufficiency lisinopril Allergy Syncope Verified 02/23/21 02:01 simvastatin Allergy Other Verified 02/23/21 02:01 Home Medications: Home Meds Aspirin 81 mg PO DAILY 03/05/15 [History] Metoprolol Tartrate [Lopressor] 25 mg PO BID 03/05/15 [History] Cholecalciferol (Vitamin D3) [Vitamin D3] 2,000 unit PO DAILY 04/20/20 [History] Levothyroxine 25 mcg PO DAILY 04/20/20 [History] Furosemide 60 mg PO DAILY 09/05/20 [History] Acetaminophen [Tylenol] 650 mg PO Q4H PRN tablet 09/12/20 [Rx] Ascorbic Acid [Vitamin C] 500 mg PO DAILY tablet 09/12/20 [Rx] Carboxymethylcellulose Sodium [Refresh Plus 0.5%] 1 each EYEBOTH Q4H PRN box 09/12/20 [Rx] Potassium Chloride [Klor-Con M20] 40 meq PO DAILY #30 tab.er 09/12/20 [Rx] levETIRAcetam [Levetiracetam] 250 mg PO DAILY@1700 #1 bottle 09/12/20 [Rx] Past Medical History HEENT History: Reports: Cataract, Hard of Hearing, Impaired Vision, Sinusitis Other HEENT History: bilateral hearing aids Cardiovascular History: Reports: Angina, CAD, Heart Failure, Heart Valve Replacement, High Cholesterol, Hypertension, SD, Syncope Respiratory History: Reports: Pneumonia, Recurrent Other Respiratory History: emphysema Gastrointestinal History: Reports: Hiatal Hernia, PUD Other Gastrointestinal History: Current left inguinal hernia Genitourinary History: Reports: BPH, Prostate Disorder, Urinary Incontinence, UTI, Recurrent, Other (See Below) Other Genitourinary History: Prostate CA Musculoskeletal History: Reports: Other (See Below) Other Musculoskeletal History: hx: fracture leg Neurological History: Reports: Neuropathy, Peripheral, TIA, Other (See Below) Other Neuro History: confusion. dementia Psychiatric History: Reports: Dementia Endocrine/Metabolic History: Reports: Hypothyroidism Hematologic History: Reports: None Immunologic History: Reports: None Oncologic (Cancer) History: Reports: Prostate Dermatologic History: Reports: Seborrheic Dermatitis, Other (See Below) Other Dermatologic History: SKin areas froze off face - Infectious Disease History Infectious Disease History: Reports: Measles Other Infectious Disease History: hepatitis back in the 60's - Past Surgical History HEENT Surgical History: Reports: Adenoidectomy, Tonsillectomy Cardiovascular Surgical History: Reports: Coronary Artery Bypass, Valve Replacement Other Cardiovascular Surgeries/Procedures: Aortic and Mitral Valve replaced Respiratory Surgical History: Reports: None GI Surgical History: Reports: Hernia, Inguinal Male Surgical History: Reports: None Endocrine Surgical History: Reports: None Neurological Surgical History: Reports: None Musculoskeletal Surgical History: Reports: Other (See Below) Other Musculoskeletal Surgeries/Procedures:: Right Total Hip Replacement Oncologic Surgical History: Reports: None Dermatological Surgical History: Reports: None Social & Family History - Family History Family Medical History: No Pertinent Family History - Tobacco Use Tobacco Use Status *Q: Unknown Ever Used Tobacco Second Hand Smoke Exposure: No - Caffeine Use Caffeine Use: Reports: Coffee - Recreational Drug Use Recreational Drug Use: No - Living Situation & Occupation Living situation: Reports: Occupation: Retired () H&P Review of Systems - Review of Systems: Review Of Systems: Unable To Obtain (patient unconcious) Reason Not Obtained: patient unconcious Exam - Exam Exam: Not Obtained - Vital Signs Vital Signs: Last Vital Signs Temp 102.0 F H 06/15/21 03:17 Pulse 131 H 06/15/21 07:08 Resp 27 H 06/15/21 07:08 BP 54/30 L 06/15/21 07:08 Pulse Ox 89 L 06/15/21 07:08 Weight: 74.843 kg - Patient Data Lab Results Last 24 hrs: Laboratory Results - last 24 hr 06/15/21 06/15/21 06/15/21 Range/Units 01:05 01:20 01:20 WBC 3.33 L (4.0-11.0) K/uL RBC 4.24 L (4.50-5.90) M/uL Hgb 13.5 (13.0-17.0) g/dL Hct 43.2 (38.0-50.0) % MCV 101.9 H (80.0-98.0) fL MCH 31.8 (27.0-32.0) pg MCHC 31.3 (31.0-37.0) g/dL RDW Std Deviation 61.4 (28.0-62.0) fl RDW Coeff of [place] 17 H (11.0-15.0) % Plt Count 148 L (150-400) K/uL MPV 12.60 H (7.40-12.00) fL Add Manual Diff YES Neutrophils % (Manual) 22 L (48.0-80.0) % Band Neutrophils % 50 % Lymphocytes % (Manual) 22 (16.0-40.0) % Monocytes % (Manual) 4 (0.0-15.0) % Eosinophils % (Manual) 2 (0.0-7.0) % Nucleated RBC % 0.0 /100WBC Absolute Seg Neuts 0.7 L (1.4-5.7) Band Neutrophils # 1.7 Lymphocytes # (Manual) 0.7 (0.6-2.4) Monocytes # (Manual) 0.1 (0.0-0.8) Eosinophils # (Manual) 0.1 (0.0-0.7) Nucleated RBCs # 0 K/uL Sodium 155 H (136-148) mmol/L Potassium 3.8 (3.5-5.1) mmol/L Chloride 114 H (98-107) mmol/L Carbon Dioxide 23.6 (21.0-32.0) mmol/L BUN 92 H (7.0-18.0) mg/dL Creatinine 3.7 H (0.8-1.3) mg/dL Est Cr Clr Drug Dosing 14.61 mL/min Estimated GFR (MDRD) 15.6 ml/min Glucose 134 H (74-106) mg/dL Lactic Acid (0.4-2.0) mmol/L Calcium 9.1 (8.5-10.1) mg/dL Total Bilirubin 0.7 (0.2-1.0) mg/dL AST 37 (15-37) IU/L ALT 28 (14-63) IU/L Alkaline Phosphatase 87 (46-116) U/L Troponin I 0.271 H* (0.000-0.056) ng/mL Total Protein 8.5 H (6.4-8.2) g/dL Albumin 2.7 L (3.4-5.0) g/dL Globulin 5.8 H (2.6-4.0) g/dL Albumin/Globulin Ratio 0.5 L (0.9-1.6) Urine Color YELLOW Urine Appearance CLEAR Urine pH 5.5 (5.0-8.0) Ur Specific [place] 1.025 (1.001-1.035) Urine Protein NEGATIVE (NEGATIVE) mg/dL Urine Glucose (UA) NEGATIVE (NEGATIVE) mg/dL Urine Ketones TRACE H (NEGATIVE) mg/dL Urine Occult Blood NEGATIVE (NEGATIVE) Urine Nitrite NEGATIVE (NEGATIVE) Urine Bilirubin NEGATIVE (NEGATIVE) Urine Urobilinogen 0.2 (<2.0) EU/dL Ur Leukocyte Esterase NEGATIVE (NEGATIVE) SARS-CoV-2 RNA (ALEXANDRA) (NEGATIVE) 06/15/21 06/15/21 06/15/21 Range/Units 01:20 01:29 06:26 WBC (4.0-11.0) K/uL RBC (4.50-5.90) M/uL Hgb (13.0-17.0) g/dL Hct (38.0-50.0) % MCV (80.0-98.0) fL MCH (27.0-32.0) pg MCHC (31.0-37.0) g/dL RDW Std Deviation (28.0-62.0) fl RDW Coeff of [place] (11.0-15.0) % Plt Count (150-400) K/uL MPV (7.40-12.00) fL Add Manual Diff Neutrophils % (Manual) (48.0-80.0) % Band Neutrophils % % Lymphocytes % (Manual) (16.0-40.0) % Monocytes % (Manual) (0.0-15.0) % Eosinophils % (Manual) (0.0-7.0) % Nucleated RBC % /100WBC Absolute Seg Neuts (1.4-5.7) Band Neutrophils # Lymphocytes # (Manual) (0.6-2.4) Monocytes # (Manual) (0.0-0.8) Eosinophils # (Manual) (0.0-0.7) Nucleated RBCs # K/uL Sodium (136-148) mmol/L Potassium (3.5-5.1) mmol/L Chloride (98-107) mmol/L Carbon Dioxide (21.0-32.0) mmol/L BUN (7.0-18.0) mg/dL Creatinine (0.8-1.3) mg/dL Est Cr Clr Drug Dosing mL/min Estimated GFR (MDRD) ml/min Glucose (74-106) mg/dL Lactic Acid 8.5 H* 7.6 H* (0.4-2.0) mmol/L Calcium (8.5-10.1) mg/dL Total Bilirubin (0.2-1.0) mg/dL AST (15-37) IU/L ALT (14-63) IU/L Alkaline Phosphatase (46-116) U/L Troponin I (0.000-0.056) ng/mL Total Protein (6.4-8.2) g/dL Albumin (3.4-5.0) g/dL Globulin (2.6-4.0) g/dL Albumin/Globulin Ratio (0.9-1.6) Urine Color Urine Appearance Urine pH (5.0-8.0) Ur Specific [place] (1.001-1.035) Urine Protein (NEGATIVE) mg/dL Urine Glucose (UA) (NEGATIVE) mg/dL Urine Ketones (NEGATIVE) mg/dL Urine Occult Blood (NEGATIVE) Urine Nitrite (NEGATIVE) Urine Bilirubin (NEGATIVE) Urine Urobilinogen (<2.0) EU/dL Ur Leukocyte Esterase (NEGATIVE) SARS-CoV-2 RNA (ALEXANDRA) NEGATIVE (NEGATIVE) Result Diagrams: 06/15/21 01:20 06/15/21 01:20 Sammy Results Last 24 hrs: Microbiology 06/15/21 01:10 Anaerobic Blood Culture - Final Blood - Venous - Lab Draw 06/15/21 01:29 Influenza Type A Antigen Screen - Final Nasopharyngeal Swab NEGATIVE INFLUENZA A VIRUS AG REFERENCE RANGE: NEGATIVE Influenza Type B Antigen Screen - Final NEGATIVE INFLUENZA B VIRUS AG REFERENCE RANGE: NEGATIVE Sepsis Event Note - Evaluation Sepsis Screening Result: Possible Sepsis Risk - Focused Exam Vital Signs: Vital Signs Temp Temp Pulse Resp BP Pulse Ox 06/15/21 07:08 131 H 27 H 54/30 L 89 L 06/15/21 05:38 131 H 25 H 56/30 L 89 L 06/15/21 04:33 132 H 25 H 60/28 L 90 L 06/15/21 03:17 102.0 F H 133 H 23 H 59/30 L 91 L 06/15/21 02:13 137 H 30 H 53/28 L 89 L 06/15/21 02:10 215.6 F H 06/15/21 01:45 137 H 29 H 51/27 L 89 L 06/15/21 01:40 106.0 F H 06/15/21 01:30 146 H 29 H 55/26 L 88 L 06/15/21 01:15 145 H 30 H 53/32 L 88 L 06/15/21 00:58 106.0 F H 144 H 32 H 55/27 L 87 L - Problem List (1) DNR (do not resuscitate) Status: Acute (2) Need for comfort care SNOMED Code(s): 521351640, 996481631 ICD Code: [id number] - Status: Acute (3) Respiratory failure with hypoxia SNOMED Code(s): 82646526369145436 ICD Code: J96.91 - RESPIRATORY FAILURE, UNSPECIFIED WITH HYPOXIA Status: Acute (4) Sepsis SNOMED Code(s): 04951781 ICD Code: A41.9 - SEPSIS, UNSPECIFIED ORGANISM Status: Acute (5) CAD (coronary artery disease) SNOMED Code(s): 13588678 ICD Code: I25.10 - ATHSCL HEART DISEASE OF [place] CORONARY ARTERY W/O ANG PCTRS Status: Chronic (6) Palliative care patient SNOMED Code(s): 647405375, 670146322 ICD Code: Z51.5 - ENCOUNTER FOR PALLIATIVE CARE Status: Acute Problem List Initiated/Reviewed/Updated: Yes Orders Last 24hrs: Active Orders 24 hr Category Date Time Status Patient Status [ADT] Routine ADT 06/15/21 06:00 Active RT Aerosol Therapy [RC] ASDIRECTED Care 06/15/21 08:02 Active Vital Signs [RC] Q8H Care 06/15/21 08:03 Active CULTURE BLOOD [BC] Stat Lab 06/15/21 01:10 Results CULTURE BLOOD [BC] Stat Lab 06/15/21 01:20 Received VANCOMYCIN RANDOM [CHEM] Timed Lab 06/17/21 03:30 Ordered Albuterol/Ipratropium [DuoNeb 3.0-0.5 MG/3 ML] Med 06/15/21 08:01 Ordered 3 ml NEB Q4HRRT PRN LORazepam [Ativan] Med 06/15/21 08:00 Ordered 1 mg IVPUSH Q2H PRN Lactated Ringers [Ringers, Lactated] 1,000 ml Med 06/15/21 08:15 Ordered IV ASDIRECTED Morphine Med 06/15/21 07:59 Ordered 1 mg IVPUSH Q3H PRN Pharmacy to Dose - Vancomycin Med 06/15/21 01:03 Pending 1 dose .XX ONETIME ONE Scopolamine [Transderm-Scop] Med 06/15/21 08:04 Once 1.5 mg TOP ONETIME ONE Sodium Chloride 0.9% [Saline Flush] Med 06/15/21 01:03 Active 10 ml FLUSH ASDIRECTED PRN Sodium Chloride 0.9% [Saline Flush] Med 06/15/21 01:03 Active 2.5 ml FLUSH ASDIRECTED PRN Blood Culture x2 Reflex Set [OM.PC] Stat Oth 06/15/21 01:03 Ordered Isolation [COMM] Routine Oth 06/15/21 01:03 Active Saline Lock Insert [OM.PC] Stat Oth 06/15/21 01:03 Ordered Resuscitation Status Stat Resus Stat 06/15/21 06:02 Ordered Medication Orders Albuterol/Ipratropium (Albuterol/Ipratropium 3.0-0.5 Mg/3 Ml Neb Soln) 3 ml NEB Q4HRRT PRN PRN Reason: Shortness of Breath Lactated Ringer's (Ringers, Lactated) 1,000 mls @ 125 mls/hr IV ASDIRECTED STEFANY Lorazepam (Lorazepam 2 Mg/Ml Sdv) 1 mg IVPUSH Q2H PRN PRN Reason: Anxiety Morphine Sulfate (Morphine 2 Mg/Ml Syringe) 1 mg IVPUSH Q3H PRN PRN Reason: Pain Scopolamine (Scopolamine 1.5 Mg Transdermal Patch) 1.5 mg TOP ONETIME ONE Stop: 06/15/21 08:05 Sodium Chloride (Sodium Chloride 0.9% 10 Ml Syringe) 10 ml FLUSH ASDIRECTED PRN PRN Reason: Keep Vein Open Last Admin: 06/15/21 01:22 Dose: 10 ml Documented by: ANG Sodium Chloride (Sodium Chloride 0.9% 2.5 Ml Syringe) 2.5 ml FLUSH ASDIRECTED PRN PRN Reason: Keep Vein Open Last Admin: 06/15/21 01:22 Dose: 2.5 ml Documented by: ANG Vancomycin HCl (Pharmacy To Dose - Vancomycin) 1 dose .XX ONETIME ONE Stop: 06/15/21 01:04 Assessment/Plan Comment:: Sepsis secondary to respiratory infection- Patient admitted to the medical floor and remained unconscious. Patient was hypoxic, hypotensive, tachycardic. DNR/DNI comfort care measures in place. Family was at bedside. Patient at 1:05 PM <Jose Eduardo Garcia - Last Filed: 06/18/21 23:12> H&P History of Present Illness - General Admit Problem/Dx: Admission Diagnosis/Problem Admission Diagnosis/Problem Sepsis Exam - Vital Signs Vital Signs: Last Vital Signs Temp 36.4 C 06/15/21 08:00 Pulse 132 H 06/15/21 08:00 Resp 31 H 06/15/21 08:00 BP 105/87 06/15/21 08:00 Pulse Ox 77 L 06/15/21 08:00 - Patient Data Result Diagrams: 06/15/21 01:20 06/15/21 01:20 Sammy Results Last 24 hrs: Microbiology 06/15/21 01:10 Blood Culture Identification Panel - Final Blood Staphylococcus Aureus 06/15/21 01:10 Aerobic Blood Culture - Preliminary Blood - Venous - Lab Draw Anaerobic Blood Culture - Final Assessment/Plan Comment:: I performed a history and physical exam of the patient and discussed management with resident. I have reviewed the residents note and agree with documented findings and plan unless otherwise specified in my note. Patient was admitted as DNR/DNI comfort care/palliative measures. Family was called and they did not want any aggressive measures with the patient they just wanted him to be comfortable. Comfort care measures were initiated, family seen at bedside and provided appropriate counseling and support. Patient eventually peacefully same day of admission.
[2021-06-15 13:13] VITALS: BP 105/87; PULSE 132
== END 2021-06-15 13:31 | disposition expired ==
LOC: MW.ED 00:43 → MW.MS 06:00
PROVIDERS: ADMIT Student in an Organized Health Care Education/Training Program; ATTEND Student in an Organized Health Care Education/Training Program
DX: A41.9 Sepsis, unspecified organism (principal); J98.8 Other specified respiratory disorders; J96.91 Respiratory failure, unspecified with hypoxia; I95.9 Hypotension, unspecified; R00.0 Tachycardia, unspecified; I11.0 Hypertensive heart disease with heart failure; I50.9 Heart failure, unspecified; I25.10 Atherosclerotic heart disease of native coronary artery without angina pectoris; Z20.822 Contact with and (suspected) exposure to COVID-19; E78.00 Pure hypercholesterolemia, unspecified; I25.2 Old myocardial infarction; J43.9 Emphysema, unspecified; E03.9 Hypothyroidism, unspecified; F03.90 Unspecified dementia, unspecified severity, without behavioral disturbance, psychotic disturbance, mood disturbance, and anxiety; Z66 Do not resuscitate; Z79.82 Long term (current) use of aspirin; Z79.890 Hormone replacement therapy; Z79.899 Other long term (current) drug therapy; Z95.2 Presence of prosthetic heart valve; Z96.641 Presence of right artificial hip joint; Z98.890 Other specified postprocedural states
CPT/HCPCS: 36415; 71045; 80053; 81003; 83605; 84484; 85025; 87040; 87804; A9270; J1885; J2270; J2405; J2543; J3370; J7030; J7120; U0002; 87077; 87186; 96365; 96366; 96367; 96375; 96376; 99285-25; G0378